=== PATIENT | male | born 1940 | race Caucasian/White ===

== ENCOUNTER 2017-11-21 15:03 | Observation (INO) ==
[2017-11-21 15:51] LABS: Bilirubin,Urine Negative (Negative); Blood,Urine Negative (Negative); Clarity,Urine Clear (Clear); Color,Urine Yellow (Yellow); Glucose,Urine (UA) Normal (Normal); Ketones,Urine Negative (Negative); Leukocyte Esterase,Urine Negative (Negative); Nitrite,Urine Negative (Negative); PH,Urine 5.5 pH Units (5.0-8.0); Protein,Urine Negative (Neg-Trace); Specific Gravity,Urine 1.017 (1.010-1.025); Urobilinogen,Urine Normal (Normal)
[2017-11-21 16:57] LABS: Basophils # 0.1 K/mcL (0.0-0.2); Basophils % 0.9 %; Eosinophils # 0.2 K/mcL (0.0-0.6); Eosinophils % 1.5 %; Hematocrit 37.3 % (37.5-50.1); Hemoglobin 12.7 g/dL (12.9-16.9); Immature Granulocytes % 0.9 % (0-4); Lymphocytes # 1.6 K/mcL (0.6-4.6); Lymphocytes % 15.6 %; Mean Corpuscular Hemoglobin 30.6 pg (28.0-33.3); Mean Corpuscular Volume 89.9 fL (83.0-100.0); Mean Platelet Volume 9.3 fL (9.4-12.4); Monocytes # 0.6 K/mcL (0.0-1.3); Monocytes % 6.3 %; Neutrophils # 7.5 K/mcL (1.6-8.9); Platelet Count 196 K/mcL (140-400); Red Blood Count 4.15 M/mcL (4.19-5.50); Red Cell Distribution Width 13.2 % (11.5-14.5); Segmented Neutrophils % 74.8 %
[2017-11-21 17:07] LABS: Calcium 9.4 mg/dL (8.6-10.3); Carbon Dioxide 23 mEq/L (23-29); Chloride 108 mEq/L (98-107); Sodium 138 mEq/L (136-145)
[2017-11-21 17:12] LABS: BUN/Creatinine Ratio 15 (6-26); Blood Urea Nitrogen 16 mg/dL (8-23); Glucose 81 mg/dL (70-105); Osmolality,Calculated 286 (280-300); eGFR For African Americans > 60 (> 60); eGFR For Non-African Americans > 60 (> 60)
--- NOTE | 2017-11-21 21:05 | Emergency Department Note ---
Disposition Clinical Impression: Neurological deficit present, Dizziness Disposition: Admitted As Inpatient Condition: Fair Referrals: Mj Hooks MD [Primary Care Provider] - General Adult HPI - General Chief complaint: ED Weakness Stated complaint: Weakness BLE Source: patient, family Limitations: no limitations Nursing Notes Reviewed: Yes Vital Signs Reviewed: Yes - History of Present Illness HPI Narrative: Patient presents to the emergency department for lower extremity weakness. Patient states symptoms have been going on for little over a week as he has had difficulty with getting around. 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 The patient states that with his weakness he has been having frequent falls. The patient states that he has a hard time getting up to get around as he requires significant balancing on the crain or furniture. Patient states over the last 3 days he has had dizziness. He is blind so he states that he is unable to further describe it but he describes it as feeling off balance. He does describe some near syncopal episodes with it as it is worse with him getting up to get around and when he gets up and his legs become significantly weak. The patient requires home oxygen secondary to previous episode of pneumonia that he states he never fully recovered from. He does use at home inhalers. Patient has not had chest pain or shortness of breath. Patient does not complain of any significant pain. The weakness has not been ascending or descending in nature. No recent respiratory illnesses or other. On exam the patient has a right-sided nystagmus and the right leg is weak as it falls back to the bed within about 5 seconds. The left leg he is able to keep elevated off the bed. At this time the patient had initial screening blood work performed in triage. Blood work is unremarkable. Due to the patient's neuro findings as well as significant falls at home we will perform head CT. The patient will likely need admission for further neurologic evaluation as well as physical therapy. Pain Scale: 0 - Related Data Home Medications Medication Instructions Recorded Confirmed Albuterol Sulfate [Albuterol 1 - 2 puff AER Q6HR 01/18/17 03/21/17 Inhaler] Aspirin [Lo-Dose Aspirin EC] 81 mg PO DAILY 01/18/17 03/21/17 Atorvastatin Calcium [Lipitor] 80 mg PO DAILY 01/18/17 03/21/17 Doxepin [Sinequan] 25 mg PO HS 01/18/17 03/21/17 Fenofibrate [Lofibra] 160 mg PO DAILY 01/18/17 03/21/17 Finasteride [Proscar] 5 mg PO DAILY 01/18/17 03/21/17 Furosemide [Lasix] 20 mg PO DAILY 01/18/17 03/21/17 Mirtazapine [Remeron] 60 mg PO HS 01/18/17 03/21/17 OXcarbazepine [Trileptal] 150 mg PO BID 01/18/17 03/21/17 Pantoprazole Sodium [Protonix] 40 mg PO DAILY 01/18/17 03/21/17 Potassium Chloride [K-Tab ER] 20 meq PO DAILY 01/18/17 03/21/17 Quetiapine Fumarate [Seroquel] 200 mg PO DAILY 01/18/17 03/21/17 Tamsulosin [Flomax] 0.4 mg PO DAILY 01/18/17 03/21/17 amLODIPine [Norvasc] 10 mg PO DAILY 01/18/17 03/21/17 Previous Rx's Medication Instructions Recorded Doxycycline 100 mg PO BID #20 capsule 09/06/17 Allergies Allergy/AdvReac Type Severity Reaction Status Date / Time Penicillins AdvReac Blister Verified 11/21/17 15:24 Review of Systems: CONSTITUTIONAL: No weight loss, fever, chills, weakness or fatigue. HEENT: Eyes: No visual changes. Ears, Nose, Throat: No hearing loss, difficulty talking or unable to swallow. SKIN: No rash or itching. CARDIOVASCULAR: No chest pain, chest pressure or chest discomfort. No palpitations or edema. RESPIRATORY: No shortness of breath, cough or sputum. GASTROINTESTINAL: No anorexia, nausea, vomiting or diarrhea. No abdominal pain or blood. GENITOURINARY: No burning on urination or hematuria. NEUROLOGICAL: Left leg weakness, dizziness, near syncope, frequent falls MUSCULOSKELETAL: No muscle pain, back pain, joint pain or stiffness. Past Medical History - Past Medical History Medical history: Reports: cancer, diabetes, hyperlipidemia, hypertension - Social History Smoking Status: Never smoker Smokeless Tobacco Status: No Alcohol use: Reports: none Drug use: Reports: none Physical Exam General: Well appearing, nontoxic, no acute distress Head: Normocephalic Atraumatic Eyes: PERRL, EOMI ENT: Airway patent, no stridor Neck: supple, no meningismus Chest: Lungs clear to auscultation bilateral Cardiac: Regular rate and rhythm, no murmurs, rubs or gallops Abdomen: soft, nontender, nondistended; no guarding, rebound, or tenderness to percussion Musculoskeletal: Calves symmetric, nontender, no palpable cord Skin: No rash, normal skin tone Neuro: Alert and Oriented to person, place, and time; right leg weakness compared to the left. Left-sided nystagmus. Patient blind in both eyes. Concern for right-sided facial droop. No other noted deficits. - General Limitations: no limitations General appearance: alert Course - Reevaluation(s) Reevaluation #1: CT negative. Patient will need further evaluation for stroke and dizziness. - Consultations Consultation #1: Discussed with hospitalist. Dr. Lane. Patient accepted for admission. Vital Signs Temperature 97.6 F 11/21/17 15:19 Pulse Rate 80 11/21/17 15:19 Respiratory Rate 18 11/21/17 15:19 Blood Pressure 138/70 11/21/17 15:19 O2 Sat by Pulse Oximetry 96 11/21/17 15:19 Temperature 97.6 F 11/21/17 15:19 Pulse Rate 71 11/21/17 19:21 Respiratory Rate 20 11/21/17 19:21 Blood Pressure 153/65 11/21/17 19:21 O2 Sat by Pulse Oximetry 98 11/21/17 19:21 Oxygen Delivery Oxygen Delivery Nasal Cannula Medical Decision Making - Lab Data Result diagrams: 11/21/17 16:28 11/21/17 16:28 Lab Results 11/21/17 11/21/17 11/21/17 Range/Units 15:40 16:28 16:28 WBC 10.0 (4.3-11.1) K/mcL RBC 4.15 L (4.19-5.50) M/mcL Hgb 12.7 L (12.9-16.9) g/dL Hct 37.3 L (37.5-50.1) % MCV 89.9 (83.0-100.0) fL MCH 30.6 (28.0-33.3) pg MCHC 34.0 (31.6-35.5) g/dL RDW 13.2 (11.5-14.5) % Plt Count 196 (140-400) K/mcL MPV 9.3 L (9.4-12.4) fL Immature Gran % 0.9 (0-4) % Seg Neutrophils % 74.8 % Lymphocytes % 15.6 % Monocytes % 6.3 % Eosinophils % 1.5 % Basophils % 0.9 % Neutrophils # 7.5 (1.6-8.9) K/mcL Lymphocytes # 1.6 (0.6-4.6) K/mcL Monocytes # 0.6 (0.0-1.3) K/mcL Eosinophils # 0.2 (0.0-0.6) K/mcL Basophils # 0.1 (0.0-0.2) K/mcL Sodium 138 (136-145) mEq/L Potassium 4.0 (3.5-5.1) mEq/L Chloride 108 H (98-107) mEq/L Carbon Dioxide 23 (23-29) mEq/L BUN 16 (8-23) mg/dL Creatinine 1.05 (0.70-1.30) mg/dL Est GFR ( Amer) > 60 (> 60) Est GFR (Non-Af Amer) > 60 (> 60) BUN/Creatinine Ratio 15 (6-26) Glucose 81 (70-105) mg/dL Calculated Osmolality 286 (280-300) Calcium 9.4 (8.6-10.3) mg/dL Troponin I (< 0.04) ng/mL Urine Color Yellow (Yellow) Urine Clarity Clear (Clear) Urine pH 5.5 (5.0-8.0) pH Units Ur Specific [place] 1.017 (1.010-1.025) Urine Protein Negative (Neg-Trace) mg/dL Urine Glucose (UA) Normal (Normal) mg/dL Urine Ketones Negative (Negative) mg/dL Urine Blood Negative (Negative) Urine Nitrite Negative (Negative) Urine Bilirubin Negative (Negative) Urine Urobilinogen Normal (Normal) mg/dL Ur Leukocyte Esterase Negative (Negative) Ur Culture Indicated? NO (NO) 11/21/17 Range/Units 16:28 WBC (4.3-11.1) K/mcL RBC (4.19-5.50) M/mcL Hgb (12.9-16.9) g/dL Hct (37.5-50.1) % MCV (83.0-100.0) fL MCH (28.0-33.3) pg MCHC (31.6-35.5) g/dL RDW (11.5-14.5) % Plt Count (140-400) K/mcL MPV (9.4-12.4) fL Immature Gran % (0-4) % Seg Neutrophils % % Lymphocytes % % Monocytes % % Eosinophils % % Basophils % % Neutrophils # (1.6-8.9) K/mcL Lymphocytes # (0.6-4.6) K/mcL Monocytes # (0.0-1.3) K/mcL Eosinophils # (0.0-0.6) K/mcL Basophils # (0.0-0.2) K/mcL Sodium (136-145) mEq/L Potassium (3.5-5.1) mEq/L Chloride (98-107) mEq/L Carbon Dioxide (23-29) mEq/L BUN (8-23) mg/dL Creatinine (0.70-1.30) mg/dL Est GFR ( Amer) (> 60) Est GFR (Non-Af Amer) (> 60) BUN/Creatinine Ratio (6-26) Glucose (70-105) mg/dL Calculated Osmolality (280-300) Calcium (8.6-10.3) mg/dL Troponin I < 0.03 (< 0.04) ng/mL Urine Color (Yellow) Urine Clarity (Clear) Urine pH (5.0-8.0) pH Units Ur Specific [place] (1.010-1.025) Urine Protein (Neg-Trace) mg/dL Urine Glucose (UA) (Normal) mg/dL Urine Ketones (Negative) mg/dL Urine Blood (Negative) Urine Nitrite (Negative) Urine Bilirubin (Negative) Urine Urobilinogen (Normal) mg/dL Ur Leukocyte Esterase (Negative) Ur Culture Indicated? (NO)
--- NOTE | 2017-11-21 21:20 | Emergency Department Note ---
START Narrative - START START: I examined this patient and my medical decision-making was reviewed with the Resident Physician. I agree with the documented findings, disposition and treatment plan as described except to the extent set forth below. 77-year-old male presented to the emergency room for lower extremity weakness. Onset over the past week or so. He is blind from previous strokes. States is been feeling off balance at times and somewhat dizzy. He has no focal motor or sensory deficits on exam. CT of the brain was nonacute. Patient will be admitted for weakness and workup of that. At this time he looks well. No significant lab abnormalities. We did speak with the hospitalist in regards to admission.
[2017-11-22] MEDS ORDERED: Naloxone 0.4 MG/ML INJ IVP PRN (00:45)
[2017-11-22] MEDS ORDERED: *HR* LORazepam 0.5 MG TABLET PO PRN (00:52)
[2017-11-22] MEDS: Mirtazapine 15 MG TABLET PO SCH ×2 (01:30→21:21)
[2017-11-22] MEDS ORDERED: D5% in Water 1,000 ML IVC PRN (01:52)
[2017-11-22] MEDS ORDERED: Dextrose Gel 15 GM/37.5 ML TUBE PO PRN ×2 (01:52)
[2017-11-22] MEDS ORDERED: *HR* Dextrose 50 % in Water (Syg) 50 ML SYRINGE IVP PRN (01:52)
--- NOTE | 2017-11-22 03:24 | Internal Med History&Physical ---
Date of Encounter: 11/22/17 Time of Encounter: 00:10 Assessment and Plan (1) Weakness Current visit: Yes Status: Acute Pt has weakness of b/l legs with difficult walking, gait change, need to r/o CVA. - Place pt on MRI head in AM - Cont cardiac monitoring - Echo and duplex carotid - Orthostatic vitals. - PT/OT evaluation. - Check TSH, Vit B12, and folate (2) CAD (coronary artery disease) Current visit: Yes Status: Acute No chest pain. Cont home meds. Qualifiers: Coronary Disease-Associated Artery/Lesion type: bypass graft [place] vs. transplanted heart: [place] heart Associated angina: without angina Qualified Code(s): I25.810 - Atherosclerosis of coronary artery bypass graft(s) without angina pectoris (3) Diabetes Current visit: Yes Status: Acute Will cover pt with SSI Qualifiers: Diabetes mellitus type: type 2 Diabetes mellitus complication status: without complication Diabetes mellitus care home insulin use: without intermediate card tender use Qualified Code(s): E11.9 - Type 2 diabetes mellitus without complications (4) DVT prophylaxis Current visit: Yes Status: Acute Heparin SC Internal Medicine - H&P: HPI Chief complaint: Weakness Admitted From: Home Plans for Post Hospital Care: Home History of present illness: Mr. Treadwell is a 77 year old male with PMH of DM, chronic lung disease on home oxygen, CAD s/p CABG, legally blind b/l, present to ER for leg weakness for two days. Pt said it is b/l weakness which causing he cannot stand up or walk. Pt easily loss balance and almost fall. Pt has mild lightheaded and dizziness. He also c/o mild nausea. Pt denies slurred speech. He denies fever, cough, chest pain, SOB, or runny nose. In ER, CT head done, result unremarkable. Pt was admitted to r/o CVA/TIA Past Med Surg Social Fam HX - Past Medical History Medical history: diabetes, hyperlipidemia, hypertension Psychiatric history: anxiety, depression - Past Surgical History Surgical History: cataract, colectomy - Social History Smoking Status: Never smoker Smokeless Tobacco Status: No Alcohol use: none Drug use: none - Family History Father Living Status: Cause of : Leukemia Hx Family Cancer: Yes (Leukemia) Sister Living Status: Hx Family Cancer: Yes (Skin Ca. with mets) Mother Living Status: Hx Family Cardiac Disorders: Yes (CAD) Internal Medicine - H&P: Meds Albuterol Sulfate [Albuterol Inhaler] 1 - 2 puff IH Q6HR PRN 01/18/17 [History] Aspirin [Lo-Dose Aspirin EC] 81 mg PO DAILY 01/18/17 [History] Atorvastatin Calcium [Lipitor] 80 mg PO HS 01/18/17 [History] Doxepin [Sinequan] 25 mg PO HS 01/18/17 [History] Fenofibrate [Lofibra] 160 mg PO DAILY 01/18/17 [History] Finasteride [Proscar] 5 mg PO DAILY 01/18/17 [History] Furosemide [Lasix] 20 mg PO DAILY 01/18/17 [History] OXcarbazepine [Trileptal] 150 mg PO BID 01/18/17 [History] Pantoprazole Sodium [Protonix] 40 mg PO DAILY 01/18/17 [History] Potassium Chloride [K-Tab ER] 20 meq PO BID 01/18/17 [History] Quetiapine Fumarate [Seroquel] 200 mg PO HS 01/18/17 [History] Tamsulosin [Flomax] 0.4 mg PO DAILY 01/18/17 [History] Amlodipine Besylate 10 mg PO DAILY 11/21/17 [History] Brimonidine Tartrate [Alphagan P] 1 drop OP BID 11/21/17 [History] Cholecalciferol (D-3) [Vitamin D] 1,000 unit PO DAILY 11/21/17 [History] Glimepiride [Amaryl] 1 mg PO QAM 11/21/17 [History] LORazepam [Ativan] 0.5 mg PO BID PRN 11/21/17 [History] Linagliptin [Tradjenta] 5 mg PO DAILY 11/21/17 [History] Melatonin 6 mg PO HS 11/21/17 [History] Mirtazapine [Remeron] 45 mg PO HS 11/21/17 [History] Multivitamin [One Daily Essential] 1 each PO DAILY 11/21/17 [History] Oxygen 3 l NS AD 11/21/17 [History] 3 Allergy/AdvReac Type Severity Reaction Status Date / Time oxybutynin [From Ditropan] AdvReac See Verified 11/21/17 22:23 Comments Penicillins AdvReac Blister Verified 11/21/17 15:24 All Systems PM: A 10-system review of systems was performed and is negative for pertinent findings except as documented above in the HPI. - Constitutional Vitals: Temp Pulse Resp BP Pulse Ox 98.1 F 74 16 165/72 96 11/21/17 22:44 11/21/17 22:44 11/21/17 22:44 11/21/17 22:44 11/22/17 00:15 General appearance: Present: A&O X 3, no acute distress, answers questions appropriately - Head Head exam: Present: atraumatic, normocephalic - Eye Eye exam: Present: conjuntiva pink, sclera anicteric Additional comments: Legally blind b/l - Neck Neck exam general surgery: Present: supple, trachea midline. Absent: lymphadenopathy - Respiratory Respiratory exam: Present: CTAB. Absent: accessory muscle use, rales, rhonchi, wheezes - Cardiovascular Cardiovascular exam: Present: RRR, +S1, +S2. Absent: diastolic murmur, gallop, rubs, systolic murmur - GI/Abdominal GI/Abdominal exam: Present: normal bowel sounds, soft, no peritoneal signs. Absent: distended, tenderness Additional comments: Colestomy bag in place - Extremities Exam Extremities exam: Present: warm, radial pulses palpable and symmetrical. Absent : calf tenderness, cyanotic, pedal edema - Neurological Exam Neurological exam: Present: CN II-XII intact, oriented X3, no focal deficits. Absent: pronater drift, facial droop, speech deficit Additional comments: Motor 5/5 B/L UE, 4/5 B/L LE - Skin Skin exam: Present: dry, intact Internal Med - H&P Results - Labs CBC & Chem 7: 11/21/17 16:28 11/21/17 16:28 - EKG Data -: EKG Interpreted by Myself (RENATO) EKG shows normal: sinus rhythm Rate: normal
[2017-11-22] MEDS: *HR* Heparin 5,000 UNIT/ML VIAL SQ SCH ×2 (05:23→17:32)
[2017-11-22 05:25] LABS: Basophils # 0.1 K/mcL (0.0-0.2); Basophils % 0.9 %; Eosinophils # 0.2 K/mcL (0.0-0.6); Eosinophils % 2.5 %; Hematocrit 35.6 % (37.5-50.1); Hemoglobin 12.1 g/dL (12.9-16.9); Immature Granulocytes % 0.9 % (0-4); Lymphocytes # 1.4 K/mcL (0.6-4.6); Lymphocytes % 17.3 %; Mean Corpuscular Hemoglobin 30.3 pg (28.0-33.3); Mean Corpuscular Volume 89.2 fL (83.0-100.0); Mean Platelet Volume 9.1 fL (9.4-12.4); Monocytes # 0.5 K/mcL (0.0-1.3); Monocytes % 6.1 %; Neutrophils # 5.8 K/mcL (1.6-8.9); Platelet Count 192 K/mcL (140-400); Red Blood Count 3.99 M/mcL (4.19-5.50); Red Cell Distribution Width 13.1 % (11.5-14.5); Segmented Neutrophils % 72.3 %
[2017-11-22 06:00] LABS: BUN/Creatinine Ratio 15 (6-26); Blood Urea Nitrogen 16 mg/dL (8-23); Calcium 9.2 mg/dL (8.6-10.3); Carbon Dioxide 24 mEq/L (23-29); Chloride 107 mEq/L (98-107); Glucose 93 mg/dL (70-105); Magnesium 1.6 mg/dL (1.6-2.6); Osmolality,Calculated 291 (280-300); Potassium 4.1 mEq/L (3.5-5.1); Sodium 140 mEq/L (136-145); eGFR For African Americans > 60 (> 60); eGFR For Non-African Americans > 60 (> 60)
[2017-11-22 06:12] LABS: Vitamin B12 441 pg/mL (250-1100)
[2017-11-22 06:35] LABS: Folate > 22.3 ng/mL (3.0-16.0)
[2017-11-22] MEDS: Insulin LISPRO 300 UNITS/3 ML VIAL SQ SCH ×4 (07:48→21:33)
[2017-11-22] MEDS: Finasteride 5 MG TABLET PO SCH (07:56)
[2017-11-22] MEDS: Multivit/Ca/Min/Fe/FA 1 TAB TABLET PO SCH (07:56)
[2017-11-22] MEDS: amLODIPine 5 MG TABLET PO SCH (07:56)
[2017-11-22] MEDS: Furosemide 20 MG TABLET PO SCH (07:57)
[2017-11-22] MEDS: OXcarbazepine 150 MG TABLET PO SCH ×2 (07:57→21:21)
[2017-11-22] MEDS: Cholecalciferol (D-3) 1,000 UNIT TABLET PO SCH (07:57)
[2017-11-22] MEDS: Aspirin Enteric Coated 81 MG Tablet PO SCH (07:57)
[2017-11-22] MEDS: Fenofibrate 54 MG TABLET PO SCH (07:58)
--- NOTE | 2017-11-22 17:43 | Internal Med Progress Note ---
Date of Encounter: 11/22/17 Time of Encounter: 09:35 - Assessment and plan (1) CAD (coronary artery disease) Current Visit: Yes Status: Chronic Assessment and plan: Patient denies chest pain. Continue telemetry. Continue aspirin, Lipitor, amlodipine. Qualifiers: Coronary Disease-Associated Artery/Lesion type: bypass graft [place] vs. transplanted heart: [place] heart Associated angina: without angina Qualified Code(s): I25.810 - Atherosclerosis of coronary artery bypass graft(s) without angina pectoris (2) DVT prophylaxis Current Visit: Yes Status: Acute Assessment and plan: Heparin subcutaneous twice a day. (3) Diabetes Current Visit: Yes Status: Acute Assessment and plan: Chronic. Continue sliding scale insulin, Accu-Cheks before meals at bedtime, diabetic diet. Qualifiers: Diabetes mellitus type: type 2 Diabetes mellitus complication status: without complication Diabetes mellitus exterminator helper insulin use: without exterminator helper use Qualified Code(s): E11.9 - Type 2 diabetes mellitus without complications (4) Weakness Current Visit: Yes Status: Acute Assessment and plan: Patient presented to the emergency department for sudden onset bilateral leg weakness, onset 11/20 upon awakening. Patient reports that he went to bed at 11 or 11:30 the night before and was fine you denies any other symptoms like this in the past. Patient reported at the time he was unable to stand up and walk, and was "wobbly". Patient initially reported to the admitting physician and he had lightheadedness and dizziness, he denied this to me today. He denies a change in his speech, fever, cough, chills, rigors. He denies any chest pain or shortness of breath. Denies any sick contacts recently. Patient was strong and equal grasps and strength to bilateral upper and lower extremities. Echocardiogram was grossly normal LV systolic function, mild LV DD, no significant valvular dysfunction. Patient was unable to remain still for carotid Doppler, but could not exclude occlusion of right ICA due to visualization. Left ICA appeared to be occluded but it was difficult to visualize due to patient's noncooperation. Still pending. We will order head and neck CTA. Head CT without any acute intracranial abnormality. Chest x-ray was negative for any acute findings. Brain MRI revealed mild chronic small vessel ischemic changes, remote right frontal infarct and no acute. PT and OT missed visits recorded today. PTOT consults still pending. Suspect patient has overall physical deconditioning. Labs are stable and within normal limits. Vital signs are stable. There does not appear to be any neurological reason for his sudden onset weakness. Head and neck CTA pending PT OT pending Follow-up precautions and monitor for safety Labs pending - Time Spent With Patient less than 15 minutes - Subjective Interval history: Patient was seen and assessed at bedside at 9:35 AM. Patient is blind, sinus at bedside. All questions were answered. Patient reports sudden onset weakness and inability to stand on Saturday morning, 2 days ago. He has never had anything like this in the past. He reports that he went to bed around 11 or 11:30 PM on Saturday night and was fine. Patient reports that he does have home health, as well as nursing assistants who comes to help. Patient's strength appears to be within normal limits in both bilateral upper and lower extremities. He denies any headache, blurred vision, dizziness, nausea or vomiting, abdominal pain. Both patient and son are aware that this testing will not be done today and he will need to stay overnight for continued evaluation. - Constitutional Vitals: Temp Pulse Resp BP Pulse Ox 98.2 F 65 16 133/66 98 11/22/17 15:16 11/22/17 15:16 11/22/17 15:16 11/22/17 15:16 11/22/17 15:16 General appearance: Present: cooperative, A&O X 3, no acute distress, answers questions appropriately - Head Head exam: Present: atraumatic, normal inspection, normocephalic - Eye Eye exam: Present: normal appearance, conjuntiva pink, sclera anicteric - Neck Neck exam general surgery: Present: supple, trachea midline. Absent: lymphadenopathy, tenderness - Respiratory Respiratory exam: Present: CTAB. Absent: accessory muscle use, chest wall tenderness, rales, respiratory distress, rhonchi, wheezes - Cardiovascular Cardiovascular exam: Present: RRR, +S1, +S2. Absent: diastolic murmur, gallop, rubs, systolic murmur - GI/Abdominal GI/Abdominal exam: Present: normal bowel sounds, soft, no peritoneal signs. Absent: distended, hepatomegaly, tenderness - Extremities Exam Extremities exam: Present: normal capillary refill, warm, radial pulses palpable and symmetrical. Absent: calf tenderness, cyanotic, pedal edema, tenderness - Neurological Exam Neurological exam: Present: alert, oriented X3, no focal deficits. Absent: facial droop, speech deficit - Skin Skin exam: Present: dry, intact, normal color, warm. Absent: rash Internal Medicine: Result - Labs CBC & Chem 7: 11/22/17 05:01 11/22/17 05:01 Labs: Short CBC 11/22/17 Range/Units 05:01 WBC 8.0 (4.3-11.1) K/mcL Hgb 12.1 L (12.9-16.9) g/dL Hct 35.6 L (37.5-50.1) % Plt Count 192 (140-400) K/mcL Neutrophils # 5.8 (1.6-8.9) K/mcL BMP 11/22/17 05:01 Sodium 140 Potassium 4.1 Chloride 107 Carbon Dioxide 24 BUN 16 Creatinine 1.05 Glucose 93 Calcium 9.2 - Impressions Impressions Brain MRI 11/22/17 00:55 IMPRESSION: 1. No acute intracranial process identified. 2. Mild chronic small vessel ischemic changes. 3. Remote right frontal infarct. D/ / 11/22/2017 11:21:37 Leonel Joseph MD / [facility] Interpreting Provider: Leonel Joseph MD Echocardiogram 11/22/17 00:55 Impressions: Technically challenging due to clinical status. Grossly normal LV systolic function. Mild left ventricular diastolic dysfunction. RV size is not optimally visualized. Function appears normal but is not visualized in all views provided. No significant valvular dysfunction. No pulmonary hypertension. Left Ventricular Wall Motion: Rest Echo Findings The apex, apical inferior, mid inferior, basal inferior, apical anterior, mid anterior, basal anterior, mid inferior lateral and basal anterior septal crain were not visualized. All other wall segments showed normal motion. Findings: Study Quality * Technically challenging due to clinical status. * Saline study not done - patient agitated during exam. ECG Findings * Normal sinus rhythm. Left Ventricle * Grossly normal LV systolic function. * Mild left ventricular diastolic dysfunction. * Normal LV size and wall thickness. Right Ventricle * RV size is not optimally visualized. Function appears normal but is not visualized in all views provided. Left Atrium * Mildly dilated left atrium. Right Atrium * Normal right atrial size. Aortic Valve * No aortic regurgitation. * No aortic stenosis. * Aortic valve not well visualized. Mitral Valve * No mitral regurgitation. * Normal mitral valve structure. * No mitral stenosis. Tricuspid Valve * Tricuspid valve not well visualized. * No tricuspid regurgitation. Pulmonic Valve * Pulmonic valve is not well visualized. * No pulmonic stenosis. * No pulmonic regurgitation. Pulmonary Artery * Pulmonary artery not well visualized. Aorta * Suboptimally visualized. Interatrial Septum * No evidence of PFO by color Doppler. Pericardium * There is no pericardial effusion present. IVC * The IVC is not well evaluated. Consult Discharge Plan - Plan Referrals: [facility] – [place],Mj Alas MD [Primary Care Provider] - 12/03/17 11:00 am
[2017-11-22] MEDS: Melatonin 3 MG TABLET PO SCH (21:21)
[2017-11-23] MEDS: *HR* Heparin 5,000 UNIT/ML VIAL SQ SCH ×2 (05:20→16:27)
[2017-11-23] MEDS: Insulin LISPRO 300 UNITS/3 ML VIAL SQ SCH ×4 (07:45→21:26)
[2017-11-23] MEDS: amLODIPine 5 MG TABLET PO SCH (08:13)
[2017-11-23] MEDS: Multivit/Ca/Min/Fe/FA 1 TAB TABLET PO SCH (08:13)
[2017-11-23] MEDS: Cholecalciferol (D-3) 1,000 UNIT TABLET PO SCH (08:13)
[2017-11-23] MEDS: Aspirin Enteric Coated 81 MG Tablet PO SCH (08:13)
[2017-11-23] MEDS: OXcarbazepine 150 MG TABLET PO SCH ×2 (08:13→21:20)
[2017-11-23] MEDS: Finasteride 5 MG TABLET PO SCH (08:13)
[2017-11-23] MEDS: Furosemide 20 MG TABLET PO SCH (08:14)
[2017-11-23] MEDS: Fenofibrate 54 MG TABLET PO SCH (08:18)
--- NOTE | 2017-11-23 14:47 | Internal Med Progress Note ---
Date of Encounter: 11/23/17 Time of Encounter: 09:05 - Assessment and plan (1) CAD (coronary artery disease) Current Visit: Yes Status: Chronic Assessment and plan: Patient denies chest pain. Continue telemetry. Continue aspirin, Lipitor, amlodipine. Started Plavix 75mg po daily today. Qualifiers: Coronary Disease-Associated Artery/Lesion type: bypass graft [place] vs. transplanted heart: [place] heart Associated angina: without angina Qualified Code(s): I25.810 - Atherosclerosis of coronary artery bypass graft(s) without angina pectoris (2) Diabetes Current Visit: Yes Status: Acute Assessment and plan: Chronic. Continue sliding scale insulin, Accu-Cheks before meals at bedtime, diabetic diet. 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 Patient reports that he went to bed at 11 or 11:30 the night before and was fine you denies any other symptoms like this in the past. Patient reported at the time he was unable to stand up and walk, and was "wobbly". Patient initially reported to the admitting physician and he had lightheadedness and dizziness, he denied this to me today. He denies a change in his speech, fever, cough, chills, rigors. He denies any chest pain or shortness of breath. Denies any sick contacts recently. Patient has strong and equal grasps and strength to bilateral upper and lower extremities. TTE: grossly normal LV systolic function, mild LV DD, no significant valvular dysfunction. Patient was unable to remain still for carotid Doppler, but could not exclude occlusion of right ICA due to visualization. Left ICA appeared to be occluded but it was difficult to visualize due to patient's noncooperation. Head CT without any acute intracranial abnormality. Chest x-ray was negative for any acute findings. Brain MRI revealed mild chronic small vessel ischemic changes, remote right frontal infarct and no acute. 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 There is 40% focal stenosis at the origin of the right common carotid artery. Suspect patient has overall physical deconditioning. Labs are stable and within normal limits. Vital signs are stable. There does not appear to be any neurological reason for his sudden onset weakness. No PT/OT needs Fall precautions and monitor for safety Start Plavix 75mg po daily D/w Vascular, no suggestions and pt is not candidate for intervention. (4) DVT prophylaxis Current Visit: Yes Status: Acute Assessment and plan: Heparin subcutaneous twice a day. Encourage ambulation - Time Spent With Patient less than 15 minutes - Subjective Interval history: Patient was seen and assessed at bedside at 9:05 AM. All questions were answered. He denies any headache, blurred vision, dizziness, nausea or vomiting, abdominal pain. He reports that he feels like he is back to his baseline and wants to get up to walk today. - Constitutional Vitals: Temp Pulse Resp BP Pulse Ox 97.7 F 64 16 127/65 99 11/23/17 11:38 11/23/17 11:38 11/23/17 11:38 11/23/17 11:38 11/23/17 11:38 General appearance: Present: cooperative, A&O X 3, no acute distress, answers questions appropriately - Head Head exam: Present: atraumatic, normal inspection, normocephalic - Eye Eye exam: Present: normal appearance, conjuntiva pink, sclera anicteric - Neck Neck exam general surgery: Present: normal inspection, supple, trachea midline. Absent: lymphadenopathy, tenderness - Respiratory Respiratory exam: Present: CTAB. Absent: accessory muscle use, chest wall tenderness, rales, rhonchi, wheezes - Cardiovascular Cardiovascular exam: Present: RRR, +S1, +S2. Absent: diastolic murmur, gallop, rubs, systolic murmur - GI/Abdominal GI/Abdominal exam: Present: normal bowel sounds, soft. Absent: distended, hepatomegaly, tenderness - Extremities Exam Extremities exam: Present: normal capillary refill, warm, radial pulses palpable and symmetrical. Absent: calf tenderness, cyanotic, pedal edema, tenderness - Neurological Exam Neurological exam: Present: alert, oriented X3, no focal deficits, strengths equal and symetr throughout. Absent: facial droop, speech deficit - Skin Skin exam: Present: dry, intact, normal color, warm. 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 The intracranial anterior circulation is likely supplied by the vertebrobasilar arteries. 40% focal stenosis at the origin of the right common carotid artery. The results were called by Dr. Kendall Chiu MD to [employer] . Zoie Dudley on 11/23/2017 at 13:25. D/ / Kendall Chiu MD / Kendall Chiu MD Interpreting Provider: Kendall Chiu MD Consult Discharge Plan - Plan Referrals: Mj Hooks MD [Primary Care Provider] - 12/03/17 11:00 am
[2017-11-23] MEDS: Acetaminophen 325 MG TABLET PO PRN (20:34)
[2017-11-23] MEDS: Mirtazapine 15 MG TABLET PO SCH (21:19)
[2017-11-23] MEDS: Melatonin 3 MG TABLET PO SCH (21:20)
[2017-11-24] MEDS: *HR* Heparin 5,000 UNIT/ML VIAL SQ SCH ×2 (05:01→17:15)
[2017-11-24] MEDS: Insulin LISPRO 300 UNITS/3 ML VIAL SQ SCH ×4 (07:23→21:06)
[2017-11-24] MEDS: OXcarbazepine 150 MG TABLET PO SCH ×2 (08:06→21:05)
[2017-11-24] MEDS: Cholecalciferol (D-3) 1,000 UNIT TABLET PO SCH (08:06)
[2017-11-24] MEDS: Fenofibrate 54 MG TABLET PO SCH (08:06)
[2017-11-24] MEDS: Multivit/Ca/Min/Fe/FA 1 TAB TABLET PO SCH (08:06)
[2017-11-24] MEDS: amLODIPine 5 MG TABLET PO SCH (08:07)
[2017-11-24] MEDS: Aspirin Enteric Coated 81 MG Tablet PO SCH (08:07)
[2017-11-24] MEDS: Furosemide 20 MG TABLET PO SCH (08:07)
[2017-11-24] MEDS: Finasteride 5 MG TABLET PO SCH (08:09)
--- NOTE | 2017-11-24 10:14 | Internal Med Progress Note ---
Date of Encounter: 11/24/17 Time of Encounter: 08:20 - Assessment and plan (1) Weakness Current Visit: Yes Status: Acute Assessment and plan: Pt reports that he is back to baseline and is feeling well. He reports that he has ambulated in the hallway with assistance and that he did well yesterday. Noted slight RLE weakness today. TTE: grossly normal LV systolic function, mild LV DD, no significant valvular dysfunction. Patient was unable to remain still for carotid Doppler, but could not exclude occlusion of right ICA due to visualization. Left ICA appeared to be occluded but it was difficult to visualize due to patient's noncooperation. Head CT without any acute intracranial abnormality. Chest x-ray was negative for any acute findings. Brain MRI revealed mild chronic small vessel ischemic changes, remote right frontal infarct and no acute. 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 There is 40% focal stenosis at the origin of the right common carotid artery. Suspect patient has overall physical deconditioning. Labs are stable and within normal limits. Vital signs are stable. There does not appear to be any neurological reason for his sudden onset weakness. No PT/OT needs Fall precautions and monitor for safety Start Plavix 75mg po daily D/w Vascular, no suggestions and pt is not candidate for intervention. Neurology consulted, pending. (2) CAD (coronary artery disease) Current Visit: Yes Status: Chronic Assessment and plan: Continue telemetry. Continue aspirin, Lipitor, amlodipine. Started Plavix 75mg po daily today. Qualifiers: Coronary Disease-Associated Artery/Lesion type: bypass graft [place] vs. transplanted heart: [place] heart Associated angina: without angina Qualified Code(s): I25.810 - Atherosclerosis of coronary artery bypass graft(s) without angina pectoris (3) Diabetes Current Visit: Yes Status: Acute Assessment and plan: Chronic. Continue SSI, Accu-Cheks achs, diabetic diet. Qualifiers: Diabetes mellitus type: type 2 Diabetes mellitus complication status: without complication Diabetes mellitus usp insulin use: without usp use Qualified Code(s): E11.9 - Type 2 diabetes mellitus without complications (4) DVT prophylaxis Current Visit: Yes Status: Acute Assessment and plan: Heparin subcutaneous twice a day. Encourage ambulation with assistance. - Time Spent With Patient less than 15 minutes - Subjective Interval history: Patient was seen and assessed at bedside at 0820 AM. He denies any headache, blurred vision, dizziness, nausea or vomiting, abdominal pain. He reports that he feels like he is back to his baseline and wants to go home today. Pt is aware of pending neurology consult and of PT/OT consults still pending. He is disappointed, but agreeable to staying another night for PT/OT to be here tomorrow. - Constitutional Vitals: Temp Pulse Resp BP Pulse Ox 97.5 F L 76 16 177/75 100 11/24/17 08:46 11/24/17 08:46 11/24/17 08:46 11/24/17 08:46 11/24/17 08:46 General appearance: Present: cooperative, A&O X 3, pleasant, no acute distress, answers questions appropriately - Head Head exam: Present: atraumatic, normal inspection, normocephalic - Eye Eye exam: Present: conjuntiva pink, sclera anicteric. Absent: normal appearance - Neck Neck exam general surgery: Present: normal inspection, supple, trachea midline. Absent: lymphadenopathy, tenderness - Respiratory Respiratory exam: Present: CTAB. Absent: accessory muscle use, chest wall tenderness, rales, respiratory distress, rhonchi, wheezes - Cardiovascular Cardiovascular exam: Present: RRR, +S1, +S2. Absent: diastolic murmur, gallop, rubs, systolic murmur - GI/Abdominal GI/Abdominal exam: Present: normal bowel sounds, soft. Absent: distended, hepatomegaly, tenderness - Extremities Exam Extremities exam: Present: normal inspection, warm, radial pulses palpable and symmetrical. Absent: calf tenderness, cyanotic, pedal edema, tenderness - Neurological Exam Neurological exam: Present: alert, oriented X3, no focal deficits. Absent: strengths equal and symetr throughout, facial droop, speech deficit - Skin Skin exam: Present: dry, intact, normal color, warm. 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 The intracranial anterior circulation is likely supplied by the vertebrobasilar arteries. 40% focal stenosis at the origin of the right common carotid artery. The results were called by Dr. Kendall Chiu MD to [employer] Ms. Zoie Dudley on 11/23/2017 at 13:25. D/ / Kendall Chiu MD / Kendall Chiu MD Interpreting Provider: Kendall Chiu MD Consult Discharge Plan - Plan Referrals: Mj Hooks MD [Primary Care Provider] - 12/03/17 11:00 am
--- NOTE | 2017-11-24 11:18 | Electrocardiograph Report ---
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
--- NOTE | 2017-11-24 13:40 | Neurology - Consult Note ---
Date of Encounter: 11/24/17 Time of Encounter: 13:36 Assessment and Plan (1) Dizziness Current Visit: Yes Status: Acute At this juncture, unable to identify any specific etiology which might explain this presentation. His deficits were temporary, however really did not have any localizing factors. Might wonder whether not this could have been a TIA involving the posterior circulation versus a presyncopal mechanism, versus a labyrinthine mechanism. In regard and final focal or lateralized deficits on his neurologic examination a final evidence of diffuse weakness, spine no evidence of an underlying neuropathic process. MRI scan of the brain does not reveal evidence of acute infarct. Unfortunately, the bilateral internal carotid artery stenosis is not going to be surgically amendable. I would simply recommend Plavix 75 mg daily along with aggressive management of atherosclerotic risk factors. No further testing is necessary. I will reevaluate him at your request. History of Present Illness HPI: Mr. Treadwell is a 77 year old male who is seen for neurologic consultation secondary to imbalance. He has a history of chronic lung disease is legally blind and states that on the day of admission when he awakened and got out of bed he felt somewhat wobbly. He denied any headache denied any numbness tingling weakness of the face arms or legs. Denied any speech difficulties. Denied back pain denied leg pain. Denied any associated confusion. Denied any chest pain or heart palpitations. He states that he simply felt wobbly and it lasted for about 5 minutes or so. He does not seem to have had any focal or lateralized findings that he describes. He has had MRI scan of the brain reveals a scattered deep white matter hyperintensities. CTA of the neck reveals occlusion of both internal carotid arteries at their origins at the bilateral carotid bulbs. There is no mention of compromise of the posterior circulation. He now feels back to his normal baseline. Past Med Surg Social Fam HX - Past Medical History Medical history: diabetes, hyperlipidemia, hypertension Psychiatric history: anxiety, depression - Past Surgical History Surgical History: cataract, colectomy - Social History Smoking Status: Never smoker Smokeless Tobacco Status: No Alcohol use: none Drug use: none - Family History Father Living Status: Cause of : Leukemia Hx Family Cancer: Yes (Leukemia) Sister Living Status: Hx Family Cancer: Yes (Skin Ca. with mets) Mother Living Status: Hx Family Cardiac Disorders: Yes (CAD) Medications and Allergies Albuterol Sulfate [Albuterol Inhaler] 1 - 2 puff IH Q6HR PRN 01/18/17 [History] Aspirin [Lo-Dose Aspirin EC] 81 mg PO DAILY 01/18/17 [History] Atorvastatin Calcium [Lipitor] 80 mg PO HS 01/18/17 [History] Doxepin [Sinequan] 25 mg PO HS 01/18/17 [History] Fenofibrate [Lofibra] 160 mg PO DAILY 01/18/17 [History] Finasteride [Proscar] 5 mg PO DAILY 01/18/17 [History] Furosemide [Lasix] 20 mg PO DAILY 01/18/17 [History] OXcarbazepine [Trileptal] 150 mg PO BID 01/18/17 [History] Pantoprazole Sodium [Protonix] 40 mg PO DAILY 01/18/17 [History] Potassium Chloride [K-Tab ER] 20 meq PO BID 01/18/17 [History] Quetiapine Fumarate [Seroquel] 200 mg PO HS 01/18/17 [History] Tamsulosin [Flomax] 0.4 mg PO DAILY 01/18/17 [History] Amlodipine Besylate 10 mg PO DAILY 11/21/17 [History] Brimonidine Tartrate [Alphagan P] 1 drop OP BID 11/21/17 [History] Cholecalciferol (D-3) [Vitamin D] 1,000 unit PO DAILY 11/21/17 [History] Glimepiride [Amaryl] 1 mg PO QAM 11/21/17 [History] LORazepam [Ativan] 0.5 mg PO BID PRN 11/21/17 [History] Linagliptin [Tradjenta] 5 mg PO DAILY 11/21/17 [History] Melatonin 6 mg PO HS 11/21/17 [History] Mirtazapine [Remeron] 45 mg PO HS 11/21/17 [History] Multivitamin [One Daily Essential] 1 each PO DAILY 11/21/17 [History] Oxygen 3 l NS AD 11/21/17 [History] 3 Allergy/AdvReac Type Severity Reaction Status Date / Time oxybutynin [From Ditropan] AdvReac See Verified 11/21/17 22:23 Comments Penicillins AdvReac Blister Verified 11/21/17 15:24 All Systems: A 10-system review of systems was performed and is negative for pertinent findings except as documented above in the HPI. Review of Systems: 10 point review of systems is consistent with a history of present illness and is otherwise negative. Physical Examination - Vital Signs Vital Signs: Initial Vital Signs Temp Pulse Resp BP Pulse Ox 97.6 F 80 18 138/70 96 11/21/17 15:19 11/21/17 15:19 11/21/17 15:19 11/21/17 15:19 11/21/17 15:19 Results - Laboratory Findings CBC and BMP: 11/22/17 05:01 11/22/17 05:01 Abnormal lab findings: Abnormal lab results RBC 3.99 M/mcL (4.19-5.50) L 11/22/17 05:01 Hgb 12.1 g/dL (12.9-16.9) L 11/22/17 05:01 Hct 35.6 % (37.5-50.1) L 11/22/17 05:01 MPV 9.1 fL (9.4-12.4) L 11/22/17 05:01 POC Glucose 131 (58-89) H 11/23/17 20:28 Folate > 22.3 ng/mL (3.0-16.0) H 11/22/17 05:01 Consult Discharge Plan - Plan Referrals: Mj Hooks MD [Primary Care Provider] - 12/03/17 11:00 am
[2017-11-24] MEDS: Mirtazapine 15 MG TABLET PO SCH (21:05)
[2017-11-24] MEDS: Melatonin 3 MG TABLET PO SCH (21:06)
[2017-11-25] MEDS: Acetaminophen 325 MG TABLET PO PRN (05:00)
[2017-11-25] MEDS: *HR* Heparin 5,000 UNIT/ML VIAL SQ SCH (05:01)
[2017-11-25] MEDS: Insulin LISPRO 300 UNITS/3 ML VIAL SQ SCH (07:15)
[2017-11-25] MEDS: Multivit/Ca/Min/Fe/FA 1 TAB TABLET PO SCH (08:03)
[2017-11-25] MEDS: Cholecalciferol (D-3) 1,000 UNIT TABLET PO SCH (08:03)
[2017-11-25] MEDS: Aspirin Enteric Coated 81 MG Tablet PO SCH (08:03)
[2017-11-25] MEDS: Finasteride 5 MG TABLET PO SCH (08:04)
[2017-11-25] MEDS: amLODIPine 5 MG TABLET PO SCH (08:04)
[2017-11-25] MEDS: Fenofibrate 54 MG TABLET PO SCH (08:04)
[2017-11-25] MEDS: OXcarbazepine 150 MG TABLET PO SCH (08:04)
[2017-11-25] MEDS: Furosemide 20 MG TABLET PO SCH (08:05)
--- NOTE | 2017-11-25 10:58 | Discharge Summary ---
Date of Encounter: 11/25/17 Time of Encounter: 08:10 - Discharge Diagnosis (1) Weakness Priority: Primary Status: Acute Comments: Pt has returned to baseline and per PT/OT, has no needs. Pt has been up in his room walking and denies difficulty. Neurology has evaluated and has signed off. No obvious cause for weakness has been found. Symptoms suggestive of TIA vs presyncope. TTE: grossly normal LV systolic function, mild LV DD, no significant valvular dysfunction. Patient was unable to remain still for carotid Doppler, but could not exclude occlusion of right ICA due to visualization. Left ICA appeared to be occluded but it was difficult to visualize due to patient's noncooperation. Head CT without any acute intracranial abnormality. Chest x-ray was negative for any acute findings. Brain MRI revealed mild chronic small vessel ischemic changes, remote right frontal infarct and no acute. 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 There is 40% focal stenosis at the origin of the right common carotid artery. Suspect patient has overall physical deconditioning, as well as above factors. Pt has been started on Plavix 75mg po daily and we discussed some lifestyle modifications, he voiced understanding and motivation. (2) CAD (coronary artery disease) Priority: Secondary Status: Chronic Comments: Patient denies chest pain. He will continue aspirin, Lipitor, amlodipine, and Plavix at home. He denies need for refills on any of his medications. Qualifiers: Coronary Disease-Associated Artery/Lesion type: bypass graft [place] vs. transplanted heart: [place] heart Associated angina: without angina Qualified Code(s): I25.810 - Atherosclerosis of coronary artery bypass graft(s) without angina pectoris (3) Diabetes Priority: Secondary Status: Acute Comments: Chronic. Continue normal home medications, Accu-Chek schedule, and diabetic diet at home. Qualifiers: Diabetes mellitus type: type 2 Diabetes mellitus complication status: without complication Diabetes mellitus fpc insulin use: without fpc use Qualified Code(s): E11.9 - Type 2 diabetes mellitus without complications (4) DVT prophylaxis Priority: Secondary Status: Acute Comments: The patient was receiving heparin subcutaneous twice daily, he was also ambulatory in his room. - Discharge Medications Prescriptions: Clopidogrel [Plavix] 75 mg PO DAILY #30 tablet Home Medications: Albuterol Sulfate [Albuterol Inhaler] 1 - 2 puff IH Q6HR PRN 01/18/17 [History] Aspirin [Lo-Dose Aspirin EC] 81 mg PO DAILY 01/18/17 [History] Atorvastatin Calcium [Lipitor] 80 mg PO HS 01/18/17 [History] Doxepin [Sinequan] 25 mg PO HS 01/18/17 [History] Fenofibrate [Lofibra] 160 mg PO DAILY 01/18/17 [History] Finasteride [Proscar] 5 mg PO DAILY 01/18/17 [History] Furosemide [Lasix] 20 mg PO DAILY 01/18/17 [History] OXcarbazepine [Trileptal] 150 mg PO BID 01/18/17 [History] Pantoprazole Sodium [Protonix] 40 mg PO DAILY 01/18/17 [History] Potassium Chloride [K-Tab ER] 20 meq PO BID 01/18/17 [History] Quetiapine Fumarate [Seroquel] 200 mg PO HS 01/18/17 [History] Tamsulosin [Flomax] 0.4 mg PO DAILY 01/18/17 [History] Amlodipine Besylate 10 mg PO DAILY 11/21/17 [History] Brimonidine Tartrate [Alphagan P] 1 drop OP BID 11/21/17 [History] Cholecalciferol (D-3) [Vitamin D] 1,000 unit PO DAILY 11/21/17 [History] Glimepiride [Amaryl] 1 mg PO QAM 11/21/17 [History] LORazepam [Ativan] 0.5 mg PO BID PRN 11/21/17 [History] Linagliptin [Tradjenta] 5 mg PO DAILY 11/21/17 [History] Melatonin 6 mg PO HS 11/21/17 [History] Mirtazapine [Remeron] 45 mg PO HS 11/21/17 [History] Multivitamin [One Daily Essential] 1 each PO DAILY 11/21/17 [History] Oxygen 3 l NS AD 11/21/17 [History] Clopidogrel [Plavix] 75 mg PO DAILY #30 tablet 11/25/17 [Rx] Allergies/Adverse Reactions: 3 Allergy/AdvReac Type Severity Reaction Status Date / Time oxybutynin [From Ditropan] AdvReac See Verified 11/21/17 22:23 Comments Penicillins AdvReac Blister Verified 11/21/17 15:24 Procedures/tests Complete & Pending: Procedures Performed prior 72 hours Category Date Time Status CTA Neck [CT angio neck] [CT] Routine Cat Scan 11/23/17 07:39 Completed Date of admission: 11/22/17 00:45 Primary care physician: Mj Hooks MD Consults: 11/24/17 09:09 Consult to Neurology [CONS] Routine Consulting Provider: Neurology [facility] Reason for Consult: BLE weakness x 2 days. MRI, CT head negative. CTA neck shows total occlusion to micheline ICA. STarted Plavix 75mg po daily. Minimal weakness to RLE, pt's gait has returned to baseline. Still waiting on PT/OT consultations. Time Notified: 09:10 Call Completed: Yes Discharging clinician: Zoie Dudley Anticipated date of discharge: 11/25/17 - Patient Status Disposition: Home, Self-Care Condition: Good Functional capacity at discharge: uses cane/walker Overall status at discharge: patient is back to baseline - Discharge Instructions Follow Up With: Mj Hooks MD [Primary Care Provider] - 12/03/17 11:00 am Additional Instructions: Please follow up with your PCP in the next 7-10 days for a recheck and for continued close monitoring. Please return to the ER as needed for any other problems or concerns, or if your symptoms return or worsen. Take your medications as directed and start your Plavix tomorrow. I have called it into [facility] and it should be ready today. We discussed some lifestyle modifications such as increasing exercise and monitoring your diet more closely, try to implement these into your routine. Watch your blood sugar closely and stick to a diabetic diet. Return to your normal activities as tolerated. - Diet and Activity Activity: increase activity as tolerated Diet: diabetic diet Hospital course: Mr. Treadwell is a 77 year old male who presented to the ED with sudden onset BLE weakness for a week and was having difficulty getting out of bed. Symptoms had resolved by the time he arrived. He had no PT/OT needs and has returned to baseline. 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 His intracranial anterior circulation is likely supplied by the vertebrobasilar arteries. Pt also has 40% focal stenosis at the origin of the R common carotid. I did a curbside consult with vascular who has no treatment to offer, pt was evaluated by neuro who relates that there is probably no neurological cause and recommend Plavix 75mg po daily, which has been started and prescription has been called to his pharmacy. Pt will need to follow up with PCP for close monitoring and follow up. Pt is stable and appropriate for discharge. - Time Spent with Patient Total time spent providing and/or coordinating discharge services: Less than 30 minutes - Constitutional Vitals: Temp Pulse Resp BP Pulse Ox 97.9 F 75 20 132/72 100 11/25/17 07:05 11/25/17 07:05 11/25/17 07:05 11/25/17 07:05 11/25/17 07:05 General appearance: Present: cooperative, A&O X 3, pleasant, no acute distress, answers questions appropriately - Head Head exam: Present: atraumatic, normal inspection, normocephalic - Eye Eye exam: Present: normal appearance, conjuntiva pink, sclera anicteric - Neck Neck exam general surgery: Present: supple, trachea midline. Absent: lymphadenopathy - Respiratory Respiratory exam: Present: CTAB. Absent: accessory muscle use, chest wall tenderness, rales, respiratory distress, rhonchi, wheezes - Cardiovascular Cardiovascular exam: Present: RRR, +S1, +S2. Absent: diastolic murmur, gallop, rubs, systolic murmur - GI/Abdominal GI/Abdominal exam: Present: normal bowel sounds, soft. Absent: distended, hepatomegaly, tenderness - Extremities Exam Extremities exam: Present: normal capillary refill, normal inspection, warm, radial pulses palpable and symmetrical. Absent: calf tenderness, cyanotic, pedal edema, tenderness - Neurological Exam Neurological exam: Present: alert, oriented X3, no focal deficits. Absent: facial droop, speech deficit - Skin Skin exam: Present: dry, intact, normal color, warm. Absent: rash
[2017-11-25 11:06] VITALS: BP 146/76
== END 2017-11-25 13:15 | disposition home or self-care (01) | DRG 948 ==
LOC: EMEROO 15:03 → 3BNU 15:03
PROVIDERS: ADMIT Internal Medicine; ATTEND Registered Nurse

== ENCOUNTER 2019-05-05 17:43 | Inpatient (IN) ==
[2019-05-05] MEDS ORDERED: Ipratropium/Albuterol Neb 3 ML IH ONE (18:01)
--- NOTE | 2019-05-05 18:01 | Emergency Department Note ---
Disposition Clinical Impression: Hypoxia, Elevated troponin Pneumonia Qualifiers: Pneumonia type: due to unspecified organism Laterality: bilateral Lung lo cation: unspecified part of lung Qualified Code(s): J18.9 - Pneumonia, unspecified organism Sepsis Qualifiers: Sepsis type: sepsis due to unspecified organism Qualified Code(s): A41.9 - Sepsis, unspecified organism Disposition: Admitted As Inpatient Condition: Undetermined Referrals: Neva,Mj Alas MD [Primary Care Provider] - Time of Disposition: 20:24 General Adult HPI - General Stated complaint: Low o2 Time Seen by Provider: 05/05/19 17:51 Source: patient, family Mode of arrival: private vehicle Limitations: no limitations Nursing Notes Reviewed: Yes Vital Signs Reviewed: Yes - History of Present Illness HPI Narrative: Patient is an 78 year old male with PMHx COPD on 3 L of home O2, CAD s/p CABG, colostomy, hypertension, DM2, presenting with CC of progressively worsening shortness of breath for 2 weeks. He states for the past week, he has needed to increase his oxygen to 3 1/2 liters of oxygen. Complains of worsening shortness of breath with exertion and improves with rest. Denies chest pain, lightheadedness, lower extremity swelling, abdominal pain, nausea, vomiting, fevers, chills, cough. States his albuterol inhaler has not been helping. The son noted the patient seemed very short of breath this evening and checked his oxygen saturation which was 67%. Pain Scale: 0 - Related Data Home Medications Medication Instructions Recorded Confirmed Albuterol Sulfate [Proventil 1 - 2 puff IH Q6HR PRN 01/18/17 05/05/19 Inhaler] Aspirin [Lo-Dose Aspirin EC] 81 mg PO DAILY 01/18/17 05/05/19 Atorvastatin Calcium [Lipitor] 80 mg PO HS 01/18/17 05/05/19 Doxepin [Sinequan] 25 mg PO HS 01/18/17 05/05/19 Fenofibrate [Lofibra] 160 mg PO DAILY 01/18/17 05/05/19 Finasteride [Proscar] 5 mg PO DAILY 01/18/17 05/05/19 Furosemide [Lasix] 20 mg PO DAILY 01/18/17 05/05/19 OXcarbazepine [Trileptal] 150 mg PO BID 01/18/17 05/05/19 Pantoprazole Sodium [Protonix] 40 mg PO DAILY 01/18/17 05/05/19 Potassium Chloride [K-Tab ER] 20 meq PO BID 01/18/17 05/05/19 Quetiapine Fumarate [Seroquel] 200 mg PO HS 01/18/17 05/05/19 Tamsulosin [Flomax] 0.4 mg PO DAILY 01/18/17 05/05/19 Amlodipine Besylate 10 mg PO DAILY 11/21/17 05/05/19 Brimonidine Tartrate [Alphagan P] 1 drop OP BID 11/21/17 05/05/19 Cholecalciferol (D-3) [Vitamin D] 1,000 unit PO DAILY 11/21/17 05/05/19 Glimepiride [Amaryl] 1 mg PO QAM 11/21/17 05/05/19 LORazepam [Ativan] 0.5 mg PO BID PRN 11/21/17 05/05/19 Linagliptin [Tradjenta] 5 mg PO DAILY 11/21/17 05/05/19 Melatonin 6 mg PO HS 11/21/17 05/05/19 Mirtazapine [Remeron] 45 mg PO HS 11/21/17 05/05/19 Multivitamin [One Daily Essential] 1 each PO DAILY 11/21/17 05/05/19 Oxygen 3 l NS AD 11/21/17 05/05/19 Previous Rx's Medication Instructions Recorded Clopidogrel [Plavix] 75 mg PO DAILY #30 tablet 11/25/17 PredniSONE [Deltasone] 20 mg PO BID 5 Days #10 tablet 04/15/19 Allergies Allergy/AdvReac Type Severity Reaction Status Date / Time oxybutynin [From Ditropan] AdvReac See Verified 11/21/17 22:23 Comments Penicillins AdvReac Blister Verified 11/21/17 15:24 All systems ED: reviewed and negative except as stated. Review of Systems: As Per HPI Constitutional: Denies: fever, chills Cardiovascular: Denies: chest pain, palpitations Respiratory: Reports: dyspnea. Denies: cough Gastrointestinal: Denies: abdominal pain, nausea, vomiting Musculoskeletal: Denies: back pain Past Medical History - Past Medical History Attestation: Yes The following information was validated with the patient. Source: patient, old records reviewed Medical history: Reports: diabetes, hyperlipidemia, hypertension Surgical history: Reports: cataract, colectomy Psychiatric history: Reports: anxiety, depression - Social History Smoking Status: Never smoker Smokeless Tobacco Status: No Alcohol use: Reports: none Drug use: Reports: none Physical Exam - General Limitations: no limitations General appearance: alert, in distress - Head Head exam: atraumatic, normocephalic - Eye Eye exam: Present: normal appearance, EOMI - ENT ENT exam: normal exam, normal oropharynx - Neck Neck exam: Present: normal inspection, trachea midline - Chest Chest inspection: Present: normal inspection, symmetric chest wall rise - Respiratory Respiratory exam: Present: other (tachypneic, some accessory muscle use. Diminished reath sounds bilaterally with scattered wheezing and no crackles or rhonchi) - Cardiovascular Cardiovascular exam: Present: regular rate, normal rhythm - Abdominal Exam Abdominal exam: Present: soft, Non-Tender. Absent: distention - Extremities Exam Extremities exam: Present: normal capillary refill, other (bilateral radial and dorsalis pedis pulses equal). Absent: pedal edema, calf tenderness - Neurological Exam Neurological exam: Present: alert, oriented X3 - Psychiatric Psychiatric exam: Present: normal affect, normal mood - Skin Skin exam: Present: warm, dry. Absent: diaphoresis Course Vital Signs Temperature 98.5 F 05/05/19 17:46 Pulse Rate 98 05/05/19 17:46 Respiratory Rate 24 05/05/19 17:46 Blood Pressure 165/66 05/05/19 17:46 O2 Sat by Pulse Oximetry 60 05/05/19 17:46 Temperature 98.5 F 05/05/19 17:46 Pulse Rate 85 05/05/19 20:13 Respiratory Rate 18 05/05/19 20:13 Blood Pressure 108/80 05/05/19 20:13 O2 Sat by Pulse Oximetry 95 05/05/19 20:13 Oxygen Delivery Oxygen Delivery Nasal Cannula Medical Decision Making - [facility] Narrative Medical decision making narrative: Patient is presenting with acute respiratory distress. When in the room on his home oxygen level, 3 L, patient was having oxygen saturation in the 60%. The patient was immediately placed on high flow oxygen with oxy mask and oxygen saturation percentage improved. Patient states he feels much better. He has diminished breath sounds bilaterally with scattered wheezing. We will obtain chest x-ray, EKG, CBC, BMP, troponin, BNP, lactate, blood cultures. We will give the patient DuoNeb treatment and Solu-Medrol and reassess. 19:45 Patient has community-acquired pneumonia. We will give azithromycin and Rocephin. Patient also has an elevated lactate level II.3. We will give him approximately 2750 ML's for 30 mi./kg. Patient states he is feeling much better. He remains on oxygen mask. Troponin is also elevated and he denies any chest pain. No ischemic changes on EKG. Aspirin will be given. Hospitalist paged for admission. Patient and son state he is DNR/DNI 20:00 Dr. Wise, hospitalist, accepts admission - Medical Records Medical records reviewed: Yes I reviewed the patient's medical records. - Lab Data Lab results reviewed: Yes I reviewed the patient's lab results. Result diagrams: 05/05/19 18:00 05/05/19 18:00 Lab Results 05/05/19 05/05/19 05/05/19 Range/Units 18:00 18:00 18:00 WBC 8.2 (4.3-11.1) K/mcL RBC 4.07 L (4.19-5.50) M/mcL Hgb 12.4 L (12.9-16.9) g/dL Hct 37.2 L (37.5-50.1) % MCV 91.4 (83.0-100.0) fL MCH 30.5 (28.0-33.3) pg MCHC 33.3 (31.6-35.5) g/dL RDW 14.3 (11.5-14.5) % Plt Count 197 (140-400) K/mcL MPV 9.1 L (9.4-12.4) fL Immature Gran % 0.6 (0-4) % Seg Neutrophils % 73.5 % Lymphocytes % 15.6 % Monocytes % 7.5 % Eosinophils % 2.3 % Basophils % 0.5 % Neutrophils # 6.0 (1.6-8.9) K/mcL Lymphocytes # 1.3 (0.6-4.6) K/mcL Monocytes # 0.6 (0.0-1.3) K/mcL Eosinophils # 0.2 (0.0-0.6) K/mcL Basophils # 0.0 (0.0-0.2) K/mcL VBG pH (7.32-7.42) pH Units VBG pCO2 (41-51) mmHg VBG pO2 (25-50) mmHg VBG HCO3 (21-27) mEq/L Sodium 140 (136-145) mEq/L Potassium 3.9 (3.5-5.1) mEq/L Chloride 104 (98-107) mEq/L Carbon Dioxide 21 L (23-29) mEq/L BUN 18 (8-23) mg/dL Creatinine 1.28 (0.70-1.30) mg/dL Est GFR ( Amer) > 60 (> 60) Est GFR (Non-Af Amer) 54 L (> 60) BUN/Creatinine Ratio 14 (6-26) Glucose 106 H (70-105) mg/dL Calculated Osmolality 292 (280-300) Lactic Acid (0.5-2.2) mmol/L Calcium 9.4 (8.6-10.3) mg/dL Troponin I 0.06 H* (< 0.04) ng/mL B-Natriuretic Peptide 193 H (Less than 100) pg/mL 05/05/19 05/05/19 Range/Units 18:00 18:40 WBC (4.3-11.1) K/mcL RBC (4.19-5.50) M/mcL Hgb (12.9-16.9) g/dL Hct (37.5-50.1) % MCV (83.0-100.0) fL MCH (28.0-33.3) pg MCHC (31.6-35.5) g/dL RDW (11.5-14.5) % Plt Count (140-400) K/mcL MPV (9.4-12.4) fL Immature Gran % (0-4) % Seg Neutrophils % % Lymphocytes % % Monocytes % % Eosinophils % % Basophils % % Neutrophils # (1.6-8.9) K/mcL Lymphocytes # (0.6-4.6) K/mcL Monocytes # (0.0-1.3) K/mcL Eosinophils # (0.0-0.6) K/mcL Basophils # (0.0-0.2) K/mcL VBG pH 7.32 (7.32-7.42) pH Units VBG pCO2 42 (41-51) mmHg VBG pO2 36 (25-50) mmHg VBG HCO3 22 (21-27) mEq/L Sodium (136-145) mEq/L Potassium (3.5-5.1) mEq/L Chloride (98-107) mEq/L Carbon Dioxide (23-29) mEq/L BUN (8-23) mg/dL Creatinine (0.70-1.30) mg/dL Est GFR ( Amer) (> 60) Est GFR (Non-Af Amer) (> 60) BUN/Creatinine Ratio (6-26) Glucose (70-105) mg/dL Calculated Osmolality (280-300) Lactic Acid 3.3 H (0.5-2.2) mmol/L Calcium (8.6-10.3) mg/dL Troponin I (< 0.04) ng/mL B-Natriuretic Peptide (Less than 100) pg/mL - Radiology Data Radiology results reviewed: Yes I reviewed the patient's radiology results. Chest X-Ray 05/05/19 17:59 IMPRESSION: Increased bibasilar infiltrates could represent an atypical pneumonia or possibly worsening interstitial lung disease D/ / Mike Kam MD / Mike Kam MD Interpreting Provider: Mike Kam MD - EKG Data EKG #1 EKG attestation: Yes I reviewed and interpreted this EKG. EKG results narrative: EKG obtained at 1758 shows sinus rhythm with heart rate 94, OR interval 171, QRS duration 134, QTc 471, multiform ventricular premature complexes, right bundle branch block, no ST elevation or depression, compared to old EKG from 11/21/2017 which shows no new changes.
[2019-05-05] MEDS ORDERED: methylPREDNISolone 125 MG/2 ML VIAL IVP ONE (18:19)
[2019-05-05 18:26] LABS: Basophils % 0.5 %; Eosinophils # 0.2 K/mcL (0.0-0.6); Eosinophils % 2.3 %; Hematocrit 37.2 % (37.5-50.1); Hemoglobin 12.4 g/dL (12.9-16.9); Immature Granulocytes % 0.6 % (0-4); Lymphocytes # 1.3 K/mcL (0.6-4.6); Lymphocytes % 15.6 %; Mean Corpuscular HGB Conc 33.3 g/dL (31.6-35.5); Mean Corpuscular Hemoglobin 30.5 pg (28.0-33.3); Mean Corpuscular Volume 91.4 fL (83.0-100.0); Mean Platelet Volume 9.1 fL (9.4-12.4); Monocytes # 0.6 K/mcL (0.0-1.3); Monocytes % 7.5 %; Platelet Count 197 K/mcL (140-400); Red Blood Count 4.07 M/mcL (4.19-5.50); Red Cell Distribution Width 14.3 % (11.5-14.5); Segmented Neutrophils % 73.5 %; White Blood Count 8.2 K/mcL (4.3-11.1)
[2019-05-05 18:42] LABS: Troponin I 0.06 ng/mL (< 0.04)
[2019-05-05 18:43] LABS: VBG HCO3 22 mEq/L (21-27); VBG PCO2 42 mmHg (41-51); VBG PH 7.32 pH Units (7.32-7.42); VBG PO2 36 mmHg (25-50)
[2019-05-05 18:45] LABS: BUN/Creatinine Ratio 14 (6-26); Blood Urea Nitrogen 18 mg/dL (8-23); Calcium 9.4 mg/dL (8.6-10.3); Carbon Dioxide 21 mEq/L (23-29); Chloride 104 mEq/L (98-107); Glucose 106 mg/dL (70-105); Osmolality,Calculated 292 (280-300); Potassium 3.9 mEq/L (3.5-5.1); Sodium 140 mEq/L (136-145); eGFR For African Americans > 60 (> 60); eGFR For Non-African Americans 54 (> 60)
[2019-05-05] MEDS ORDERED: Azithromycin 500 MG in D5% in Water 250 ML IVPB ONE (19:38)
[2019-05-05] MEDS ORDERED: cefTRIAXone 1,000 MG in Water for inj. (sterile) 10 ML IVP ONE (19:38)
[2019-05-05] MEDS ORDERED: 0.9 % Sodium Chloride 1,000 ML IVC ONE ×2 (19:51→19:52)
[2019-05-05] MEDS ORDERED: Aspirin 325 MG TABLET PO ONE (19:54)
--- NOTE | 2019-05-05 19:57 | Emergency Department Note ---
Disposition Clinical Impression: Hypoxia Pneumonia Qualifiers: Pneumonia type: due to unspecified organism Laterality: unspecified laterality Lung location: unspecified part of lung Qualified Code(s): J18.9 - Pneumonia, unspecified organism Disposition: Admitted As Inpatient Condition: Good Referrals: Mj Hooks MD [Primary Care Provider] - Time of Disposition: 19:57 General Adult HPI - General Chief complaint: ED Shortness of Breath/Dyspnea Stated complaint: Low o2 Time Seen by Provider: 05/05/19 17:51 Source: patient, family Mode of arrival: private vehicle Limitations: no limitations - History of Present Illness Pain Scale: 0 - Related Data Home Medications Medication Instructions Recorded Confirmed Albuterol Sulfate [Proventil 1 - 2 puff IH Q6HR PRN 01/18/17 05/05/19 Inhaler] Aspirin [Lo-Dose Aspirin EC] 81 mg PO DAILY 01/18/17 05/05/19 Atorvastatin Calcium [Lipitor] 80 mg PO HS 01/18/17 05/05/19 Doxepin [Sinequan] 25 mg PO HS 01/18/17 05/05/19 Fenofibrate [Lofibra] 160 mg PO DAILY 01/18/17 05/05/19 Finasteride [Proscar] 5 mg PO DAILY 01/18/17 05/05/19 Furosemide [Lasix] 20 mg PO DAILY 01/18/17 05/05/19 OXcarbazepine [Trileptal] 150 mg PO BID 01/18/17 05/05/19 Pantoprazole Sodium [Protonix] 40 mg PO DAILY 01/18/17 05/05/19 Potassium Chloride [K-Tab ER] 20 meq PO BID 01/18/17 05/05/19 Quetiapine Fumarate [Seroquel] 200 mg PO HS 01/18/17 05/05/19 Tamsulosin [Flomax] 0.4 mg PO DAILY 01/18/17 05/05/19 Amlodipine Besylate 10 mg PO DAILY 11/21/17 05/05/19 Brimonidine Tartrate [Alphagan P] 1 drop OP BID 11/21/17 05/05/19 Cholecalciferol (D-3) [Vitamin D] 1,000 unit PO DAILY 11/21/17 05/05/19 Glimepiride [Amaryl] 1 mg PO QAM 11/21/17 05/05/19 LORazepam [Ativan] 0.5 mg PO BID PRN 11/21/17 05/05/19 Linagliptin [Tradjenta] 5 mg PO DAILY 11/21/17 05/05/19 Melatonin 6 mg PO HS 11/21/17 05/05/19 Mirtazapine [Remeron] 45 mg PO HS 11/21/17 05/05/19 Multivitamin [One Daily Essential] 1 each PO DAILY 11/21/17 05/05/19 Oxygen 3 l NS AD 11/21/17 05/05/19 Previous Rx's Medication Instructions Recorded Clopidogrel [Plavix] 75 mg PO DAILY #30 tablet 11/25/17 PredniSONE [Deltasone] 20 mg PO BID 5 Days #10 tablet 04/15/19 Allergies Allergy/AdvReac Type Severity Reaction Status Date / Time oxybutynin [From Ditropan] AdvReac See Verified 11/21/17 22:23 Comments Penicillins AdvReac Blister Verified 11/21/17 15:24 Constitutional: Denies: fever, chills Cardiovascular: Denies: chest pain, palpitations Respiratory: Reports: dyspnea. Denies: cough Gastrointestinal: Denies: abdominal pain, nausea, vomiting Musculoskeletal: Denies: back pain Past Medical History - Past Medical History Medical history: Reports: diabetes, hyperlipidemia, hypertension Surgical history: Reports: cataract, colectomy Psychiatric history: Reports: anxiety, depression - Social History Smoking Status: Never smoker Smokeless Tobacco Status: No Alcohol use: Reports: none Drug use: Reports: none Physical Exam - General Limitations: no limitations General appearance: alert, in distress Course Vital Signs Temperature 98.5 F 05/05/19 17:46 Pulse Rate 98 05/05/19 17:46 Respiratory Rate 24 05/05/19 17:46 Blood Pressure 165/66 05/05/19 17:46 O2 Sat by Pulse Oximetry 60 05/05/19 17:46 Temperature 98.5 F 05/05/19 17:46 Pulse Rate 98 05/05/19 17:46 Respiratory Rate 24 05/05/19 17:46 Blood Pressure 165/66 05/05/19 17:46 O2 Sat by Pulse Oximetry 60 05/05/19 17:46 Oxygen Delivery Oxygen Delivery Nasal Cannula Medical Decision Making - Lab Data Result diagrams: 05/05/19 18:00 05/05/19 18:00 Lab Results 05/05/19 05/05/19 05/05/19 Range/Units 18:00 18:00 18:00 WBC 8.2 (4.3-11.1) K/mcL RBC 4.07 L (4.19-5.50) M/mcL Hgb 12.4 L (12.9-16.9) g/dL Hct 37.2 L (37.5-50.1) % MCV 91.4 (83.0-100.0) fL MCH 30.5 (28.0-33.3) pg MCHC 33.3 (31.6-35.5) g/dL RDW 14.3 (11.5-14.5) % Plt Count 197 (140-400) K/mcL MPV 9.1 L (9.4-12.4) fL Immature Gran % 0.6 (0-4) % Seg Neutrophils % 73.5 % Lymphocytes % 15.6 % Monocytes % 7.5 % Eosinophils % 2.3 % Basophils % 0.5 % Neutrophils # 6.0 (1.6-8.9) K/mcL Lymphocytes # 1.3 (0.6-4.6) K/mcL Monocytes # 0.6 (0.0-1.3) K/mcL Eosinophils # 0.2 (0.0-0.6) K/mcL Basophils # 0.0 (0.0-0.2) K/mcL VBG pH (7.32-7.42) pH Units VBG pCO2 (41-51) mmHg VBG pO2 (25-50) mmHg VBG HCO3 (21-27) mEq/L Sodium 140 (136-145) mEq/L Potassium 3.9 (3.5-5.1) mEq/L Chloride 104 (98-107) mEq/L Carbon Dioxide 21 L (23-29) mEq/L BUN 18 (8-23) mg/dL Creatinine 1.28 (0.70-1.30) mg/dL Est GFR ( Amer) > 60 (> 60) Est GFR (Non-Af Amer) 54 L (> 60) BUN/Creatinine Ratio 14 (6-26) Glucose 106 H (70-105) mg/dL Calculated Osmolality 292 (280-300) Lactic Acid (0.5-2.2) mmol/L Calcium 9.4 (8.6-10.3) mg/dL Troponin I 0.06 H* (< 0.04) ng/mL B-Natriuretic Peptide 193 H (Less than 100) pg/mL 05/05/19 05/05/19 Range/Units 18:00 18:40 WBC (4.3-11.1) K/mcL RBC (4.19-5.50) M/mcL Hgb (12.9-16.9) g/dL Hct (37.5-50.1) % MCV (83.0-100.0) fL MCH (28.0-33.3) pg MCHC (31.6-35.5) g/dL RDW (11.5-14.5) % Plt Count (140-400) K/mcL MPV (9.4-12.4) fL Immature Gran % (0-4) % Seg Neutrophils % % Lymphocytes % % Monocytes % % Eosinophils % % Basophils % % Neutrophils # (1.6-8.9) K/mcL Lymphocytes # (0.6-4.6) K/mcL Monocytes # (0.0-1.3) K/mcL Eosinophils # (0.0-0.6) K/mcL Basophils # (0.0-0.2) K/mcL VBG pH 7.32 (7.32-7.42) pH Units VBG pCO2 42 (41-51) mmHg VBG pO2 36 (25-50) mmHg VBG HCO3 22 (21-27) mEq/L Sodium (136-145) mEq/L Potassium (3.5-5.1) mEq/L Chloride (98-107) mEq/L Carbon Dioxide (23-29) mEq/L BUN (8-23) mg/dL Creatinine (0.70-1.30) mg/dL Est GFR ( Amer) (> 60) Est GFR (Non-Af Amer) (> 60) BUN/Creatinine Ratio (6-26) Glucose (70-105) mg/dL Calculated Osmolality (280-300) Lactic Acid 3.3 H (0.5-2.2) mmol/L Calcium (8.6-10.3) mg/dL Troponin I (< 0.04) ng/mL B-Natriuretic Peptide (Less than 100) pg/mL Attestation Statement - Attestation Attestation: I reviewed the residents documentation and agree with the residents assessment and plan of care. I have personally had face to face time with the patient. (Brief History, Brief Exam, and MDM) I personally supervised and was present for the henley/critical portions of the following procedures completed by the resident: EKG 78 year old male presents to the ED with complaints of shortness of breath and hypoxia and it appears thathe has CAP on CXR with an elevated lactic acid and an elevated troponin of 0.06 without ischemic change on EKG. Likely secondary to ischemic demand from pnuemonia. We joselyn start CAP IV ABX and then admit to medicine. breathing tretment and steroid delivered
[2019-05-05] MEDS ORDERED: Ipratropium/Albuterol Neb 3 ML IH PRN (20:42)
[2019-05-05] MEDS ORDERED: GuaiFENesin Liq 200 MG/10 ML UDC PO PRN (20:42)
[2019-05-05] MEDS ORDERED: Ondansetron 4 MG/2 ML VIAL IVP PRN (20:42)
[2019-05-05] MEDS ORDERED: Furosemide 40 MG/4 ML VIAL IVP ONE (20:43)
[2019-05-05] MEDS ORDERED: NON-FORMULARY MEDICATION 1 EACH EACH (Oxygen 3 L) NS SCH (20:45)
--- NOTE | 2019-05-05 21:34 | Internal Med History&Physical ---
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 He is usually on 3L of home oxygen but has been having increasing shortness of breath over the past 2 weeks with reduced exercise tolerance and an inability to lay supine. He denies fever, chills, productive cough and chest pain but noticed increased nasal discharge. Today his son with whom he lives says he noticed him to be very short of breath, noting his oxygen saturation to be 67% for which reason he was brought in. In the ER he was placed on high flow oxygen with oxy mask with immediate improvement noted and subjectively felt better. His lab work was gr ossly within normal limits except a lactate level of 3.3 and troponin 0.06. He was given aspirin 325mg and continuous nebulizer. On my assessment he reports feeling better and has no acute complaints. He lives alone with his son. Vitals: Reviewed General: Elderly man lying in bed in NAD Skin: Warm and supple. HEENT: Moist mucous membranes. No conjunctivae pallor. Neck: No lymphadenopathy. No JVD. No carotid bruits. No palpable thyroid. Chest: Diminished thoracic expansion. Scattered wheezes and coarse breath sounds in both lung bases. Normal breath sounds. Clear to auscultation. Heart: Normal S1 & S2; rhythmic. No rubs or murmurs. Abdomen: Non-distended, soft and non-tender to palpation. No peritoneal reaction. Extremities: No clubbing, cyanosis or edema. No calf tenderness. Normal distal pulses. Neurological: Awake, alert and oriented to person, place. Psych: Affect appropriate. Assessment/Plan 1. Acute on chronic respiratory failure: Based on my review of his x-ray, he has new bibasilar infiltrates which have an appearance of interstitial lung disease and/or new onset infection, possibly atypical. I suspect he has an underlying infection that his triggered an underlying COPD exacerbation. Will place him on empiric antibiotics for community acquired pneumonia in addition to nebulizer therapy, systemic steroids and supplemental oxygen. 2. COPD: Treatment as stated above. 3. Elevated troponin: Suspect secondary to the acute respiratory failure. He has no clinical or electrocardiographic signs of ACS. He has received loading dose of aspirin and will monitor its trend in the interim. 4. Elevated lactate: He was given a liter of fluids thus far in addition to antibiotics. Will repeat value. 5. Blindness: Ordered assistance with eating. Past Med Surg Social Fam HX - Past Medical History Medical history: diabetes, hyperlipidemia, hypertension Additional medical history: Home O2. 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 sinus sx - Social History Smoking Status: Never smoker Smokeless Tobacco Status: No Alcohol use: none Drug use: none - Family History Father Living Status: Hx Family Cancer: Yes (Leukemia) Sister Living Status: Hx Family Cancer: Yes (Skin Ca. with mets) Mother Living Status: Hx Family Cardiac Disorders: Yes (CAD) Internal Medicine - H&P: Meds Albuterol Sulfate [Proventil Inhaler] 1 - 2 puff IH Q6HR PRN 01/18/17 [History] Aspirin [Lo-Dose Aspirin EC] 81 mg PO DAILY 01/18/17 [History] Atorvastatin Calcium [Lipitor] 80 mg PO HS 01/18/17 [History] Doxepin [Sinequan] 25 mg PO HS 01/18/17 [History] Fenofibrate [Lofibra] 160 mg PO DAILY 01/18/17 [History] Finasteride [Proscar] 5 mg PO DAILY 01/18/17 [History] Furosemide [Lasix] 20 mg PO DAILY 01/18/17 [History] OXcarbazepine [Trileptal] 150 mg PO BID 01/18/17 [History] Pantoprazole Sodium [Protonix] 40 mg PO DAILY 01/18/17 [History] Potassium Chloride [K-Tab ER] 20 meq PO BID 01/18/17 [History] Quetiapine Fumarate [Seroquel] 200 mg PO HS 01/18/17 [History] Tamsulosin [Flomax] 0.4 mg PO DAILY 01/18/17 [History] Amlodipine Besylate 10 mg PO DAILY 11/21/17 [History] Brimonidine Tartrate [Alphagan P] 1 drop OP BID 11/21/17 [History] Cholecalciferol (D-3) [Vitamin D] 1,000 unit PO DAILY 11/21/17 [History] Glimepiride [Amaryl] 1 mg PO QAM 11/21/17 [History] LORazepam [Ativan] 0.5 mg PO BID PRN 11/21/17 [History] Linagliptin [Tradjenta] 5 mg PO DAILY 11/21/17 [History] Melatonin 6 mg PO HS 11/21/17 [History] Mirtazapine [Remeron] 45 mg PO HS 11/21/17 [History] Multivitamin [One Daily Essential] 1 each PO DAILY 11/21/17 [History] Oxygen 3 l NS AD 11/21/17 [History] Clopidogrel [Plavix] 75 mg PO DAILY #30 tablet 11/25/17 [Rx] PredniSONE [Deltasone] 20 mg PO BID 5 Days #10 tablet 04/15/19 [Rx] Allergy/AdvReac Type Severity Reaction Status Date / Time oxybutynin [From Ditropan] AdvReac See Verified 11/21/17 22:23 Comments Penicillins AdvReac Blister Verified 11/21/17 15:24 All Systems PM: A 10-system review of systems was performed and is negative for pertinent findings except as documented above in the HPI. - Constitutional Vitals: Temp Pulse Resp BP Pulse Ox 98.5 F 85 20 134/58 95 05/05/19 17:46 05/05/19 20:13 05/05/19 21:07 05/05/19 21:07 05/05/19 20:13 Exam: . Internal Med - H&P Results - Labs CBC & Chem 7: 05/05/19 18:00 05/05/19 18:00 Labs: Short CBC 05/05/19 Range/Units 18:00 WBC 8.2 (4.3-11.1) K/mcL Hgb 12.4 L (12.9-16.9) g/dL Hct 37.2 L (37.5-50.1) % Plt Count 197 (140-400) K/mcL Neutrophils # 6.0 (1.6-8.9) K/mcL BMP 05/05/19 18:00 Sodium 140 Potassium 3.9 Chloride 104 Carbon Dioxide 21 L BUN 18 Creatinine 1.28 Glucose 106 H Calcium 9.4 Cardiac Enzymes 05/05/19 Range/Units 18:00 Troponin I 0.06 H* (< 0.04) ng/mL - ABG Interpretation ABG results: 05/05/19 18:40 VBG pH 7.32 VBG pCO2 42 VBG pO2 36 VBG HCO3 22 - Impressions ITS Impressions Chest X-Ray 05/05/19 17:59 IMPRESSION: Increased bibasilar infiltrates could represent an atypical pneumonia or possibly worsening interstitial lung disease D/ / Mike Kam MD / Mike Kam MD Interpreting Provider: Mike Kam MD - Time Spent With Patient Total time spent is greater than 50% in coordination of care (as documented) at patient's floor/unit and/or counseling patient: Greater than 35 minutes
[2019-05-05] MEDS: Melatonin 3 MG TABLET PO SCH (21:56)
[2019-05-05] MEDS: *HR* LORazepam 0.5 MG TABLET PO PRN (21:56)
[2019-05-05] MEDS: *HR* Heparin 5,000 UNIT/ML VIAL SQ SCH (21:56)
[2019-05-05] MEDS: OXcarbazepine 150 MG TABLET PO SCH (23:01)
[2019-05-06] MEDS ORDERED: MethylPREDNISolone 40 MG/ML VIAL IVP SCH (06:00)
[2019-05-06] MEDS: *HR* Heparin 5,000 UNIT/ML VIAL SQ SCH ×3 (06:26→20:38)
[2019-05-06] MEDS: OXcarbazepine 150 MG TABLET PO SCH ×2 (08:50→20:37)
[2019-05-06] MEDS: cefTRIAXone 1,000 MG in Water for inj. (sterile) 10 ML IVPB SCH (08:50)
[2019-05-06] MEDS: amLODIPine 5 MG TABLET PO SCH (08:51)
[2019-05-06] MEDS: Cholecalciferol (D-3) 1,000 UNIT (25MCG) TABLET PO SCH (08:51)
[2019-05-06] MEDS: Multivit/Ca/Min/Fe/FA 1 TAB TABLET PO SCH (08:51)
[2019-05-06] MEDS: Finasteride 5 MG TABLET PO SCH (08:51)
[2019-05-06] MEDS: Fenofibrate 54 MG TABLET PO SCH (08:51)
[2019-05-06] MEDS: Azithromycin 250 MG TABLET PO SCH (08:51)
[2019-05-06] MEDS: Aspirin Enteric Coated 81 MG Tablet PO SCH (08:51)
[2019-05-06] MEDS: *HR* LORazepam 0.5 MG TABLET PO PRN ×2 (08:55→20:37)
[2019-05-06] MEDS ORDERED: Azithromycin 500 MG in D5% in Water 250 ML IVPB SCH (09:00)
[2019-05-06] MEDS ORDERED: Furosemide 20 MG TABLET PO SCH (09:00)
[2019-05-06] MEDS ORDERED: *HR* Dextrose 50 % in Water (Syg) 50 ML SYRINGE IVP PRN (10:27)
[2019-05-06] MEDS ORDERED: Dextrose Gel 15 GM/37.5 ML TUBE PO PRN ×2 (10:27)
[2019-05-06] MEDS ORDERED: D5% in Water 1,000 ML IVC PRN (10:27)
--- NOTE | 2019-05-06 11:31 | Internal Med Progress Note ---
Hospitalist Progress Note - Encounter Date of Encounter: 05/06/19 Time of Encounter: 11:27 - Subjective Interval History: Episode of desaturation this morning and oxygen increased. Feels short of breath currently. - Exam Vitals: Temp Pulse Resp BP Pulse Ox 97.7 F 76 21 144/73 90 05/06/19 11:20 05/06/19 11:20 05/06/19 11:20 05/06/19 11:20 05/06/19 11:20 Exam: General: Ill-appearing and in no acute distress HEENT: No erythema of posterior pharynx. No exudates. Lymphatics: No mandibular or cervical lymphadenopathy Cardiovascular: RRR. No murmurs. No chest wall tenderness. Lungs: Diffuse rhonchi. Regular chest rise. No accessory muscles of respiration used Abdomen: Non-tender. No rebound or gaurding. Nl bowel sounds. Extremities: Trace edema. 2+ pulses radial and pedal pulses Skin: No rahses, abrasions, or contusions. Nl cap refill. Psych: Nl attention. 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 5/5 strength. Sensation to light touch and pinprick intact. - Assessment and Plan (1) Acute and chronic respiratory failure with hypoxia Current Visit: Yes Status: Acute Assessment and Plan: Patient with history of chronic respiratory failure secondary to COPD on 3 L oxygen outpatient and probably some degree of heart failure on Lasix outpatient presents with shortness of breath in the setting of increased hypoxia but otherwise stable vitals, diffuse rhonchi on exam most prominent in right lower lobe, and chest x-ray concerning for atypical pneumonia. -Chest x-ray concerning for atypical pneumonia, however, patient denies cough a nd no leukocytosis or fevers Will get a chest CT to further evaluate Also being treated for decompensated COPD. No wheezing on exam. We will de- escalate IV steroids to by mouth -Appears to have some degree of hypervolemia. No recent echocardiogram but BNP mildly elevated. We will further evaluate with echocardiogram PLAN: - CT chest - Continue ceftriaxone and azithromycin - Scheduled nebs - Lasix 40 mg IV - Strict intake and output and daily weights - Echocardiogram (2) COPD (chronic obstructive pulmonary disease) Current Visit: Yes Status: Acute Assessment and Plan: See above (3) CAP (community acquired pneumonia) Current Visit: Yes Status: Acute Assessment and Plan: See above (4) History of colectomy Current Visit: Yes Status: Acute Assessment and Plan: Colectomy after fulminant C. difficile infection (5) CAD (coronary artery disease) Current Visit: No Status: Chronic Assessment and Plan: s/p CABG x 3. - Continue home ASA and statin DVT Prophylaxis: Heparin Internal Medicine: Result - Labs CBC & Chem 7: 05/05/19 18:00 05/05/19 18:00 Labs: Short CBC 05/05/19 Range/Units 18:00 WBC 8.2 (4.3-11.1) K/mcL Hgb 12.4 L (12.9-16.9) g/dL Hct 37.2 L (37.5-50.1) % Plt Count 197 (140-400) K/mcL Neutrophils # 6.0 (1.6-8.9) K/mcL BMP 05/05/19 18:00 Sodium 140 Potassium 3.9 Chloride 104 Carbon Dioxide 21 L BUN 18 Creatinine 1.28 Glucose 106 H Calcium 9.4 Cardiac Enzymes 05/05/19 05/06/19 05/06/19 Range/Units 18:00 00:16 06:06 Troponin I 0.06 H* 0.05 H* 0.04 H* (< 0.04) ng/mL - Impressions Impressions Chest X-Ray 05/05/19 17:59 IMPRESSION: Increased bibasilar infiltrates could represent an atypical pneumonia or possibly worsening interstitial lung disease D/ / Mike Kam MD / Mike Kam MD Interpreting Provider: Mike Kam MD Consult Discharge Plan - Plan (5) CAD (coronary artery disease) Qualifiers: Coronary Disease-Associated Artery/Lesion type: bypass graft [place] vs. transplanted heart: [place] heart Associated angina: without angina Qualified Code(s): I25.810 - Atherosclerosis of coronary artery bypass graft(s) without angina pectoris
[2019-05-06] MEDS ORDERED: Furosemide 40 MG/4 ML VIAL IVP ONE (11:44)
[2019-05-06] MEDS: Insulin LISPRO 300 UNITS/3 ML VIAL SQ SCH ×3 (12:37→20:38)
--- NOTE | 2019-05-06 14:06 | Pulmonology Consult Note ---
<Anderson Kim W - Last Filed: 05/06/19 15:07> Date of Encounter: 05/06/19 Medications and Allergies Albuterol Sulfate [Proventil Inhaler] 1 - 2 puff IH Q6HR PRN 01/18/17 [History] Aspirin [Lo-Dose Aspirin EC] 81 mg PO DAILY 01/18/17 [History] Atorvastatin Calcium [Lipitor] 80 mg PO HS 01/18/17 [History] Doxepin [Sinequan] 25 mg PO HS 01/18/17 [History] Fenofibrate [Lofibra] 160 mg PO DAILY 01/18/17 [History] Finasteride [Proscar] 5 mg PO DAILY 01/18/17 [History] Furosemide [Lasix] 20 mg PO DAILY 01/18/17 [History] OXcarbazepine [Trileptal] 150 mg PO BID 01/18/17 [History] Pantoprazole Sodium [Protonix] 40 mg PO DAILY 01/18/17 [History] Potassium Chloride [K-Tab ER] 20 meq PO BID 01/18/17 [History] Quetiapine Fumarate [Seroquel] 200 mg PO HS 01/18/17 [History] Tamsulosin [Flomax] 0.4 mg PO DAILY 01/18/17 [History] Amlodipine Besylate 10 mg PO DAILY 11/21/17 [History] Brimonidine Tartrate [Alphagan P] 1 drop OP BID 11/21/17 [History] Cholecalciferol (D-3) [Vitamin D] 1,000 unit PO DAILY 11/21/17 [History] Glimepiride [Amaryl] 1 mg PO QAM 11/21/17 [History] LORazepam [Ativan] 0.5 mg PO BID PRN 11/21/17 [History] Linagliptin [Tradjenta] 5 mg PO DAILY 11/21/17 [History] Melatonin 6 mg PO HS 11/21/17 [History] Mirtazapine [Remeron] 45 mg PO HS 11/21/17 [History] Multivitamin [One Daily Essential] 1 each PO DAILY 11/21/17 [History] Oxygen 3 l NS AD 11/21/17 [History] Clopidogrel [Plavix] 75 mg PO DAILY #30 tablet 11/25/17 [Rx] PredniSONE [Deltasone] 20 mg PO BID 5 Days #10 tablet 04/15/19 [Rx] Linagliptin [Tradjenta] 5 mg PO DAILY 05/06/19 [History] Allergy/AdvReac Type Severity Reaction Status Date / Time oxybutynin [From Ditropan] AdvReac See Verified 11/21/17 22:23 Comments Penicillins AdvReac Blister Verified 11/21/17 15:24 All Systems: The remainder of the systems were reviewed and are negative Physical Examination Vital Signs: Vital Signs, Last 4 Hours Temp Pulse Resp BP Pulse Ox 05/06/19 11:20 97.7 F 76 21 144/73 90 Results - Laboratory Findings CBC and BMP: 05/05/19 18:00 05/05/19 18:00 Abnormal lab findings: Abnormal lab results RBC 4.07 M/mcL (4.19-5.50) L 05/05/19 18:00 Hgb 12.4 g/dL (12.9-16.9) L 05/05/19 18:00 Hct 37.2 % (37.5-50.1) L 05/05/19 18:00 MPV 9.1 fL (9.4-12.4) L 05/05/19 18:00 Carbon Dioxide 21 mEq/L (23-29) L 05/05/19 18:00 Est GFR (Non-Af Amer) 54 (> 60) L 05/05/19 18:00 Glucose 106 mg/dL (70-105) H 05/05/19 18:00 POC Glucose 223 mg/dL (70-99) H 05/06/19 08:12 Lactic Acid 3.3 mmol/L (0.5-2.2) H 05/05/19 18:00 Troponin I 0.04 ng/mL (< 0.04) H* 05/06/19 06:06 B-Natriuretic Peptide 193 pg/mL (Less than 100) H 05/05/19 18:00 - Microbiology Findings Microbiology Findings: Microbiology, Last 48 Hours 05/05/19 23:20 Legionella Antigen - Final Urine,Clean Catch Streptococcus pneumoniae Antigen (M - Final 05/05/19 18:06 Blood Culture - Preliminary Peripheral Venipuncture Culture is incubating and being continuously monitored for growth. Final report to follow. 05/05/19 18:17 Blood Culture - Preliminary Peripheral Venipuncture Culture is incubating and being continuously monitored for growth. Final report to follow. - Clinical Findings Intake & Output: Intake & Output 05/05/19 05/06/19 05/06/19 23:59 07:59 15:59 Intake Total 2260 / 2260 750 / 880 130 / 880 Output Total 400 / 400 1250 / 2325 1075 / 2325 Balance 1860 / 1860 -500 / -1445 -945 / -1445 Weight 95.6 kg 96.2 kg 91.682 kg Consult Discharge Plan - Plan Referrals: [facility] – [place],Mj Alas MD [Primary Care Provider] - - Attending Attestation I examined this patient and my medical decision-making was reviewed with the Resident Physician. I agree with the documented findings, disposition and treatment plan as described except to the extent set forth below. We independently had [id number] contact with the patient Patient seen and examined at bedside Labs, radiology, chart personally reviewed. Impression: Acute on Chronic Hypoxic Respiratory Failure Community Acquired PNA ILD AECOPD I reviewed the patient's CT scan and personally interpreted it along with his PFTs dating back to 2013.This is a Complex case of a individual with severe underlying combination of lung diseases including severe upper lobe predominant emphysematous changes with lower lobe chronic fibrotic changes acutely there is a diffuse interstitial pattern and in this clinical context I suspect it is infectious pneumonia. It is possible that overall pattern could represent acute ILD flare most classically this has been diagnosed in the IPF community his pattern of fibrotic changes is not classic radiographically to make the diagnosis of UIP/IPF but from a standpoint of his smoking history and age this would be quite possible. Recs: -Higher dose of steroid regimen today such as Solu-Medrol 60 mg every 8 hours -Agree with treatment for community acquired pneumonia we will follow up sputum and blood cultures percent pro-calcitonin as well as MRSA nasal surveillance Legionella and strep pneumo antigens were both negative. Bronchoscopy has been considered but I feel that given his oxygen requirements it would likely precipitate the need for endotracheal intubation which would be inconsistent with given current goals of care and code status -Goal oxygen saturation should be greater than 88% he is currently on 13 L high flow nasal cannula from the wall high suspicion that this could worsen over the next 24-48 hours and so I have alerted the respiratory therapist to bring a and Kathi high flow system into his room to deliver 40 L as needed of oxygen of which both flow and FIO2 can be titrated -Recommend out of bed to chair as tolerated while on continuous pulse oximetry this is to help mitigate the effects of VQ mismatching from atelectasis -In general terms I agree with net negative volume status as tolerated by renal function I will defer this to the primary medicine service -We will schedule bronchodilators and had a combination ICS/LABA to his regimen -Prognosis at this point is guarded high risk of further worsening respiratory failure based upon clinical history and disease progression DNAR/DNI status is quite reasonable -Chemical DVT prophylaxis unless contraindication arises Thank you for the consultation pulmonary will continue to follow <Willy Ryder - Last Filed: 05/06/19 16:45> Date of Encounter: 05/06/19 Time of Encounter: 13:57 Assessment and Plan (1) Acute and chronic respiratory failure with hypoxia Current Visit: Yes Status: Acute Acute on Chronic Hypoxic Respiratory failure - Increased respiratory effort. - O2 saturation in Low 90's on Nasal Cannula Plan: - Currently on 13L o2 Via nasal cannula - Kathi in room as needed (2) CAP (community acquired pneumonia) Current Visit: Yes Status: Acute Community Acquired PNA - Legionella and Strep PNA antigen negative - Procalcitonin 0.08 Plan: - Continue antibiotics - Follow-up cultures Qualifiers: Laterality: unspecified laterality Qualified Code(s): J18.9 - Pneumonia, unspecified organism (3) COPD exacerbation Current Visit: Yes Status: Acute COPD exacerbation - Scheduled Duonebs - Will add symbicort - Recommend higher dose steroid regimen such as solu-medrol 60mg q8h (4) Interstitial lung disease Current Visit: Yes Status: Acute Interstitial lung disease - Like mixed restrictive/obstructive disease - Restrictive pattern on previous PFT Plan: - As above History of Present Illness Consult date: 05/06/19 Chief complaint: SOB History of present illness: Mr. Sunil Lin is an 78-year-old with past medical history of COPD, CAD, CABG, colostomy, hypertension, diabetes, and blindness. She is presenting with shortness of breath progressively worsening for the past 4-5 weeks. He is on 3 L of oxygen at baseline at home. Increasing his oxygen to 3 L a minute at home and using albuterol inhaler did not improve his symptoms. Shortness of breath is worsened by exertion and mostly relieved by rest. Denied chest pain, lightheadedness, palpitations, nausea, vomiting, fever, chills, and cough. His O2 saturation was noted to be 67%, home before coming to the hospital. In the ED patient was given high flow oxygen, DuoNeb treatment, and Solu-Medrol. His symptoms did improve some. Labs were mostly unremarkable, and elevated troponin at 0.06 which decreased to 0.04, EKG showed no acute ST changes and he denied chest pain. Urine legionella and strep pneumo antigens were negative, blood cultures are pending. Chest x-ray shows bibasilar infiltrates. CT of chest showed bibasilar subpleural and sangeeta-bronchovascular opacities. Suggestive of pneumonia or edema, and mild to moderate central lobar paraseptal emphysema. He is placed on empiric azithromycin and ceftriaxone for suspected pneumonia. He is on DuoNeb scheduled every 6 hours, and Solu-Medrol which will be changed to prednisone tomorrow. Patient reports smoking 2 packs a day for about 55 years, he quit 5 or 6 years ago. 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 Past Med Surg Social Fam HX - Past Medical History Medical history: diabetes, hyperlipidemia, hypertension Additional medical history: Home O2. 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 sinus sx - Social History Smoking Status: Never smoker Smokeless Tobacco Status: No Alcohol use: none Drug use: none - Family History Father Living Status: Hx Family Cancer: Yes (Leukemia) Sister Living Status: Hx Family Cancer: Yes (Skin Ca. with mets) Mother Living Status: Hx Family Cardiac Disorders: Yes (CAD) All Systems: The remainder of the systems were reviewed and are negative Review of Systems: Constitutional: Denies fevers, chills, weight loss, generalized fatigue Head/Neck: Denies IRENE, neck stiffness EENT: Reports Blindness. Denies rhinorrhea, congestion, sore throat CVS: Denies chest pain, palpitations, EVANS, orthopnea, edema, PND Pulm: Reports SOB. Denies hemoptysis, wheezing GI: Denies abdominal pain, nausea, vomiting, diarrhea, constipation, melena, hematemasis : Denies dysuria, increased frequency, urgency, hematuria Heme: Denies ease of bleeding or bruising MSK: Denies joint pain, limited ROM Skin: Denies rashes, ulcers, color changes Neuro: Denies IRENE, paresthesias, focal deficits, ataxia Physical Examination Vital Signs: Vital Signs, Last 4 Hours Temp Pulse Resp BP Pulse Ox 05/06/19 11:20 97.7 F 76 21 144/73 90 Gen: Vitals noted. Mild respiratory distress. On 10L via nasal cannula. Eyes: anicteric sclerae, moist conjunctivae; no lid-lag; Pupils equal and reactive to light HENT: Atraumatic, normocephalic; oropharynx clear with moist mucous membranes and no mucosal ulcerations Neck: Trachea midline; supple, no thyromegaly or lymphadenopathy Cardiac: RRR, no murmurs, rubs or gallops, S1/S2 Pulmonary: Accessory muscle use. BL coarse breath sounds with expiratory wheezing and bibasilar ronchi. Abdomen: soft, nontender, no rigidity or guarding. No masses or hepatosplenome so MSK: ROM intact, no joint swelling noted Extremities: no BLE edema, nontender calf, no cyanosis or clubbing Skin: Normal temperature, turgor and texture; no rash, ulcers or subcutaneous nodules Neuro: moves all extremities, no focal deficits. Psych: Appropriate mood and behavior. A&Ox3 Results - Laboratory Findings CBC and BMP: 05/05/19 18:00 05/05/19 18:00 Abnormal lab findings: Abnormal lab results RBC 4.07 M/mcL (4.19-5.50) L 05/05/19 18:00 Hgb 12.4 g/dL (12.9-16.9) L 05/05/19 18:00 Hct 37.2 % (37.5-50.1) L 05/05/19 18:00 MPV 9.1 fL (9.4-12.4) L 05/05/19 18:00 Carbon Dioxide 21 mEq/L (23-29) L 05/05/19 18:00 Est GFR (Non-Af Amer) 54 (> 60) L 05/05/19 18:00 Glucose 106 mg/dL (70-105) H 05/05/19 18:00 POC Glucose 223 mg/dL (70-99) H 05/06/19 08:12 Lactic Acid 3.3 mmol/L (0.5-2.2) H 05/05/19 18:00 Troponin I 0.04 ng/mL (< 0.04) H* 05/06/19 06:06 B-Natriuretic Peptide 193 pg/mL (Less than 100) H 05/05/19 18:00 - Microbiology Findings Microbiology Findings: Microbiology, Last 48 Hours 05/05/19 23:20 Legionella Antigen - Final Urine,Clean Catch Streptococcus pneumoniae Antigen (M - Final 05/05/19 18:06 Blood Culture - Preliminary Peripheral Venipuncture Culture is incubating and being continuously monitored for growth. Final report to follow. 05/05/19 18:17 Blood Culture - Preliminary Peripheral Venipuncture Culture is incubating and being continuously monitored for growth. Final report to follow. - Clinical Findings Intake & Output: Intake & Output 05/05/19 05/06/19 05/06/19 23:59 07:59 15:59 Intake Total 2260 / 2260 750 / 880 130 / 880 Output Total 400 / 400 1250 / 1900 650 / 1900 Balance 1860 / 1860 -500 / -1020 -520 / -1020 Weight 95.6 kg 96.2 kg 91.682 kg
[2019-05-06] MEDS: Ipratropium/Albuterol Neb 3 ML IH SCH ×2 (15:37→22:30)
[2019-05-06] MEDS ORDERED: Perflutren Lipid Microsphere 1.3 ML in 0.9 % Sodium Chloride 8.7 ML IVP ONE (15:51)
[2019-05-06 15:58] LABS: Adenovirus Not Detected (Not Detect); Bordetella Pertussis Not Detected (Not Detect); Chlamydophila pneumoniae Not Detected (Not Detect); Coronavirus 229E Not Detected (Not Detect); Coronavirus HKU1 Not Detected (Not Detect); Coronavirus NL63 Not Detected (Not Detect); Coronavirus OC43 Not Detected (Not Detect); Human Metapneumovirus Not Detected (Not Detect); Human Rhinovirus/Enterovirus Not Detected (Not Detect); Influenza A Subtype 2009 H1 Not Detected (Not Detect); Influenza A Untypeable Not Detected (Not Detect); Influenza B Not Detected (Not Detect); Mycoplasma pneumoniae Not Detected (Not Detect); Parainfluenza Virus 1 Not Detected (Not Detect); Parainfluenza Virus 2 Not Detected (Not Detect); Parainfluenza Virus 3 Not Detected (Not Detect); Parainfluenza Virus 4 Not Detected (Not Detect); Respiratory Syncytial Virus Not Detected (Not Detect)
[2019-05-06] MEDS: Acetaminophen 325 MG TABLET PO PRN (17:13)
[2019-05-06] MEDS: Melatonin 3 MG TABLET PO SCH (20:37)
[2019-05-06] MEDS: Budesonide/Formoterol 160/4.5 1 PUFF INH IH SCH (22:30)
[2019-05-07] MEDS: Ipratropium/Albuterol Neb 3 ML IH SCH ×4 (03:33→22:12)
[2019-05-07] MEDS: *HR* Heparin 5,000 UNIT/ML VIAL SQ SCH ×3 (05:52→21:23)
[2019-05-07 07:28] LABS: Hematocrit 31.9 % (37.5-50.1); Mean Corpuscular HGB Conc 33.2 g/dL (31.6-35.5); Mean Corpuscular Hemoglobin 30.1 pg (28.0-33.3); Mean Corpuscular Volume 90.6 fL (83.0-100.0); Mean Platelet Volume 9.4 fL (9.4-12.4); Platelet Count 207 K/mcL (140-400); Red Blood Count 3.52 M/mcL (4.19-5.50); Red Cell Distribution Width 14.2 % (11.5-14.5); White Blood Count 11.9 K/mcL (4.3-11.1)
[2019-05-07 07:30] LABS: Hemoglobin 10.6 g/dL (12.9-16.9)
[2019-05-07 07:46] LABS: BUN/Creatinine Ratio 19 (6-26); Blood Urea Nitrogen 22 mg/dL (8-23); Calcium 8.8 mg/dL (8.6-10.3); Carbon Dioxide 26 mEq/L (23-29); Chloride 104 mEq/L (98-107); Glucose 127 mg/dL (70-105); Osmolality,Calculated 305 (280-300); Potassium 3.6 mEq/L (3.5-5.1); Sodium 145 mEq/L (136-145); eGFR For African Americans > 60 (> 60); eGFR For Non-African Americans > 60 (> 60)
--- NOTE | 2019-05-07 07:58 | Pulmonology Progress Note ---
<Anderson Kim W - Last Filed: 05/07/19 12:52> Date of Encounter: 05/07/19 Objective PUL Vital signs: Last Vital Signs Temp 97.8 F 05/07/19 10:48 Pulse 71 05/07/19 10:48 Resp 18 05/07/19 10:48 BP 130/68 05/07/19 10:48 Pulse Ox 98 05/07/19 10:48 Results - Laboratory Findings CBC and BMP: 05/07/19 06:37 05/07/19 06:37 Abnormal lab findings: Abnormal lab results WBC 11.9 K/mcL (4.3-11.1) H 05/07/19 06:37 RBC 3.52 M/mcL (4.19-5.50) L 05/07/19 06:37 Hgb 10.6 g/dL (12.9-16.9) L D 05/07/19 06:37 Hct 31.9 % (37.5-50.1) L 05/07/19 06:37 MPV 9.1 fL (9.4-12.4) L 05/05/19 18:00 Carbon Dioxide 21 mEq/L (23-29) L 05/05/19 18:00 Est GFR (Non-Af Amer) 54 (> 60) L 05/05/19 18:00 Glucose 127 mg/dL (70-105) H 05/07/19 06:37 POC Glucose 125 mg/dL (70-99) H 05/07/19 07:49 Calculated Osmolality 305 (280-300) H 05/07/19 06:37 Lactic Acid 3.3 mmol/L (0.5-2.2) H 05/05/19 18:00 Troponin I 0.04 ng/mL (< 0.04) H* 05/06/19 06:06 B-Natriuretic Peptide 193 pg/mL (Less than 100) H 05/05/19 18:00 - Microbiology Findings Microbiology Findings: Microbiology, Last 48 Hours 05/05/19 23:20 Legionella Antigen - Final Urine,Clean Catch Streptococcus pneumoniae Antigen (M - Final 05/05/19 18:06 Blood Culture - Preliminary Peripheral Venipuncture Culture is incubating and being continuously monitored for growth. Final report to follow. 05/05/19 18:17 Blood Culture - Preliminary Peripheral Venipuncture Culture is incubating and being continuously monitored for growth. Final report to follow. - Clinical Findings Intake & Output: Intake & Output 05/06/19 05/07/19 05/07/19 23:59 07:59 15:59 Intake Total 220 / 220 Output Total 675 / 3300 150 / 450 300 / 450 Balance -675 / -2420 -150 / -230 -80 / -230 Weight 89.3 kg Consult Discharge Plan - Plan Referrals: [facility] – [place],Mj Alas MD [Primary Care Provider] - - Attending Attestation I examined this patient and my medical decision-making was reviewed with the Res franciscan healtht Physician. I agree with the documented findings, disposition and treatment plan as described except to the extent set forth below. We independently had [id number] contact with the patient Patient seen and examined at bedside Labs, radiology, chart personally reviewed. Impression/Recs: Remains on high flow nasal cannula O2. Clinically feeling low but better today. Concerningly Procalcitonin was normal which seemingly makes infection less likely and we may be dealing with ILD flare. If cultures negative 48 hours could consider de-escalating to macrolide antibiotic would continue steroids and bronchodilators otherwise for ILD/COPD exacerbation. Prognosis remains guarded <Willy Ryder L - Last Filed: 05/07/19 13:19> Date of Encounter: 05/07/19 Time of Encounter: 07:58 Assessment and Plan (1) Acute and chronic respiratory failure with hypoxia Current Visit: Yes Status: Acute Acute on Chronic Hypoxic Respiratory failure - O2 saturation in mid 90's on High-flow Nasal Cannula Plan: - High-Flow Nasal cannula as needed - Goal oxygen saturations over 88% - Recommend out of bed to chair as tolerated while on continuous pulse oximetry (2) CAP (community acquired pneumonia) Current Visit: Yes Status: Acute Community Acquired PNA - Legionella and Strep PNA antigen negative - Procalcitonin 0.08 - MRSA screen Negative - respiratory panel negative Plan: - Continue antibiotics - Follow-up cultures Qualifiers: Laterality: unspecified laterality Qualified Code(s): J18.9 - Pneumonia, unspecified organism (3) COPD exacerbation Current Visit: Yes Status: Acute COPD exacerbation - PFTs from 2014 reviewed. - CT chest: Emphysematic changes, with pneumonia or edema on increased interstitial fibrotic changes - Combination lung disease with emphysema and chronic fibrotic changes Plan: - Scheduled Duonebs - Symbicort 160/4.5 2 puffs BID - Solu-medrol 60mg q8h (4) Interstitial lung disease Current Visit: Yes Status: Acute Interstitial lung disease - Like mixed restrictive/obstructive disease - Restrictive pattern on previous PFT Plan: - As above Subjective Interval history: She seen and examined. Afebrile. No overnight events. Patient laying comfortably in bed. Currently saturating at 96% O2 on 45 L via high flow nasal cannula, FiO2 68%. Patient became short of breath or any was still up to obtain his weight's morning. Denies any shortness of breath while lying in bed. Objective PUL Vital signs: Last Vital Signs Temp 97.9 F 05/06/19 23:34 Pulse 70 05/06/19 23:34 Resp 18 05/07/19 03:33 BP 102/68 05/06/19 23:34 Pulse Ox 96 05/07/19 03:33 Gen: Vitals noted. No acute distress. No respiratory distress. No dispnea while speaking. On 45 L via high-flow Nasal cannula. Eyes: anicteric sclerae, moist conjunctivae. Blind HENT: Atraumatic, normocephalic. Oropharynx clear with moist mucous membranes an d no mucosal ulcerations Neck: Trachea midline. Supple, no thyromegaly or lymphadenopathy Cardiac: RRR, no murmurs, rubs or gallops, S1/S2 Pulmonary: No accessory muscle use. Coarse breath souds BL, with BL lower lobe wheezing Abdomen: soft, nontender, no rigidity or guarding. No masses or hepatospl enomegaly. [place] in RLQ MSK: ROM intact, no joint swelling noted Extremities: no BLE edema, nontender calf, no cyanosis or clubbing Skin: Normal temperature, turgor and texture; no rash, ulcers or subcutaneous nodules Neuro: moves all extremities, no focal deficits. Psych: Appropriate mood and behavior. A&Ox3 Results - Laboratory Findings CBC and BMP: 05/07/19 06:37 05/07/19 06:37 Abnormal lab findings: Abnormal lab results WBC 11.9 K/mcL (4.3-11.1) H 05/07/19 06:37 RBC 3.52 M/mcL (4.19-5.50) L 05/07/19 06:37 Hgb 10.6 g/dL (12.9-16.9) L D 05/07/19 06:37 Hct 31.9 % (37.5-50.1) L 05/07/19 06:37 MPV 9.1 fL (9.4-12.4) L 05/05/19 18:00 Carbon Dioxide 21 mEq/L (23-29) L 05/05/19 18:00 Est GFR (Non-Af Amer) 54 (> 60) L 05/05/19 18:00 Glucose 127 mg/dL (70-105) H 05/07/19 06:37 POC Glucose 171 mg/dL (70-99) H 05/06/19 20:03 Calculated Osmolality 305 (280-300) H 05/07/19 06:37 Lactic Acid 3.3 mmol/L (0.5-2.2) H 05/05/19 18:00 Troponin I 0.04 ng/mL (< 0.04) H* 05/06/19 06:06 B-Natriuretic Peptide 193 pg/mL (Less than 100) H 05/05/19 18:00 - Microbiology Findings Microbiology Findings: Microbiology, Last 48 Hours 05/05/19 23:20 Legionella Antigen - Final Urine,Clean Catch Streptococcus pneumoniae Antigen (M - Final 05/05/19 18:06 Blood Culture - Preliminary Peripheral Venipuncture Culture is incubating and being continuously monitored for growth. Final report to follow. 05/05/19 18:17 Blood Culture - Preliminary Peripheral Venipuncture Culture is incubating and being continuously mo nitored for growth. Final report to follow. - Clinical Findings Intake & Output: Intake & Output 05/06/19 05/06/19 05/07/19 15:59 23:59 07:59 Intake Total 130 / 880 Output Total 1375 / 3300 675 / 3300 150 / 150 Balance -1245 / -2420 -675 / -2420 -150 / -150 Weight 91.682 kg 89.3 kg
[2019-05-07] MEDS: Insulin LISPRO 300 UNITS/3 ML VIAL SQ SCH ×4 (08:01→22:17)
[2019-05-07] MEDS: Aspirin Enteric Coated 81 MG Tablet PO SCH (08:14)
[2019-05-07] MEDS: amLODIPine 5 MG TABLET PO SCH (08:15)
[2019-05-07] MEDS: Finasteride 5 MG TABLET PO SCH (08:15)
[2019-05-07] MEDS: Multivit/Ca/Min/Fe/FA 1 TAB TABLET PO SCH (08:15)
[2019-05-07] MEDS: Cholecalciferol (D-3) 1,000 UNIT (25MCG) TABLET PO SCH (08:15)
[2019-05-07] MEDS: Fenofibrate 54 MG TABLET PO SCH (08:15)
[2019-05-07] MEDS: MethylPREDNISolone 40 MG/ML VIAL IVP SCH ×3 (08:15→23:44)
[2019-05-07] MEDS: cefTRIAXone 1,000 MG in Water for inj. (sterile) 10 ML IVPB SCH (08:15)
[2019-05-07] MEDS: Azithromycin 250 MG TABLET PO SCH (08:15)
[2019-05-07] MEDS: OXcarbazepine 150 MG TABLET PO SCH ×2 (08:15→21:23)
[2019-05-07] MEDS ORDERED: predniSONE 20 MG TABLET PO SCH (09:00)
[2019-05-07] MEDS: Budesonide/Formoterol 160/4.5 1 PUFF INH IH SCH ×2 (10:55→19:54)
[2019-05-07] MEDS: Furosemide 40 MG/4 ML VIAL IVP SCH ×2 (11:08→16:39)
--- NOTE | 2019-05-07 11:31 | Internal Med Progress Note ---
Hospitalist Progress Note - Encounter Date of Encounter: 05/07/19 Time of Encounter: 11:27 - Subjective Interval History: Still on high flow oxygen, but says that he is feeling better. Breathing is less labored. - Exam Vitals: Temp Pulse Resp BP Pulse Ox 97.8 F 71 18 130/68 98 05/07/19 10:48 05/07/19 10:48 05/07/19 10:48 05/07/19 10:48 05/07/19 10:48 Exam: General: Ill-appearing and in no acute distress HEENT: No erythema of posterior pharynx. No exudates. Lymphatics: No mandibular or cervical lymphadenopathy Cardiovascular: RRR. No murmurs. No chest wall tenderness. Lungs: Diffuse rhonchi. Regular chest rise. No accessory muscles of respiration used Abdomen: Non-tender. No rebound or gaurding. Nl bowel sounds. Extremities: Trace edema. 2+ pulses radial and pedal pulses Skin: No rahses, abrasions, or contusions. Nl cap refill. Psych: Nl attention. 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 5/5 strength. Sensation to light touch and pinprick intact. - Assessment and Plan (1) Acute and chronic respiratory failure with hypoxia Current Visit: Yes Status: Acute Assessment and Plan: Patient with history of chronic respiratory failure secondary to COPD on 3 L oxygen outpatient and probably some degree of heart failure on Lasix outpatient presents with shortness of breath in the setting of increased hypoxia but otherwise stable vitals, diffuse rhonchi on exam most prominent in right lower lobe, and chest x-ray concerning for atypical pneumonia. -Chest x-ray concerning for atypical pneumonia, however, patient denies cough and no leukocytosis or fevers Chest CT yest with increased interstitial fibrotic changes: Pulmonology consulted regarding these findings and recommend continued pneumonia treatment Also being treated for decompensated COPD. Pulmonary recommending switching back to IV steroids -Appears to have some degree of hypervolemia. No recent echocardiogram but BNP mildly elevated. Echocardiogram pending PLAN: - Continue ceftriaxone and azithromycin - Scheduled nebs - Lasix 40 mg IV bid - Prednisone 40mg --> methylprednisolone 40mg q8 IV - Strict intake and output and daily weights - Echocardiogram pending (2) COPD (chronic obstructive pulmonary disease) Current Visit: Yes Status: Acute Assessment and Plan: See above (3) CAP (community acquired pneumonia) Current Visit: Yes Status: Acute Assessment and Plan: See above (4) History of colectomy Current Visit: Yes Status: Acute Assessment and Plan: Colectomy after fulminant C. difficile infection (5) CAD (coronary artery disease) Current Visit: No Status: Chronic Assessment and Plan: s/p CABG x 3. - Continue home ASA and statin DVT Prophylaxis: Heparin Internal Medicine: Result - Labs CBC & Chem 7: 05/07/19 06:37 05/07/19 06:37 Labs: Short CBC 05/07/19 Range/Units 06:37 WBC 11.9 H (4.3-11.1) K/mcL Hgb 10.6 L D (12.9-16.9) g/dL Hct 31.9 L (37.5-50.1) % Plt Count 207 (140-400) K/mcL BMP 05/07/19 06:37 Sodium 145 Potassium 3.6 Chloride 104 Carbon Dioxide 26 BUN 22 Creatinine 1.16 Glucose 127 H Calcium 8.8 - Impressions Impressions Echocardiogram 05/06/19 11:36 Impressions: LVEF 60%. Atypical septal motion consistent with post-operative status. Mild left ventricular diastolic dysfunction. RV structure and function not well visualized. Mild-moderate tricuspid regurgitation. Moderate pulmonary hypertension by TR gradient. Left Ventricular Wall Motion: Rest Echo Findings The apex, apical inferior, mid inferior, basal inferior, apical anterior, mid anterior and basal anterior crain were not visualized. All other wall segments showed normal motion. Findings: Study Quality * Technically adequate exam. ECG Findings * Normal sinus rhythm. Left Ventricle * LVEF 60%. * Normal LV chamber size, wall thickness and function. * Atypical septal motion consistent with post-operative status. * Mild left ventricular diastolic dysfunction. Right Ventricle * Right ventricular structure and function are not well visualized. Left Atrium * Mildly dilated left atrium. Right Atrium * Mildly dilated right atrium. Mitral Valve * Normal mitral valve structure. * No mitral stenosis. * No mitral regurgitation. Aortic Valve * No aortic regurgitation. * No aortic stenosis. * Aortic valve not well visualized. Tricuspid Valve * Tricuspid valve not well visualized. * Mild-moderate tricuspid regurgitation. Pulmonic Valve * Pulmonic valve is not well visualized. * No pulmonic stenosis. * Trace pulmonic regurgitation. Pulmonary Artery * Pulmonary artery not well visualized. Aorta * Normally sized aortic root. Pericardium * There is no pericardial effusion present. Interatrial Septum * Interatrial septum not well evaluated. IVC * The IVC is not well evaluated. Chest CT 05/06/19 11:37 IMPRESSION: 1. Increased basilar predominant subpleural and peribronchovascular consolidative, groundglass, and reticular opacities as well as interlobular and intralobular septal thickening. The appearance is suggestive of pneumonia or edema superimposed upon increased interstitial fibrotic changes with a pattern indeterminate for usual interstitial pneumonitis. However, this is incompletely evaluated given lack of high-resolution sequences. Consider follow-up with a high-resolution chest CT following treatment. 2. Mild to moderate centrilobular and paraseptal emphysema. 3. Minimal to mild bronchial wall thickening with patchy central airway secretions, potentially related to bronchitis, reactive airways disease, or pulmonary vascular congestion. 4. Trace bilateral pleural effusions. D/ / Mike Garcia MD / Mike Garcia MD Interpreting Provider: Mike Garcia MD Consult Discharge Plan - Plan [facility] [place] [facility] [Primary Care Provider[facility] - (3) CAP (community acquired pneumonia) Qualifiers: Laterality: unspecified laterality Qualified Code(s): J18.9 - Pneumonia, unspecified organism (5) CAD (coronary artery disease) Qualifiers: Coronary Disease-Associated Artery/Lesion type: bypass graft [place] vs. transplanted heart: [place] heart Associated angina: without angina Qualified Code(s): I25.810 - Atherosclerosis of coronary artery bypass graft(s) without angina pectoris
--- NOTE | 2019-05-07 14:53 | Electrocardiograph Report ---
[place] [id number] Test Date: 2019-05-05 Pat Name: Sunil Treadwell Department: [id number] Room: 2A Gender: M [employer]: : 1940 Requested By: Tejal Yusuf Order Number: [id number] Reading MD: Mj Link Measurements Intervals [place] Rate: 94 P: 33 ID: [id number] QRS: 2 QRSD: 134 T: 32 QT: 376 QTc: 471 Interpretive Statements Sinus rhythm Multiform ventricular premature complexes Right bundle branch block Electronically Signed On 05-07-2019 14:51:33 EDT by Mj Link
[2019-05-07] MEDS: *HR* LORazepam 0.5 MG TABLET PO PRN (21:22)
[2019-05-07] MEDS: Melatonin 3 MG TABLET PO SCH (21:22)
[2019-05-07] MEDS: Acetaminophen 325 MG TABLET PO PRN (22:14)
[2019-05-08 03:17] LABS: Potassium 4.3 mEq/L (3.5-5.1)
[2019-05-08] MEDS: Ipratropium/Albuterol Neb 3 ML IH SCH ×4 (04:27→22:36)
[2019-05-08] MEDS: *HR* Heparin 5,000 UNIT/ML VIAL SQ SCH ×3 (06:04→21:37)
[2019-05-08] MEDS: Azithromycin 250 MG TABLET PO SCH (07:56)
[2019-05-08] MEDS: Fenofibrate 54 MG TABLET PO SCH (07:56)
[2019-05-08] MEDS: OXcarbazepine 150 MG TABLET PO SCH ×2 (07:57→21:37)
[2019-05-08] MEDS: Cholecalciferol (D-3) 1,000 UNIT (25MCG) TABLET PO SCH (07:57)
[2019-05-08] MEDS: Multivit/Ca/Min/Fe/FA 1 TAB TABLET PO SCH (07:57)
[2019-05-08] MEDS: amLODIPine 5 MG TABLET PO SCH (07:57)
[2019-05-08] MEDS: Finasteride 5 MG TABLET PO SCH (07:57)
[2019-05-08] MEDS: Aspirin Enteric Coated 81 MG Tablet PO SCH (07:57)
[2019-05-08] MEDS: cefTRIAXone 1,000 MG in Water for inj. (sterile) 10 ML IVPB SCH (07:57)
[2019-05-08] MEDS: MethylPREDNISolone 40 MG/ML VIAL IVP SCH ×2 (07:58→14:51)
[2019-05-08] MEDS: Insulin LISPRO 300 UNITS/3 ML VIAL SQ SCH ×4 (07:59→21:39)
--- NOTE | 2019-05-08 09:05 | Pulmonology Progress Note ---
<BritniWilly Gela - Last Filed: 05/08/19 16:33> Date of Encounter: 05/08/19 Time of Encounter: 09:03 Assessment and Plan (1) Acute and chronic respiratory failure with hypoxia Current Visit: Yes Status: Acute Acute on Chronic Hypoxic Respiratory failure - O2 saturation in mid 90's on High-flow Nasal Cannula - Improving slowly Plan: - High-Flow Nasal cannula as needed - Goal oxygen saturations over 88% - Recommend out of bed to chair as tolerated while on continuous pulse oximetry (2) CAP (community acquired pneumonia) Current Visit: Yes Status: Acute Community Acquired PNA - Legionella and Strep PNA antigen negative - Procalcitonin 0.08 - MRSA screen Negative - respiratory panel negative - PNA less likely, could be ILD flair Plan: - Continue antibiotics - Blood cultures incubating Qualifiers: Laterality: unspecified laterality Qualified Code(s): J18.9 - Pneumonia, unspecified organism (3) COPD exacerbation Current Visit: Yes Status: Acute COPD exacerbation - PFTs from 2014 reviewed. 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 Afebrile. No overnight events. Patient denies any shortness of breath. Supplemental O2 requirement is improving. Patient denies cough, hemoptysis, or sputum production. Objective PUL Vital signs: Last Vital Signs Temp 98.7 F 05/08/19 06:43 Pulse 80 05/08/19 06:43 Resp 19 05/08/19 06:43 BP 120/61 05/08/19 06:43 Pulse Ox 93 05/08/19 06:43 Gen: Vitals noted. No acute distress. No respiratory distress. No dispnea while speaking. On 35 L, 50%FiO2 via high-flow Nasal cannula. Eyes: anicteric sclerae, moist conjunctivae. Blind HENT: Atraumatic, normocephalic. Oropharynx clear with moist mucous membranes and no mucosal ulcerations Neck: Trachea midline. Supple, no thyromegaly or lymphadenopathy Cardiac: RRR, no murmurs, rubs or gallops, S1/S2 Pulmonary: No accessory muscle use. Heavy breath sounds BL. No wheezing, crackles, or ronchi Abdomen: soft, nontender, no rigidity or guarding. No masses or hepatosplenomegaly. [place] in RLQ MSK: ROM intact, no joint swelling noted Extremities: no BLE edema, nontender calf, no cyanosis or clubbing Skin: Normal temperature, turgor and texture; no rash, ulcers or subcutaneous nodules Neuro: moves all extremities, no focal deficits. Psych: Appropriate mood and behavior. A&Ox3 Results - Laboratory Findings CBC and BMP: 05/07/19 06:37 05/08/19 02:37 Abnormal lab findings: Abnormal lab results WBC 11.9 K/mcL (4.3-11.1) H 05/07/19 06:37 RBC 3.52 M/mcL (4.19-5.50) L 05/07/19 06:37 Hgb 10.6 g/dL (12.9-16.9) L D 05/07/19 06:37 Hct 31.9 % (37.5-50.1) L 05/07/19 06:37 MPV 9.1 fL (9.4-12.4) L 05/05/19 18:00 Carbon Dioxide 21 mEq/L (23-29) L 05/05/19 18:00 BUN 34 mg/dL (8-23) H 05/08/19 02:37 Creatinine 1.41 mg/dL (0.70-1.30) H 05/08/19 02:37 Est GFR ( Amer) 59 (> 60) L 05/08/19 02:37 Est GFR (Non-Af Amer) 48 (> 60) L 05/08/19 02:37 Glucose 209 mg/dL (70-105) H 05/08/19 02:37 POC Glucose 192 mg/dL (70-99) H 05/07/19 19:33 Calculated Osmolality 308 (280-300) H 05/08/19 02:37 Lactic Acid 3.3 mmol/L (0.5-2.2) H 05/05/19 18:00 Troponin I 0.04 ng/mL (< 0.04) H* 05/06/19 06:06 B-Natriuretic Peptide 193 pg/mL (Less than 100) H 05/05/19 18:00 - Clinical Findings Intake & Output: Intake & Output 05/07/19 05/08/19 05/08/19 23:59 07:59 15:59 Intake Total 240 / 710 200 / 200 Output Total 875 / 1725 Balance -635 / -1015 200 / 200 Weight 89.8 kg Consult Discharge Plan - Plan Referrals: marlene,Mj Alas MD [Primary Care Provider] - <Anderson Kim - Last Filed: 05/08/19 17:10> Date of Encounter: 05/08/19 Objective PUL Vital signs: Last Vital Signs Temp 98.1 F 05/08/19 15:39 Pulse 83 05/08/19 15:39 Resp 20 05/08/19 15:39 BP 128/57 05/08/19 15:39 Pulse Ox 89 05/08/19 11:15 Results - Laboratory Findings CBC and BMP: 05/07/19 06:37 05/08/19 02:37 Abnormal lab findings: Abnormal lab results WBC 11.9 K/mcL (4.3-11.1) H 05/07/19 06:37 RBC 3.52 M/mcL (4.19-5.50) L 05/07/19 06:37 Hgb 10.6 g/dL (12.9-16.9) L D 05/07/19 06:37 Hct 31.9 % (37.5-50.1) L 05/07/19 06:37 MPV 9.1 fL (9.4-12.4) L 05/05/19 18:00 Carbon Dioxide 21 mEq/L (23-29) L 05/05/19 18:00 BUN 34 mg/dL (8-23) H 05/08/19 02:37 Creatinine 1.41 mg/dL (0.70-1.30) H 05/08/19 02:37 Est GFR ( Amer) 59 (> 60) L 05/08/19 02:37 Est GFR (Non-Af Amer) 48 (> 60) L 05/08/19 02:37 Glucose 209 mg/dL (70-105) H 05/08/19 02:37 POC Glucose 192 mg/dL (70-99) H 05/07/19 19:33 Calculated Osmolality 308 (280-300) H 05/08/19 02:37 Lactic Acid 3.3 mmol/L (0.5-2.2) H 05/05/19 18:00 Troponin I 0.04 ng/mL (< 0.04) H* 05/06/19 06:06 B-Natriuretic Peptide 193 pg/mL (Less than 100) H 05/05/19 18:00 - Clinical Findings Intake & Output: Intake & Output 05/08/19 05/08/19 05/08/19 07:59 15:59 23:59 Intake Total 720 / 720 Output Total 1175 / 1175 Balance -455 / -455 Weight 89.8 kg - Attending Attestation I examined this patient and my medical decision-making was reviewed with the Resident Physician. I agree with the documented findings, disposition and treatment plan as described except to the extent set forth below. We independently had [id number] contact with the patient Patient seen and examined at bedside Labs, radiology, chart personally reviewed. Impression/Recs: Some modest interval improvement in hypoxemia. Continue steroids. Okay to de- escalate antibiotics. Out of bed to chair to combat effects of atelectasis and VQ mismatch. Holding diuresis based upon creatinine.
[2019-05-08] MEDS: Budesonide/Formoterol 160/4.5 1 PUFF INH IH SCH ×2 (11:15→22:38)
--- NOTE | 2019-05-08 15:00 | Internal Med Progress Note ---
Hospitalist Progress Note - Encounter Date of Encounter: 05/08/19 Time of Encounter: 14:56 - Subjective Interval History: Patient weaning down on oxygen today. Given blood cultures negative pro- calcitonin, pulmonary concerned for ILD flare rather than infectious pneumonia. - Exam Vitals: Temp Pulse Resp BP Pulse Ox 98.0 F 72 16 116/59 89 05/08/19 11:00 05/08/19 11:00 05/08/19 11:15 05/08/19 11:00 05/08/19 11:15 Exam: General: Ill-appearing and in no acute distress HEENT: No erythema of posterior pharynx. No exudates. Lymphatics: No mandibular or cervical lymphadenopathy Cardiovascular: RRR. No murmurs. No chest wall tenderness. Lungs: Diffuse rhonchi. Regular chest rise. No accessory muscles of respiration used Abdomen: Non-tender. No rebound or gaurding. Nl bowel sounds. Extremities: Trace edema. 2+ pulses radial and pedal pulses Skin: No rahses, abrasions, or contusions. Nl cap refill. Psych: Nl attention. 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 5/5 strength. Sensation to light touch and pinprick intact. - Assessment and Plan (1) Acute and chronic respiratory failure with hypoxia Current Visit: Yes Status: Acute Assessment and Plan: Patient with history of chronic respiratory failure secondary to COPD on 3 L oxygen outpatient and probably some degree of heart failure on Lasix outpatient presents with shortness of breath in the setting of increased hypoxia but otherwise stable vitals, diffuse rhonchi on exam most prominent in right lower lobe, and chest x-ray concerning for atypical pneumonia. -Chest x-ray concerning for atypical pneumonia, however, patient denies cough and no leukocytosis or fevers Chest CT with increased interstitial fibrotic changes: Neg Blood cultures and pro-calcitonin Pulmonology consulted and concerned that this represents an ILD flare rather than PNA -Appears to have some degree of hypervolemia. No recent echocardiogram but BNP mildly elevated. Echocardiogram repeated and nl EF, diastolic dysfunction Cr bump today - patient likely at dry weight PLAN: - Continue ceftriaxone and azithromycin - will d/c tomorrow given this would be a 5 day course - Scheduled nebs - D/c lasix - Methylprednisolone 40mg q8 IV - Strict intake and output and daily weights (2) COPD (chronic obstructive pulmonary disease) Current Visit: Yes Status: Acute Assessment and Plan: See above (3) CAP (community acquired pneumonia) Current Visit: Yes Status: Acute Assessment and Plan: See above (4) History of colectomy Current Visit: Yes Status: Acute Assessment and Plan: Colectomy after fulminant C. difficile infection (5) CAD (coronary artery disease) Current Visit: No Status: Chronic Assessment and Plan: s/p CABG x 3. - Continue home ASA and statin DVT Prophylaxis: Heparin Internal Medicine: Result - Labs CBC & Chem 7: 05/07/19 06:37 05/08/19 02:37 Labs: BMP 05/08/19 02:37 Sodium 142 Potassium 4.3 Chloride 102 Carbon Dioxide 28 BUN 34 H Creatinine 1.41 H Glucose 209 H Calcium 9.0 Consult Discharge Plan - Plan Referrals: Mj Hooks MD [Primary Care Provider] - (3) CAP (community acquired pneumonia) Qualifiers: Laterality: unspecified laterality Qualified Code(s): J18.9 - Pneumonia, unspecified organism (5) CAD (coronary artery disease) Qualifiers: Coronary Disease-Associated Artery/Lesion type: bypass graft [place] vs. transplanted heart: [place] heart Associated angina: without angina Qualified Code(s): I25.810 - Atherosclerosis of coronary artery bypass graft(s) without angina pectoris
[2019-05-08] MEDS: Melatonin 3 MG TABLET PO SCH (21:38)
[2019-05-09] MEDS: MethylPREDNISolone 40 MG/ML VIAL IVP SCH ×3 (00:51→17:49)
[2019-05-09] MEDS: Ipratropium/Albuterol Neb 3 ML IH SCH ×4 (04:17→21:45)
[2019-05-09] MEDS: *HR* Heparin 5,000 UNIT/ML VIAL SQ SCH ×3 (06:10→21:30)
[2019-05-09] MEDS: Insulin LISPRO 300 UNITS/3 ML VIAL SQ SCH ×4 (08:31→21:29)
[2019-05-09] MEDS: Aspirin Enteric Coated 81 MG Tablet PO SCH (08:32)
[2019-05-09] MEDS: Azithromycin 250 MG TABLET PO SCH (08:32)
[2019-05-09] MEDS: Finasteride 5 MG TABLET PO SCH (08:32)
[2019-05-09] MEDS: Fenofibrate 54 MG TABLET PO SCH (08:32)
[2019-05-09] MEDS: OXcarbazepine 150 MG TABLET PO SCH ×2 (08:32→21:29)
[2019-05-09] MEDS: Multivit/Ca/Min/Fe/FA 1 TAB TABLET PO SCH (08:32)
[2019-05-09] MEDS: Cefdinir 300 MG CAPSULE PO SCH ×2 (08:32→21:28)
[2019-05-09] MEDS: amLODIPine 5 MG TABLET PO SCH (08:33)
[2019-05-09] MEDS: Cholecalciferol (D-3) 1,000 UNIT (25MCG) TABLET PO SCH (08:33)
[2019-05-09] MEDS: Acetaminophen 325 MG TABLET PO PRN (08:38)
[2019-05-09 09:16] LABS: BUN/Creatinine Ratio 35 (6-26); Blood Urea Nitrogen 46 mg/dL (8-23); Calcium 9.2 mg/dL (8.6-10.3); Carbon Dioxide 26 mEq/L (23-29); Chloride 105 mEq/L (98-107); Glucose 204 mg/dL (70-105); Magnesium 1.8 mg/dL (1.6-2.6); Osmolality,Calculated 312 (280-300); Potassium 4.6 mEq/L (3.5-5.1); Sodium 142 mEq/L (136-145); eGFR For African Americans > 60 (> 60); eGFR For Non-African Americans 53 (> 60)
[2019-05-09] MEDS: Budesonide/Formoterol 160/4.5 1 PUFF INH IH SCH ×2 (10:03→21:44)
--- NOTE | 2019-05-09 10:39 | Discharge Summary ---
Orders not resulted at time of discharge: Pending orders 05/05/19 18:06 Culture,Blood [BC] Stat Date of Encounter: 05/09/19 Time of Encounter: 10:37 - Discharge Diagnosis (1) Acute and chronic respiratory failure with hypoxia Priority: Primary Status: Acute (2) COPD (chronic obstructive pulmonary disease) Priority: Secondary Status: Acute (3) CAP (community acquired pneumonia) Priority: Secondary Status: Acute Qualifiers: Laterality: unspecified laterality Qualified Code(s): J18.9 - Pneumonia, unspecified organism (4) History of colectomy Priority: Secondary Status: Acute (5) CAD (coronary artery disease) Priority: Secondary Status: Chronic Qualifiers: Coronary Disease-Associated Artery/Lesion type: bypass graft [place] vs. transplanted heart: [place] heart Associated angina: without angina Qualified Code(s): I25.810 - Atherosclerosis of coronary artery bypass graft(s) without angina pectoris Hospital course: Mr. Treadwell is a 78 year old male - Time Spent with Patient Total time spent providing and/or coordinating discharge services: - Discharge Medications Prescriptions: New Cefdinir [Omnicef] 300 mg PO BID #4 capsule Aspirin Enteric Coated [Aspirin EC] 81 mg PO DAILY tablet. Continued Quetiapine Fumarate [Seroquel] 200 mg PO HS Pantoprazole Sodium [Protonix] 40 mg PO DAILY Finasteride [Proscar] 5 mg PO DAILY Tamsulosin [Flomax] 0.4 mg PO DAILY Fenofibrate [Lofibra] 160 mg PO DAILY Doxepin [Sinequan] 25 mg PO HS Furosemide [Lasix] 20 mg PO DAILY Atorvastatin Calcium [Lipitor] 80 mg PO DAILY Potassium Chloride [K-Tab ER] 20 meq PO BID OXcarbazepine [Trileptal] 150 mg PO BID Cholecalciferol (D-3) [Vitamin D] 1,000 unit PO DAILY Multivitamin [One Daily Essential] 1 tab PO DAILY Melatonin 6 mg PO HS LORazepam [Ativan] 0.5 mg PO BID Linagliptin [Tradjenta] 5 mg PO DAILY Glimepiride [Amaryl] 1 mg PO QAM Brimonidine Tartrate [Alphagan P] 1 drop BOTH EYES BID Clopidogrel [Plavix] 75 mg PO DAILY #30 tablet Albuterol Sulfate [Ventolin Hfa] 1 - 2 puff IH Q6H PRN PRN Reason: Shortness Of Breath Allopurinol [Zyloprim 100 MG] 100 mg PO DAILY Amlodipine Besylate 10 mg PO DAILY Aspirin [Adult Aspirin Regimen] 81 mg PO DAILY Mirtazapine 45 mg PO HS Nitroglycerin [Nitrostat] 0.4 mg SL AD PRN PRN Reason: Chest Pain Home Medications: Atorvastatin Calcium [Lipitor] 80 mg PO DAILY 01/18/17 [History] Doxepin [Sinequan] 25 mg PO HS 01/18/17 [History] Fenofibrate [Lofibra] 160 mg PO DAILY 01/18/17 [History] Finasteride [Proscar] 5 mg PO DAILY 01/18/17 [History] Furosemide [Lasix] 20 mg PO DAILY 01/18/17 [History] OXcarbazepine [Trileptal] 150 mg PO BID 01/18/17 [History] Pantoprazole Sodium [Protonix] 40 mg PO DAILY 01/18/17 [History] Potassium Chloride [K-Tab ER] 20 meq PO BID 01/18/17 [History] Quetiapine Fumarate [Seroquel] 200 mg PO HS 01/18/17 [History] Tamsulosin [Flomax] 0.4 mg PO DAILY 01/18/17 [History] Brimonidine Tartrate [Alphagan P] 1 drop BOTH EYES BID 11/21/17 [History] Cholecalciferol (D-3) [Vitamin D] 1,000 unit PO DAILY 11/21/17 [History] Glimepiride [Amaryl] 1 mg PO QAM 11/21/17 [History] LORazepam [Ativan] 0.5 mg PO BID 11/21/17 [History] Linagliptin [Tradjenta] 5 mg PO DAILY 11/21/17 [History] Melatonin 6 mg PO HS 11/21/17 [History] Multivitamin [One Daily Essential] 1 tab PO DAILY 11/21/17 [History] Clopidogrel [Plavix] 75 mg PO DAILY #30 tablet 11/25/17 [Rx] Albuterol Sulfate [Ventolin Hfa] 1 - 2 puff IH Q6H PRN 05/07/19 [History] Allopurinol [Zyloprim 100 MG] 100 mg PO DAILY 05/07/19 [History] Amlodipine Besylate 10 mg PO DAILY 05/07/19 [History] Aspirin [Adult Aspirin Regimen] 81 mg PO DAILY 05/07/19 [History] Mirtazapine 45 mg PO HS 05/07/19 [History] Nitroglycerin [Nitrostat] 0.4 mg SL AD PRN 05/07/19 [History] Aspirin Enteric Coated [Aspirin EC] 81 mg PO DAILY tablet. 05/09/19 [Rx] Cefdinir [Omnicef] 300 mg PO BID #4 capsule 05/09/19 [Rx] Allergies/Adverse Reactions: Allergy/AdvReac Type Severity Reaction Status Date / Time oxybutynin [From Ditropan] AdvReac See Verified 05/07/19 08:55 Comments Penicillins AdvReac Blister Verified 05/07/19 08:55 Date of admission: 05/05/19 20:24 Primary care physician: Mj Hooks MD Consults: 05/06/19 07:47 Consult to Food Service Driver [CONS] Routine Reason for SW Consult: eval 05/06/19 08:59 Consult to Nurse Navigator [CONS] Routine Comment: pn, copd 05/06/19 13:16 Consult to Pulmonology [CONS] Stat Consulting Provider: [facility] Reason for Consult: hypoxia and abnormal CT findings Call Completed: Yes - Constitutional Vitals: Temp Pulse Resp BP Pulse Ox 97.7 F 72 18 105/57 90 05/09/19 07:33 05/09/19 07:33 05/09/19 10:07 05/09/19 07:33 05/09/19 10:07 - Patient Status Condition: Fair - Discharge Instructions Follow Up With: Mj Hooks MD [Primary Care Provider] - Forms: ED Satisfaction Letter
--- NOTE | 2019-05-09 10:49 | Discharge Summary ---
Orders not resulted at time of discharge: Pending orders 05/05/19 18:06 Culture,Blood [BC] Stat Date of Encounter: 05/09/19 Time of Encounter: 10:46 - Discharge Diagnosis (1) Acute and chronic respiratory failure with hypoxia Status: Acute (2) COPD (chronic obstructive pulmonary disease) Priority: Secondary Status: Acute (3) CAP (community acquired pneumonia) Priority: Secondary Status: Acute Qualifiers: Laterality: unspecified laterality Qualified Code(s): J18.9 - Pneumonia, unspecified organism (4) History of colectomy Priority: Secondary Status: Acute (5) CAD (coronary artery disease) Priority: Secondary Status: Chronic Qualifiers: Coronary Disease-Associated Artery/Lesion type: bypass graft [place] vs. transplanted heart: [place] heart Associated angina: without angina Qualified Code(s): I25.810 - Atherosclerosis of coronary artery bypass graft(s) without angina pectoris Hospital course: Mr. Treadwell is a 78 year old male - Time Spent with Patient Total time spent providing and/or coordinating discharge services: - Discharge Medications Prescriptions: New Cefdinir [Omnicef] 300 mg PO BID #4 capsule Continued Quetiapine Fumarate [Seroquel] 200 mg PO HS Pantoprazole Sodium [Protonix] 40 mg PO DAILY Finasteride [Proscar] 5 mg PO DAILY Tamsulosin [Flomax] 0.4 mg PO DAILY Fenofibrate [Lofibra] 160 mg PO DAILY Doxepin [Sinequan] 25 mg PO HS Furosemide [Lasix] 20 mg PO DAILY Atorvastatin Calcium [Lipitor] 80 mg PO DAILY Potassium Chloride [K-Tab ER] 20 meq PO BID OXcarbazepine [Trileptal] 150 mg PO BID Cholecalciferol (D-3) [Vitamin D] 1,000 unit PO DAILY Multivitamin [One Daily Essential] 1 tab PO DAILY Melatonin 6 mg PO HS LORazepam [Ativan] 0.5 mg PO BID Linagliptin [Tradjenta] 5 mg PO DAILY Glimepiride [Amaryl] 1 mg PO QAM Brimonidine Tartrate [Alphagan P] 1 drop BOTH EYES BID Clopidogrel [Plavix] 75 mg PO DAILY #30 tablet Albuterol Sulfate [Ventolin Hfa] 1 - 2 puff IH Q6H PRN PRN Reason: Shortness Of Breath Allopurinol [Zyloprim 100 MG] 100 mg PO DAILY Amlodipine Besylate 10 mg PO DAILY Aspirin [Adult Aspirin Regimen] 81 mg PO DAILY Mirtazapine 45 mg PO HS Nitroglycerin [Nitrostat] 0.4 mg SL AD PRN PRN Reason: Chest Pain Home Medications: Atorvastatin Calcium [Lipitor] 80 mg PO DAILY 01/18/17 [History] Doxepin [Sinequan] 25 mg PO HS 01/18/17 [History] Fenofibrate [Lofibra] 160 mg PO DAILY 01/18/17 [History] Finasteride [Proscar] 5 mg PO DAILY 01/18/17 [History] Furosemide [Lasix] 20 mg PO DAILY 01/18/17 [History] OXcarbazepine [Trileptal] 150 mg PO BID 01/18/17 [History] Pantoprazole Sodium [Protonix] 40 mg PO DAILY 01/18/17 [History] Potassium Chloride [K-Tab ER] 20 meq PO BID 01/18/17 [History] Quetiapine Fumarate [Seroquel] 200 mg PO HS 01/18/17 [History] Tamsulosin [Flomax] 0.4 mg PO DAILY 01/18/17 [History] Brimonidine Tartrate [Alphagan P] 1 drop BOTH EYES BID 11/21/17 [History] Cholecalciferol (D-3) [Vitamin D] 1,000 unit PO DAILY 11/21/17 [History] Glimepiride [Amaryl] 1 mg PO QAM 11/21/17 [History] LORazepam [Ativan] 0.5 mg PO BID 11/21/17 [History] Linagliptin [Tradjenta] 5 mg PO DAILY 11/21/17 [History] Melatonin 6 mg PO HS 11/21/17 [History] Multivitamin [One Daily Essential] 1 tab PO DAILY 11/21/17 [History] Clopidogrel [Plavix] 75 mg PO DAILY #30 tablet 11/25/17 [Rx] Albuterol Sulfate [Ventolin Hfa] 1 - 2 puff IH Q6H PRN 05/07/19 [History] Allopurinol [Zyloprim 100 MG] 100 mg PO DAILY 05/07/19 [History] Amlodipine Besylate 10 mg PO DAILY 05/07/19 [History] Aspirin [Adult Aspirin Regimen] 81 mg PO DAILY 05/07/19 [History] Mirtazapine 45 mg PO HS 05/07/19 [History] Nitroglycerin [Nitrostat] 0.4 mg SL AD PRN 05/07/19 [History] Cefdinir [Omnicef] 300 mg PO BID #4 capsule 05/09/19 [Rx] Allergies/Adverse Reactions: Allergy/AdvReac Type Severity Reaction Status Date / Time oxybutynin [From Ditropan] AdvReac See Verified 05/07/19 08:55 Comments Penicillins AdvReac Blister Verified 05/07/19 08:55 Date of admission: 05/05/19 20:24 Primary care physician: Mj Hooks MD Consults: 05/06/19 07:47 Consult to Hris Developer [CONS] Routine Reason for SW Consult: eval 05/06/19 08:59 Consult to Nurse Navigator [CONS] Routine Comment: pn, copd 05/06/19 13:16 Consult to Pulmonology [CONS] Stat Consulting Provider: [facility]m [facility] Reason for Consult: hypoxia and abnormal CT findings Call Completed: Yes - Constitutional Vitals: Temp Pulse Resp BP Pulse Ox 97.7 F 72 18 105/57 90 05/09/19 07:33 05/09/19 07:33 05/09/19 10:07 05/09/19 07:33 05/09/19 10:07 - Patient Status Condition: Fair - Discharge Instructions Follow Up With: Mj Hooks MD [Primary Care Provider] - Forms: ED Satisfaction Letter
--- NOTE | 2019-05-09 11:53 | Internal Med Progress Note ---
Hospitalist Progress Note - Encounter Date of Encounter: 05/09/19 Time of Encounter: 11:50 - Subjective Interval History: He has no complaints regards to his breathing today but says that he does not like to be on a restricted diet. - Exam Vitals: Temp Pulse Resp BP Pulse Ox 98.0 F 69 18 115/63 92 05/09/19 11:35 05/09/19 11:35 05/09/19 11:35 05/09/19 11:35 05/09/19 11:35 Exam: General: Ill-appearing and in no acute distress HEENT: No erythema of posterior pharynx. No exudates. Lymphatics: No mandibular or cervical lymphadenopathy Cardiovascular: RRR. No murmurs. No chest wall tenderness. Lungs: Diffuse rhonchi. Regular chest rise. No accessory muscles of respiration used Abdomen: Non-tender. No rebound or gaurding. Nl bowel sounds. Extremities: Trace edema. 2+ pulses radial and pedal pulses Skin: No rahses, abrasions, or contusions. Nl cap refill. Psych: Nl attention. 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 5/5 strength. Sensation to light touch and pinprick intact. - Assessment and Plan (1) Acute and chronic respiratory failure with hypoxia Current Visit: Yes Status: Acute Assessment and Plan: Patient with history of chronic respiratory failure secondary to COPD on 3 L oxygen outpatient and probably some degree of heart failure on Lasix outpatient presents with shortness of breath in the setting of increased hypoxia but otherwise stable vitals, diffuse rhonchi on exam most prominent in right lower lobe, and chest x-ray concerning for atypical pneumonia. -Chest x-ray concerning for atypical pneumonia, however, patient denies cough and no leukocytosis or fevers Chest CT with increased interstitial fibrotic changes: Neg Blood cultures and pro-calcitonin - Pulmonology consulted and mar rned that this represents an ILD flare rather than PNA Cultures still no growth to date -Appears to have some degree of hypervolemia. No recent echocardiogram but BNP mildly elevated. Echocardiogram repeated and nl EF, diastolic dysfunction Cr bump - patient likely at dry weight PLAN: - Continue ceftriaxone and azithromycin - last day of antibiotics today - Scheduled nebs - Hold Lasix - Methylprednisolone 40mg q8 IV - Strict intake and output and daily weights (2) COPD (chronic obstructive pulmonary disease) Current Visit: Yes Status: Acute Assessment and Plan: See above (3) CAP (community acquired pneumonia) Current Visit: Yes Status: Acute Assessment and Plan: See above (4) History of colectomy Current Visit: Yes Status: Acute Assessment and Plan: Colectomy after fulminant C. difficile infection (5) CAD (coronary artery disease) Current Visit: No Status: Chronic Assessment and Plan: s/p CABG x 3. - Continue home ASA and statin DVT Prophylaxis: Heparin - Time Spent with Patient Total time spent is greater than 50% in coordination of care (as documented) at patient's floor/unit and/or counseling patient: Internal Medicine: Result - Labs CBC & Chem 7: 05/07/19 06:37 05/09/19 08:38 Labs: BMP 05/09/19 08:38 Sodium 142 Potassium 4.6 Chloride 105 Carbon Dioxide 26 BUN 46 H Creatinine 1.30 Glucose 204 H Calcium 9.2 - Impressions Impressions Chest X-Ray 05/08/19 15:35 IMPRESSION: Stable chest demonstrating basilar predominant interstitial opacities which may represent pulmonary edema, interstitial/atypical pneumonitis, or interstitial lung disease. No new airspace opacification. D/ / Allison Ayala MD / Allison Ayala MD Interpreting Provider: Allison Ayaal MD Consult Discharge Plan - Plan Referrals: Mj Hooks MD [Primary Care Provider] - Prescriptions: Cefdinir [Omnicef] 300 mg PO BID #4 capsule (3) CAP (community acquired pneumonia) Qualifiers: Laterality: unspecified laterality Qualified Code(s): J18.9 - Pneumonia, unspecified organism (5) CAD (coronary artery disease) Qualifiers: Coronary Disease-Associated Artery/Lesion type: bypass graft [place] vs. transplanted heart: [place] heart Associated angina: without angina Qualified Code(s): I25.810 - Atherosclerosis of coronary artery bypass graft(s) without angina pectoris
[2019-05-09] MEDS: Melatonin 3 MG TABLET PO SCH (21:29)
[2019-05-10] MEDS: MethylPREDNISolone 40 MG/ML VIAL IVP SCH ×4 (00:47→23:37)
[2019-05-10] MEDS: Ipratropium/Albuterol Neb 3 ML IH SCH ×4 (03:20→21:24)
[2019-05-10 05:02] LABS: BUN/Creatinine Ratio 37 (6-26); Blood Urea Nitrogen 47 mg/dL (8-23); Calcium 9.1 mg/dL (8.6-10.3); Carbon Dioxide 25 mEq/L (23-29); Chloride 106 mEq/L (98-107); Glucose 213 mg/dL (70-105); Osmolality,Calculated 313 (280-300); Potassium 4.6 mEq/L (3.5-5.1); Sodium 142 mEq/L (136-145); eGFR For African Americans > 60 (> 60); eGFR For Non-African Americans 55 (> 60)
[2019-05-10] MEDS: *HR* Heparin 5,000 UNIT/ML VIAL SQ SCH ×3 (05:35→21:57)
--- NOTE | 2019-05-10 06:43 | Pulmonology Progress Note ---
Date of Encounter: 05/10/19 Time of Encounter: 06:43 Assessment and Plan (1) Acute and chronic respiratory failure with hypoxia Current Visit: Yes Status: Acute We will wean FiO2 to keep saturation greater than 88% at all times. Expressive patient she that he will likely needle higher degree of supple no oxygen at home than when he came in with and they will he will need a concentrator that is able to accommodate this this will have to be addressed by his correctional counselor/case manager prior to discharge from the hospital (2) Interstitial lung disease Current Visit: Yes Status: Acute Suspected to ILD flare Plan transitioning to by mouth systemic glucocorticoids such as prednisone 60 mg and this can be tapered down by 10 mg weekly He will need to pulmonary clinic follow-up in 1-2 weeks at the time of discharge Do not hesitate to call me with any questions or concerns Avtar Kim [phone] Subjective Principal diagnosis: Respiratory Failure Interval history: Mr Treadwell is doing better. He has been weaned down to Nasal Cannula o2. He denies complaints today. Objective PUL Vital signs: Last Vital Signs Temp 97.9 F 05/10/19 03:43 Pulse 77 05/10/19 03:43 Resp 16 05/10/19 03:43 BP 104/58 05/10/19 03:43 Pulse Ox 95 05/10/19 03:47 General appearance: no acute distress ENT: oropharynx moist Auscultation: bilateral: rales Cardiovascular: regular rate and rhythm Gastrointestinal: normoactive bowel sounds, soft, non-tender Extremities: no cyanosis, no edema, no clubbing Musculoskeletal: no deformities normal mental status, non-focal exam mood appropriate Results - Laboratory Findings CBC and BMP: 05/07/19 06:37 05/10/19 03:15 Abnormal lab findings: Abnormal lab results WBC 11.9 K/mcL (4.3-11.1) H 05/07/19 06:37 RBC 3.52 M/mcL (4.19-5.50) L 05/07/19 06:37 Hgb 10.6 g/dL (12.9-16.9) L D 05/07/19 06:37 Hct 31.9 % (37.5-50.1) L 05/07/19 06:37 MPV 9.1 fL (9.4-12.4) L 05/05/19 18:00 Carbon Dioxide 21 mEq/L (23-29) L 05/05/19 18:00 BUN 47 mg/dL (8-23) H 05/10/19 03:15 Creatinine 1.41 mg/dL (0.70-1.30) H 05/08/19 02:37 Est GFR ( Amer) 59 (> 60) L 05/08/19 02:37 Est GFR (Non-Af Amer) 55 (> 60) L 05/10/19 03:15 BUN/Creatinine Ratio 37 (6-26) H 05/10/19 03:15 Glucose 213 mg/dL (70-105) H 05/10/19 03:15 POC Glucose 181 mg/dL (70-99) H 05/09/19 20:15 Calculated Osmolality 313 (280-300) H 05/10/19 03:15 Lactic Acid 3.3 mmol/L (0.5-2.2) H 05/05/19 18:00 Troponin I 0.04 ng/mL (< 0.04) H* 05/06/19 06:06 B-Natriuretic Peptide 193 pg/mL (Less than 100) H 05/05/19 18:00 - Clinical Findings Intake & Output: Intake & Output 05/09/19 05/09/19 05/10/19 15:59 23:59 07:59 Intake Total 480 / 490 Output Total 410 / 1250 350 / 1250 Balance 70 / -760 -350 / -760 Weight 91.2 kg Consult Discharge Plan - Plan Referrals: Neva,Mj Alas MD [Primary Care Provider] - Prescriptions: Cefdinir [Omnicef] 300 mg PO BID #4 capsule
[2019-05-10] MEDS: Budesonide/Formoterol 160/4.5 1 PUFF INH IH SCH ×2 (09:40→21:24)
[2019-05-10] MEDS: Cholecalciferol (D-3) 1,000 UNIT (25MCG) TABLET PO SCH (10:24)
[2019-05-10] MEDS: Fenofibrate 54 MG TABLET PO SCH (10:24)
[2019-05-10] MEDS: Aspirin Enteric Coated 81 MG Tablet PO SCH (10:24)
[2019-05-10] MEDS: Multivit/Ca/Min/Fe/FA 1 TAB TABLET PO SCH (10:24)
[2019-05-10] MEDS: OXcarbazepine 150 MG TABLET PO SCH ×2 (10:24→21:57)
[2019-05-10] MEDS: amLODIPine 5 MG TABLET PO SCH (10:24)
[2019-05-10] MEDS: Finasteride 5 MG TABLET PO SCH (10:24)
[2019-05-10] MEDS: Furosemide 20 MG TABLET PO SCH (10:24)
[2019-05-10] MEDS: Insulin LISPRO 300 UNITS/3 ML VIAL SQ SCH ×4 (10:25→22:50)
--- NOTE | 2019-05-10 11:47 | Internal Med Progress Note ---
Hospitalist Progress Note - Encounter Date of Encounter: 05/10/19 Time of Encounter: 11:43 - Subjective Interval History: Making interval improvements with regards to his breathing. Denies shortness of breath today. - Exam Vitals: Temp Pulse Resp BP Pulse Ox 98.3 F 98 16 126/68 7 05/10/19 07:35 05/10/19 07:35 05/10/19 09:35 05/10/19 09:35 05/10/19 10:35 Exam: General: Ill-appearing and in no acute distress HEENT: No erythema of posterior pharynx. No exudates. Lymphatics: No mandibular or cervical lymphadenopathy Cardiovascular: RRR. No murmurs. No chest wall tenderness. Lungs: Diffuse rhonchi. Regular chest rise. No accessory muscles of respiration used Abdomen: Non-tender. No rebound or gaurding. Nl bowel sounds. Extremities: Trace edema. 2+ pulses radial and pedal pulses Skin: No rahses, abrasions, or contusions. Nl cap refill. Psych: Nl attention. 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 5/5 strength. Sensation to light touch and pinprick intact. - Assessment and Plan (1) Acute and chronic respiratory failure with hypoxia Current Visit: Yes Status: Acute Assessment and Plan: Patient with history of chronic respiratory failure secondary to COPD on 3 L oxygen outpatient and probably some degree of heart failure on Lasix outpatient presents with shortness of breath in the setting of increased hypoxia but otherwise stable vitals, diffuse rhonchi on exam most prominent in right lower lobe, and chest x-ray concerning for atypical pneumonia. -Chest x-ray concerning for atypical pneumonia, however, patient denies cough a nd no leukocytosis or fevers Chest CT with increased interstitial fibrotic changes: Neg Blood cultures and pro-calcitonin - Pulmonology consulted and concerned that this represents an ILD flare rather than PNA Cultures still no growth to date -Appears to have some degree of hypervolemia. No recent echocardiogram but BNP mildly elevated. Echocardiogram repeated and nl EF, diastolic dysfunction Cr bump - patient likely at dry weight -Making interval improvements with regards to the oxygenation and breathing status PLAN: - Status post 5 days of ceftriaxone and azithromycin for community-acquired pneumonia - Scheduled nebs - Restart home Lasix - Methylprednisolone 40mg q8 IV - Strict intake and output and daily weights - Wean oxygen (2) COPD (chronic obstructive pulmonary disease) Current Visit: Yes Status: Acute Assessment and Plan: See above (3) CAP (community acquired pneumonia) Current Visit: Yes Status: Acute Assessment and Plan: See above (4) History of colectomy Current Visit: Yes Status: Acute Assessment and Plan: Colectomy after fulminant C. difficile infection (5) CAD (coronary artery disease) Current Visit: No Status: Chronic Assessment and Plan: s/p CABG x 3. - Continue home ASA and statin DVT Prophylaxis: Heparin Internal Medicine: Result - Labs CBC & Chem 7: 05/07/19 06:37 05/10/19 03:15 Labs: BMP 05/10/19 03:15 Sodium 142 Potassium 4.6 Chloride 106 Carbon Dioxide 25 BUN 47 H Creatinine 1.27 Glucose 213 H Calcium 9.1 Consult Discharge Plan - Plan Referrals: Mj Hooks MD [Primary Care Provider] - Prescriptions: Cefdinir [Omnicef] 300 mg PO BID #4 capsule (3) CAP (community acquired pneumonia) Qualifiers: Laterality: unspecified laterality Qualified Code(s): J18.9 - Pneumonia, unspecified organism (5) CAD (coronary artery disease) Qualifiers: Coronary Disease-Associated Artery/Lesion type: bypass graft [place] vs. transplanted heart: [place] heart Associated angina: without angina Qualified C ode(s): I25.810 - Atherosclerosis of coronary artery bypass graft(s) without angina pectoris
[2019-05-10] MEDS: Melatonin 3 MG TABLET PO SCH (21:56)
[2019-05-11] MEDS: Ipratropium/Albuterol Neb 3 ML IH SCH ×4 (04:17→22:20)
[2019-05-11] MEDS: *HR* Heparin 5,000 UNIT/ML VIAL SQ SCH ×3 (05:18→21:52)
[2019-05-11 05:29] LABS: Hematocrit 35.8 % (37.5-50.1); Hemoglobin 11.9 g/dL (12.9-16.9); Mean Corpuscular HGB Conc 33.2 g/dL (31.6-35.5); Mean Corpuscular Hemoglobin 30.6 pg (28.0-33.3); Mean Platelet Volume 9.6 fL (9.4-12.4); Platelet Count 306 K/mcL (140-400); Red Blood Count 3.89 M/mcL (4.19-5.50); Red Cell Distribution Width 13.9 % (11.5-14.5); White Blood Count 11.6 K/mcL (4.3-11.1)
[2019-05-11 05:51] LABS: BUN/Creatinine Ratio 38 (6-26); Blood Urea Nitrogen 49 mg/dL (8-23); Calcium 9.7 mg/dL (8.6-10.3); Carbon Dioxide 25 mEq/L (23-29); Chloride 102 mEq/L (98-107); Glucose 219 mg/dL (70-105); Osmolality,Calculated 314 (280-300); Potassium 4.8 mEq/L (3.5-5.1); Sodium 142 mEq/L (136-145); eGFR For African Americans > 60 (> 60); eGFR For Non-African Americans 54 (> 60)
[2019-05-11] MEDS: Insulin LISPRO 300 UNITS/3 ML VIAL SQ SCH ×4 (07:47→22:02)
[2019-05-11] MEDS: Multivit/Ca/Min/Fe/FA 1 TAB TABLET PO SCH (07:48)
[2019-05-11] MEDS: Furosemide 20 MG TABLET PO SCH (07:48)
[2019-05-11] MEDS: Aspirin Enteric Coated 81 MG Tablet PO SCH (07:48)
[2019-05-11] MEDS: OXcarbazepine 150 MG TABLET PO SCH ×2 (07:48→21:50)
[2019-05-11] MEDS: Cholecalciferol (D-3) 1,000 UNIT (25MCG) TABLET PO SCH (07:48)
[2019-05-11] MEDS: Finasteride 5 MG TABLET PO SCH (07:48)
[2019-05-11] MEDS: amLODIPine 5 MG TABLET PO SCH (07:48)
[2019-05-11] MEDS: Fenofibrate 54 MG TABLET PO SCH (07:48)
[2019-05-11] MEDS: MethylPREDNISolone 40 MG/ML VIAL IVP SCH (07:49)
--- NOTE | 2019-05-11 10:30 | Internal Med Progress Note ---
Hospitalist Progress Note - Encounter Date of Encounter: 05/11/19 Time of Encounter: 10:25 - Subjective Interval History: Doing well this morning. Pulm recommending switch to oral steroids with prolonged taper. Patient still on 8L of oxygen - on 3-4L at home. - Exam Vitals: Temp Pulse Resp BP Pulse Ox 97.8 F 70 18 128/62 92 05/11/19 06:54 05/11/19 06:54 05/11/19 06:54 05/11/19 06:54 05/11/19 06:54 Exam: General: Ill-appearing and in no acute distress HEENT: No erythema of posterior pharynx. No exudates. Lymphatics: No mandibular or cervical lymphadenopathy Cardiovascular: RRR. No murmurs. No chest wall tenderness. Lungs: Diffuse rhonchi. Regular chest rise. No accessory muscles of respiration used Abdomen: Non-tender. No rebound or gaurding. Nl bowel sounds. Extremities: Trace edema. 2+ pulses radial and pedal pulses Skin: No rahses, abrasions, or contusions. Nl cap refill. Psych: Nl attention. 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 5/5 strength. Sensation to light touch and pinprick intact. - Assessment and Plan (1) Acute and chronic respiratory failure with hypoxia Current Visit: Yes Status: Acute Assessment and Plan: Patient with history of chronic respiratory failure secondary to COPD on 3 L oxygen outpatient and probably some degree of heart failure on Lasix outpatient presents with shortness of breath in the setting of increased hypoxia but otherwise stable vitals, diffuse rhonchi on exam most prominent in right lower lobe, and chest x-ray concerning for atypical pneumonia. -Chest x-ray concerning for atypical pneumonia, however, patient denies cough and no leukocytosis or fevers Chest CT with increased interstitial fibrotic changes: Neg Blood cultures and pro-calcitonin - Pulmonology consulted and concerned that this represents an ILD flare rather than PNA Cultures still no growth to date -Appears to have some degree of hypervolemia. No recent echocardiogram but BNP mildly elevated. Echocardiogram repeated and nl EF, diastolic dysfunction Cr bump - patient likely at dry weight -Pulm recommending switch to oral steroids with prolonged taper. -Patient still on 8L of oxygen - on 3-4L at home. Will preferably need to wean down to at least 5L before he discharges PLAN: - Status post 5 days of ceftriaxone and azithromycin for community-acquired pneumonia - Scheduled nebs - Home Lasix - Methylprednisolone 40mg q8 IV --> Prednisone 60MG QD - Strict intake and output and daily weights - Wean oxygen - Need PT eval to determine home needs (2) COPD (chronic obstructive pulmonary disease) Current Visit: Yes Status: Acute Assessment and Plan: See above (3) CAP (community acquired pneumonia) Current Visit: Yes Status: Acute Assessment and Plan: See above (4) History of colectomy Current Visit: Yes Status: Acute Assessment and Plan: Colectomy after fulminant C. difficile infection (5) CAD (coronary artery disease) Current Visit: No Status: Chronic Assessment and Plan: s/p CABG x 3. - Continue home ASA and statin DVT Prophylaxis: Heparin Internal Medicine: Result - Labs CBC & Chem 7: 05/11/19 04:41 05/11/19 04:41 Labs: Short CBC 05/11/19 Range/Units 04:41 WBC 11.6 H (4.3-11.1) K/mcL Hgb 11.9 L (12.9-16.9) g/dL Hct 35.8 L (37.5-50.1) % Plt Count 306 (140-400) K/mcL BMP 05/11/19 04:41 Sodium 142 Potassium 4.8 Chloride 102 Carbon Dioxide 25 BUN 49 H Creatinine 1.29 Glucose 219 H Calcium 9.7 Consult Discharge Plan - Plan Referrals: UcMj rosario MD [Primary Care Provider] - Prescriptions: Cefdinir [Omnicef] 300 mg PO BID #4 capsule (3) CAP (community acquired pneumonia) Qualifiers: Laterality: unspecified laterality Qualified Code(s): J18.9 - Pneumonia, unspecified organism (5) CAD (coronary artery disease) Qualifiers: Coronary Disease-Associated Artery/Lesion type: bypass graft [place] vs. transplanted heart: [place] heart Associated angina: without angina Qualified Code(s): I25.810 - Atherosclerosis of coronary artery bypass graft(s) without angina pectoris
[2019-05-11] MEDS: Budesonide/Formoterol 160/4.5 1 PUFF INH IH SCH ×2 (10:35→22:24)
[2019-05-11] MEDS: predniSONE 20 MG TABLET PO SCH (16:08)
[2019-05-11] MEDS: Melatonin 3 MG TABLET PO SCH (21:49)
[2019-05-12] MEDS: Ipratropium/Albuterol Neb 3 ML IH SCH ×2 (03:54→10:46)
[2019-05-12 05:58] LABS: BUN/Creatinine Ratio 41 (6-26); Blood Urea Nitrogen 53 mg/dL (8-23); Calcium 9.4 mg/dL (8.6-10.3); Carbon Dioxide 27 mEq/L (23-29); Chloride 102 mEq/L (98-107); Glucose 222 mg/dL (70-105); Osmolality,Calculated 313 (280-300); Sodium 141 mEq/L (136-145); eGFR For African Americans > 60 (> 60); eGFR For Non-African Americans 54 (> 60)
[2019-05-12] MEDS: *HR* Heparin 5,000 UNIT/ML VIAL SQ SCH ×2 (05:58→14:19)
[2019-05-12] MEDS: predniSONE 20 MG TABLET PO SCH (07:44)
[2019-05-12] MEDS: Multivit/Ca/Min/Fe/FA 1 TAB TABLET PO SCH (07:45)
[2019-05-12] MEDS: Fenofibrate 54 MG TABLET PO SCH (07:45)
[2019-05-12] MEDS: OXcarbazepine 150 MG TABLET PO SCH (07:45)
[2019-05-12] MEDS: Cholecalciferol (D-3) 1,000 UNIT (25MCG) TABLET PO SCH (07:46)
[2019-05-12] MEDS: Finasteride 5 MG TABLET PO SCH (07:46)
[2019-05-12] MEDS: amLODIPine 5 MG TABLET PO SCH (07:46)
[2019-05-12] MEDS: Furosemide 20 MG TABLET PO SCH (07:46)
[2019-05-12] MEDS: Aspirin Enteric Coated 81 MG Tablet PO SCH (07:46)
[2019-05-12] MEDS: Insulin LISPRO 300 UNITS/3 ML VIAL SQ SCH ×2 (07:47→11:46)
[2019-05-12] MEDS: *HR* LORazepam 0.5 MG TABLET PO PRN (07:57)
[2019-05-12] MEDS: Budesonide/Formoterol 160/4.5 1 PUFF INH IH SCH (10:45)
[2019-05-12 11:21] VITALS: BP 145/64
--- NOTE | 2019-05-12 13:08 | Discharge Summary ---
Date of Encounter: 05/12/19 Time of Encounter: 12:58 - Discharge Diagnosis (1) Acute and chronic respiratory failure with hypoxia Priority: Primary Status: Acute (2) Interstitial lung disease Priority: Secondary Status: Acute (3) COPD (chronic obstructive pulmonary disease) Priority: Secondary Status: Acute Qualifiers: COPD type: emphysema Emphysema type: unspecified Qualified Code(s): J43.9 - Emphysema, unspecified (4) CAP (community acquired pneumonia) Priority: Secondary Status: Acute Qualifiers: Laterality: unspecified laterality Qualified Code(s): J18.9 - Pneumonia, unspecified organism (5) History of colectomy Priority: Secondary Status: Acute (6) CAD (coronary artery disease) Priority: Secondary Status: Chronic Qualifiers: Coronary Disease-Associated Artery/Lesion type: bypass graft [place] vs. transplanted heart: [place] heart Associated angina: without angina Qualified Code(s): I25.810 - Atherosclerosis of coronary artery bypass graft(s) without angina pectoris Hospital course: Mr. Treadwell is a 78 year old male with history of chronic respiratory failure secondary to COPD on 3 L oxygen outpatient HFpEF on Lasix outpatient presented with hypoxic respiratory failure with CT chest with fibrotic changes concerning for ILD. Pulmonology consulted and recommended treatment with prolonged steroid taper. Patient will follow-up with pulmonology for repeat high-resolution CT scan following treatment to better define his disease process. Recommended SNF placement but patient refused so patient was discharged with . Discharge discussed with: patient - Time Spent with Patient Total time spent providing and/or coordinating discharge services: 65 minutes - Discharge Medications Prescriptions: New predniSONE [PredniSONE] 10 mg PO DAILY 42 Days #147 tablet Continued Quetiapine Fumarate [Seroquel] 200 mg PO HS Pantoprazole Sodium [Protonix] 40 mg PO DAILY Finasteride [Proscar] 5 mg PO DAILY Tamsulosin [Flomax] 0.4 mg PO DAILY Fenofibrate [Lofibra] 160 mg PO DAILY Doxepin [Sinequan] 25 mg PO HS Furosemide [Lasix] 20 mg PO DAILY Atorvastatin Calcium [Lipitor] 80 mg PO DAILY Potassium Chloride [K-Tab ER] 20 meq PO BID OXcarbazepine [Trileptal] 150 mg PO BID Cholecalciferol (D-3) [Vitamin D] 1,000 unit PO DAILY Multivitamin [One Daily Essential] 1 tab PO DAILY Melatonin 6 mg PO HS LORazepam [Ativan] 0.5 mg PO BID Linagliptin [Tradjenta] 5 mg PO DAILY Glimepiride [Amaryl] 1 mg PO QAM Brimonidine Tartrate [Alphagan P] 1 drop BOTH EYES BID Clopidogrel [Plavix] 75 mg PO DAILY #30 tablet Albuterol Sulfate [Ventolin Hfa] 1 - 2 puff IH Q6H PRN PRN Reason: Shortness Of Breath Allopurinol [Zyloprim 100 MG] 100 mg PO DAILY Amlodipine Besylate 10 mg PO DAILY Aspirin [Adult Aspirin Regimen] 81 mg PO DAILY Mirtazapine 45 mg PO HS Nitroglycerin [Nitrostat] 0.4 mg SL AD PRN PRN Reason: Chest Pain Home Medications: Atorvastatin Calcium [Lipitor] 80 mg PO DAILY 01/18/17 [History] Doxepin [Sinequan] 25 mg PO HS 01/18/17 [History] Fenofibrate [Lofibra] 160 mg PO DAILY 01/18/17 [History] Finasteride [Proscar] 5 mg PO DAILY 01/18/17 [History] Furosemide [Lasix] 20 mg PO DAILY 01/18/17 [History] OXcarbazepine [Trileptal] 150 mg PO BID 01/18/17 [History] Pantoprazole Sodium [Protonix] 40 mg PO DAILY 01/18/17 [History] Potassium Chloride [K-Tab ER] 20 meq PO BID 01/18/17 [History] Quetiapine Fumarate [Seroquel] 200 mg PO HS 01/18/17 [History] Tamsulosin [Flomax] 0.4 mg PO DAILY 01/18/17 [History] Brimonidine Tartrate [Alphagan P] 1 drop BOTH EYES BID 11/21/17 [History] Cholecalciferol (D-3) [Vitamin D] 1,000 unit PO DAILY 11/21/17 [History] Glimepiride [Amaryl] 1 mg PO QAM 11/21/17 [History] LORazepam [Ativan] 0.5 mg PO BID 11/21/17 [History] Linagliptin [Tradjenta] 5 mg PO DAILY 11/21/17 [History] Melatonin 6 mg PO HS 11/21/17 [History] Multivitamin [One Daily Essential] 1 tab PO DAILY 11/21/17 [History] Clopidogrel [Plavix] 75 mg PO DAILY #30 tablet 11/25/17 [Rx] Albuterol Sulfate [Ventolin Hfa] 1 - 2 puff IH Q6H PRN 05/07/19 [History] Allopurinol [Zyloprim 100 MG] 100 mg PO DAILY 05/07/19 [History] Amlodipine Besylate 10 mg PO DAILY 05/07/19 [History] Aspirin [Adult Aspirin Regimen] 81 mg PO DAILY 05/07/19 [History] Mirtazapine 45 mg PO HS 05/07/19 [History] Nitroglycerin [Nitrostat] 0.4 mg SL AD PRN 05/07/19 [History] predniSONE [PredniSONE] 10 mg PO DAILY 42 Days #147 tablet 05/12/19 [Rx] Allergies/Adverse Reactions: Allergy/AdvReac Type Severity Reaction Status Date / Time oxybutynin [From Ditropan] AdvReac See Verified 05/07/19 08:55 Comments Penicillins AdvReac Blister Verified 05/07/19 08:55 Date of admission: 05/05/19 20:24 Primary care physician: Mj Hooks MD Consults: 05/06/19 07:47 Consult to Crime Analyst [CONS] Routine Reason for SW Consult: eval 05/06/19 08:59 Consult to Nurse Navigator [CONS] Routine Comment: pn, copd 05/06/19 13:16 Consult to Pulmonology [CONS] Stat Consulting Provider: [facility] [place] Reason for Consult: hypoxia and abnormal CT findings Call Completed: Yes 05/10/19 15:41 Consult to Occupational Therapy [CONS] Routine Comment: Evaluate, develop and implement POC Reason for Consult: eval and tx Does patient have active BEDREST order?: No Is patient medically & hemodynamically stable?: Yes Consult to Physical Therapy [CONS] Routine Comment: Evaluate, develop and implement POC Reason for Consult: eval and tx Does patient have active BEDREST order?: No Is patient medically & hemodynamically stable?: Yes - Constitutional Vitals: Temp Pulse Resp BP Pulse Ox 97.7 F 73 17 145/64 91 05/12/19 11:20 05/12/19 11:20 05/12/19 11:20 05/12/19 11:20 05/12/19 11:20 Exam: General: Ill-appearing and in no acute distress HEENT: No erythema of posterior pharynx. No exudates. Lymphatics: No mandibular or cervical lymphadenopathy Cardiovascular: RRR. No murmurs. No chest wall tenderness. Lungs: Diffuse rhonchi. Regular chest rise. No accessory muscles of respiration used Abdomen: Non-tender. No rebound or gaurding. Nl bowel sounds. Extremities: Trace edema. 2+ pulses radial and pedal pulses Skin: No rahses, abrasions, or contusions. Nl cap refill. Psych: Nl attention. A&Ox3 Neuro: bucket turner II-XII intact. 5/5 strength. Sensation to light touch and pinprick intact. - Patient Status Disposition: Home, Self-Care Functional capacity at discharge: uses cane/walker Overall status at discharge: patient is progressing back to baseline - Discharge Instructions Follow Up With: Mj Hooks MD [Primary Care Provider] - 05/13/19 1:30 pm (Please follow up as schedule) Forms: ED Satisfaction Letter - Diet and Activity Activity: as per physical therapy, increase activity as tolerated Diet: low fat, low cholesterol
== END 2019-05-12 16:34 | disposition home or self-care (01) | DRG 189 ==
LOC: EMEROOARM 17:43 → 2ANU 20:24 → SUATTDRO 20:24 → 2ANU 21:09
PROVIDERS: ADMIT Internal Medicine; ATTEND Internal Medicine

== ENCOUNTER 2019-05-31 16:06 | Inpatient (IN) ==
[~2019-05-31 16:06] MED LIST: *HR* Etomidate 20 MG/10 ML AMPUL IVP ONE; *HR* Midazolam HCl 5 MG/5 ML VIAL IVP ONE; *HR* Rocuronium Bromide 100 MG/10 ML VIAL IVC ONE; Aminoglycoside Consult 1 EACH MC ONE
[2019-05-31] MEDS ORDERED: Ipratropium/Albuterol Neb 3 ML ONE (16:22)
[2019-05-31] MEDS ORDERED: Ipratropium/Albuterol Neb 3 ML IH ONE (16:24)
[2019-05-31] MEDS ORDERED: 0.9 % Sodium Chloride 1,000 ML IVC ONE ×2 (16:26→18:44)
--- NOTE | 2019-05-31 16:35 | Emergency Department Note ---
Disposition Clinical Impression: Severe sepsis, Lactic acid acidosis, Elevated troponin Respiratory failure Qualifiers: Chronicity: acute on chronic Respiratory failure complication: unspecified whether with hypoxia or hypercapnia Qualified Code(s): J96.20 - Acute and chronic respiratory failure, unspecified whether with hypoxia or hypercapnia Disposition: Admitted As Inpatient Condition: Serious Time of Disposition: 20:07 General Adult HPI - General Chief complaint: ED Weakness Stated complaint: General weakness Time Seen by Provider: 05/31/19 16:25 Source: patient, EMS Mode of arrival: EMS Limitations: no limitations Nursing Notes Reviewed: Yes Vital Signs Reviewed: Yes - History of Present Illness HPI Narrative: Patient is an 78-year-old male that presents emergency department due to weakness. Patient states that bilateral lower extremities have not been working normal. Patient states that he has not been able to stand up on them. Patient states that he is normally able to walk at home but has not been able to ambulate due to weakness. Patient states that he does not think that his shortness of breath has gotten worse. Patient states that he is on home oxygen and wears 5 L of oxygen at home. Patient states that he has not else sick but has had a cough. Patient denies any fevers or chills. Patient denies any nausea vomiting or diarrhea. Patient denies any urinary symptoms. Patient states that his colostomy bag needs to be changed. Patient denied any falls or injuries. Pain Scale: 0 - Related Data Home Medications Medication Instructions Recorded Confirmed Atorvastatin Calcium [Lipitor] 80 mg PO DAILY 01/18/17 05/07/19 Doxepin [Sinequan] 25 mg PO HS 01/18/17 05/07/19 Fenofibrate [Lofibra] 160 mg PO DAILY 01/18/17 11/21/17 Finasteride [Proscar] 5 mg PO DAILY 01/18/17 05/07/19 Furosemide [Lasix] 20 mg PO DAILY 01/18/17 05/07/19 OXcarbazepine [Trileptal] 150 mg PO BID 01/18/17 05/07/19 Pantoprazole Sodium [Protonix] 40 mg PO DAILY 01/18/17 05/07/19 Potassium Chloride [K-Tab ER] 20 meq PO BID 01/18/17 05/07/19 Quetiapine Fumarate [Seroquel] 200 mg PO HS 01/18/17 05/07/19 Tamsulosin [Flomax] 0.4 mg PO DAILY 01/18/17 05/07/19 Brimonidine Tartrate [Alphagan P] 1 drop BOTH EYES BID 11/21/17 05/07/19 Cholecalciferol (D-3) [Vitamin D] 1,000 unit PO DAILY 11/21/17 05/07/19 Glimepiride [Amaryl] 1 mg PO QAM 11/21/17 05/07/19 LORazepam [Ativan] 0.5 mg PO BID 11/21/17 05/07/19 Linagliptin [Tradjenta] 5 mg PO DAILY 11/21/17 05/07/19 Melatonin 6 mg PO HS 11/21/17 05/07/19 Multivitamin [One Daily Essential] 1 tab PO DAILY 11/21/17 05/07/19 Albuterol Sulfate [Ventolin Hfa] 1 - 2 puff IH Q6H PRN 05/07/19 05/07/19 Allopurinol [Zyloprim 100 MG] 100 mg PO DAILY 05/07/19 05/07/19 Amlodipine Besylate 10 mg PO DAILY 05/07/19 05/07/19 Aspirin [Adult Aspirin Regimen] 81 mg PO DAILY 05/07/19 05/07/19 Mirtazapine 45 mg PO HS 05/07/19 05/07/19 Nitroglycerin [Nitrostat] 0.4 mg SL AD PRN 05/07/19 05/07/19 Previous Rx's Medication Instructions Recorded Clopidogrel [Plavix] 75 mg PO DAILY #30 tablet 11/25/17 predniSONE [PredniSONE] 10 mg PO DAILY 42 Days #147 tablet 05/12/19 Allergies Allergy/AdvReac Type Severity Reaction Status Date / Time Penicillins Allergy Hives Verified 05/31/19 16:26 oxybutynin [From Ditropan] AdvReac See Verified 05/07/19 08:55 Comments All systems ED: reviewed and negative except as stated. Constitutional: Denies: fever Cardiovascular: Denies: chest pain Respiratory: Reports: cough, dyspnea Gastrointestinal: Denies: abdominal pain, nausea, vomiting Musculoskeletal: Reports: other (States bilateral legs are not working). Denies: back pain, neck pain Neurological: Reports: weakness. Denies: numbness, paresthesias Past Medical History - Past Medical History Medical history: Reports: diabetes, hyperlipidemia, hypertension Surgical history: Reports: cataract, colectomy Psychiatric history: Reports: anxiety, depression - Social History Smoking Status: Never smoker Smokeless Tobacco Status: No Alcohol use: Reports: none Drug use: Reports: none Physical Exam - General Limitations: no limitations General appearance: alert, in no apparent distress - Head Head exam: atraumatic, normocephalic - Eye Eye exam: Present: normal appearance, EOMI - Neck Neck exam: Present: normal inspection, full ROM, trachea midline - Respiratory Respiratory exam: Present: normal lung sounds bilaterally. Absent: respiratory distress, wheezes - Cardiovascular Cardiovascular exam: Present: regular rate, normal rhythm, normal heart sounds, +S1, +S2 - Abdominal Exam Abdominal exam: Present: soft, Non-Tender, normal bowel sounds - Neurological Exam Neurological exam: Present: alert, oriented X3 - Expanded Neurological Exam Motor strength - LUE: 5/5 Motor strength - RUE: 5/5 Motor strength - LLE: 5/5 Motor strength - RLE: 5/5 Sensory exam upper extremity: light touch: Normal Sensory exam lower extremity: light touch: Normal Coma Scale Eye Opening: Spontaneous Coma Scale Motor Response: Obeys Commands Coma Scale Verbal Response: Oriented Coma Scale Total: 15 - Psychiatric Psychiatric exam: Present: normal affect, normal mood - Skin Skin exam: Present: warm, dry, intact Course Vital Signs Temperature 100.9 F H 05/31/19 16:10 Pulse Rate 128 05/31/19 16:10 Respiratory Rate 34 05/31/19 16:10 Blood Pressure 131/117 05/31/19 16:10 O2 Sat by Pulse Oximetry 86 05/31/19 16:10 Temperature 100.9 F H 05/31/19 16:10 Pulse Rate 96 05/31/19 18:44 Respiratory Rate 45 05/31/19 18:44 Blood Pressure 114/62 05/31/19 18:44 O2 Sat by Pulse Oximetry 96 05/31/19 18:44 Oxygen Delivery Oxygen Delivery Bipap Procedures - Intubation Time out performed: Yes sedative: Versed Mg Given: 4 paralytic: Rocuronium Mg Given: 100 Laryngoscope: Jaiden ET Tube Size: 7.5 ET Tube Uncuffed: No Tube Secured Depth (cm): 23 Tube Secured Location: lips Tube Placement Confirmation: visualized tube passing through cords, equal breath sounds bilaterally, no breath sounds over epigastrium Patient Tolerated Procedure: well Intubation Complications: none Medical Decision Making - MDM Narrative Medical decision making narrative: Due the patient's into the emergency department with tachycardia, being febrile and having respiratory symptoms there is a high concern that the patient is septic secondary to pneumonia. Subsequent was called. Patient received 2 L IV fluids. Patient had a pneumonia on chest x-ray. Patient started on broad- spectrum antibiotics of vague, cefepime and Levaquin. The patient was promptly placed on BiPAP due to having increased work of breathing and hypoxia on his initial arrival. The patient became to keep neck and continued to have increased work of breathing. The hospitalist came to bedside and evaluated the patient and discussion was had about potentially intubating the patient. Due to the patient having increased work of breathing it was decided that the patient needed to be intubated. The patient was intubated with a 4 Mac blade, 7.5 ET tube. Respiratory was at bedside. Patient was intubated on first pass attempt. The patient was initially given 20 of etomidate and 100 of him but the initial IV extravasated and the medicine was not delivered. The patient was not sedated or paralyzed. Another IV was available and 4 of Versed in 100 approximately running them were given. The patient was then sedated and paralyzed. The patient was subsequently intubated. The patient tolerated the procedure well. The patient had a significant lactic acidosis of 4.5. His troponin was 0.15. Feel that this is all likely secondary to the patient's sepsis which is secondary to pneumonia. Patient has a potassium of 5.4. Patient does have a leukocytosis. Spoke with the admitting hospitals Dr. Green and Dr Schumacher and they have accepted the patient to their service. Patient will be admitted to the ICU for a higher level of care due to being intubated. - Medical Records Medical records reviewed: Yes I reviewed the patient's medical records. - Lab Data Lab results reviewed: Yes I reviewed the patient's lab results. Result diagrams: 05/31/19 16:26 05/31/19 16:26 Lab Results 05/31/19 05/31/19 05/31/19 Range/Units 16:26 16:26 16:26 WBC 15.0 H (4.3-11.1) K/mcL RBC 3.84 L (4.19-5.50) M/mcL Hgb 11.9 L (12.9-16.9) g/dL Hct 36.9 L (37.5-50.1) % MCV 96.1 (83.0-100.0) fL MCH 31.0 (28.0-33.3) pg MCHC 32.2 (31.6-35.5) g/dL RDW 15.6 H (11.5-14.5) % Plt Count 114 L (140-400) K/mcL MPV 10.1 (9.4-12.4) fL Seg Neutrophils % 52.0 % Band Neutrophils % 32.0 H (0-4) % Lymphocytes % 14.0 % Monocytes % 2.0 % Neutrophils # 12.6 H (1.6-8.9) K/mcL Lymphocytes # 2.1 (0.6-4.6) K/mcL Monocytes # 0.3 (0.0-1.3) K/mcL Reactive Lymphocytes Present A (Not Present) PT 13.0 H (9.4-12.1) Seconds INR 1.1 APTT 23.9 L (26.0-36.0) Seconds VBG pH (7.32-7.42) pH Units VBG pCO2 (41-51) mmHg VBG pO2 (25-50) mmHg VBG HCO3 (21-27) mEq/L Sodium 143 (136-145) mEq/L Potassium 5.4 H (3.5-5.1) mEq/L Chloride 104 (98-107) mEq/L Carbon Dioxide 25 (23-29) mEq/L BUN 38 H (8-23) mg/dL Creatinine 1.54 H (0.70-1.30) mg/dL Est GFR ( Amer) 53 L (> 60) Est GFR (Non-Af Amer) 44 L (> 60) BUN/Creatinine Ratio 25 (6-26) Glucose 108 H (70-105) mg/dL Calculated Osmolality 306 H (280-300) Lactic Acid (0.5-2.2) mmol/L Calcium 8.7 (8.6-10.3) mg/dL Total Bilirubin 0.8 (0.3-1.0) mg/dL Direct Bilirubin 0.3 H (0.0-0.2) mg/dL Indirect Bilirubin 0.5 (0.0-1.2) mg/dL AST 13 (13-39) Units/L ALT 14 (7-52) Units/L Alkaline Phosphatase 84 (34-104) Units/L Troponin I 0.15 H* (< 0.04) ng/mL Serum Total Protein 6.1 L (6.4-8.9) g/dL Albumin 3.1 L (3.5-5.7) g/dL Globulin 3.0 (2.4-3.5) g/dL Albumin/Globulin Ratio 1.0 L (1.1-2.2) Ur Specimen Adequacy Urine Color (Yellow) Urine Clarity (Clear) Urine pH (5.0-8.0) pH Units Ur Specific [place] (1.010-1.025) Urine Protein (Neg-Trace) mg/dL Urine Glucose (UA) (Normal) mg/dL Urine Ketones (Negative) mg/dL Urine Blood (Negative) Urine Nitrite (Negative) Urine Bilirubin (Negative) Urine Urobilinogen (Normal) mg/dL Ur Leukocyte Esterase (Negative) Urine Microscopic RBC (0-3) per hpf Urine Microscopic WBC (0-3) per hpf Ur Squamous Epith Cells (None-Few) per lpf Urine Bacteria (None-Few) per hpf Hyaline Casts (None-Few) per lpf Ur Culture Indicated? (NO) 05/31/19 05/31/19 05/31/19 Range/Units 17:55 18:00 18:18 WBC (4.3-11.1) K/mcL RBC (4.19-5.50) M/mcL Hgb (12.9-16.9) g/dL Hct (37.5-50.1) % MCV (83.0-100.0) fL MCH (28.0-33.3) pg MCHC (31.6-35.5) g/dL RDW (11.5-14.5) % Plt Count (140-400) K/mcL MPV (9.4-12.4) fL Seg Neutrophils % % Band Neutrophils % (0-4) % Lymphocytes % % Monocytes % % Neutrophils # (1.6-8.9) K/mcL Lymphocytes # (0.6-4.6) K/mcL Monocytes # (0.0-1.3) K/mcL Reactive Lymphocytes (Not Present) PT (9.4-12.1) Seconds INR APTT (26.0-36.0) Seconds VBG pH 7.35 (7.32-7.42) pH Units VBG pCO2 48 (41-51) mmHg VBG pO2 24 L (25-50) mmHg VBG HCO3 27 (21-27) mEq/L Sodium (136-145) mEq/L Potassium (3.5-5.1) mEq/L Chloride (98-107) mEq/L Carbon Dioxide (23-29) mEq/L BUN (8-23) mg/dL Creatinine (0.70-1.30) mg/dL Est GFR ( Amer) (> 60) Est GFR (Non-Af Amer) (> 60) BUN/Creatinine Ratio (6-26) Glucose (70-105) mg/dL Calculated Osmolality (280-300) Lactic Acid 4.2 H* (0.5-2.2) mmol/L Calcium (8.6-10.3) mg/dL Total Bilirubin (0.3-1.0) mg/dL Direct Bilirubin (0.0-0.2) mg/dL Indirect Bilirubin (0.0-1.2) mg/dL AST (13-39) Units/L ALT (7-52) Units/L Alkaline Phosphatase (34-104) Units/L Troponin I (< 0.04) ng/mL Serum Total Protein (6.4-8.9) g/dL Albumin (3.5-5.7) g/dL Globulin (2.4-3.5) g/dL Albumin/Globulin Ratio (1.1-2.2) Ur Specimen Adequacy See below A Urine Color Yellow (Yellow) Urine Clarity Clear (Clear) Urine pH 6.0 (5.0-8.0) pH Units Ur Specific [place] 1.022 (1.010-1.025) Urine Protein 100 H (Neg-Trace) mg/dL Urine Glucose (UA) Normal (Normal) mg/dL Urine Ketones Negative (Negative) mg/dL Urine Blood Negative (Negative) Urine Nitrite Negative (Negative) Urine Bilirubin Negative (Negative) Urine Urobilinogen Normal (Normal) mg/dL Ur Leukocyte Esterase Negative (Negative) Urine Microscopic RBC 0-3 (0-3) per hpf Urine Microscopic WBC 0-3 (0-3) per hpf Ur Squamous Epith Cells Few (None-Few) per lpf Urine Bacteria Few (None-Few) per hpf Hyaline Casts None Seen (None-Few) per lpf Ur Culture Indicated? YES A (NO) - Radiology Data Radiology results reviewed: Yes I reviewed the patient's radiology results. Chest X-Ray 05/31/19 16:26 IMPRESSION: 1. Increased opacification right upper lobe could represent pneumonia 2. Reticular changes again seen in the lung bases suggesting chronic fibrosis D/ / Mike Kam MD / Mike Kam MD Interpreting Provider: Mike Kam MD - EKG Data EKG #1 EKG attestation: Yes I reviewed and interpreted this EKG. EKG results narrative: Patient's EKG shows a sinus tachycardia at a rate of 125 bpm, WA interval 166, QRS duration 127, QTc of 437. No evidence of STEMI on EKG. This is compared to previous EKG on 05/05/90. Attestation Statement - Attestation Attestation: I, Mj Beth, examined this patient and my medical decision-making was reviewed with the INDUSTRIAL THERAPIST/PA/Advanced Practice Nurse/Resident Physician. I agree with the documented findings, disposition and treatment plan as described except to the extent set forth below. 78-year-old male presents emergency Department with concerns of difficulty in breathing. Patient is to Neck and has an elevated. He meets SIRS criteria with likely source of pneumonia. Chest x-ray confirms pneumonia and he was started on antibiotics in the emergency department. His an elevated lactic acid level. Elevated troponin. Patient has VBG that does not show lactic acidosis. He should not was tachypnea despite use of BiPAP which was started after his initial evaluation. Private Duty Aide evaluated the patient who recommended intubation for the patient's respiratory distress. Patient was intubated using rapid sequence intubation medications. The initial dose of medications likely extravasated and at different IV site was used. Patient was then intubated without difficulty. I was present during the entire procedure. Patient be admitted to the hospitalist to the ICU for further care and evaluation. The high probability of a clinically significant, sudden or life threatening deterioration of the respiratory system(s) required my full and direct attention, intervention and personal management. The aggregate critical care time was 60 minutes. This time is in addition to time spent performing reported procedures but includes the following: x Data Review and interpretation x Patient assessment and monitoring of vital signs x Documentation x Medication orders and management
[2019-05-31] MEDS ORDERED: Cefepime HCl 2,000 MG in Water for inj. (sterile) 20 ML IVP STA (17:57)
[2019-05-31] MEDS ORDERED: levoFLOXacin 750 MG/150 ML 750 MG/150 ML BAG IVPB ONE (17:57)
[2019-05-31 18:15] LABS: Bilirubin,Urine Negative (Negative); Blood,Urine Negative (Negative); Clarity,Urine Clear (Clear); Color,Urine Yellow (Yellow); Glucose,Urine (UA) Normal (Normal); Ketones,Urine Negative (Negative); Leukocyte Esterase,Urine Negative (Negative); Nitrite,Urine Negative (Negative); Protein,Urine 100 mg/dL (Neg-Trace); Specific Gravity,Urine 1.022 (1.010-1.025); Urobilinogen,Urine Normal (Normal)
[2019-05-31 18:20] LABS: Hematocrit 36.9 % (37.5-50.1); Hemoglobin 11.9 g/dL (12.9-16.9); Mean Corpuscular HGB Conc 32.2 g/dL (31.6-35.5); Mean Corpuscular Volume 96.1 fL (83.0-100.0); Mean Platelet Volume 10.1 fL (9.4-12.4); Platelet Count 114 K/mcL (140-400); Red Blood Count 3.84 M/mcL (4.19-5.50); Red Cell Distribution Width 15.6 % (11.5-14.5)
[2019-05-31 18:20] LABS: VBG HCO3 27 mEq/L (21-27); VBG PCO2 48 mmHg (41-51); VBG PH 7.35 pH Units (7.32-7.42); VBG PO2 24 mmHg (25-50)
[2019-05-31 18:27] LABS: RBC,Urine 0-3 per hpf (0-3); Squamous Epithelial Cell,Urine Few per lpf (None-Few); WBC,Urine 0-3 per hpf (0-3)
[2019-05-31 18:28] LABS: Bacteria,Urine Few per hpf (None-Few); Hyaline Casts,Urine None Seen per lpf (None-Few)
[2019-05-31 18:33] LABS: Albumin 3.1 g/dL (3.5-5.7); Bilirubin,Direct 0.3 mg/dL (0.0-0.2); Bilirubin,Indirect 0.5 mg/dL (0.0-1.2); Bilirubin,Total 0.8 mg/dL (0.3-1.0); Calcium 8.7 mg/dL (8.6-10.3); Potassium 5.4 mEq/L (3.5-5.1); Total Protein 6.1 g/dL (6.4-8.9)
[2019-05-31 18:36] LABS: Troponin I 0.15 ng/mL (< 0.04)
[2019-05-31 18:46] LABS: INR 1.1
[2019-05-31 18:49] LABS: Activated Partial Thrombo Time 23.9 Seconds (26.0-36.0)
[2019-05-31 18:58] LABS: Lymphocytes # 2.1 K/mcL (0.6-4.6); Monocytes # 0.3 K/mcL (0.0-1.3); Neutrophils # 12.6 K/mcL (1.6-8.9); Reactive Lymphocytes Present (Not Present)
[2019-05-31] MEDS ORDERED: *HR* Etomidate 40 MG/20 ML VIAL IVP ONE (19:47)
[2019-05-31] MEDS ORDERED: *HR* Rocuronium Bromide 50 MG/5 ML VIAL IVP ONE ×2 (19:47→19:51)
[2019-05-31] MEDS ORDERED: *HR* Midazolam HCl 5 MG/5 ML VIAL IVP ONE (19:51)
[2019-05-31] MEDS: FentaNYL (PF) 1,000 MCG in 0.9 % Sodium Chloride 80 ML IVC SCH (20:03)
[2019-05-31] MEDS ORDERED: Naloxone 0.4 MG/ML INJ IVP PRN (20:08)
[2019-05-31] MEDS ORDERED: Acetaminophen 325 MG TABLET PO PRN (20:08)
[2019-05-31] MEDS ORDERED: Artificial Tears SOLN 15 ML BOTTLE BOTH EYES PRN (20:08)
[2019-05-31] MEDS ORDERED: Dextrose Gel 15 GM/37.5 ML TUBE PO PRN ×2 (20:17)
[2019-05-31] MEDS ORDERED: D5% in Water 1,000 ML IVC PRN (20:17)
[2019-05-31] MEDS ORDERED: *HR* Dextrose 50 % in Water (Syg) 50 ML SYRINGE IVP PRN (20:17)
[2019-05-31] MEDS ORDERED: Vancomycin (wt based) 1,000 MG VIAL IVPB SCH (21:00)
[2019-05-31 21:24] LABS: ABG Base Excess 2 mEq/L (-2 to 3); ABG HCO3 27 mEq/L (21-27); ABG Oxygen Saturation 98 % (95-98); ABG PCO2 44 mmHg (35-45); ABG PO2 98 mmHg (85-104); ABG TCO2 28 mEq/L (20-26); Blood Gas Modality ASSIST CONTROL; Blood Gas PEEP 5 cm H2O; Blood Gas VT 500 cc
[2019-05-31] MEDS: 0.9 % Sodium Chloride 1,000 ML IVC SCH (21:43)
[2019-05-31] MEDS: Chlorhexidine Rinse 15 ML MOUTHWASH MM SCH (21:43)
--- NOTE | 2019-05-31 21:43 | Internal Med History&Physical ---
Date of Encounter: 05/31/19 Time of Encounter: 19:05 Internal Medicine - H&P: HPI Chief complaint: difficulty breathing Admitted From: Emergency Dept Plans for Post Hospital Care: Transfer Long Term Facility History of present illness: Mr. Treadwell is a 78 year old male who presented to ER with complaints of feeling weak, febrile, and had increased work of breathing. Workup in ER revealed patient to be septic and he was fluid resuscitated in ER. He was febrile, tachypneic, tachycardic, and had respiratory distress. He was placed on BiPAP and then admitted to hospitalist service. I saw patient in the ER, and he had depressed level of consciousness, had difficulty protecting his airway on BiPAP, and was coughing vigorously and appeared to be clinically aspirating. He was arousable somewhat, and I disc ussed with him his CODE STATUS as best possible given his critical state. I recommended intubation for ongoing support. He was agreeable. He had evidence of poor perfusion, increased work of breathing, and worsening somnolence with depressed level of consciousness. As such, I summoned the ER staff and requested patient be intubated and an airway to be secured. Once patient was intubated in ER, patient was admitted to the ICU for ongoing supportive measures. During my prior discussions in the ER, patient denied any chest pain, but he did confirm that he had difficulty breathing, weakness, fevers, chills, and recent onset of productive cough. CODE STATUS was confirmed as FULL CODE per my discussions with patient. Past Med Surg Social Fam HX - Past Medical History Attestation: Yes The following information was validated with the patient. 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 sinus sx - Social History Smoking Status: Never smoker Smokeless Tobacco Status: No Alcohol use: none Drug use: none Activity Level: Independent ambulation Recent Out of Country Travel Within the Last 8 Weeks: No - Family History Father Living Status: Hx Family Cancer: Yes (Leukemia) Sister Living Status: Hx Family Cancer: Yes (Skin Ca. with mets) Mother Living Status: Hx Family Cardiac Disorders: Yes (CAD) Internal Medicine - H&P: Meds Atorvastatin Calcium [Lipitor] 80 mg PO DAILY 01/18/17 [History] Doxepin [Sinequan] 25 mg PO HS 01/18/17 [History] Finasteride [Proscar] 5 mg PO DAILY 01/18/17 [History] Furosemide [Lasix] 20 mg PO DAILY 01/18/17 [History] OXcarbazepine [Trileptal] 150 mg PO BID 01/18/17 [History] Pantoprazole Sodium [Protonix] 40 mg PO DAILY 01/18/17 [History] Potassium Chloride [K-Tab ER] 20 meq PO BID 01/18/17 [History] Quetiapine Fumarate [Seroquel] 200 mg PO HS 01/18/17 [History] Tamsulosin [Flomax] 0.4 mg PO DAILY 01/18/17 [History] Cholecalciferol (D-3) [Vitamin D] 1,000 unit PO DAILY 11/21/17 [History] Glimepiride [Amaryl] 1 mg PO QAM 11/21/17 [History] LORazepam [Ativan] 0.5 mg PO BID 11/21/17 [History] Linagliptin [Tradjenta] 5 mg PO DAILY 11/21/17 [History] Melatonin 6 mg PO HS PRN 11/21/17 [History] Multivitamin [One Daily Essential] 1 tab PO DAILY 11/21/17 [History] Clopidogrel [Plavix] 75 mg PO DAILY #30 tablet 11/25/17 [Rx] Albuterol Sulfate [Ventolin Hfa] 2 puff IH Q6H PRN 05/07/19 [History] Allopurinol [Zyloprim 100 MG] 100 mg PO DAILY 05/07/19 [History] Amlodipine Besylate 10 mg PO DAILY 05/07/19 [History] Aspirin [Adult Aspirin Regimen] 81 mg PO DAILY 05/07/19 [History] Mirtazapine 45 mg PO HS 05/07/19 [History] Nitroglycerin [Nitrostat] 0.4 mg SL AD PRN 05/07/19 [History] predniSONE [PredniSONE] 10 mg PO DAILY 42 Days #147 tablet 05/12/19 [Rx] Brimonidine Tartrate [Alphagan P] 1 drop BOTH EYES BID 05/31/19 [History] Ipratropium/Albuterol Sulfate [Iprat-Albut 0.5-3(2.5) mg/3 ml] 3 ml IH Q6H 05/31/19 [History] Allergy/AdvReac Type Severity Reaction Status Date / Time Penicillins Allergy Hives Verified 05/31/19 16:26 oxybutynin [From Ditropan] AdvReac See Verified 05/07/19 08:55 Comments - Constitutional Constitutional: chills, fever(s), lethargy, weakness - EENT Eyes: no change in vision (patient blind by history) Ears: no ear pain, no tinnitus Nose, mouth and throat: no nasal congestion, no sore throat - Cardiovascular Cardiovascular ROS IM: diaphoresis, dyspnea, no chest pain - Respiratory Respiratory: cough, dyspnea, chest congestion, no pain with cough - Gastrointestinal Gastrointestinal: nausea, no abdominal pain, no diarrhea, no vomiting - Genitourinary Genitourinary ROS male: no dysuria, no flank pain - Musculoskeletal Musculoskeletal ROS IM: no arthralgias, no back pain - Integumentary Integumentary IM: no rash, no jaundice - Neurological Neurological ROS: no dizziness, no focal weakness, no frequent falls, no headache(s) - Psychiatric Psychiatric: no anxiety, no depression - Endocrine Endocrine IM: no polydipsia, no polyphagia, no polyuria - Allergic/Immunologic Allergic/Immunologic: no GI upset with certain foods - Constitutional Vitals: Temp Pulse Resp BP Pulse Ox 102.9 F H 123 14 164/62 95 05/31/19 21:09 05/31/19 21:09 05/31/19 21:19 05/31/19 21:09 05/31/19 21:19 General appearance: Present: cooperative, A&O X 3, severe distress Exam: somnolent, arousable, severe respiratory distress - Head Head exam: Present: atraumatic, normal inspection - Eye Eye exam: Absent: scleral icterus - ENT ENT exam: Present: mucous membranes dry, normal exam, normal oropharynx - Neck Neck exam general surgery: Present: full ROM, supple, trachea midline. Absent: lymphadenopathy, tenderness, nuchal rigidity, thyromegaly - Respiratory Respiratory exam: Present: accessory muscle use, prolonged expiratory phase, rales, respiratory distress, rhonchi, tachypnea. Absent: chest wall tenderness, stridor, wheezes Additional comments: RR 40-50 in BiPap; coughing; gurgling upper airway sounds with clinical concern for aspiration - Cardiovascular Cardiovascular exam: Present: distant heart sounds, RRR, +S1, +S2, tachycardia. Absent: diastolic murmur, systolic murmur - GI/Abdominal GI/Abdominal exam: Present: hypoactive bowel sounds, soft, no peritoneal signs. Absent: guarding, hepatomegaly, mass, rebound, splenomegaly Additional comments: colostomy in place - Extremities Exam Extremities exam: Present: full ROM, warm, radial pulses palpable and symmetrical. Absent: calf tenderness, normal capillary refill (delayed at roughyl 5 -6 seconds), pedal edema, tenderness - Back Exam Back exam: Absent: CVA tenderness (L), CVA tenderness (R) - Neurological Exam Neurological exam: Present: CN II-XII intact, no focal deficits, strengths equal and symetr throughout. Absent: alert (somnolent but arousable) - Psychiatric Psychiatric exam: Present: anxious - Skin Skin exam: Present: dry, intact, pallor, warm (centrally, cool peripherally) Internal Med - H&P Results - Labs CBC & Chem 7: 05/31/19 16:26 05/31/19 16:26 Labs: Short CBC 05/31/19 Range/Units 16:26 WBC 15.0 H (4.3-11.1) K/mcL Hgb 11.9 L (12.9-16.9) g/dL Hct 36.9 L (37.5-50.1) % Plt Count 114 L (140-400) K/mcL Neutrophils # 12.6 H (1.6-8.9) K/mcL BMP 05/31/19 16:26 Sodium 143 Potassium 5.4 H Chloride 104 Carbon Dioxide 25 BUN 38 H Creatinine 1.54 H Glucose 108 H Calcium 8.7 Cardiac Enzymes 05/31/19 Range/Units 16:26 Troponin I 0.15 H* (< 0.04) ng/mL Liver Function 05/31/19 Range/Units 16:26 Total Bilirubin 0.8 (0.3-1.0) mg/dL Direct Bilirubin 0.3 H (0.0-0.2) mg/dL AST 13 (13-39) Units/L ALT 14 (7-52) Units/L Alkaline Phosphatase 84 (34-104) Units/L Albumin 3.1 L (3.5-5.7) g/dL Urine 05/31/19 Range/Units 18:00 Urine Color Yellow (Yellow) Urine Clarity Clear (Clear) Urine pH 6.0 (5.0-8.0) pH Units Ur Specific Ceres 1.022 (1.010-1.025) Urine Protein 100 H (Neg-Trace) mg/dL Urine Glucose (UA) Normal (Normal) mg/dL - ABG Interpretation Interpretation: ABG interpreted by me ABG results: 05/31/19 05/31/19 18:18 21:17 ABG pH 7.40 ABG pCO2 44 ABG pO2 98 ABG HCO3 27 ABG Total CO2 28 H ABG O2 Saturation 98 ABG Base Excess 2 VBG pH 7.35 VBG pCO2 48 VBG pO2 24 L VBG HCO3 27 Interpretation: normal Additional comments: ABG improved (normal) after intubation. - Impressions ITS Impressions Chest X-Ray 05/31/19 16:26 IMPRESSION: 1. Increased opacification right upper lobe could represent pneumonia 2. Reticular changes again seen in the lung bases suggesting chronic fibrosis D/ / Mike Kam MD / Mike Kam MD Interpreting Provider: Mike Kam MD Chest X-Ray 05/31/19 18:54 IMPRESSION: 1. Suboptimal RPO projection. 2. Similar-appearing patchy alveolar and interstitial densities scattered throughout the bilateral lungs with consolidative changes upper right lung and lateral upper left lung possibly reflecting pneumonia on background of interstitial lung disease. 3. Status post CABG. 4. Probable right pleural effusion. 5. Bilateral AC joint osteoarthritis. 6. No pneumothorax evident. D/ / Juan José Baptiste / Juan José Baptiste Interpreting Provider: Juan José Baptiste Chest X-Ray 05/31/19 19:55 IMPRESSION: 1. Interval placement endotracheal tube, tip between the levels of the clavicular heads and aortic knob, about 6 cm superior to the octaviano. 2. Unchanged interstitial and alveolar densities bilateral with consolidative changes predominating upper right lung and lateral upper outer left lung possibly related to pneumonia or pulmonary edema on a background chronic interstitial lung disease. 3. Cardiac silhouette and mediastinum appear unremarkable. 4. No pneumothorax. D/ / Juan José Baptiste / Juan José Baptiste Interpreting Provider: Juan José Baptiste - Diagnostic Studies Chest x-ray Status: image reviewed by me (worsening diffuse infiltrates) - Assessment and Plan (1) Acute and chronic respiratory failure with hypoxia Current Visit: Yes Status: Acute Assessment and plan: 1. Patient intubated in ER per my request. 2. Will continue ventilatory management, sedation, aerosols, antibiotics, and consult Pulmonary for ongoing vent/ICU management. 3. ABG improved/normalize dafter intubation. 4. Wean oxygen as able to keep SPO2 > 92%. 5. Sputum culture ordered per ETT. (2) Severe sepsis Current Visit: Yes Status: Acute Assessment and plan: 1. Patient fluid resuscitated in ER. 2. Trend lactate levels, continue MIV fluids, antibiotics, and add pressors if necessary for hemodyamic stabilization. 3. Blood, urine, and sputum cultures ordered. Likely source is pneumonia. 4. Add Solumedrol given chronic steroid use and risk of adrenal insufficiency in the setting of sepsis. 5. May need CVC placement and pressors for hemodynamic support. Monitor closely in ICU. (3) Type 2 diabetes mellitus Current Visit: Yes Status: Chronic Assessment and plan: 1. Hold oral home meds. 2. Monitor glucose levels and order SSI. 3. Adjust insulin dosing as necessary. Qualifiers: Diabetes mellitus fci insulin use: without fci use Diabetes mellitus complication detail: with cataract Qualified Code(s): E11.36 - Type 2 diabetes mellitus with diabetic cataract (4) Elevated troponin Current Visit: Yes Status: Acute Assessment and plan: 1. Likley due to respiratory failure and sepsis. 2. Patient denied any chest pain. 3. Trend troponin levels and EKG's. 4. Supportive measures as above for sepsis and respiratory failure. 5. Order ECHO and consult cardiology. 6. Will give aspirin now as this was not done in ER. (5) Acute kidney failure Current Visit: Yes Status: Acute Assessment and plan: 1. Likely due to sepsis and dehydration. 2. Supportive measures and fluid resuscitation as above. 3. Monitor renal function and I/O. 4. Consult nephrology if renal function does not improve. Qualifiers: Qualified Code(s): N17.9 - Acute kidney failure, unspecified (6) DVT prophylaxis Current Visit: Yes Status: Acute Assessment and plan: 1. Heparin SQ. - Time Spent With Patient Total 45 minutes critical care time spent assessing patient, coordinating care, and medical decision making process.
[2019-05-31] MEDS ORDERED: Aspirin 81 MG TAB.CHEW PO SCH (22:04)
[2019-05-31] MEDS: Budesonide/Formoterol 160/4.5 1 PUFF INH IH SCH (22:16)
[2019-05-31] MEDS: Aspirin 81 MG TAB.CHEW PO SCH (23:09)
[2019-05-31] MEDS: *HR* Heparin 5,000 UNIT/ML VIAL SQ SCH (23:12)
[2019-05-31] MEDS: Artificial Tears SOLN 15 ML BOTTLE BOTH EYES SCH (23:12)
[2019-05-31] MEDS: Cefepime HCl 2,000 MG in Water for inj. (sterile) 20 ML IVP SCH (23:12)
[2019-05-31] MEDS: Insulin LISPRO 300 UNITS/3 ML VIAL SQ SCH (23:15)
--- NOTE | 2019-06-01 01:05 | Procedure Note ---
Date of procedure: 05/31/19 Pre-op diagnosis: sepsis with shock; respiratory failure Post-op diagnosis: same Procedure: I was called by RN for concerns f worsening hemodynamic instability, requesting CVC placement and pressor support. I ordered NS bolus as I prepared to place CVC. Procedure: Right Femoral CVC Consent: Implied as this was emergent Procedure details: After implied consent was determined and time out procedure, I prepped and draped patient's right groin in sterile fashion. Using Seldinger technique, I successfully aspirated and cannulated patient's right femoral vein. However, I was unable to thread the guidewire. I then attempted the ultrasound probe, but I was unable to successfully find the femoral vein. I then attempted Seldinger technique again and was able to aspirate, cannulate, and thread the guidewire easily. I then made a small skin incision and threaded the dilator over the guidewire and removed the dilator. I then threaded the CVC over the guidewire and removed the guidewire intact. All three ports were aspirated of venous blood and flushed with NS. I then sutured the CVC in place. Patient tolerated procedure well with about 10 ml blood loss. Anesthesia: local Surgeon: Vignesh Schumacher Was there an medical office assistant instructor present: No Estimated blood loss (cc): 10 Specimen: none Pathology: none sent Condition: critical Disposition: ICU
[2019-06-01] MEDS: Norepinephrine 4 MG in 0.9 % Sodium Chloride 250 ML IVC SCH ×3 (01:25→18:34)
[2019-06-01] MEDS: 0.9 % Sodium Chloride 1,000 ML IVC SCH (01:35)
[2019-06-01 03:24] LABS: Basophils % 0.2 %; Eosinophils % 0.3 %; Red Cell Distribution Width 15.9 % (11.5-14.5)
[2019-06-01 03:26] LABS: Eosinophils # 0.1 K/mcL (0.0-0.6); Hematocrit 32.1 % (37.5-50.1); Hemoglobin 9.9 g/dL (12.9-16.9); Immature Granulocytes % 0.6 % (0-4); Immature Platelets 3.9 % (1.1-6.1); Lymphocytes % 13.2 %; Mean Corpuscular HGB Conc 30.8 g/dL (31.6-35.5); Mean Corpuscular Hemoglobin 30.4 pg (28.0-33.3); Mean Corpuscular Volume 98.5 fL (83.0-100.0); Mean Platelet Volume 10.6 fL (9.4-12.4); Monocytes # 0.5 K/mcL (0.0-1.3); Monocytes % 3.3 %; Platelet Count 100 K/mcL (140-400); Red Blood Count 3.26 M/mcL (4.19-5.50); Segmented Neutrophils % 82.4 %; White Blood Count 15.1 K/mcL (4.3-11.1)
[2019-06-01 03:35] LABS: INR 1.3; Prothrombin Time 14.3 Seconds (9.4-12.1)
[2019-06-01 03:45] LABS: Albumin 2.5 g/dL (3.5-5.7); Bilirubin,Direct 0.8 mg/dL (0.0-0.2); Bilirubin,Indirect 0.5 mg/dL (0.0-1.2); Bilirubin,Total 1.3 mg/dL (0.3-1.0); Calcium 7.8 mg/dL (8.6-10.3); Globulin 2.6 g/dL (2.4-3.5); Magnesium 1.8 mg/dL (1.6-2.6); Neutrophils # 12.4 K/mcL (1.6-8.9); Total Protein 5.1 g/dL (6.4-8.9)
[2019-06-01] MEDS: Artificial Tears SOLN 15 ML BOTTLE BOTH EYES SCH ×6 (04:42→23:00)
[2019-06-01] MEDS: Insulin LISPRO 300 UNITS/3 ML VIAL SQ SCH ×4 (04:42→23:01)
[2019-06-01] MEDS: Pantoprazole 40 MG VIAL IVP SCH (05:02)
[2019-06-01] MEDS ORDERED: methylPREDNISolone 125 MG/2 ML VIAL IVP SCH (06:00)
[2019-06-01 06:19] LABS: ABG Base Excess -5 mEq/L (-2 to 3); ABG HCO3 21 mEq/L (21-27); ABG Oxygen Saturation 93 % (95-98); ABG PCO2 39 mmHg (35-45); ABG PH 7.34 pH Units (7.32-7.45); ABG PO2 72 mmHg (85-104); ABG TCO2 22 mEq/L (20-26); Blood Gas Modality ASSIST CONTROL; Blood Gas PEEP 5 cm H2O; Blood Gas VT 500 cc
[2019-06-01] MEDS: FentaNYL (PF) 1,000 MCG in 0.9 % Sodium Chloride 80 ML IVC SCH ×2 (07:35→17:38)
[2019-06-01] MEDS: Budesonide/Formoterol 160/4.5 1 PUFF INH IH SCH ×2 (08:13→21:33)
--- NOTE | 2019-06-01 08:19 | Pulmonology Progress Note ---
Date of Encounter: 06/01/19 Time of Encounter: 08:18 Assessment and Plan (1) Acute and chronic respiratory failure with hypoxia Current Visit: Yes Status: Acute Patient was intubated in the ER d/t progressive respiratory distress. Plan: - Cont vent management, sedation, aerosols, antibiotics - On fentanyl gtt, albuterol, symbicort, solumedrol - Cont to monitor ABGs - Wean O2 as able with SpO2 >92% - Pending sputum culture (2) Severe sepsis Current Visit: Yes Status: Acute Sepsis likely 2/2 to PNA, with CXR shoing opacification of R upper lobe. Fluid resuscitation in the ED. Plan: - Abx on vancomycin, levaquin, cefepime - On levophed gtt 5mcg/min for hypotension - Trend lactate levels, continue maintenance IVFs NS 125 ml/hr - Blood, urine, and sputum cultures pending - Cont Solumedrol given chronic steroid use and risk of adrenal insufficiency in the setting of sepsis (3) Pneumonia Current Visit: Yes Status: Acute Plan: - On vanc, levaquin, cefepime day 2 - Blood, urine, sputum cx pending Qualifiers: Pneumonia type: due to unspecified organism Laterality: unspecified laterality Lung location: unspecified part of lung Qualified Code(s): J18.9 - Pneumonia, unspecified organism (4) Acute kidney failure Current Visit: Yes Status: Acute Likely due to sepsis and dehydration. Plan: - Supportive measures and fluid resuscitation as above - Monitor renal function and I/O - Consult nephrology if renal function does not improve Qualifiers: Qualified Code(s): N17.9 - Acute kidney failure, unspecified (5) Elevated troponin Current Visit: Yes Status: Acute Likely due to respiratory failure and sepsis. No chest pain at presentation. Plan: - Trend troponin levels and EKG's - Supportive measures as above for sepsis and respiratory failure - F/u limited echo and consult cardiology - Start ASA 81mg (6) Type 2 diabetes mellitus Current Visit: Yes Status: Chronic Plan: - Hold oral home meds - Monitor glucose levels and order SSI - Adjust insulin dosing as necessary Qualifiers: Diabetes mellitus assistant terminal manager insulin use: without assistant terminal manager use Diabetes mellitus complication detail: with cataract Qualified Code(s): E11.36 - Type 2 diabetes mellitus with diabetic cataract (7) DVT prophylaxis Current Visit: Yes Status: Acute DVT ppx: hep SQ Activity: soft restraints Fluids: MIVFs Electrolytes: replete as necessary Nutrition: n/a GI ppx: pantoprazole Lines: 2x PIVs, central line, ET, OG, santos Consults: cards, pulm, nutrition Code: FULL CODE Dispo: pending further stabilization Subjective Principal diagnosis: Sepsis 2/2 PNA, resp failure with hypoxia Interval history: Patient was seen and examined at bedside. No acute events overnight. Patient is intubated and sedated at bedside. No apparent discomfort or pain. Nurse was emptying colostomy bag at time of examination. Objective PUL Vital signs: Last Vital Signs Temp 100.2 F H 06/01/19 07:45 Pulse 93 06/01/19 08:16 Resp 14 06/01/19 08:16 BP 99/60 06/01/19 08:16 Pulse Ox 90 06/01/19 08:16 General appearance: no acute distress Eyes: nonicteric ENT: oropharynx moist Neck: supple Effort: normal Auscultation: bilateral: clear Cardiovascular: regular rate and rhythm Gastrointestinal: normoactive bowel sounds, non-distended Integumentary: normal Extremities: no cyanosis, no edema, no clubbing Musculoskeletal: no deformities, ROM normal unable to assess due to mental status Ventilator Settings Ventilator Settings: Ventilator Settings, Last 8 Hours Ventilator Tidal Volume 500 Setting Ventilator Tidal Volume 500 Setting Ventilator Tidal Volume 500 Setting Ventilator Tidal Volume 500 Setting Ventilator Tidal Volume 500 Setting Ventilator Tidal Volume 500 Setting Ventilator Tidal Volume 500 Setting Ventilator Tidal Volume 500 Setting Ventilator Tidal Volume 500 Setting Ventilator Tidal Volume 500 Setting Ventilator Tidal Volume 500 Setting Ventilator Tidal Volume 500 Setting Ventilator Tidal Volume 500 Setting Ventilator Respiratory Rate 14 Setting Ventilator Respiratory Rate 14 Setting Ventilator Respiratory Rate 14 Setting Ventilator Respiratory Rate 14 Setting Ventilator Respiratory Rate 14 Setting Ventilator Respiratory Rate 14 Setting Ventilator Respiratory Rate 14 Setting Ventilator Respiratory Rate 14 Setting Ventilator Respiratory Rate 14 Setting Ventilator Respiratory Rate 14 Setting Ventilator Respiratory Rate 14 Setting Ventilator Respiratory Rate 14 Setting Ventilator Respiratory Rate 14 Setting Actual Respiratory Rate 14 Actual Respiratory Rate 20 Actual Respiratory Rate 20 Actual Respiratory Rate 22 Actual Respiratory Rate 22 Actual Respiratory Rate 24 Actual Respiratory Rate 22 Actual Respiratory Rate 20 Actual Respiratory Rate 20 Actual Respiratory Rate 17 Actual Respiratory Rate 17 Actual Respiratory Rate 17 Positive End Expiratory 5 Pressure Positive End Expiratory 5 Pressure Positive End Expiratory 5 Pressure Positive End Expiratory 5 Pressure Positive End Expiratory 5 Pressure Positive End Expiratory 5 Pressure Positive End Expiratory 5 Pressure Positive End Expiratory 5 Pressure Positive End Expiratory 5 Pressure Positive End Expiratory 5 Pressure Positive End Expiratory 5 Pressure Positive End Expiratory 5 Pressure Positive End Expiratory 5 Pressure Peak Inspiratory Airway 20 Pressure Peak Inspiratory Airway 19 Pressure Peak Inspiratory Airway 20 Pressure Peak Inspiratory Airway 22 Pressure Peak Inspiratory Airway 19 Pressure Peak Inspiratory Airway 24 Pressure Peak Inspiratory Airway 20 Pressure Peak Inspiratory Airway 21 Pressure Peak Inspiratory Airway 21 Pressure Peak Inspiratory Airway 21 Pressure Peak Inspiratory Airway 21 Pressure Peak Inspiratory Airway 18 Pressure Results - Laboratory Findings CBC and BMP: 06/01/19 03:00 06/01/19 03:00 ABG ABG pH 7.34 pH Units (7.32-7.45) 06/01/19 06:16 ABG pCO2 39 mmHg (35-45) 06/01/19 06:16 ABG pO2 72 mmHg (85-104) L 06/01/19 06:16 ABG O2 Saturation 93 % (95-98) L 06/01/19 06:16 PT/INR, D-dimer PT 14.3 Seconds (9.4-12.1) H 06/01/19 03:00 Abnormal lab findings: Abnormal lab results WBC 15.1 K/mcL (4.3-11.1) H 06/01/19 03:00 RBC 3.26 M/mcL (4.19-5.50) L 06/01/19 03:00 Hgb 9.9 g/dL (12.9-16.9) L D 06/01/19 03:00 Hct 32.1 % (37.5-50.1) L 06/01/19 03:00 MCHC 30.8 g/dL (31.6-35.5) L 06/01/19 03:00 RDW 15.9 % (11.5-14.5) H 06/01/19 03:00 Plt Count 100 K/mcL (140-400) L 06/01/19 03:00 Band Neutrophils % 32.0 % (0-4) H 05/31/19 16:26 Neutrophils # 12.4 K/mcL (1.6-8.9) H 06/01/19 03:00 Reactive Lymphocytes Present (Not Present) A 05/31/19 16:26 PT 14.3 Seconds (9.4-12.1) H 06/01/19 03:00 APTT 23.9 Seconds (26.0-36.0) L 05/31/19 16:26 ABG pO2 72 mmHg (85-104) L 06/01/19 06:16 ABG Total CO2 28 mEq/L (20-26) H 05/31/19 21:17 ABG O2 Saturation 93 % (95-98) L 06/01/19 06:16 ABG Base Excess -5 mEq/L (-2 to 3) L 06/01/19 06:16 VBG pO2 24 mmHg (25-50) L 05/31/19 18:18 Potassium 5.4 mEq/L (3.5-5.1) H 05/31/19 16:26 Chloride 111 mEq/L (98-107) H 06/01/19 03:00 Carbon Dioxide 21 mEq/L (23-29) L 06/01/19 03:00 BUN 38 mg/dL (8-23) H 06/01/19 03:00 Creatinine 1.71 mg/dL (0.70-1.30) H 06/01/19 03:00 Est GFR ( Amer) 47 (> 60) L 06/01/19 03:00 Est GFR (Non-Af Amer) 39 (> 60) L 06/01/19 03:00 Glucose 68 mg/dL (70-105) L 06/01/19 03:00 POC Glucose 110 mg/dL (70-99) H 05/31/19 23:14 Calculated Osmolality 306 (280-300) H 05/31/19 16:26 Lactic Acid 4.2 mmol/L (0.5-2.2) H* 05/31/19 17:55 Calcium 7.8 mg/dL (8.6-10.3) L 06/01/19 03:00 Total Bilirubin 1.3 mg/dL (0.3-1.0) H 06/01/19 03:00 Direct Bilirubin 0.8 mg/dL (0.0-0.2) H 06/01/19 03:00 Troponin I 0.29 ng/mL (< 0.04) H* 06/01/19 03:00 Serum Total Protein 5.1 g/dL (6.4-8.9) L 06/01/19 03:00 Albumin 2.5 g/dL (3.5-5.7) L 06/01/19 03:00 Albumin/Globulin Ratio 1.0 (1.1-2.2) L 06/01/19 03:00 Procalcitonin 12.80 ng/mL (0.00-0.15) H 05/31/19 21:42 Ur Specimen Adequacy See below A 05/31/19 18:00 Urine Protein 100 mg/dL (Neg-Trace) H 05/31/19 18:00 Ur Culture Indicated? YES (NO) A 05/31/19 18:00 - Microbiology Findings Microbiology Findings: Microbiology, Last 48 Hours 06/01/19 04:00 Sputum Culture - Preliminary Aspirate 05/31/19 18:00 Urine Culture - Preliminary Urine,Clean Catch Culture is incubating. 05/31/19 16:46 Blood Culture - Preliminary Peripheral Venipuncture Culture is incubating and being continuously monitored for growth. Final report to follow. 05/31/19 16:46 Blood Culture - Preliminary Peripheral Venipuncture Culture is incubating and being continuously monitored for growth. Final report to follow. - Clinical Findings Intake & Output: Intake & Output 05/31/19 06/01/19 06/01/19 23:59 07:59 15:59 Intake Total 1070 / 1070 1247 / 1247 Output Total 900 / 900 850 / 850 Balance 170 / 170 397 / 397 Weight 85.729 kg 85.3 kg Consult Discharge Plan - Plan Referrals: Neva,Mj Alas MD [Primary Care Provider] -
--- NOTE | 2019-06-01 08:57 | Electrocardiograph Report ---
[place] [id number] Test Date: 2019-06-01 Pat Name: Sunil Treadwell Department: 109 Room: 11 Gender: M Loom Overhauler: : 1940 Requested By: Vignesh Schumacher Order Number: [id number] Reading MD: Lillian Joaquin Measurements Intervals [place] Rate: 110 P: 54 [place]: 156 QRS: 44 QRSD: 117 T: 24 QT: 312 QTc: 377 Interpretive Statements SINUS TACHYCARDIA RIGHT BUNDLE BRANCH BLOCK Electronically Signed On 06-01-2019 8:56:14 EDT by Lillian Joaquin
[2019-06-01 09:20] LABS: Estimated Average Glucose 151 mg/dl
[2019-06-01] MEDS: Cefepime HCl 2,000 MG in Water for inj. (sterile) 20 ML IVP SCH ×3 (09:42→21:03)
[2019-06-01] MEDS: *HR* Heparin 5,000 UNIT/ML VIAL SQ SCH ×3 (09:43→23:00)
[2019-06-01] MEDS ORDERED: Perflutren Lipid Microsphere 1.3 ML in 0.9 % Sodium Chloride 8.7 ML IVP ONE (09:44)
[2019-06-01] MEDS: Aspirin 81 MG TAB.CHEW PO SCH (09:45)
[2019-06-01] MEDS: Chlorhexidine Rinse 15 ML MOUTHWASH MM SCH ×2 (09:45→20:05)
--- NOTE | 2019-06-01 11:17 | Cardiology Consult Note ---
<Rivas Ayoub - Last Filed: 06/01/19 11:13> Date of Encounter: 06/01/19 Time of Encounter: 11:13 Assessment and Plan (1) Elevated troponin Current Visit: Yes Status: Acute Patient found to have elevated troponin in the setting of severe sepsis, respiratory failure, PNA, ELIEL. Troponin up to 0.29 and now trending down to 0.19. Suspect demand ischemia. EKG with RBBB. Unchanged from prior EKG. Patient has h/o CABG 3V in 1991 at [facility]. Last stress test 2012 was negative. No recent testing here. Check TTE. Continue asa and statin No bb as patient requires pressor support. Further recommendation to follow. (2) Severe sepsis Current Visit: Yes Status: Acute Management per primary team (3) CAD (coronary artery disease) Current Visit: No Status: Chronic H/o CBAG 3 V 1991. Asa, statin. No bb due to hypotension. Qualifiers: Coronary Disease-Associated Artery/Lesion type: bypass graft [place] vs. transplanted heart: [place] Associated angina: without angina Qualified Code(s): I25.810 - Atherosclerosis of coronary artery bypass graft(s) without angina pectoris Discussion w patient/family: The assessment and plan as outlined above was discussed with the patient and/or family members who expressed understanding and agreement. All questions were answered. Thank you for involving us in the care of your patient. Please call with any questions. History of Present Illness Consult date: 06/01/19 Requesting physician: Vignesh Schumacher Consult reason: elevated troponin Chief complaint: fever, weakness, and SOB History of present illness: Mr. Treadwell is a 78 year old male with past medical history of CAD s/p CABG x3 vessel 1991, COPD, DM, HTN and he is legally blind who presented to the ED with fever and weakness. He was given fluid resucitation in the ED for concern for sepsis. He then became lethargic and more SOB. Per record patient agreed to intubation for airway protection. He denies chest pain in the ED. On my exam he is intubated and sedated. Information obtained from staff and records. Cardiology consulted for elevated troponin. Past Med Surg Social Fam HX - Past Medical History Medical history: COPD, diabetes, hyperlipidemia, hypertension Additional medical history: Home O2. 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 sinus sx - Social History Smoking Status: Never smoker Smokeless Tobacco Status: No Alcohol use: none Drug use: none - Family History Father Living Status: Hx Family Cancer: Yes (Leukemia) Sister Living Status: Hx Family Cancer: Yes (Skin Ca. with mets) Mother Living Status: Hx Family Cardiac Disorders: Yes (CAD) Medications and Allergies Atorvastatin Calcium [Lipitor] 80 mg PO DAILY 01/18/17 [History] Doxepin [Sinequan] 25 mg PO HS 01/18/17 [History] Finasteride [Proscar] 5 mg PO DAILY 01/18/17 [History] Furosemide [Lasix] 20 mg PO DAILY 01/18/17 [History] OXcarbazepine [Trileptal] 150 mg PO BID 01/18/17 [History] Pantoprazole Sodium [Protonix] 40 mg PO DAILY 01/18/17 [History] Potassium Chloride [K-Tab ER] 20 meq PO BID 01/18/17 [History] Quetiapine Fumarate [Seroquel] 200 mg PO HS 01/18/17 [History] Tamsulosin [Flomax] 0.4 mg PO DAILY 01/18/17 [History] Cholecalciferol (D-3) [Vitamin D] 1,000 unit PO DAILY 11/21/17 [History] Glimepiride [Amaryl] 1 mg PO QAM 11/21/17 [History] LORazepam [Ativan] 0.5 mg PO BID 11/21/17 [History] Linagliptin [Tradjenta] 5 mg PO DAILY 11/21/17 [History] Melatonin 6 mg PO HS PRN 11/21/17 [History] Multivitamin [One Daily Essential] 1 tab PO DAILY 11/21/17 [History] Clopidogrel [Plavix] 75 mg PO DAILY #30 tablet 11/25/17 [Rx] Albuterol Sulfate [Ventolin Hfa] 2 puff IH Q6H PRN 05/07/19 [History] Allopurinol [Zyloprim 100 MG] 100 mg PO DAILY 05/07/19 [History] Amlodipine Besylate 10 mg PO DAILY 05/07/19 [History] Aspirin [Adult Aspirin Regimen] 81 mg PO DAILY 05/07/19 [History] Mirtazapine 45 mg PO HS 05/07/19 [History] Nitroglycerin [Nitrostat] 0.4 mg SL AD PRN 05/07/19 [History] predniSONE [PredniSONE] 10 mg PO DAILY 42 Days #147 tablet 05/12/19 [Rx] Brimonidine Tartrate [Alphagan P] 1 drop BOTH EYES BID 05/31/19 [History] Ipratropium/Albuterol Sulfate [Iprat-Albut 0.5-3(2.5) mg/3 ml] 3 ml IH Q6H 05/31/19 [History] Allergy/AdvReac Type Severity Reaction Status Date / Time Penicillins Allergy Hives Verified 05/31/19 16:26 oxybutynin [From Ditropan] AdvReac See Verified 05/07/19 08:55 Comments All Systems Review: The remainder of the systems were reviewed and are negative Physical Examination Vital Signs, Last 4 Hours Temp Pulse Resp BP Pulse Ox 06/01/19 11:07 20 87/51 95 06/01/19 10:04 91 15 95/57 94 06/01/19 09:50 20 90/62 95 06/01/19 09:30 93 19 90/55 94 06/01/19 08:21 96 06/01/19 08:16 93 14 99/60 90 06/01/19 08:15 14 99/60 89 06/01/19 07:45 100.2 F H 06/01/19 07:30 96 18 103/58 96 General: Other (sedated and on ventilator support, pale, ill apearing) HEENT: Normocephaly, Mucus Membranes Moist, Other (ET intact) Cardiac: Reg Rate and Rhythm, Normal S1 and S2, No Murmur Lungs: Other (Respirations easy on ventilator support) Neuro: Other (Sedated) Abdomen: Soft Skin: No rashes noted on visualized skin Extremities: No Edema, Normal Pulses Results 06/01/19 03:00 06/01/19 03:00 Lab Results 05/31/19 05/31/19 05/31/19 16:26 16:26 16:26 WBC 15.0 H Hgb 11.9 L Hct 36.9 L Plt Count 114 L INR 1.1 APTT 23.9 L Sodium 143 Potassium 5.4 H Chloride 104 Carbon Dioxide 25 BUN 38 H Creatinine 1.54 H Glucose 108 H Calcium 8.7 Magnesium Total Bilirubin 0.8 AST 13 ALT 14 Alkaline Phosphatase 84 Troponin I 0.15 H* 05/31/19 06/01/19 06/01/19 21:42 03:00 03:00 WBC 15.1 H Hgb 9.9 L D Hct 32.1 L Plt Count 100 L INR APTT Sodium Potassium Chloride Carbon Dioxide BUN Creatinine Glucose Calcium Magnesium Total Bilirubin AST ALT Alkaline Phosphatase Troponin I 0.26 H* 0.29 H* 06/01/19 06/01/19 06/01/19 03:00 03:00 09:50 WBC Hgb Hct Plt Count INR 1.3 APTT Sodium 141 Potassium 5.0 Chloride 111 H Carbon Dioxide 21 L BUN 38 H Creatinine 1.71 H Glucose 68 L Calcium 7.8 L Magnesium 1.8 Total Bilirubin 1.3 H AST 20 ALT 13 Alkaline Phosphatase 69 Troponin I 0.19 H* - Imaging and Cardiology Echo: pending - EKG Interpretation EKG results cardiology: personally reviewed Consult Discharge Plan - Plan [facility] - <EmaniLillian - Last Filed: 06/01/19 12:17> Date of Encounter: 06/01/19 - Attending Attestation I examined this patient and my medical decision-making was reviewed with the Resident Physician. I agree with the documented findings, disposition and treatment plan as described. Mr. Treadwell presents with sepsis and incidentally elevated troponin in setting of respiratory failure, PNA, ELIEL. Troponin peak at 0.29. Suspect demand ischemia. ECG unchanged from prior. Recommend TTE to help guide management. Currently not on therapeutic heparin due to a drop in blood count. Assessment and Plan Discussion w patient/family: The assessment and plan as outlined above was discussed with the patient and/or family members who expressed understanding and agreement. All questions were answered. Thank you for involving us in the care of your patient. Please call with any questions. History of Present Illness History of present illness: Mr. Treadwell is a 78 year old male All Systems Review: The remainder of the systems were reviewed and are negative Physical Examination Vital Signs, Last 4 Hours Temp Pulse Resp BP Pulse Ox 06/01/19 12:07 98.7 F 06/01/19 11:45 96 18 102/58 95 06/01/19 11:07 20 87/51 95 06/01/19 10:04 91 15 95/57 94 06/01/19 09:50 20 90/62 95 06/01/19 09:30 93 19 90/55 94 06/01/19 08:21 96 06/01/19 08:16 93 14 99/60 90 Results 06/01/19 03:00 06/01/19 03:00 Lab Results 05/31/19 05/31/19 05/31/19 16:26 16:26 16:26 WBC 15.0 H Hgb 11.9 L Hct 36.9 L Plt Count 114 L INR 1.1 APTT 23.9 L Sodium 143 Potassium 5.4 H Chloride 104 Carbon Dioxide 25 BUN 38 H Creatinine 1.54 H Glucose 108 H Calcium 8.7 Magnesium Total Bilirubin 0.8 AST 13 ALT 14 Alkaline Phosphatase 84 Troponin I 0.15 H* 05/31/19 06/01/19 06/01/19 21:42 03:00 03:00 WBC 15.1 H Hgb 9.9 L D Hct 32.1 L Plt Count 100 L INR APTT Sodium Potassium Chloride Carbon Dioxide BUN Creatinine Glucose Calcium Magnesium Total Bilirubin AST ALT Alkaline Phosphatase Troponin I 0.26 H* 0.29 H* 06/01/19 06/01/19 06/01/19 03:00 03:00 09:50 WBC Hgb Hct Plt Count INR 1.3 APTT Sodium 141 Potassium 5.0 Chloride 111 H Carbon Dioxide 21 L BUN 38 H Creatinine 1.71 H Glucose 68 L Calcium 7.8 L Magnesium 1.8 Total Bilirubin 1.3 H AST 20 ALT 13 Alkaline Phosphatase 69 Troponin I 0.19 H*
--- NOTE | 2019-06-01 11:56 | Pulmonology Consult Note ---
<Aurelio Guerra - Last Filed: 06/01/19 11:53> Date of Encounter: 06/01/19 Time of Encounter: 11:53 Assessment and Plan (1) Acute and chronic respiratory failure with hypoxia Current Visit: Yes Status: Acute Patient was intubated in the ER d/t progressive respiratory distress. In the context of sepsis 2/2 PNA. Plan: - Cont vent management, sedation, aerosols, antibiotics - On fentanyl and verset gtt, albuterol, symbicort, solumedrol for sedation/breathing - Cont to monitor ABGs - Wean O2 as able with SpO2 >92% - Pending blood/urine/sputum culture - Palliative consult for discussion of code status (2) Septic shock Current Visit: Yes Status: Acute Sepsis likely 2/2 to PNA, with CXR shoing opacification of R upper lobe. Fluid resuscitation in the ED. Plan: - Stopped vancomycin since MRSA neg; abx on levaquin, cefepime - On levophed gtt 5mcg/min for hypotension - Trend lactate levels, stopped maintenance IVFs - Blood, urine, and sputum cultures pending - Cont Solumedrol given chronic steroid use and risk of adrenal insufficiency in the setting of sepsis (3) Pneumonia Current Visit: Yes Status: Acute Plan: - Stopped vanc; on levaquin, cefepime day 2 - Blood, urine, sputum cx pending Qualifiers: Pneumonia type: due to unspecified organism Laterality: unspecified laterality Lung location: unspecified part of lung Qualified Code(s): J18.9 - Pneumonia, unspecified organism (4) Acute kidney failure Current Visit: Yes Status: Acute Likely due to sepsis and dehydration. Plan: - Supportive measures and fluid resuscitation as above - Monitor renal function and I/O - Consult nephrology if renal function does not improve Qualifiers: Qualified Code(s): N17.9 - Acute kidney failure, unspecified (5) NSTEMI (non-ST elevated myocardial infarction) Current Visit: Yes Status: Acute Likely due to respiratory failure and sepsis. No chest pain at presentation. Trops downtrending; EKG with RBBB. Plan: - Trend troponin levels and EKGs - Supportive measures as above for sepsis and respiratory failure - F/u limited echo and consult cardiology - Start ASA 81mg (6) Type 2 diabetes mellitus Current Visit: Yes Status: Chronic Plan: - Hold oral home meds - Monitor glucose levels and order SSI - Adjust insulin dosing as necessary Qualifiers: Diabetes mellitus cosmetology professor insulin use: without cosmetology professor use Diabetes mellitus complication detail: with cataract Qualified Code(s): E11.36 - Type 2 diabetes mellitus with diabetic cataract (7) DVT prophylaxis Current Visit: Yes Status: Acute DVT ppx: hep SQ Activity: soft restraints Fluids: MIVFs Electrolytes: replete as necessary Nutrition: NPO, TFs pending palliative assessment GI ppx: pantoprazole Lines: 2x PIVs, central line, ET, OG, colostomy, santos Consults: cards, pulm, nutrition, palliative Code: FULL CODE Dispo: pending further stabilization History of Present Illness Consult date: 06/01/19 Requesting physician: Vignesh Schumacher Reason for consult: COPD, pneumonia Chief complaint: dyspnea History of present illness: Patient is a 78 year old male who presented to ER with complaints of feeling weak, febrile, and had increased dyspnea. He was also septic and was fluid resuscitated. He was febrile, tachypneic, tachycardic, and had respiratory distress. He was placed on BiPAP. Patient initially had a depressed level of consciousness, had difficulty protecting his airway on BiPAP, and was coughing vigorously and appeared to be clinically aspirating. He was intubated. He had evidence of poor perfusion, increased work of breathing, and worsening somnolence. Once patient was intubated in ER, patient was admitted to the ICU for ongoing supportive measures. Patient denied any chest pain, but he did confirm that he had difficulty br eathing, weakness, fevers, chills, and recent onset of productive cough. Past Med Surg Social Fam HX - Past Medical History Attestation: Yes The following information was validated with the patient. Source: unable to obtain Medical history: COPD, diabetes, hyperlipidemia, hypertension Additional medical history: Home O2. 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 sinus sx - Social History Smoking Status: Never smoker Smokeless Tobacco Status: No Alcohol use: none Drug use: none - Family History Father Living Status: Hx Family Cancer: Yes (Leukemia) Sister Living Status: Hx Family Cancer: Yes (Skin Ca. with mets) Mother Living Status: Hx Family Cardiac Disorders: Yes (CAD) Medications and Allergies Atorvastatin Calcium [Lipitor] 80 mg PO DAILY 01/18/17 [History] Doxepin [Sinequan] 25 mg PO HS 01/18/17 [History] Finasteride [Proscar] 5 mg PO DAILY 01/18/17 [History] Furosemide [Lasix] 20 mg PO DAILY 01/18/17 [History] OXcarbazepine [Trileptal] 150 mg PO BID 01/18/17 [History] Pantoprazole Sodium [Protonix] 40 mg PO DAILY 01/18/17 [History] Potassium Chloride [K-Tab ER] 20 meq PO BID 01/18/17 [History] Quetiapine Fumarate [Seroquel] 200 mg PO HS 01/18/17 [History] Tamsulosin [Flomax] 0.4 mg PO DAILY 01/18/17 [History] Cholecalciferol (D-3) [Vitamin D] 1,000 unit PO DAILY 11/21/17 [History] Glimepiride [Amaryl] 1 mg PO QAM 11/21/17 [History] LORazepam [Ativan] 0.5 mg PO BID 11/21/17 [History] Linagliptin [Tradjenta] 5 mg PO DAILY 11/21/17 [History] Melatonin 6 mg PO HS PRN 11/21/17 [History] Multivitamin [One Daily Essential] 1 tab PO DAILY 11/21/17 [History] Clopidogrel [Plavix] 75 mg PO DAILY #30 tablet 11/25/17 [Rx] Albuterol Sulfate [Ventolin Hfa] 2 puff IH Q6H PRN 05/07/19 [History] Allopurinol [Zyloprim 100 MG] 100 mg PO DAILY 05/07/19 [History] Amlodipine Besylate 10 mg PO DAILY 05/07/19 [History] Aspirin [Adult Aspirin Regimen] 81 mg PO DAILY 05/07/19 [History] Mirtazapine 45 mg PO HS 05/07/19 [History] Nitroglycerin [Nitrostat] 0.4 mg SL AD PRN 05/07/19 [History] predniSONE [PredniSONE] 10 mg PO DAILY 42 Days #147 tablet 05/12/19 [Rx] Brimonidine Tartrate [Alphagan P] 1 drop BOTH EYES BID 05/31/19 [History] Ipratropium/Albuterol Sulfate [Iprat-Albut 0.5-3(2.5) mg/3 ml] 3 ml IH Q6H 05/31/19 [History] Allergy/AdvReac Type Severity Reaction Status Date / Time Penicillins Allergy Hives Verified 05/31/19 16:26 oxybutynin [From Ditropan] AdvReac See Verified 05/07/19 08:55 Comments ROS unobtainable: due to endotracheal tube All Systems: The remainder of the systems were reviewed and are negative Physical Examination Vital Signs: Vital Signs, Last 4 Hours Pulse Resp BP Pulse Ox 06/01/19 11:45 96 18 102/58 95 06/01/19 11:07 20 87/51 95 06/01/19 10:04 91 15 95/57 94 06/01/19 09:50 20 90/62 95 06/01/19 09:30 93 19 90/55 94 06/01/19 08:21 96 06/01/19 08:16 93 14 99/60 90 06/01/19 08:15 14 99/60 89 General appearance: no acute distress Eyes: nonicteric ENT: oropharynx moist Neck: supple Effort: normal Inspection: normal Auscultation: bilateral: diminished breath sounds Cardiovascular: regular rate and rhythm Gastrointestinal: normoactive bowel sounds, non-distended Integumentary: normal Extremities: no cyanosis, no edema, no clubbing Musculoskeletal: no deformities, ROM normal unable to assess due to mental status Ventilator Settings Ventilator Settings: Ventilator Settings, Last 8 Hours Ventilator Tidal Volume 500 Setting Ventilator Tidal Volume 500 Setting Ventilator Tidal Volume 500 Setting Ventilator Tidal Volume 500 Setting Ventilator Tidal Volume 500 Setting Ventilator Tidal Volume 500 Setting Ventilator Tidal Volume 500 Setting Ventilator Tidal Volume 500 Setting Ventilator Tidal Volume 500 Setting Ventilator Tidal Volume 500 Setting Ventilator Tidal Volume 500 Setting Ventilator Tidal Volume 500 Setting Ventilator Tidal Volume 500 Setting Ventilator Tidal Volume 500 Setting Ventilator Tidal Volume 500 Setting Ventilator Respiratory Rate 14 Setting Ventilator Respiratory Rate 14 Setting Ventilator Respiratory Rate 14 Setting Ventilator Respiratory Rate 14 Setting Ventilator Respiratory Rate 14 Setting Ventilator Respiratory Rate 14 Setting Ventilator Respiratory Rate 14 Setting Ventilator Respiratory Rate 14 Setting Ventilator Respiratory Rate 14 Setting Ventilator Respiratory Rate 14 Setting Ventilator Respiratory Rate 14 Setting Ventilator Respiratory Rate 14 Setting Ventilator Respiratory Rate 14 Setting Ventilator Respiratory Rate 14 Setting Ventilator Respiratory Rate 14 Setting Actual Respiratory Rate 18 Actual Respiratory Rate 18 Actual Respiratory Rate 15 Actual Respiratory Rate 15 Actual Respiratory Rate 20 Actual Respiratory Rate 19 Actual Respiratory Rate 14 Actual Respiratory Rate 20 Actual Respiratory Rate 20 Actual Respiratory Rate 20 Actual Respiratory Rate 22 Actual Respiratory Rate 22 Actual Respiratory Rate 24 Actual Respiratory Rate 22 Positive End Expiratory 5 Pressure Positive End Expiratory 5 Pressure Positive End Expiratory 5 Pressure Positive End Expiratory 5 Pressure Positive End Expiratory 5 Pressure Positive End Expiratory 5 Pressure Positive End Expiratory 5 Pressure Positive End Expiratory 5 Pressure Positive End Expiratory 5 Pressure Positive End Expiratory 5 Pressure Positive End Expiratory 5 Pressure Positive End Expiratory 5 Pressure Positive End Expiratory 5 Pressure Positive End Expiratory 5 Pressure Positive End Expiratory 5 Pressure Peak Inspiratory Airway 12 Pressure Peak Inspiratory Airway 16 Pressure Peak Inspiratory Airway 21 Pressure Peak Inspiratory Airway 21 Pressure Peak Inspiratory Airway 19 Pressure Peak Inspiratory Airway 18 Pressure Peak Inspiratory Airway 20 Pressure Peak Inspiratory Airway 20 Pressure Peak Inspiratory Airway 19 Pressure Peak Inspiratory Airway 20 Pressure Peak Inspiratory Airway 22 Pressure Peak Inspiratory Airway 19 Pressure Peak Inspiratory Airway 24 Pressure Peak Inspiratory Airway 20 Pressure Results - Laboratory Findings CBC and BMP: 06/01/19 03:00 06/01/19 03:00 ABG ABG pH 7.34 pH Units (7.32-7.45) 06/01/19 06:16 ABG pCO2 39 mmHg (35-45) 06/01/19 06:16 ABG pO2 72 mmHg (85-104) L 06/01/19 06:16 ABG O2 Saturation 93 % (95-98) L 06/01/19 06:16 PT/INR, D-dimer PT 14.3 Seconds (9.4-12.1) H 06/01/19 03:00 Abnormal lab findings: Abnormal lab results WBC 15.1 K/mcL (4.3-11.1) H 06/01/19 03:00 RBC 3.26 M/mcL (4.19-5.50) L 06/01/19 03:00 Hgb 9.9 g/dL (12.9-16.9) L D 06/01/19 03:00 Hct 32.1 % (37.5-50.1) L 06/01/19 03:00 MCHC 30.8 g/dL (31.6-35.5) L 06/01/19 03:00 RDW 15.9 % (11.5-14.5) H 06/01/19 03:00 Plt Count 100 K/mcL (140-400) L 06/01/19 03:00 Band Neutrophils % 32.0 % (0-4) H 05/31/19 16:26 Neutrophils # 12.4 K/mcL (1.6-8.9) H 06/01/19 03:00 Reactive Lymphocytes Present (Not Present) A 05/31/19 16:26 PT 14.3 Seconds (9.4-12.1) H 06/01/19 03:00 APTT 23.9 Seconds (26.0-36.0) L 05/31/19 16:26 ABG pO2 72 mmHg (85-104) L 06/01/19 06:16 ABG Total CO2 28 mEq/L (20-26) H 05/31/19 21:17 ABG O2 Saturation 93 % (95-98) L 06/01/19 06:16 ABG Base Excess -5 mEq/L (-2 to 3) L 06/01/19 06:16 VBG pO2 24 mmHg (25-50) L 05/31/19 18:18 Potassium 5.4 mEq/L (3.5-5.1) H 05/31/19 16:26 Chloride 111 mEq/L (98-107) H 06/01/19 03:00 Carbon Dioxide 21 mEq/L (23-29) L 06/01/19 03:00 BUN 38 mg/dL (8-23) H 06/01/19 03:00 Creatinine 1.71 mg/dL (0.70-1.30) H 06/01/19 03:00 Est GFR ( Amer) 47 (> 60) L 06/01/19 03:00 Est GFR (Non-Af Amer) 39 (> 60) L 06/01/19 03:00 Glucose 68 mg/dL (70-105) L 06/01/19 03:00 POC Glucose 110 mg/dL (70-99) H 05/31/19 23:14 Hemoglobin A1c 6.9 % (-5.6) H 05/31/19 17:55 Calculated Osmolality 306 (280-300) H 05/31/19 16:26 Lactic Acid 4.2 mmol/L (0.5-2.2) H* 05/31/19 17:55 Calcium 7.8 mg/dL (8.6-10.3) L 06/01/19 03:00 Total Bilirubin 1.3 mg/dL (0.3-1.0) H 06/01/19 03:00 Direct Bilirubin 0.8 mg/dL (0.0-0.2) H 06/01/19 03:00 Troponin I 0.19 ng/mL (< 0.04) H* 06/01/19 09:50 Serum Total Protein 5.1 g/dL (6.4-8.9) L 06/01/19 03:00 Albumin 2.5 g/dL (3.5-5.7) L 06/01/19 03:00 Albumin/Globulin Ratio 1.0 (1.1-2.2) L 06/01/19 03:00 Procalcitonin 12.80 ng/mL (0.00-0.15) H 05/31/19 21:42 Ur Specimen Adequacy See below A 05/31/19 18:00 Urine Protein 100 mg/dL (Neg-Trace) H 05/31/19 18:00 Ur Culture Indicated? YES (NO) A 05/31/19 18:00 - Microbiology Findings Microbiology Findings: Microbiology, Last 48 Hours 06/01/19 04:00 Sputum Culture - Preliminary Aspirate 05/31/19 18:00 Urine Culture - Preliminary Urine,Clean Catch Culture is incubating. 05/31/19 16:46 Blood Culture - Preliminary Peripheral Venipuncture Culture is incubating and being continuously monitored for growth. Final report to follow. 05/31/19 16:46 Blood Culture - Preliminary Peripheral Venipuncture Culture is incubating and being continuously monitored for growth. Final report to follow. - Clinical Findings Intake & Output: Intake & Output 05/31/19 06/01/19 06/01/19 23:59 07:59 15:59 Intake Total 1070 / 1070 1247 / 2359 1112 / 2359 Output Total 900 / 900 850 / 1050 200 / 1050 Balance 170 / 170 397 / 1309 912 / 1309 Weight 85.729 kg 85.3 kg Consult Discharge Plan - Plan Referrals: [facility] – [place], [place] Alas MD [Primary Care Provider] - <Anderson Kim W - Last Filed: 06/01/19 15:50> Date of Encounter: 06/01/19 All Systems: The remainder of the systems were reviewed and are negative Physical Examination Vital Signs: Vital Signs, Last 4 Hours Temp Pulse Resp BP Pulse Ox 06/01/19 15:30 93 19 109/52 98 06/01/19 14:00 92 20 96/51 97 06/01/19 13:33 96 20 105/49 96 06/01/19 13:24 20 88/47 95 06/01/19 12:16 94 06/01/19 12:15 95 21 88/47 96 06/01/19 12:07 98.7 F 06/01/19 11:45 96 18 102/58 95 Ventilator Settings Ventilator Settings: Ventilator Settings, Last 8 Hours Ventilator Tidal Volume 500 Setting Ventilator Tidal Volume 500 Setting Ventilator Tidal Volume 500 Setting Ventilator Tidal Volume 500 Setting Ventilator Tidal Volume 500 Setting Ventilator Tidal Volume 500 Setting Ventilator Tidal Volume 500 Setting Ventilator Tidal Volume 500 Setting Ventilator Tidal Volume 500 Setting Ventilator Tidal Volume 500 Setting Ventilator Tidal Volume 500 Setting Ventilator Tidal Volume 500 Setting Ventilator Tidal Volume 500 Setting Ventilator Respiratory Rate 14 Setting Ventilator Respiratory Rate 14 Setting Ventilator Respiratory Rate 14 Setting Ventilator Respiratory Rate 14 Setting Ventilator Respiratory Rate 14 Setting Ventilator Respiratory Rate 14 Setting Ventilator Respiratory Rate 14 Setting Ventilator Respiratory Rate 14 Setting Ventilator Respiratory Rate 14 Setting Ventilator Respiratory Rate 14 Setting Ventilator Respiratory Rate 14 Setting Ventilator Respiratory Rate 14 Setting Ventilator Respiratory Rate 14 Setting Actual Respiratory Rate 19 Actual Respiratory Rate 18 Actual Respiratory Rate 18 Actual Respiratory Rate 20 Actual Respiratory Rate 20 Actual Respiratory Rate 18 Actual Respiratory Rate 18 Actual Respiratory Rate 15 Actual Respiratory Rate 15 Actual Respiratory Rate 20 Actual Respiratory Rate 19 Actual Respiratory Rate 14 Actual Respiratory Rate 20 Positive End Expiratory 5 Pressure Positive End Expiratory 5 Pressure Positive End Expiratory 5 Pressure Positive End Expiratory 5 Pressure Positive End Expiratory 5 Pressure Positive End Expiratory 5 Pressure Positive End Expiratory 5 Pressure Positive End Expiratory 5 Pressure Positive End Expiratory 5 Pressure Positive End Expiratory 5 Pressure Positive End Expiratory 5 Pressure Positive End Expiratory 5 Pressure Positive End Expiratory 5 Pressure Peak Inspiratory Airway 22 Pressure Peak Inspiratory Airway 13 Pressure Peak Inspiratory Airway 13 Pressure Peak Inspiratory Airway 14 Pressure Peak Inspiratory Airway 19 Pressure Peak Inspiratory Airway 12 Pressure Peak Inspiratory Airway 16 Pressure Peak Inspiratory Airway 21 Pressure Peak Inspiratory Airway 21 Pressure Peak Inspiratory Airway 19 Pressure Peak Inspiratory Airway 18 Pressure Peak Inspiratory Airway 20 Pressure Peak Inspiratory Airway 20 Pressure Results - Laboratory Findings CBC and BMP: 06/01/19 03:00 06/01/19 03:00 ABG ABG pH 7.34 pH Units (7.32-7.45) 06/01/19 06:16 ABG pCO2 39 mmHg (35-45) 06/01/19 06:16 ABG pO2 72 mmHg (85-104) L 06/01/19 06:16 ABG O2 Saturation 93 % (95-98) L 06/01/19 06:16 PT/INR, D-dimer PT 14.3 Seconds (9.4-12.1) H 06/01/19 03:00 Abnormal lab findings: Abnormal lab results WBC 15.1 K/mcL (4.3-11.1) H 06/01/19 03:00 RBC 3.26 M/mcL (4.19-5.50) L 06/01/19 03:00 Hgb 9.9 g/dL (12.9-16.9) L D 06/01/19 03:00 Hct 32.1 % (37.5-50.1) L 06/01/19 03:00 MCHC 30.8 g/dL (31.6-35.5) L 06/01/19 03:00 RDW 15.9 % (11.5-14.5) H 06/01/19 03:00 Plt Count 100 K/mcL (140-400) L 06/01/19 03:00 Band Neutrophils % 32.0 % (0-4) H 05/31/19 16:26 Neutrophils # 12.4 K/mcL (1.6-8.9) H 06/01/19 03:00 Reactive Lymphocytes Present (Not Present) A 05/31/19 16:26 PT 14.3 Seconds (9.4-12.1) H 06/01/19 03:00 APTT 23.9 Seconds (26.0-36.0) L 05/31/19 16:26 ABG pO2 72 mmHg (85-104) L 06/01/19 06:16 ABG Total CO2 28 mEq/L (20-26) H 05/31/19 21:17 ABG O2 Saturation 93 % (95-98) L 06/01/19 06:16 ABG Base Excess -5 mEq/L (-2 to 3) L 06/01/19 06:16 VBG pO2 24 mmHg (25-50) L 05/31/19 18:18 Potassium 5.4 mEq/L (3.5-5.1) H 05/31/19 16:26 Chloride 111 mEq/L (98-107) H 06/01/19 03:00 Carbon Dioxide 21 mEq/L (23-29) L 06/01/19 03:00 BUN 38 mg/dL (8-23) H 06/01/19 03:00 Creatinine 1.71 mg/dL (0.70-1.30) H 06/01/19 03:00 Est GFR ( Amer) 47 (> 60) L 06/01/19 03:00 Est GFR (Non-Af Amer) 39 (> 60) L 06/01/19 03:00 Glucose 68 mg/dL (70-105) L 06/01/19 03:00 POC Glucose 110 mg/dL (70-99) H 05/31/19 23:14 Hemoglobin A1c 6.9 % (-5.6) H 05/31/19 17:55 Calculated Osmolality 306 (280-300) H 05/31/19 16:26 Lactic Acid 4.2 mmol/L (0.5-2.2) H* 05/31/19 17:55 Calcium 7.8 mg/dL (8.6-10.3) L 06/01/19 03:00 Total Bilirubin 1.3 mg/dL (0.3-1.0) H 06/01/19 03:00 Direct Bilirubin 0.8 mg/dL (0.0-0.2) H 06/01/19 03:00 Troponin I 0.19 ng/mL (< 0.04) H* 06/01/19 09:50 Serum Total Protein 5.1 g/dL (6.4-8.9) L 06/01/19 03:00 Albumin 2.5 g/dL (3.5-5.7) L 06/01/19 03:00 Albumin/Globulin Ratio 1.0 (1.1-2.2) L 06/01/19 03:00 Procalcitonin 12.80 ng/mL (0.00-0.15) H 05/31/19 21:42 Ur Specimen Adequacy See below A 05/31/19 18:00 Urine Protein 100 mg/dL (Neg-Trace) H 05/31/19 18:00 Ur Culture Indicated? YES (NO) A 05/31/19 18:00 - Microbiology Findings Microbiology Findings: Microbiology, Last 48 Hours 06/01/19 04:00 Sputum Culture - Preliminary Aspirate 05/31/19 18:00 Urine Culture - Preliminary Urine,Clean Catch Culture is incubating. 05/31/19 16:46 Blood Culture - Preliminary Peripheral Venipuncture Culture is incubating and being continuously monitored for growth. Final report to follow. 05/31/19 16:46 Blood Culture - Preliminary Peripheral Venipuncture Culture is incubating and being continuously monitored for growth. Final report to follow. - Clinical Findings Intake & Output: Intake & Output 05/31/19 06/01/19 06/01/19 23:59 07:59 15:59 Intake Total 1070 / 1070 1247 / 2458 1211 / 2458 Output Total 900 / 900 850 / 1050 200 / 1050 Balance 170 / 170 397 / 1408 1011 / 1408 Weight 85.729 kg 85.3 kg - Attending Attestation I examined this patient and my medical decision-making was reviewed with the Resident Physician. I agree with the documented findings, disposition and treatment plan as described except to the extent set forth below. We ind ependently had [id number] contact with the patient I spent 36min of Critical Care time with this patient. It involved decision making of high complexity to assess, manipulate, and support vital organ system failure and/or to prevent further life threatening deterioration of the patient's condition. The time involved in the performance of separately reportable procedures was not counted toward critical care time. Patient seen and examined at bedside Labs, radiology, chart personally reviewed. Management was reviewed during multidisciplinary critical care rounds. SPEEDER OPERATOR: Patient presented with toxic metabolic encephalopathy secondary to respiratory failure and sepsis he is now sedated on the vent we will decrease sedation for goal [place] 2-3 Pulm: Patient presenting with acute on chronic hypoxic hypercapnic respiratory failure which is likely secondary to pneumonia with COPD exacerbation unfor tunately patient has severe underlying ILD and overall pulmonary reserve is very limited. No ecchymosis from respiratory standpoint is actually poor in the near short-term even without acute presentation. At this point he has acceptable gas exchange and we will continue antibiotic steroids and bronchodilators Cards: Patient remains hypotensive likely secondary to sepsis with shock but he is also at risk for adrenal insufficiency given long-term use of systemic glucocorticoids we will add stress dose hydrocortisone; NSTEMI likely demand ischemia secondary to hypoxia limited echocardiogram pending consider cardiology consultation based upon results GI: Stress ulcer prophylaxis given Nutrition: Nothing by mouth for now Renal: UOP Monitored, Cont to Trend sCr and monitor Electrolytes. ID: Patient is being treated broadly for pneumonia with planned to de-escalate Heme/Onc: DVT prophylaxis given Endo: Glucose Monitored - continue stress dose hydrocortisone Integ/MSK: Skin Care per routine ICU Nursing Protocol to prevent ulcers. Lines: All lines examined without evidence of infection : Dispo: Monitor in ICU for critical illness CODE: Prognosis guarded to poor. I did discuss with the family the last admission patient had declared that he was DNAR/DNI - this with his listed CODE STATUS at last admission. Patient's family members are all at bedside including his 2 adult sons and they said that there is a living will at home which we had asked the patient to bring as patient has been intubated at this point and we need to clarify his wishes regarding short-term intubation his family is adamant that he would not want long-term but they are less clear about short-term we will also consult palliative care team to assist us with these ongoing discussions.. I suspect given the ambiguity of his CODE STATUS at this time patient would need to be treated with plan to get liberated from the vent and facilitate his own discussions. If Clinical Course worsens and he is able to do that we will need to continue to consult with the family about his overall poor prognosis from a respiratory standpoint.
[2019-06-01] MEDS: Hydrocortisone Sodium Succ 100 MG/2 ML VIAL IVP SCH ×2 (16:38→23:00)
--- NOTE | 2019-06-01 16:47 | Palliative - Consult Note ---
Date of Encounter: 06/01/19 Time of Encounter: 13:00 - Assessment and Plan (1) Advance care planning Current Visit: Yes Status: Acute Assessment and plan: 25 minutes advanced care planning discussion with pt's 2 sons and 2 grand- daughters. Reviewed current medical codnition, pt is being treated for sepsis and sedated, so no attempt have been made yet to assess possibility of extubation. Discussed that there was a record of conversations were pt asked to be DNI, but no documentation was found in the EMR. Pt has expressed the wish per family to not be on machines. However, pt's was kept on ventilator for about 1 week before he decided on extubation, and for those reasons, family believes that pt will be ok with intubation as long as there is hope for recovery. They declare to have pt's wishes at home, but are reluctant at this point to bring it in for they do not want pt to be compassionately extubated. It appeared per ED not that pt agreed to intubation, and at this point it is too early for a ful prognosis. Palliative care will continue to follow , and will re-address the conversation depending on clinical course. Discussed with ICU team. (2) Palliative care encounter Current Visit: Yes Status: Acute (3) Acute and chronic respiratory failure with hypoxia Current Visit: Yes Status: Acute Assessment and plan: management per primary team (4) CAP (community acquired pneumonia) Current Visit: No Status: Acute Qualifiers: Laterality: unspecified laterality Qualified Code(s): J18.9 - Pneumonia, unspecified organism (5) Septic shock Current Visit: Yes Status: Acute Palliative-CN HPI - Data of Consult Patient: new to practice Consult date: 06/01/19 Requesting Physician: Lexie Green Primary Care Provider: Mj Hooks MD - Consult Narrative Palliative Care/Comfort Measures: Palliative care Reason for consult: clarify code status. History of present illness: Mr. Treadwell is a 78 year old male with PMH of advanced IPF, HTN, DM, prior prostate cancer, subtotal colectomy due to C.diff infection who presented to ER with complaints of feeling weak, febrile, and had increased work of breathing. On evaluation, he appeared septic, an in acute respiratory distress. Per the ED note, pt agreed to be intubated for airways protection, and was admitted to MICU. After accurate chart review, primary pumonologist recalls that pt was DNI. Palliative care consult to clarify goals of care. At the time of exam, pt was intubated and sedated, minimally responsive to painful stimuli. Family at the bedside, including the 2 sons. CC: Lexie Green - Time Spent with Patient Time: Total time spent is greater than 50% in coordination of care (as documented) at patient's floor/unit and/or counseling patient: Time with patient: 75 minutes Past Med Surg Social Fam HX - Past Medical History Medical history: COPD, diabetes, hyperlipidemia, hypertension Additional medical history: Home O2. 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 sinus sx - Social History Smoking Status: Never smoker Smokeless Tobacco Status: No Alcohol use: none Drug use: none - Family History Father Living Status: Hx Family Cancer: Yes (Leukemia) Sister Living Status: Hx Family Cancer: Yes (Skin Ca. with mets) Mother Living Status: Hx Family Cardiac Disorders: Yes (CAD) Medications and Allergies Atorvastatin Calcium [Lipitor] 80 mg PO DAILY 01/18/17 [History] Doxepin [Sinequan] 25 mg PO HS 01/18/17 [History] Finasteride [Proscar] 5 mg PO DAILY 01/18/17 [History] Furosemide [Lasix] 20 mg PO DAILY 01/18/17 [History] OXcarbazepine [Trileptal] 150 mg PO BID 01/18/17 [History] Pantoprazole Sodium [Protonix] 40 mg PO DAILY 01/18/17 [History] Potassium Chloride [K-Tab ER] 20 meq PO BID 01/18/17 [History] Quetiapine Fumarate [Seroquel] 200 mg PO HS 01/18/17 [History] Tamsulosin [Flomax] 0.4 mg PO DAILY 01/18/17 [History] Cholecalciferol (D-3) [Vitamin D] 1,000 unit PO DAILY 11/21/17 [History] Glimepiride [Amaryl] 1 mg PO QAM 11/21/17 [History] LORazepam [Ativan] 0.5 mg PO BID 11/21/17 [History] Linagliptin [Tradjenta] 5 mg PO DAILY 11/21/17 [History] Melatonin 6 mg PO HS PRN 11/21/17 [History] Multivitamin [One Daily Essential] 1 tab PO DAILY 11/21/17 [History] Clopidogrel [Plavix] 75 mg PO DAILY #30 tablet 11/25/17 [Rx] Albuterol Sulfate [Ventolin Hfa] 2 puff IH Q6H PRN 05/07/19 [History] Allopurinol [Zyloprim 100 MG] 100 mg PO DAILY 05/07/19 [History] Amlodipine Besylate 10 mg PO DAILY 05/07/19 [History] Aspirin [Adult Aspirin Regimen] 81 mg PO DAILY 05/07/19 [History] Mirtazapine 45 mg PO HS 05/07/19 [History] Nitroglycerin [Nitrostat] 0.4 mg SL AD PRN 05/07/19 [History] predniSONE [PredniSONE] 10 mg PO DAILY 42 Days #147 tablet 05/12/19 [Rx] Brimonidine Tartrate [Alphagan P] 1 drop BOTH EYES BID 05/31/19 [History] Ipratropium/Albuterol Sulfate [Iprat-Albut 0.5-3(2.5) mg/3 ml] 3 ml IH Q6H 05/31/19 [History] Allergy/AdvReac Type Severity Reaction Status Date / Time Penicillins Allergy Hives Verified 05/31/19 16:26 oxybutynin [From Ditropan] AdvReac See Verified 05/07/19 08:55 Comments ROS unobtainable: due to endotracheal tube Palliative Care-Exam - Constitutional Vitals: Temp Pulse Resp BP Pulse Ox 98.7 F 91 19 116/63 98 06/01/19 12:07 06/01/19 16:00 06/01/19 16:00 06/01/19 16:00 06/01/19 16:00 Exam: intubated and sedated - Head Head Exam: Present: atraumatic - Eye Eye exam: Present: EOMI - ENT ENT exam: Present: mucous membranes moist - Respiratory Respiratory exam: Present: decreased breath sounds Additional comments: mechanical breath sound, scattered crepitations. - Cardiovascular Cardiovascular exam: Present: RRR, +S1, +S2 - GI/Abdominal Exam GI/Abdominal exam: Present: normal bowel sounds, soft - Extremities Exam Extremities exam: Present: normal capillary refill, normal inspection. Absent: pedal edema - Neurological Exam Additional comments: sedated, not responsive to stimuli. - Skin Additional comments: ecchymoses on RUE Internal Medicine - CN: Reslt - Labs CBC & Chem 7: 06/01/19 03:00 06/01/19 03:00 Labs: Short CBC 05/31/19 06/01/19 Range/Units 16:26 03:00 WBC 15.0 H 15.1 H (4.3-11.1) K/mcL Hgb 11.9 L 9.9 L D (12.9-16.9) g/dL Hct 36.9 L 32.1 L (37.5-50.1) % Plt Count 114 L 100 L (140-400) K/mcL Neutrophils # 12.6 H 12.4 H (1.6-8.9) K/mcL BMP 05/31/19 06/01/19 16:26 03:00 Sodium 143 141 Potassium 5.4 H 5.0 Chloride 104 111 H Carbon Dioxide 25 21 L BUN 38 H 38 H Creatinine 1.54 H 1.71 H Glucose 108 H 68 L Calcium 8.7 7.8 L Cardiac Enzymes 05/31/19 05/31/19 06/01/19 Range/Units 16:26 21:42 03:00 Troponin I 0.15 H* 0.26 H* 0.29 H* (< 0.04) ng/mL 06/01/19 Range/Units 09:50 Troponin I 0.19 H* (< 0.04) ng/mL Liver Function 05/31/19 06/01/19 Range/Units 16:26 03:00 Total Bilirubin 0.8 1.3 H (0.3-1.0) mg/dL Direct Bilirubin 0.3 H 0.8 H (0.0-0.2) mg/dL AST 13 20 (13-39) Units/L ALT 14 13 (7-52) Units/L Alkaline Phosphatase 84 69 (34-104) Units/L Albumin 3.1 L 2.5 L (3.5-5.7) g/dL Urine 05/31/19 Range/Units 18:00 Urine Color Yellow (Yellow) Urine Clarity Clear (Clear) Urine pH 6.0 (5.0-8.0) pH Units Ur Specific [place] 1.022 (1.010-1.025) Urine Protein 100 H (Neg-Trace) mg/dL Urine Glucose (UA) Normal (Normal) mg/dL - ABG Interpretation ABG results: ABG ABG pH 7.34 pH Units (7.32-7.45) 06/01/19 06:16 ABG pCO2 39 mmHg (35-45) 06/01/19 06:16 ABG pO2 72 mmHg (85-104) L 06/01/19 06:16 ABG O2 Saturation 93 % (95-98) L 06/01/19 06:16 PT/INR, D-dimer PT 14.3 Seconds (9.4-12.1) H 06/01/19 03:00 - Impressions Impressions Chest X-Ray 05/31/19 16:26 IMPRESSION: 1. Increased opacification right upper lobe could represent pneumonia 2. Reticular changes again seen in the lung bases suggesting chronic fibrosis D/ / Mike Kam MD / Mike Kam MD Interpreting Provider: Mike Kam MD Chest X-Ray 05/31/19 18:54 IMPRESSION: 1. Suboptimal RPO projection. 2. Similar-appearing patchy alveolar and interstitial densities scattered throughout the bilateral lungs with consolidative changes upper right lung and lateral upper left lung possibly reflecting pneumonia on background of interstitial lung disease. 3. Status post CABG. 4. Probable right pleural effusion. 5. Bilateral AC joint osteoarthritis. 6. No pneumothorax evident. D/ / Juan José Baptiste / Juan José Baptiste Interpreting Provider: Juan José Baptiste Chest X-Ray 05/31/19 19:55 IMPRESSION: 1. Interval placement endotracheal tube, tip between the levels of the clavicular heads and aortic knob, about 6 cm superior to the octaviano. 2. Unchanged interstitial and alveolar densities bilateral with consolidative changes predominating upper right lung and lateral upper outer left lung possibly related to pneumonia or pulmonary edema on a background chronic interstitial lung disease. 3. Cardiac silhouette and mediastinum appear unremarkable. 4. No pneumothorax. D/ / Juan José Baptiste / Juan José Baptiste Interpreting Provider: Juan José Baptiste X-Ray 05/31/19 20:08 IMPRESSION: OG tip and side-port in the gastric fundus Lucency surrounding the acetabular cup the right hip arthroplasty could represent loosening or infection D/ / Mike Kam MD / Mike Kam MD Interpreting Provider: Mike Kam MD Consult Discharge Plan - Plan Referrals: Mj Hooks MD [Primary Care Provider] - Palliative Quality Palliative Quality: Screen for Code Status: Yes, Screen for Goals of Care: Yes, Screen for Pain: NA, If Pain Regimen Started, Initiate Bowel Regimen: NA, Screen for Nausea/Vomitting: NA Code Status: 05/31/19 20:08 Resuscitation Status: Active [RES] Routine Comment: Resuscitation Status: Full Code
--- NOTE | 2019-06-02 00:20 | Electrocardiograph Report ---
[facility] Test Date: 2019-05-31 Pat Name: Sunil Treadwell Department: [id number] Room: 11 Gender: M [employer]: : 1940 Requested By: Shon Harris Order Number: [id number] Reading MD: Trino Bernal Measurements Intervals [place] Rate: 125 P: 38 [place]: 166 QRS: 26 QRSD: 127 T: -22 QT: 303 QTc: 437 Interpretive Statements Sinus tachycardia Right bundle branch block Electronically Signed On 06-02-2019 0:18:50 EDT by Trino Bernal
[2019-06-02] MEDS: Artificial Tears SOLN 15 ML BOTTLE BOTH EYES SCH ×6 (03:01→23:03)
[2019-06-02 03:33] LABS: Basophils % 0.3 %; Hematocrit 28.2 % (37.5-50.1); Hemoglobin 8.8 g/dL (12.9-16.9); Immature Granulocytes % 3.9 % (0-4); Immature Platelets 4.4 % (1.1-6.1); Lymphocytes # 0.6 K/mcL (0.6-4.6); Lymphocytes % 4.9 %; Mean Corpuscular HGB Conc 31.2 g/dL (31.6-35.5); Mean Corpuscular Volume 99.3 fL (83.0-100.0); Monocytes # 0.4 K/mcL (0.0-1.3); Monocytes % 3.5 %; Neutrophils # 10.4 K/mcL (1.6-8.9); Red Blood Count 2.84 M/mcL (4.19-5.50); Red Cell Distribution Width 16.5 % (11.5-14.5); Segmented Neutrophils % 87.4 %; White Blood Count 11.9 K/mcL (4.3-11.1)
[2019-06-02 03:37] LABS: INR 1.3; Prothrombin Time 15.3 Seconds (9.4-12.1)
[2019-06-02 03:39] LABS: Platelet Count 86 K/mcL (140-400)
[2019-06-02 03:59] LABS: Platelet Estimate Decreased (Normal)
[2019-06-02 04:00] LABS: Albumin 2.6 g/dL (3.5-5.7); Albumin/Globulin Ratio 0.9 (1.1-2.2); Bilirubin,Total 2.4 mg/dL (0.3-1.0); Calcium 7.6 mg/dL (8.6-10.3); Globulin 2.9 g/dL (2.4-3.5); Potassium 6.2 mEq/L (3.5-5.1); Total Protein 5.5 g/dL (6.4-8.9)
[2019-06-02 05:01] LABS: ABG Base Excess -7 mEq/L (-2 to 3); ABG HCO3 20 mEq/L (21-27); ABG Oxygen Saturation 95 % (95-98); ABG PCO2 42 mmHg (35-45); ABG PH 7.28 pH Units (7.32-7.45); ABG PO2 88 mmHg (85-104); ABG TCO2 21 mEq/L (20-26); Blood Gas Modality ASSIST CONTROL; Blood Gas PEEP 5 cm H2O; Blood Gas VT 500 cc
[2019-06-02] MEDS: Pantoprazole 40 MG VIAL IVP SCH (05:13)
[2019-06-02] MEDS: Insulin LISPRO 300 UNITS/3 ML VIAL SQ SCH ×4 (05:13→23:04)
[2019-06-02] MEDS: FentaNYL (PF) 1,000 MCG in 0.9 % Sodium Chloride 80 ML IVC SCH ×2 (06:13→18:56)
[2019-06-02] MEDS ORDERED: Calcium Gluconate 2,000 MG in 0.9 % Sodium Chloride 100 ML IVPB ONE (06:56)
[2019-06-02] MEDS ORDERED: Insulin Human Regular 10 UNIT in 0.9 % Sodium Chloride 10 ML IV ONE ×2 (06:57→16:25)
[2019-06-02] MEDS ORDERED: *HR* Dextrose 50 % in Water (Syg) 50 ML SYRINGE IVP ONE (06:58)
[2019-06-02] MEDS: Budesonide/Formoterol 160/4.5 1 PUFF INH IH SCH ×2 (07:39→21:24)
--- NOTE | 2019-06-02 07:52 | Pulmonology Progress Note ---
<Aurelio Guerra - Last Filed: 06/02/19 10:46> Date of Encounter: 06/02/19 Time of Encounter: 07:38 Assessment and Plan (1) Acute and chronic respiratory failure with hypoxia Current Visit: Yes Status: Acute Patient was intubated in the ER d/t progressive respiratory distress. In the context of sepsis 2/2 PNA. Plan: - Cont vent management, sedation, aerosols, antibiotics - Wean O2 as able with SpO2 >92% - Cont to monitor ABGs - On fentanyl and versed gtt, albuterol, symbicort, solumedrol for sedation/breathing - Started precedex on 06/02 - Will attempt extubation today to discuss goals of care - Palliative consulted for discussion of code status (2) Septic shock Current Visit: Yes Status: Acute Sepsis likely 2/2 to PNA, with CXR showing opacification of R upper lobe. Fluid resuscitation in the ED. Plan: - Stopped vancomycin since MRSA neg on 06/01; stopped levaquin on 06/02 - Started azithromycin 500mg IV daily day 1, also on cefepime day 3 - On levophed gtt 5mcg/min for hypotension - Trend lactate levels, stopped maintenance IVFs - Blood and sputum cultures pending - Urine cx final negative - Started hydrocortisone 100mg IVP q8 day 2 for possible adrenal insuff (3) Pneumonia Current Visit: Yes Status: Acute Plan: - Stopped vanc; stopped levaquin - Started azithromycin, on cefepime - Blood/sputum cx pending Qualifiers: Pneumonia type: due to unspecified organism Laterality: unspecified laterality Lung location: unspecified part of lung Qualified Code(s): J18.9 - Pneumonia, unspecified organism (4) Acute kidney failure Current Visit: Yes Status: Acute Likely due to sepsis and dehydration. Plan: - Worsening BUN/Cr of 63/2.53 - Supportive measures and fluid resuscitation as above - Monitor renal function and I/O - Hyperkalemia of 6.2 today - Consult nephrology for worsening renal function, hyperK, consideration for dialysis Qualifiers: Qualified Code(s): N17.9 - Acute kidney failure, unspecified (5) Hyperkalemia Current Visit: Yes Status: Acute K of 6.2 today. Asymptomatic. EKG is consistent with previous showing RBBB, no peaked Twaves or further widened QRS. Plan: - Continue to monitor with EKGs, BMP - 2 g Ca gluconate - 10 units insulin IV with D50 - C/s nephrology for consideration of dialysis (6) NSTEMI (non-ST elevated myocardial infarction) Current Visit: Yes Status: Acute Likely due to respiratory failure and sepsis d/t demand ischemia. No chest pain at presentation. Trops downtrending, last trop 0.19; EKG with RBBB. Plan: - Trend troponin levels and EKGs - Supportive measures as above for sepsis and respiratory failure - Cardiology consulted, recommend TTE - Start ASA 81mg (7) Type 2 diabetes mellitus Current Visit: Yes Status: Chronic Plan: - Hold oral home meds - Monitor glucose levels and order SSI - Adjust insulin dosing as necessary Qualifiers: Diabetes mellitus buttermaker continuous churn insulin use: without buttermaker continuous churn use Diabetes mellitus complication status: with ophthalmic complications Diabetes mellitus complication detail: with cataract Qualified Code(s): E11.36 - Type 2 diabetes mellitus with diabetic cataract (8) DVT prophylaxis Current Visit: Yes Status: Acute DVT PPX: hep SQ Analgesia: fentanyl Sedation: versed, precedex SBT: daily Glycemic control: SSI Bowl regimen: none Activity: soft restraints Fluids: none Electrolytes: replete as necessary Nutrition: none GI ppx: PPI Lines: 2x PIVs, central line, ET, OG, colostomy, santos Consults: cards, pulm, nutrition, palliative Code: FULL CODE Dispo: pending further stabilization Subjective Principal diagnosis: hypoxia Interval history: Patient was seen and examined at bedside. No acute events overnight. Patient is intubated and sedated at bedside. Does not appear to be in any discomfort or pain. Objective PUL Vital signs: Last Vital Signs Temp 97.5 F L 06/02/19 03:00 Pulse 78 06/02/19 07:00 Resp 17 06/02/19 07:00 BP 103/59 06/02/19 07:00 Pulse Ox 96 06/02/19 07:00 General appearance: no acute distress Eyes: nonicteric ENT: oropharynx moist Neck: supple Effort: normal Auscultation: bilateral: clear Cardiovascular: regular rate and rhythm Gastrointestinal: normoactive bowel sounds, non-distended Integumentary: normal, erythema (Erythema noted on the medial aspect of R forearm, likely due to IV infiltration) Extremities: no cyanosis, no edema, no clubbing Musculoskeletal: no deformities, ROM normal unable to assess due to mental status Ventilator Settings Ventilator Settings: Ventilator Settings, Last 8 Hours Ventilator Tidal Volume 500 Setting Ventilator Tidal Volume 500 Setting Ventilator Tidal Volume 500 Setting Ventilator Tidal Volume 500 Setting Ventilator Tidal Volume 500 Setting Ventilator Tidal Volume 500 Setting Ventilator Tidal Volume 500 Setting Ventilator Tidal Volume 500 Setting Ventilator Tidal Volume 500 Setting Ventilator Tidal Volume 500 Setting Ventilator Tidal Volume 500 Setting Ventilator Tidal Volume 500 Setting Ventilator Tidal Volume 500 Setting Ventilator Respiratory Rate 14 Setting Ventilator Respiratory Rate 14 Setting Ventilator Respiratory Rate 14 Setting Ventilator Respiratory Rate 14 Setting Ventilator Respiratory Rate 14 Setting Ventilator Respiratory Rate 14 Setting Ventilator Respiratory Rate 14 Setting Ventilator Respiratory Rate 14 Setting Ventilator Respiratory Rate 14 Setting Ventilator Respiratory Rate 14 Setting Ventilator Respiratory Rate 14 Setting Ventilator Respiratory Rate 14 Setting Ventilator Respiratory Rate 14 Setting Actual Respiratory Rate 20 Actual Respiratory Rate 17 Actual Respiratory Rate 17 Actual Respiratory Rate 19 Actual Respiratory Rate 19 Actual Respiratory Rate 19 Actual Respiratory Rate 19 Actual Respiratory Rate 17 Actual Respiratory Rate 17 Actual Respiratory Rate 17 Actual Respiratory Rate 18 Actual Respiratory Rate 18 Positive End Expiratory 5 Pressure Positive End Expiratory 5 Pressure Positive End Expiratory 5 Pressure Positive End Expiratory 5 Pressure Positive End Expiratory 5 Pressure Positive End Expiratory 5 Pressure Positive End Expiratory 5 Pressure Positive End Expiratory 5 Pressure Positive End Expiratory 5 Pressure Positive End Expiratory 5 Pressure Positive End Expiratory 5 Pressure Positive End Expiratory 5 Pressure Positive End Expiratory 5 Pressure Peak Inspiratory Airway 18 Pressure Peak Inspiratory Airway 7.6 Pressure Peak Inspiratory Airway 7.6 Pressure Peak Inspiratory Airway 14 Pressure Peak Inspiratory Airway 8.2 Pressure Peak Inspiratory Airway 7.9 Pressure Peak Inspiratory Airway 8.4 Pressure Peak Inspiratory Airway 7.6 Pressure Peak Inspiratory Airway 7.6 Pressure Peak Inspiratory Airway 7.6 Pressure Peak Inspiratory Airway 8 Pressure Peak Inspiratory Airway 8 Pressure Results - Laboratory Findings CBC and BMP: 06/02/19 02:42 06/02/19 02:42 ABG ABG pH 7.28 pH Units (7.32-7.45) L 06/02/19 04:58 ABG pCO2 42 mmHg (35-45) 06/02/19 04:58 ABG pO2 88 mmHg (85-104) 06/02/19 04:58 ABG O2 Saturation 95 % (95-98) 06/02/19 04:58 PT/INR, D-dimer PT 15.3 Seconds (9.4-12.1) H 06/02/19 02:42 Abnormal lab findings: Abnormal lab results WBC 11.9 K/mcL (4.3-11.1) H 06/02/19 02:42 RBC 2.84 M/mcL (4.19-5.50) L 06/02/19 02:42 Hgb 8.8 g/dL (12.9-16.9) L 06/02/19 02:42 Hct 28.2 % (37.5-50.1) L 06/02/19 02:42 MCHC 31.2 g/dL (31.6-35.5) L 06/02/19 02:42 RDW 16.5 % (11.5-14.5) H 06/02/19 02:42 Plt Count 86 K/mcL (140-400) L 06/02/19 02:42 Band Neutrophils % 32.0 % (0-4) H 05/31/19 16:26 Neutrophils # 10.4 K/mcL (1.6-8.9) H 06/02/19 02:42 Reactive Lymphocytes Present (Not Present) A 05/31/19 16:26 Platelet Estimate Decreased (Normal) L 06/02/19 02:42 PT 15.3 Seconds (9.4-12.1) H 06/02/19 02:42 APTT 23.9 Seconds (26.0-36.0) L 05/31/19 16:26 ABG pH 7.28 pH Units (7.32-7.45) L 06/02/19 04:58 ABG pO2 72 mmHg (85-104) L 06/01/19 06:16 ABG HCO3 20 mEq/L (21-27) L 06/02/19 04:58 ABG Total CO2 28 mEq/L (20-26) H 05/31/19 21:17 ABG O2 Saturation 93 % (95-98) L 06/01/19 06:16 ABG Base Excess -7 mEq/L (-2 to 3) L 06/02/19 04:58 VBG pO2 24 mmHg (25-50) L 05/31/19 18:18 Potassium 6.2 mEq/L (3.5-5.1) H 06/02/19 02:42 Chloride 111 mEq/L (98-107) H 06/02/19 02:42 Carbon Dioxide 19 mEq/L (23-29) L 06/02/19 02:42 BUN 63 mg/dL (8-23) H 06/02/19 02:42 Creatinine 2.53 mg/dL (0.70-1.30) H 06/02/19 02:42 Est GFR ( Amer) 30 (> 60) L 06/02/19 02:42 Est GFR (Non-Af Amer) 25 (> 60) L 06/02/19 02:42 Glucose 174 mg/dL (70-105) H 06/02/19 02:42 POC Glucose 167 mg/dL (70-99) H 06/01/19 22:49 Hemoglobin A1c 6.9 % (-5.6) H 05/31/19 17:55 Calculated Osmolality 316 (280-300) H 06/02/19 02:42 Lactic Acid 4.2 mmol/L (0.5-2.2) H* 05/31/19 17:55 Calcium 7.6 mg/dL (8.6-10.3) L 06/02/19 02:42 Total Bilirubin 2.4 mg/dL (0.3-1.0) H 06/02/19 02:42 Direct Bilirubin 0.8 mg/dL (0.0-0.2) H 06/01/19 03:00 Troponin I 0.19 ng/mL (< 0.04) H* 06/01/19 09:50 Serum Total Protein 5.5 g/dL (6.4-8.9) L 06/02/19 02:42 Albumin 2.6 g/dL (3.5-5.7) L 06/02/19 02:42 Albumin/Globulin Ratio 0.9 (1.1-2.2) L 06/02/19 02:42 Procalcitonin 12.80 ng/mL (0.00-0.15) H 05/31/19 21:42 Ur Specimen Adequacy See below A 05/31/19 18:00 Urine Protein 100 mg/dL (Neg-Trace) H 05/31/19 18:00 Ur Culture Indicated? YES (NO) A 05/31/19 18:00 - Microbiology Findings Microbiology Findings: Microbiology, Last 48 Hours 05/31/19 18:00 Urine Culture - Final Urine,Clean Catch No significant growth. 06/01/19 04:00 Sputum Culture - Preliminary Aspirate 05/31/19 16:46 Blood Culture - Preliminary Peripheral Venipuncture Culture is incubating and being continuously monitored for growth. Final report to follow. 05/31/19 16:46 Blood Culture - Preliminary Peripheral Venipuncture Culture is incubating and being continuously monitored for growth. Final report to follow. - Clinical Findings Intake & Output: Intake & Output 06/01/19 06/01/19 06/02/19 15:59 23:59 07:59 Intake Total 1211 / 2866 408 / 2866 242 / 242 Output Total 200 / 1370 320 / 1370 100 / 100 Balance 1011 / 1496 88 / 1496 142 / 142 Weight 86.3 kg Consult Discharge Plan - Plan Referrals: Mj rosario MD [Primary Care Provider] - <Anderson Kim W - Last Filed: 06/02/19 11:18> Date of Encounter: 06/02/19 Objective PUL Vital signs: Last Vital Signs Temp 98.8 F 06/02/19 07:56 Pulse 84 06/02/19 11:00 Resp 26 06/02/19 11:00 BP 102/62 06/02/19 11:00 Pulse Ox 97 06/02/19 11:00 Ventilator Settings Ventilator Settings: Ventilator Settings, Last 8 Hours Ventilator Tidal Volume 500 Setting Ventilator Tidal Volume 500 Setting Ventilator Tidal Volume 500 Setting Ventilator Tidal Volume 500 Setting Ventilator Tidal Volume 500 Setting Ventilator Tidal Volume 500 Setting Ventilator Tidal Volume 500 Setting Ventilator Tidal Volume 500 Setting Ventilator Tidal Volume 500 Setting Ventilator Tidal Volume 500 Setting Ventilator Tidal Volume 500 Setting Ventilator Tidal Volume 500 Setting Ventilator Tidal Volume 500 Setting Ventilator Tidal Volume 500 Setting Ventilator Respiratory Rate 14 Setting Ventilator Respiratory Rate 14 Setting Ventilator Respiratory Rate 14 Setting Ventilator Respiratory Rate 18 Setting Ventilator Respiratory Rate 14 Setting Ventilator Respiratory Rate 14 Setting Ventilator Respiratory Rate 14 Setting Ventilator Respiratory Rate 14 Setting Ventilator Respiratory Rate 14 Setting Ventilator Respiratory Rate 14 Setting Ventilator Respiratory Rate 14 Setting Ventilator Respiratory Rate 14 Setting Ventilator Respiratory Rate 14 Setting Ventilator Respiratory Rate 14 Setting Actual Respiratory Rate 22 Actual Respiratory Rate 19 Actual Respiratory Rate 18 Actual Respiratory Rate 19 Actual Respiratory Rate 20 Actual Respiratory Rate 18 Actual Respiratory Rate 20 Actual Respiratory Rate 20 Actual Respiratory Rate 17 Actual Respiratory Rate 17 Actual Respiratory Rate 19 Actual Respiratory Rate 19 Actual Respiratory Rate 19 Positive End Expiratory 5 Pressure Positive End Expiratory 5 Pressure Positive End Expiratory 5 Pressure Positive End Expiratory 5 Pressure Positive End Expiratory 5 Pressure Positive End Expiratory 5 Pressure Positive End Expiratory 5 Pressure Positive End Expiratory 5 Pressure Positive End Expiratory 5 Pressure Positive End Expiratory 5 Pressure Positive End Expiratory 5 Pressure Positive End Expiratory 5 Pressure Positive End Expiratory 5 Pressure Positive End Expiratory 5 Pressure Peak Inspiratory Airway 11 Pressure Peak Inspiratory Airway 11 Pressure Peak Inspiratory Airway 14 Pressure Peak Inspiratory Airway 17 Pressure Peak Inspiratory Airway 18 Pressure Peak Inspiratory Airway 17 Pressure Peak Inspiratory Airway 22 Pressure Peak Inspiratory Airway 18 Pressure Peak Inspiratory Airway 7.6 Pressure Peak Inspiratory Airway 7.6 Pressure Peak Inspiratory Airway 14 Pressure Peak Inspiratory Airway 8.2 Pressure Peak Inspiratory Airway 7.9 Pressure Results - Laboratory Findings CBC and BMP: 06/02/19 02:42 06/02/19 02:42 ABG ABG pH 7.28 pH Units (7.32-7.45) L 06/02/19 04:58 ABG pCO2 42 mmHg (35-45) 06/02/19 04:58 ABG pO2 88 mmHg (85-104) 06/02/19 04:58 ABG O2 Saturation 95 % (95-98) 06/02/19 04:58 PT/INR, D-dimer PT 15.3 Seconds (9.4-12.1) H 06/02/19 02:42 Abnormal lab findings: Abnormal lab results WBC 11.9 K/mcL (4.3-11.1) H 06/02/19 02:42 RBC 2.84 M/mcL (4.19-5.50) L 06/02/19 02:42 Hgb 8.8 g/dL (12.9-16.9) L 06/02/19 02:42 Hct 28.2 % (37.5-50.1) L 06/02/19 02:42 MCHC 31.2 g/dL (31.6-35.5) L 06/02/19 02:42 RDW 16.5 % (11.5-14.5) H 06/02/19 02:42 Plt Count 86 K/mcL (140-400) L 06/02/19 02:42 Band Neutrophils % 32.0 % (0-4) H 05/31/19 16:26 Neutrophils # 10.4 K/mcL (1.6-8.9) H 06/02/19 02:42 Reactive Lymphocytes Present (Not Present) A 05/31/19 16:26 Platelet Estimate Decreased (Normal) L 06/02/19 02:42 PT 15.3 Seconds (9.4-12.1) H 06/02/19 02:42 APTT 23.9 Seconds (26.0-36.0) L 05/31/19 16:26 ABG pH 7.28 pH Units (7.32-7.45) L 06/02/19 04:58 ABG pO2 72 mmHg (85-104) L 06/01/19 06:16 ABG HCO3 20 mEq/L (21-27) L 06/02/19 04:58 ABG Total CO2 28 mEq/L (20-26) H 05/31/19 21:17 ABG O2 Saturation 93 % (95-98) L 06/01/19 06:16 ABG Base Excess -7 mEq/L (-2 to 3) L 06/02/19 04:58 VBG pO2 24 mmHg (25-50) L 05/31/19 18:18 Potassium 6.2 mEq/L (3.5-5.1) H 06/02/19 02:42 Chloride 111 mEq/L (98-107) H 06/02/19 02:42 Carbon Dioxide 19 mEq/L (23-29) L 06/02/19 02:42 BUN 63 mg/dL (8-23) H 06/02/19 02:42 Creatinine 2.53 mg/dL (0.70-1.30) H 06/02/19 02:42 Est GFR ( Amer) 30 (> 60) L 06/02/19 02:42 Est GFR (Non-Af Amer) 25 (> 60) L 06/02/19 02:42 Glucose 174 mg/dL (70-105) H 06/02/19 02:42 POC Glucose 167 mg/dL (70-99) H 06/01/19 22:49 Hemoglobin A1c 6.9 % (-5.6) H 05/31/19 17:55 Calculated Osmolality 316 (280-300) H 06/02/19 02:42 Lactic Acid 4.2 mmol/L (0.5-2.2) H* 05/31/19 17:55 Calcium 7.6 mg/dL (8.6-10.3) L 06/02/19 02:42 Total Bilirubin 2.4 mg/dL (0.3-1.0) H 06/02/19 02:42 Direct Bilirubin 0.8 mg/dL (0.0-0.2) H 06/01/19 03:00 Troponin I 0.19 ng/mL (< 0.04) H* 06/01/19 09:50 Serum Total Protein 5.5 g/dL (6.4-8.9) L 06/02/19 02:42 Albumin 2.6 g/dL (3.5-5.7) L 06/02/19 02:42 Albumin/Globulin Ratio 0.9 (1.1-2.2) L 06/02/19 02:42 Procalcitonin 12.80 ng/mL (0.00-0.15) H 05/31/19 21:42 Ur Specimen Adequacy See below A 05/31/19 18:00 Urine Protein 100 mg/dL (Neg-Trace) H 05/31/19 18:00 Ur Culture Indicated? YES (NO) A 05/31/19 18:00 - Microbiology Findings Microbiology Findings: Microbiology, Last 48 Hours 06/01/19 04:00 Sputum Culture - Preliminary Aspirate Gram Negative Stan 05/31/19 18:00 Urine Culture - Final Urine,Clean Catch No significant growth. 05/31/19 16:46 Blood Culture - Preliminary Peripheral Venipuncture Culture is incubating and being continuously monitored for growth. Final report to follow. 05/31/19 16:46 Blood Culture - Preliminary Peripheral Venipuncture Culture is incubating and being continuously monitored for growth. Final report to follow. - Clinical Findings Intake & Output: Intake & Output 06/01/19 06/02/19 06/02/19 23:59 07:59 15:59 Intake Total 408 / 2866 242 / 434.3 192.3 / 434.3 Output Total 320 / 1370 150 / 150 Balance 88 / 1496 92 / 284.3 192.3 / 284.3 Weight 86.3 kg - Attending Attestation I examined this patient and my medical decision-making was reviewed with the Resident Physician. I agree with the documented findings, disposition and treatment plan as described except to the extent set forth below. We independently had [id number] contact with the patient I spent 34min of Critical Care time with this patient. It involved decision making of high complexity to assess, manipulate, and support vital organ system failure and/or to prevent further life threatening deterioration of the patient's condition. The time involved in the performance of separately reportable procedures was not counted toward critical care time. Patient seen and examined at bedside Labs, radiology, chart personally reviewed. Management was reviewed during multidisciplinary critical care rounds. LICENSED NURSING ASSISTANT: Patient has metabolic and toxic encephalopathy combination of renal derangements sepsis and sedation will continue to decrease sedation for daily sedation holiday and then that goal Story should be 2-3 Pulm: Acute on chronic hypoxic hypercapnic respiratory failure remains on the vent worsening gas exchange today with mixed acidosis we will increase his minute ventilation to accommodate for this and we will need to treat metabolic acidosis Cards: Remains on vasopressor for septic shock but this is being able to be weaned to some degree. Goal map will be 65 GI: Stress ulcer prophylaxis given Nutrition: Start enteral nutrition per dietary recommendations Renal: U Don chronic kidney injury remains oliguric but now with hyperkalemia which will be treated medically plan for nephrology consultation as patient may need dialysis. UOP Monitored, Cont to Trend sCr and monitor Electrolytes. ID: Patient is on broad-spectrum antibiotics for pneumonia we will de-escalate based upon cultures Heme/Onc: DVT prophylaxis given Endo: Glucose Monitored; patient risk first adrenal insufficiency and he is on stress dose hydrocortisone Integ/MSK: Skin Care per routine ICU Nursing Protocol to prevent ulcers. Lines: All lines examined without evidence of infection : Dispo: MOnitor in ICU for critical Illness CODE: Patient is currently full code although he has expressed DNA R/DNI wishes at last hospitalization which was not fully documented family is confused about current CODE STATUS but her bringing in the living well that he outlined. Also consulted palliative care as overall prognosis is very poor giving his current critical status as well as severe underlying respiratory disease he is a combination of advanced pulmonary fibrosis and COPD and has chronic respiratory failure from this and in fact his prognosis from that standpoint is quite poor even leading up to this.
[2019-06-02] MEDS: Dexmedetomidine HCl 400 MCG/100 ML MLS IVC SCH ×2 (08:03→23:31)
[2019-06-02] MEDS: *HR* Heparin 5,000 UNIT/ML VIAL SQ SCH ×3 (08:04→23:03)
[2019-06-02] MEDS: Cefepime HCl 2,000 MG in Water for inj. (sterile) 20 ML IVP SCH ×2 (08:04→21:01)
[2019-06-02] MEDS: Aspirin 81 MG TAB.CHEW PO SCH (08:04)
[2019-06-02] MEDS: Chlorhexidine Rinse 15 ML MOUTHWASH MM SCH ×2 (08:04→20:06)
[2019-06-02] MEDS: Hydrocortisone Sodium Succ 100 MG/2 ML VIAL IVP SCH ×3 (08:05→23:03)
[2019-06-02] MEDS ORDERED: levoFLOXacin 750 MG/150 ML 750 MG/150 ML BAG IVPB SCH (09:00)
[2019-06-02] MEDS: Azithromycin 500 MG in 0.9 % Sodium Chloride 250 ML IVPB SCH (09:49)
[2019-06-02 11:35] LABS: Calcium 7.9 mg/dL (8.6-10.3); Potassium 6.1 mEq/L (3.5-5.1)
[2019-06-02 12:00] LABS: Magnesium 2.2 mg/dL (1.6-2.6)
--- NOTE | 2019-06-02 15:45 | Cardiology Progress Note ---
Date of Encounter: 06/02/19 Time of Encounter: 15:45 Assessment and Plan (1) Elevated troponin Current Visit: Yes Status: Acute Patient found to have elevated troponin in the setting of severe sepsis, respiratory failure, PNA, ELIEL. Troponin up to 0.29 and now trending down to 0.19. Suspect demand ischemia. EKG with RBBB. Unchanged from prior EKG. Patient has h/o CABG 3V in 1991 at [facility]. Last stress test 2012 was negative. No recent testing here. TTE shows LVE mildly decreased at 40-45%. Discussed finding with son. SOn states patient would not want a LHC and may have declined previously. Continue asa and statin No bb as patient requires pressor support. Start BB once b/p improves. Heparin differed due to anemia. Re-consult if patient willing to do LHC prior to d/c once stable. Would need anemia evaluation prior if willing. I will make out-pt f/u with cardiology. Call with questions. (2) Severe sepsis Current Visit: Yes Status: Acute Management per primary team (3) CAD (coronary artery disease) Current Visit: No Status: Chronic H/o CBAG 3 V 1991. Asa, statin. No bb due to hypotension. Qualifiers: Coronary Disease-Associated Artery/Lesion type: bypass graft [place] vs. transplanted heart: [place] heart Associated angina: without angina Qualified Code(s): I25.810 - Atherosclerosis of coronary artery bypass graft(s) without angina pectoris (4) Acute systolic CHF (congestive heart failure) Current Visit: Yes Status: Acute EF mildly reduced. Acute systolic CHF. Monitor fluid status. Does not appear to be in overt CHF. No bb or aceI due to hypotension. Strict I&O and daily weights. Discussion w patient/family: The assessment and plan as outlined above was discussed with the patient and/or family members who expressed understanding and agreement. All questions were answered. Thank you for involving us in the care of your patient. Please call with any questions. Subjective Principal diagnosis: elevated troponin Interval history: Pt currently on c-pap trial. Spoke with son on phone. Objective Vital Signs, Last 4 Hours Temp Pulse Resp BP Pulse Ox 06/02/19 15:00 77 13 85/58 97 06/02/19 14:00 77 22 89/65 97 06/02/19 13:46 23 96 06/02/19 13:00 81 26 95/64 97 06/02/19 12:00 97.7 F 81 21 107/69 97 General: No Apparent Distress, Other (sedated, non-responsive) HEENT: Atraumatic, Normocephaly, Mucus Membranes Moist Neck: No JVD, Normal carotid pulses Cardiac: Reg Rate and Rhythm, Normal S1 and S2, No Murmur Lungs: Normal Breath Sounds, No Wheeze, Rales, Rhonchi Neuro: Alert and responsive, No focal deficits noted Abdomen: Soft, Non-Tender Skin: No rashes noted on visualized skin Musculoskeletal: No Chest Wall Tenderness, Other (midsternal scar noted) Extremities: No Clubbing, No Cyanosis, No Edema, Normal Pulses Results 06/02/19 02:42 06/02/19 10:40 Lab Results 06/02/19 06/02/19 06/02/19 02:42 02:42 02:42 WBC 11.9 H Hgb 8.8 L Hct 28.2 L Plt Count 86 L INR 1.3 Sodium 142 Potassium 6.2 H Chloride 111 H Carbon Dioxide 19 L BUN 63 H Creatinine 2.53 H Glucose 174 H Calcium 7.6 L Magnesium 2.2 Total Bilirubin 2.4 H AST 36 ALT 28 Alkaline Phosphatase 71 06/02/19 10:40 WBC Hgb Hct Plt Count INR Sodium 143 Potassium 6.1 H Chloride 109 H Carbon Dioxide 20 L BUN 76 H Creatinine 2.69 H Glucose 186 H Calcium 7.9 L Magnesium Total Bilirubin AST ALT Alkaline Phosphatase - Imaging and Cardiology Echo: report reviewed - EKG Interpretation EKG results cardiology: personally reviewed Consult Discharge Plan - Plan Referrals: marlene,Mj Alas MD [Primary Care Provider] -
--- NOTE | 2019-06-02 16:20 | Electrocardiograph Report ---
[address] [place], [place] [address] Test Date: 2019-06-02 Pat Name: Sunil Treadwell Department: 109 Room: 11 Gender: M Welt Wheeler: : 1940 Requested By: [id number] Order Number: [id number] Reading MD: Mj Link Measurements Intervals [place] Rate: 77 P: 45 [place]: 174 QRS: 14 QRSD: 137 T: -2 QT: 359 QTc: 391 Interpretive Statements SINUS RHYTHM RIGHT BUNDLE BRANCH BLOCK Electronically Signed On 06-02-2019 16:18:41 EDT by Mj Link
[2019-06-02] MEDS ORDERED: Sodium Bicarbonate 50 MEQ/50 ML VIAL IVP ONE (16:25)
[2019-06-02] MEDS ORDERED: Calcium Gluconate 1gm/50mL 1 GM/50 ML BAG IVPB ONE (16:25)
[2019-06-02] MEDS ORDERED: *HR* Dextrose 50 % in Water (Vial) 50 ML VIAL IVP ONE (16:26)
[2019-06-02] MEDS ORDERED: Calcium Gluconate 1,000 MG/10 ML VIAL ONE (16:26)
[2019-06-02] MEDS ORDERED: Sodium Bicarbonate 50 MEQ/50 ML VIAL ONE (16:26)
[2019-06-02 17:17] LABS: Calcium 7.7 mg/dL (8.6-10.3); Potassium 6.9 mEq/L (3.5-5.1)
[2019-06-02] MEDS ORDERED: *HR* Midazolam HCl 2 MG/2 ML VIAL IVP PRN (18:01)
--- NOTE | 2019-06-02 18:15 | Event Note ---
Date of Encounter: 06/02/19 Time of Encounter: 18:11 At approximately 5 PM, patient was noted to have abnormal rhythms on the monitor. Patient was bradycardic. There was a concern for continued hyperkalemia. A repeat K was 6.9. Patient was given calcium, insulin, glucose, bicarbonate, and Kayexalate. Patient was started on dopamine to improve bradycardia. An extensive discussion was had with the family along with the Dr. Nova and Dr. Chavarria, the consulting neurologist. Through shared decision-making, that further aggressive measures such as dialysis would not be desired by the patient. Patient'S family also agreed that the patient would not want resuscitative measures such as CPR if the patient were to arrest overnight due to hyperkalemia. The patient's CODE STATUS was changed to DNR CCA.
--- NOTE | 2019-06-03 | Nephrology Consult Note ---
Date of Encounter: 06/02/19 Time of Encounter: 17:00 Assessment and Plan (1) ELIEL (acute kidney injury) Status: Acute Elevated SCr in the setting of PNA with septic chock Discussed at length goals of care with family and offered [employer] but family was undecided on whether to proceed electing to discuss amongst them first Avoid nephrotoxins if possible Will initiate ELIEL workup in the meantime Continue volume repletion (2) Hyperkalemia Status: Acute Would benefit from bicarb gtt for now to move potassium intracellular Agree with kayexalate already given (3) Acute and chronic respiratory failure with hypoxia Status: Acute Per primary team (4) Elevated troponin Status: Acute Per primary team (5) Septic shock Status: Acute Per primary team History of Present Illness - Reason for Consult Consult date: 06/02/19 Acute Kidney Injury Requesting physician: Aurelio Guerra - History of Present Illness 78 y o male with PMH of CAD s/p CABG, pulm fibrosis, COPD, DM, HTN and stage 3 CKD admitted with generalized weakness and SOB and was found in respiratory distress from PNA requiring intubated. Pt s also now on pressor supports. Renal consulted today fro worsening SCr and hyperkalemia. Pt seen and examined with several family members present at beside still intubated and sedated. Past Med Surg Social Fam HX - Past Medical History Medical history: COPD, diabetes, hyperlipidemia, hypertension Additional medical history: Home O2. 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 sinus sx - Social History Smoking Status: Never smoker Smokeless Tobacco Status: No Alcohol use: none Drug use: none - Family History Father Living Status: Hx Family Cancer: Yes (Leukemia) Sister Living Status: Hx Family Cancer: Yes (Skin Ca. with mets) Mother Living Status: Hx Family Cardiac Disorders: Yes (CAD) Medications and Allergies Atorvastatin Calcium [Lipitor] 80 mg PO DAILY 01/18/17 [History] Doxepin [Sinequan] 25 mg PO HS 01/18/17 [History] Finasteride [Proscar] 5 mg PO DAILY 01/18/17 [History] Furosemide [Lasix] 20 mg PO DAILY 01/18/17 [History] OXcarbazepine [Trileptal] 150 mg PO BID 01/18/17 [History] Pantoprazole Sodium [Protonix] 40 mg PO DAILY 01/18/17 [History] Potassium Chloride [K-Tab ER] 20 meq PO BID 01/18/17 [History] Quetiapine Fumarate [Seroquel] 200 mg PO HS 01/18/17 [History] Tamsulosin [Flomax] 0.4 mg PO DAILY 01/18/17 [History] Cholecalciferol (D-3) [Vitamin D] 1,000 unit PO DAILY 11/21/17 [History] Glimepiride [Amaryl] 1 mg PO QAM 11/21/17 [History] LORazepam [Ativan] 0.5 mg PO BID 11/21/17 [History] Linagliptin [Tradjenta] 5 mg PO DAILY 11/21/17 [History] Melatonin 6 mg PO HS PRN 11/21/17 [History] Multivitamin [One Daily Essential] 1 tab PO DAILY 11/21/17 [History] Clopidogrel [Plavix] 75 mg PO DAILY #30 tablet 11/25/17 [Rx] Albuterol Sulfate [Ventolin Hfa] 2 puff IH Q6H PRN 05/07/19 [History] Allopurinol [Zyloprim 100 MG] 100 mg PO DAILY 05/07/19 [History] Amlodipine Besylate 10 mg PO DAILY 05/07/19 [History] Aspirin [Adult Aspirin Regimen] 81 mg PO DAILY 05/07/19 [History] Mirtazapine 45 mg PO HS 05/07/19 [History] Nitroglycerin [Nitrostat] 0.4 mg SL AD PRN 05/07/19 [History] predniSONE [PredniSONE] 10 mg PO DAILY 42 Days #147 tablet 05/12/19 [Rx] Brimonidine Tartrate [Alphagan P] 1 drop BOTH EYES BID 05/31/19 [History] Ipratropium/Albuterol Sulfate [Iprat-Albut 0.5-3(2.5) mg/3 ml] 3 ml IH Q6H 05/31/19 [History] Allergy/AdvReac Type Severity Reaction Status Date / Time Penicillins Allergy Hives Verified 05/31/19 16:26 oxybutynin [From Ditropan] AdvReac See Verified 05/07/19 08:55 Comments Review of Systems ROS unobtainable: due to endotracheal tube Exam - Vital Signs Vital signs: Initial Vital Signs Temp Pulse Resp BP Pulse Ox 100.9 F H 128 34 131/117 86 05/31/19 16:10 05/31/19 16:10 05/31/19 16:10 05/31/19 16:10 05/31/19 16:10 Vital Signs - Last 8 Hours Temp Pulse Resp BP Pulse Ox 06/02/19 23:39 19 106/67 95 06/02/19 23:01 80 06/02/19 23:00 97.5 F L 791 17 101/63 95 06/02/19 22:00 80 19 113/69 95 06/02/19 21:24 20 113/69 95 06/02/19 21:00 79 19 108/70 95 06/02/19 20:41 98.1 F 06/02/19 20:00 78 17 119/66 95 06/02/19 19:48 20 121/67 95 06/02/19 19:02 79 06/02/19 18:58 81 20 118/67 93 06/02/19 18:03 24 85/59 97 06/02/19 18:00 74 23 85/59 98 06/02/19 16:00 98 F 81 24 75/52 96 Intake and Output 06/02/19 06/02/19 06/02/19 07:59 15:59 23:59 Intake Total 242 / 906.0 492.3 / 906.0 171.7 / 906.0 Output Total 150 / 440 165 / 440 125 / 440 Balance 92 / 466.0 327.3 / 466.0 46.7 / 466.0 Intake: IV Fluids 242 / 906.0 492.3 / 906.0 171.7 / 906.0 HumuLIN R 10 UNIT In 0.9 % 10 / 10 Sodium Chloride 10 ML @ 1212 mls/hr IV ONCE ONE Rx#: [id number] Precedex Premix 400 mcg In 100 6.3 / 100.0 93.7 / 100.0 ml @ 0.2 MCG/KG/HR 4.315 mls/hr IVC .[id number] [facility] Rx#: [id number] FentaNYL (PF) 1,000 MCG In 0.9 100 / 200 42 / 200 58 / 200 % Sodium Chloride 80 ML @ 50 MCG/HR 5 mls/hr IVC CONT NATALI Rx #:[id number] Versed 50 MG In 0.9 % Sodium 72 / 86 14 / 86 Chloride 90 ML @ 2 MG/HR 4 mls/ hr IVC CONT NATALI Rx#:[id number] Levophed 4 MG In 0.9 % Sodium 70 / 120 50 / 120 0 / 120 Chloride 250 ML @ 5 MCG/MIN 19. 05 mls/hr IVC CONT [facility]ALI Rx#: [id number] Maxipime 2,000 MG In Water for 20 / 40 inj. (sterile) 20 ML @ 300 mls/ hr IVP Q12H [facility] Rx#:[id number] Zithromax 500 MG In 0.9 % 250 / 250 Sodium Chloride 250 ML @ 252 mls/hr IVPB Q24H [facility] Rx#: [id number] Calcium Gluconate 2,000 MG In 0 100 / 100 .9 % Sodium Chloride 100 ML @ 220 mls/hr IVPB ONCE ONE Rx#: [id number] Oral 0 / 0 Output: Stool 50 / 175 100 / 175 25 / 175 Catheter 100 / 265 65 / 265 100 / 265 Gastric Drainage 0 / 0 Other: Weight 86.3 kg 85.4 kg Blood Glucose* 194 Patient Weight 06/02/19 23:59 Weight 85.4 kg - General Appearance General appearance: sedated on ventilator, intubated EENT: ATNC, mucous membranes moist Neck: no JVD, supple Respiratory: course breath sounds Cardiology: no edema, normal S1, normal S2 Gastrointestinal: no tenderness, no guarding Integumentary: warm and dry Additional Comments: sedated, unable to assess Musculoskeletal: no deformities Additional Comments: sedated, unable to assess Results - Lab Results 06/04/19 03:50 06/04/19 03:50 Most recent lab results 06/02/19 06/02/19 02:42 16:33 Calcium 7.7 L Magnesium 2.2 Consult Discharge Plan - Plan Referrals: Neva,Mj Alas MD [Primary Care Provider] -
[2019-06-03] MEDS: FentaNYL (PF) 1,000 MCG in 0.9 % Sodium Chloride 80 ML IVC SCH ×3 (02:18→17:02)
[2019-06-03] MEDS: Norepinephrine 4 MG in 0.9 % Sodium Chloride 250 ML IVC SCH ×2 (03:03→11:14)
[2019-06-03] MEDS: Artificial Tears SOLN 15 ML BOTTLE BOTH EYES SCH ×6 (03:04→23:26)
[2019-06-03 03:19] LABS: Basophils % 0.1 %; Hemoglobin 8.3 g/dL (12.9-16.9); Mean Platelet Volume 11.2 fL (9.4-12.4)
[2019-06-03 03:21] LABS: Hematocrit 25.8 % (37.5-50.1); Immature Granulocytes % 1.1 % (0-4); Immature Platelets 4.8 % (1.1-6.1); Lymphocytes # 0.6 K/mcL (0.6-4.6); Lymphocytes % 4.3 %; Mean Corpuscular HGB Conc 32.2 g/dL (31.6-35.5); Mean Corpuscular Hemoglobin 30.7 pg (28.0-33.3); Mean Corpuscular Volume 95.6 fL (83.0-100.0); Monocytes # 0.3 K/mcL (0.0-1.3); Neutrophils # 12.7 K/mcL (1.6-8.9); Nucleated Red Blood Cells 0.4 /100 WBC (0); Red Cell Distribution Width 16.8 % (11.5-14.5); Segmented Neutrophils % 92.5 %; White Blood Count 13.7 K/mcL (4.3-11.1)
[2019-06-03 03:27] LABS: INR 1.3; Prothrombin Time 14.3 Seconds (9.4-12.1)
[2019-06-03 03:32] LABS: Platelet Count 89 K/mcL (140-400)
[2019-06-03 03:48] LABS: Platelet Estimate Decreased (Normal)
[2019-06-03 03:49] LABS: Polychromasia 1+ (Not Present)
[2019-06-03 04:11] LABS: Albumin 2.5 g/dL (3.5-5.7); Albumin/Globulin Ratio 0.8 (1.1-2.2); Bilirubin,Direct 1.8 mg/dL (0.0-0.2); Bilirubin,Indirect 0.5 mg/dL (0.0-1.2); Bilirubin,Total 2.3 mg/dL (0.3-1.0); Calcium 7.8 mg/dL (8.6-10.3); Globulin 3.2 g/dL (2.4-3.5); Potassium 5.5 mEq/L (3.5-5.1); Total Protein 5.7 g/dL (6.4-8.9)
[2019-06-03 04:40] LABS: ABG Base Excess -6 mEq/L (-2 to 3); ABG HCO3 18 mEq/L (21-27); ABG Oxygen Saturation 97 % (95-98); ABG PCO2 33 mmHg (35-45); ABG PH 7.36 pH Units (7.32-7.45); ABG PO2 89 mmHg (85-104); ABG TCO2 19 mEq/L (20-26); Blood Gas Modality ASSIST CONTROL; Blood Gas PEEP 5 cm H2O; Blood Gas VT 500 cc
[2019-06-03] MEDS: Insulin LISPRO 300 UNITS/3 ML VIAL SQ SCH ×5 (05:01→23:27)
[2019-06-03] MEDS: Pantoprazole 40 MG VIAL IVP SCH (05:02)
[2019-06-03] MEDS: Budesonide/Formoterol 160/4.5 1 PUFF INH IH SCH ×2 (07:14→19:33)
--- NOTE | 2019-06-03 07:58 | Electrocardiograph Report ---
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
[2019-06-03] MEDS: Hydrocortisone Sodium Succ 100 MG/2 ML VIAL IVP SCH ×3 (08:01→23:28)
[2019-06-03] MEDS: *HR* Heparin 5,000 UNIT/ML VIAL SQ SCH ×3 (08:01→23:26)
[2019-06-03] MEDS: Chlorhexidine Rinse 15 ML MOUTHWASH MM SCH ×2 (08:01→20:21)
[2019-06-03] MEDS: Azithromycin 500 MG in 0.9 % Sodium Chloride 250 ML IVPB SCH (08:02)
[2019-06-03] MEDS: Aspirin 81 MG TAB.CHEW PO SCH (08:03)
[2019-06-03] MEDS: Cefepime HCl 2,000 MG in Water for inj. (sterile) 20 ML IVP SCH (08:03)
--- NOTE | 2019-06-03 08:31 | Pulmonology Progress Note ---
<Aurelio Guerra - Last Filed: 06/03/19 11:04> Date of Encounter: 06/03/19 Time of Encounter: 08:30 Assessment and Plan (1) Acute and chronic respiratory failure with hypoxia Current Visit: Yes Status: Acute Patient was intubated in the ER d/t progressive respiratory distress. In the context of sepsis 2/2 PNA. Plan: - Cont vent management, sedation, aerosols, antibiotics - Wean O2 as able with SpO2 >92%; attempt to reduce sedation, SBTs - On fentanyl and versed gtt since 05/31, albuterol, symbicort, solumedrol for sedation/breathing - Started precedex on 06/02 - Given dopamine once on 06/02 for bradycardia, hyperK - Palliative consulted for goals of care; code status changed to DNR-CCA on 06/02 - Cont to monitor ABGs (2) Septic shock Current Visit: Yes Status: Acute Sepsis likely 2/2 to PNA, with CXR showing opacification of R upper lobe. Fluid resuscitation in the ED. Plan: - Stopped vancomycin since MRSA neg on 06/01; stopped levaquin on 06/02 - Started azithromycin 500mg IV daily on 06/02, also cefepime on 05/31 - On levophed gtt 5mcg/min for hypotension since 05/31 - Blood and sputum cultures pending; sputum prelim gram neg rods - Urine cx final negative - Started hydrocortisone 100mg IVP q8 on 06/01 for possible adrenal insuff (3) Pneumonia Current Visit: Yes Status: Acute Plan: - Stopped vanc; stopped levaquin - Started azithromycin, on cefepime - Blood/sputum cx pending Qualifiers: Pneumonia type: due to unspecified organism Laterality: unspecified laterality Lung location: unspecified part of lung Qualified Code(s): J18.9 - Pneumonia, unspecified organism (4) Acute kidney failure Current Visit: Yes Status: Acute Likely due to septic shock and dehydration. Plan: - Worsening BUN/Cr of 63/2.53, now 84/3.04 - Supportive measures and fluid resuscitation as above - Monitor renal function and I/O - Hyperkalemia of 6.2 on 06/02; today K of 5.5 - Nephrology consult recs: dialysis if patient/family is amenable, bicarb gtt Qualifiers: Qualified Code(s): N17.9 - Acute kidney failure, unspecified (5) Hyperkalemia Current Visit: Yes Status: Acute K of 6.2 on 06/02, peak K 6.9. Asymptomatic. EKG is consistent with previous showing RBBB, no peaked Twaves or further widened QRS. Plan: - Continue to monitor with EKGs, BMP - K of 5.5 today - Kayexalate PRN q6hrs for K >6 - Will check BMP BID On 06/02: - Gave 3 g Ca gluconate - 10 units insulin IV with amp of D50 - Gave 1 amp bicarb - Gave dopamine for bradycardia - Gave 15g + 30g of kayexalate - Nephrology consulted, consider dialysis and bicarb gtt (6) NSTEMI (non-ST elevated myocardial infarction) Current Visit: Yes Status: Acute Likely due to respiratory failure and sepsis d/t demand ischemia. No chest pain at presentation. Trops downtrending, last trop 0.19; EKG with RBBB. Plan: - Trend troponin levels and EKGs - Supportive measures as above for sepsis and respiratory failure - Cardiology consulted, recs TTE which showed LVEF 40-45%, LV sys dysfcn, no LV thrombus - Start ASA 81mg (7) Type 2 diabetes mellitus Current Visit: Yes Status: Chronic Plan: - Hold oral home meds - Monitor glucose levels - On moderate SSI q4hrs Qualifiers: Diabetes mellitus mcfp insulin use: without mcfp use Diabetes mellitus complication status: with ophthalmic complications Diabetes mellitus complication detail: with cataract Qualified Code(s): E11.36 - Type 2 diabetes mellitus with diabetic cataract (8) DVT prophylaxis Current Visit: Yes Status: Acute DVT PPX: hep SQ Analgesia: fentanyl Sedation: versed, precedex SBT: daily Glycemic control: SSI mod q4hrs Bowl regimen: none Activity: soft restraints Fluids: none Electrolytes: replete as necessary Nutrition: started TFs per nutrition recs GI ppx: PPI Lines: 2x PIVs, central line, ET, OG, colostomy, santos Consults: cards, pulm, nutrition, palliative Code: DNR-CCA Dispo: pending further stabilization Subjective Principal diagnosis: hypoxia Interval history: Patient was seen and examined at bedside. No acute events overnight. Patient's sedation was decreased, however he started fighting the vent. Restarted on sedation with fentanyl/precedex. Does not appear to be in any discomfort or pain. Good breath sounds bilaterally. Objective PUL Vital signs: Last Vital Signs Temp 97.9 F 06/03/19 07:04 Pulse 72 06/03/19 07:00 Resp 21 06/03/19 07:15 BP 101/71 06/03/19 07:15 Pulse Ox 96 06/03/19 07:15 General appearance: no acute distress Eyes: nonicteric ENT: oropharynx moist Neck: supple Effort: normal Auscultation: bilateral: clear Cardiovascular: regular rate and rhythm Gastrointestinal: normoactive bowel sounds, non-distended Integumentary: erythema (Erythema on medial aspect of R forearm due to IV infiltration, improvement compared to yesterday) Extremities: no cyanosis, no edema, no clubbing Musculoskeletal: no deformities, ROM normal unable to assess due to mental status Ventilator Settings Ventilator Settings: Ventilator Settings, Last 8 Hours Ventilator Tidal Volume 500 Setting Ventilator Tidal Volume 500 Setting Ventilator Tidal Volume 500 Setting Ventilator Tidal Volume 500 Setting Ventilator Tidal Volume 500 Setting Ventilator Tidal Volume 500 Setting Ventilator Tidal Volume 500 Setting Ventilator Tidal Volume 500 Setting Ventilator Tidal Volume 500 Setting Ventilator Tidal Volume 500 Setting Ventilator Tidal Volume 500 Setting Ventilator Tidal Volume 500 Setting Ventilator Tidal Volume 500 Setting Ventilator Respiratory Rate 18 Setting Ventilator Respiratory Rate 18 Setting Ventilator Respiratory Rate 18 Setting Ventilator Respiratory Rate 18 Setting Ventilator Respiratory Rate 18 Setting Ventilator Respiratory Rate 18 Setting Ventilator Respiratory Rate 18 Setting Ventilator Respiratory Rate 18 Setting Ventilator Respiratory Rate 18 Setting Ventilator Respiratory Rate 18 Setting Ventilator Respiratory Rate 18 Setting Ventilator Respiratory Rate 18 Setting Ventilator Respiratory Rate 18 Setting Actual Respiratory Rate 20 Actual Respiratory Rate 17 Actual Respiratory Rate 19 Actual Respiratory Rate 19 Actual Respiratory Rate 21 Actual Respiratory Rate 19 Actual Respiratory Rate 18 Actual Respiratory Rate 18 Actual Respiratory Rate 18 Actual Respiratory Rate 19 Positive End Expiratory 5 Pressure Positive End Expiratory 5 Pressure Positive End Expiratory 5 Pressure Positive End Expiratory 5 Pressure Positive End Expiratory 5 Pressure Positive End Expiratory 5 Pressure Positive End Expiratory 5 Pressure Positive End Expiratory 5 Pressure Positive End Expiratory 5 Pressure Positive End Expiratory 5 Pressure Positive End Expiratory 5 Pressure Peak Inspiratory Airway 19 Pressure Peak Inspiratory Airway 18 Pressure Peak Inspiratory Airway 18 Pressure Peak Inspiratory Airway 18 Pressure Peak Inspiratory Airway 17 Pressure Peak Inspiratory Airway 17 Pressure Peak Inspiratory Airway 16 Pressure Results - Laboratory Findings CBC and BMP: 06/03/19 03:00 06/03/19 03:00 ABG ABG pH 7.36 pH Units (7.32-7.45) 06/03/19 04:37 ABG pCO2 33 mmHg (35-45) L 06/03/19 04:37 ABG pO2 89 mmHg (85-104) 06/03/19 04:37 ABG O2 Saturation 97 % (95-98) 06/03/19 04:37 PT/INR, D-dimer PT 14.3 Seconds (9.4-12.1) H 06/03/19 03:00 Abnormal lab findings: Abnormal lab results WBC 13.7 K/mcL (4.3-11.1) H 06/03/19 03:00 RBC 2.70 M/mcL (4.19-5.50) L 06/03/19 03:00 Hgb 8.3 g/dL (12.9-16.9) L 06/03/19 03:00 Hct 25.8 % (37.5-50.1) L 06/03/19 03:00 MCHC 31.2 g/dL (31.6-35.5) L 06/02/19 02:42 RDW 16.8 % (11.5-14.5) H 06/03/19 03:00 Plt Count 89 K/mcL (140-400) L 06/03/19 03:00 Band Neutrophils % 32.0 % (0-4) H 05/31/19 16:26 Neutrophils # 12.7 K/mcL (1.6-8.9) H 06/03/19 03:00 Nucleated RBCs/100 WBC 0.4 /100 WBC (0) H 06/03/19 03:00 Reactive Lymphocytes Present (Not Present) A 05/31/19 16:26 Platelet Estimate Decreased (Normal) L 06/03/19 03:00 Polychromasia 1+ (Not Present) A 06/03/19 03:00 PT 14.3 Seconds (9.4-12.1) H 06/03/19 03:00 APTT 23.9 Seconds (26.0-36.0) L 05/31/19 16:26 ABG pH 7.28 pH Units (7.32-7.45) L 06/02/19 04:58 ABG pCO2 33 mmHg (35-45) L 06/03/19 04:37 ABG pO2 72 mmHg (85-104) L 06/01/19 06:16 ABG HCO3 18 mEq/L (21-27) L 06/03/19 04:37 ABG Total CO2 19 mEq/L (20-26) L 06/03/19 04:37 ABG O2 Saturation 93 % (95-98) L 06/01/19 06:16 ABG Base Excess -6 mEq/L (-2 to 3) L 06/03/19 04:37 VBG pO2 24 mmHg (25-50) L 05/31/19 18:18 Potassium 5.5 mEq/L (3.5-5.1) H 06/03/19 03:00 Chloride 110 mEq/L (98-107) H 06/03/19 03:00 Carbon Dioxide 20 mEq/L (23-29) L 06/03/19 03:00 BUN 84 mg/dL (8-23) H 06/03/19 03:00 Creatinine 3.04 mg/dL (0.70-1.30) H 06/03/19 03:00 Est GFR ( Amer) 24 (> 60) L 06/03/19 03:00 Est GFR (Non-Af Amer) 20 (> 60) L 06/03/19 03:00 BUN/Creatinine Ratio 28 (6-26) H 06/03/19 03:00 Glucose 215 mg/dL (70-105) H 06/03/19 03:00 POC Glucose 218 mg/dL (70-99) H 06/02/19 22:42 Hemoglobin A1c 6.9 % (-5.6) H 05/31/19 17:55 Calculated Osmolality 326 (280-300) H 06/03/19 03:00 Lactic Acid 4.2 mmol/L (0.5-2.2) H* 05/31/19 17:55 Calcium 7.8 mg/dL (8.6-10.3) L 06/03/19 03:00 Total Bilirubin 2.3 mg/dL (0.3-1.0) H 06/03/19 03:00 Direct Bilirubin 1.8 mg/dL (0.0-0.2) H 06/03/19 03:00 AST 538 Units/L (13-39) H 06/03/19 03:00 ALT 358 Units/L (7-52) H 06/03/19 03:00 Troponin I 0.19 ng/mL (< 0.04) H* 06/01/19 09:50 Serum Total Protein 5.7 g/dL (6.4-8.9) L 06/03/19 03:00 Albumin 2.5 g/dL (3.5-5.7) L 06/03/19 03:00 Albumin/Globulin Ratio 0.8 (1.1-2.2) L 06/03/19 03:00 Procalcitonin 12.80 ng/mL (0.00-0.15) H 05/31/19 21:42 Ur Specimen Adequacy See below A 05/31/19 18:00 Urine Protein 100 mg/dL (Neg-Trace) H 05/31/19 18:00 Ur Culture Indicated? YES (NO) A 05/31/19 18:00 - Microbiology Findings Microbiology Findings: Microbiology, Last 48 Hours 06/01/19 04:00 Sputum Culture - Preliminary Aspirate Gram Negative Stan 05/31/19 18:00 Urine Culture - Final Urine,Clean Catch No significant growth. - Clinical Findings Intake & Output: Intake & Output 06/02/19 06/03/19 06/03/19 23:59 07:59 15:59 Intake Total 201.7 / 936.0 179 / 179 Output Total 125 / 440 280 / 280 Balance 76.7 / 496.0 -101 / -101 Weight 85.4 kg 85.4 kg Consult Discharge Plan - Plan Referrals: [facility] [place] – [place] MD [Primary Care Provider] - <Anderson Kim W - Last Filed: 06/03/19 12:25> Date of Encounter: 06/03/19 Objective PUL Vital signs: Last Vital Signs Temp 98.1 F 06/03/19 11:00 Pulse 82 06/03/19 11:00 Resp 22 06/03/19 11:06 BP 107/66 06/03/19 11:00 Pulse Ox 96 06/03/19 11:06 Ventilator Settings Ventilator Settings: Ventilator Settings, Last 8 Hours Ventilator Tidal Volume 500 Setting Ventilator Tidal Volume 500 Setting Ventilator Tidal Volume 500 Setting Ventilator Tidal Volume 500 Setting Ventilator Tidal Volume 500 Setting Ventilator Tidal Volume 500 Setting Ventilator Tidal Volume 500 Setting Ventilator Tidal Volume 500 Setting Ventilator Tidal Volume 500 Setting Ventilator Tidal Volume 500 Setting Ventilator Tidal Volume 500 Setting Ventilator Tidal Volume 500 Setting Ventilator Tidal Volume 500 Setting Ventilator Respiratory Rate 18 Setting Ventilator Respiratory Rate 18 Setting Ventilator Respiratory Rate 18 Setting Ventilator Respiratory Rate 18 Setting Ventilator Respiratory Rate 18 Setting Ventilator Respiratory Rate 18 Setting Ventilator Respiratory Rate 18 Setting Ventilator Respiratory Rate 18 Setting Ventilator Respiratory Rate 18 Setting Ventilator Respiratory Rate 18 Setting Ventilator Respiratory Rate 18 Setting Ventilator Respiratory Rate 18 Setting Ventilator Respiratory Rate 18 Setting Actual Respiratory Rate 22 Actual Respiratory Rate 14 Actual Respiratory Rate 19 Actual Respiratory Rate 20 Actual Respiratory Rate 21 Actual Respiratory Rate 13 Actual Respiratory Rate 18 Actual Respiratory Rate 20 Actual Respiratory Rate 17 Actual Respiratory Rate 19 Actual Respiratory Rate 19 Positive End Expiratory 5 Pressure Positive End Expiratory 5 Pressure Positive End Expiratory 5 Pressure Positive End Expiratory 5 Pressure Positive End Expiratory 5 Pressure Positive End Expiratory 5 Pressure Positive End Expiratory 5 Pressure Positive End Expiratory 5 Pressure Positive End Expiratory 5 Pressure Positive End Expiratory 5 Pressure Positive End Expiratory 5 Pressure Positive End Expiratory 5 Pressure Positive End Expiratory 5 Pressure Peak Inspiratory Airway 9.7 Pressure Peak Inspiratory Airway 10 Pressure Peak Inspiratory Airway 9.1 Pressure Peak Inspiratory Airway 15 Pressure Peak Inspiratory Airway 10 Pressure Peak Inspiratory Airway 22 Pressure Peak Inspiratory Airway 19 Pressure Peak Inspiratory Airway 18 Pressure Results - Laboratory Findings CBC and BMP: 06/03/19 03:00 06/03/19 11:30 ABG ABG pH 7.36 pH Units (7.32-7.45) 06/03/19 04:37 ABG pCO2 33 mmHg (35-45) L 06/03/19 04:37 ABG pO2 89 mmHg (85-104) 06/03/19 04:37 ABG O2 Saturation 97 % (95-98) 06/03/19 04:37 PT/INR, D-dimer PT 14.3 Seconds (9.4-12.1) H 06/03/19 03:00 Abnormal lab findings: Abnormal lab results WBC 13.7 K/mcL (4.3-11.1) H 06/03/19 03:00 RBC 2.70 M/mcL (4.19-5.50) L 06/03/19 03:00 Hgb 8.3 g/dL (12.9-16.9) L 06/03/19 03:00 Hct 25.8 % (37.5-50.1) L 06/03/19 03:00 MCHC 31.2 g/dL (31.6-35.5) L 06/02/19 02:42 RDW 16.8 % (11.5-14.5) H 06/03/19 03:00 Plt Count 89 K/mcL (140-400) L 06/03/19 03:00 Band Neutrophils % 32.0 % (0-4) H 05/31/19 16:26 Neutrophils # 12.7 K/mcL (1.6-8.9) H 06/03/19 03:00 Nucleated RBCs/100 WBC 0.4 /100 WBC (0) H 06/03/19 03:00 Reactive Lymphocytes Present (Not Present) A 05/31/19 16:26 Platelet Estimate Decreased (Normal) L 06/03/19 03:00 Polychromasia 1+ (Not Present) A 06/03/19 03:00 PT 14.3 Seconds (9.4-12.1) H 06/03/19 03:00 APTT 23.9 Seconds (26.0-36.0) L 05/31/19 16:26 ABG pH 7.28 pH Units (7.32-7.45) L 06/02/19 04:58 ABG pCO2 33 mmHg (35-45) L 06/03/19 04:37 ABG pO2 72 mmHg (85-104) L 06/01/19 06:16 ABG HCO3 18 mEq/L (21-27) L 06/03/19 04:37 ABG Total CO2 19 mEq/L (20-26) L 06/03/19 04:37 ABG O2 Saturation 93 % (95-98) L 06/01/19 06:16 ABG Base Excess -6 mEq/L (-2 to 3) L 06/03/19 04:37 VBG pO2 24 mmHg (25-50) L 05/31/19 18:18 Potassium 6.0 mEq/L (3.5-5.1) H 06/03/19 11:30 Chloride 111 mEq/L (98-107) H 06/03/19 11:30 Carbon Dioxide 19 mEq/L (23-29) L 06/03/19 11:30 BUN 94 mg/dL (8-23) H 06/03/19 11:30 Creatinine 3.43 mg/dL (0.70-1.30) H 06/03/19 11:30 Est GFR ( Amer) 21 (> 60) L 06/03/19 11:30 Est GFR (Non-Af Amer) 17 (> 60) L 06/03/19 11:30 BUN/Creatinine Ratio 27 (6-26) H 06/03/19 11:30 Glucose 193 mg/dL (70-105) H 06/03/19 11:30 POC Glucose 218 mg/dL (70-99) H 06/02/19 22:42 Hemoglobin A1c 6.9 % (-5.6) H 05/31/19 17:55 Calculated Osmolality 332 (280-300) H 06/03/19 11:30 Lactic Acid 4.2 mmol/L (0.5-2.2) H* 05/31/19 17:55 Calcium 7.7 mg/dL (8.6-10.3) L 06/03/19 11:30 Total Bilirubin 2.3 mg/dL (0.3-1.0) H 06/03/19 03:00 Direct Bilirubin 1.8 mg/dL (0.0-0.2) H 06/03/19 03:00 AST 538 Units/L (13-39) H 06/03/19 03:00 ALT 358 Units/L (7-52) H 06/03/19 03:00 Troponin I 0.19 ng/mL (< 0.04) H* 06/01/19 09:50 Serum Total Protein 5.7 g/dL (6.4-8.9) L 06/03/19 03:00 Albumin 2.5 g/dL (3.5-5.7) L 06/03/19 03:00 Albumin/Globulin Ratio 0.8 (1.1-2.2) L 06/03/19 03:00 Procalcitonin 12.80 ng/mL (0.00-0.15) H 05/31/19 21:42 Ur Specimen Adequacy See below A 05/31/19 18:00 Urine Protein 100 mg/dL (Neg-Trace) H 05/31/19 18:00 Ur Culture Indicated? YES (NO) A 05/31/19 18:00 - Microbiology Findings Microbiology Findings: Microbiology, Last 48 Hours 06/01/19 04:00 Sputum Culture - Final Aspirate Pseudomonas aeruginosa 05/31/19 18:00 Urine Culture - Final Urine,Clean Catch No significant growth. - Clinical Findings Intake & Output: Intake & Output 06/02/19 06/03/19 06/03/19 23:59 07:59 15:59 Intake Total 251.7 / 986.0 179 / 794 615 / 794 Output Total 125 / 440 280 / 400 120 / 400 Balance 126.7 / 546.0 -101 / 394 495 / 394 Weight 85.4 kg 85.4 kg - Attending Attestation I examined this patient and my medical decision-making was reviewed with the Resident Physician. I agree with the documented findings, disposition and treatment plan as described except to the extent set forth below. We independently had [id number] contact with the patient I spent 36 min of Critical Care time with this patient. It involved decision making of high complexity to assess, manipulate, and support vital organ system failure and/or to prevent further life threatening deterioration of the patient' s condition. The time involved in the performance of separately reportable procedures was not counted toward critical care time. Patient seen and examined at bedside Labs, radiology, chart personally reviewed. Management was reviewed during multidisciplinary critical care rounds. [id number] CONSULTANT: Patient remains encephalopathic likely secondary to toxins from sepsis as well as metabolic derangements he is agitated off sedation will try to minimize sedation as much as possible while on vent Pulm: On chronic hypoxic respiratory failure secondary to pneumonia complicated by underlying COPD and pulmonary fibrosis stable gas exchange on vent he is not a candidate for spontaneous breathing trial today because of neurological status and metabolic derangements Cards: Remains hypotensive a combination of factors including acidosis septic shock remains on vasopressor but improving over the last 24 hours GI: Stress ulcer prophylaxis given Nutrition: Renal: . Severe acute on chronic kidney injury likely secondary to ATN from hypoperfusion. Remains oligarchic. Patient's family has declined dialysis with the patient per his wishes. He life threatening hyperkalemia which has improved to some degree overnight with medical management but will need to trend his c losely. Nephrology following. UOP Monitored, Cont to Trend sCr and monitor Electrolytes. ID: Pseudomonas pneumonia on appropriate antibiotics will need to continue current regimen for at least 7 days and possibly as long as 14 based upon clinical course Heme/Onc: DVT prophylaxis given Endo: Glucose Monitored and use stress dose hydrocortisone Integ/MSK: Skin Care per routine ICU Nursing Protocol to prevent ulcers. Lines: All lines examined without evidence of infection : Dispo: Monitor in ICU Critical illness CODE: DNAR Family meeting held plan to continue aggressive care for now if clinical deterioration over the next 24-48 hours likely will transition to comfort measures per patient wishes. The patient is unable or incompetent to participate in giving a history and/or making treatment decisions. The dis cussion was necessary for determining treatment decision. This discussion took place in the [ICU]. The total meeting time was [20 minutes]
[2019-06-03 12:19] LABS: Calcium 7.7 mg/dL (8.6-10.3)
--- NOTE | 2019-06-03 13:47 | Palliative Progress Note ---
Date of Encounter: 06/03/19 Time of Encounter: 13:00 - Assessment and plan (1) Advance care planning Current Visit: Yes Status: Acute Assessment and plan: [id number]: Met with pt's 2 sons, 2 grand-daughters and a family friend, along with PC resident Dr. Richardson, ICU resident Dr. Guerra and pt's nurse Darby. Discussed current medical codnition. Family was updated on pt's status of MOF. They all agreed that pt did not want to be in life support in a first place and their goal was to keep him on for as long as there was some hope of recovery, but not a minute later. Explained that Sunil's labs have been steadily worseni ng despite optimal treatment. Family is adamantly against HD and any further invasive procedure. Family to discuss among themselves and decide the next course of action. 1520: notified by nurse that family have decided to proceed with palliative extubation today, but are waiting on additional family members. Plan: pt is on Fentanyl drip for pain and sedation. When family ready: reduce Fetanyl drip to a low dose and allow pt to wake up, then proceed with extubation. Ativan prn for anxiety and agitation. Atropine for secretions. Code status was changed to DNRCCA, to be changed to DNR/DNI after extubation. Further GOC discussion tomorrow if pt survives. (2) Palliative care encounter Current Visit: Yes Status: Acute (3) Acute and chronic respiratory failure with hypoxia Current Visit: Yes Status: Acute Assessment and plan: Family decided for compassionate extubation this evening. (4) CAP (community acquired pneumonia) Current Visit: No Status: Acute Assessment and plan: Patient is in MOF due to severe sepsis. ABX in place, but worsening leukocytosis. Qualifiers: Laterality: unspecified laterality Qualified Code(s): J18.9 - Pneumonia, unspecified organism (5) Septic shock Current Visit: Yes Status: Acute - Time Spent With Patient Total time spent is greater than 50% in coordination of care (as documented) at patient's floor/unit and/or counseling patient: Greater than 35 minutes - Subjective Interval history: Patient remains intubated and sedated. Labs showing acute kidney injury and shock liver. on Levophed for pressure support. - Constitutional Vitals: Abnormal lab results WBC 13.7 K/mcL (4.3-11.1) H 06/03/19 03:00 RBC 2.70 M/mcL (4.19-5.50) L 06/03/19 03:00 Hgb 8.3 g/dL (12.9-16.9) L 06/03/19 03:00 Hct 25.8 % (37.5-50.1) L 06/03/19 03:00 MCHC 31.2 g/dL (31.6-35.5) L 06/02/19 02:42 RDW 16.8 % (11.5-14.5) H 06/03/19 03:00 Plt Count 89 K/mcL (140-400) L 06/03/19 03:00 Band Neutrophils % 32.0 % (0-4) H 05/31/19 16:26 Neutrophils # 12.7 K/mcL (1.6-8.9) H 06/03/19 03:00 Nucleated RBCs/100 WBC 0.4 /100 WBC (0) H 06/03/19 03:00 Reactive Lymphocytes Present (Not Present) A 05/31/19 16:26 Platelet Estimate Decreased (Normal) L 06/03/19 03:00 Polychromasia 1+ (Not Present) A 06/03/19 03:00 PT 14.3 Seconds (9.4-12.1) H 06/03/19 03:00 APTT 23.9 Seconds (26.0-36.0) L 05/31/19 16:26 ABG pH 7.28 pH Units (7.32-7.45) L 06/02/19 04:58 ABG pCO2 33 mmHg (35-45) L 06/03/19 04:37 ABG pO2 72 mmHg (85-104) L 06/01/19 06:16 ABG HCO3 18 mEq/L (21-27) L 06/03/19 04:37 ABG Total CO2 19 mEq/L (20-26) L 06/03/19 04:37 ABG O2 Saturation 93 % (95-98) L 06/01/19 06:16 ABG Base Excess -6 mEq/L (-2 to 3) L 06/03/19 04:37 VBG pO2 24 mmHg (25-50) L 05/31/19 18:18 Potassium 6.0 mEq/L (3.5-5.1) H 06/03/19 11:30 Chloride 111 mEq/L (98-107) H 06/03/19 11:30 Carbon Dioxide 19 mEq/L (23-29) L 06/03/19 11:30 BUN 94 mg/dL (8-23) H 06/03/19 11:30 Creatinine 3.43 mg/dL (0.70-1.30) H 06/03/19 11:30 Est GFR ( Amer) 21 (> 60) L 06/03/19 11:30 Est GFR (Non-Af Amer) 17 (> 60) L 06/03/19 11:30 BUN/Creatinine Ratio 27 (6-26) H 06/03/19 11:30 Glucose 193 mg/dL (70-105) H 06/03/19 11:30 POC Glucose 218 mg/dL (70-99) H 06/02/19 22:42 Hemoglobin A1c 6.9 % (-5.6) H 05/31/19 17:55 Calculated Osmolality 332 (280-300) H 06/03/19 11:30 Lactic Acid 4.2 mmol/L (0.5-2.2) H* 05/31/19 17:55 Calcium 7.7 mg/dL (8.6-10.3) L 06/03/19 11:30 Total Bilirubin 2.3 mg/dL (0.3-1.0) H 06/03/19 03:00 Direct Bilirubin 1.8 mg/dL (0.0-0.2) H 06/03/19 03:00 AST 538 Units/L (13-39) H 06/03/19 03:00 ALT 358 Units/L (7-52) H 06/03/19 03:00 Troponin I 0.19 ng/mL (< 0.04) H* 06/01/19 09:50 Serum Total Protein 5.7 g/dL (6.4-8.9) L 06/03/19 03:00 Albumin 2.5 g/dL (3.5-5.7) L 06/03/19 03:00 Albumin/Globulin Ratio 0.8 (1.1-2.2) L 06/03/19 03:00 Procalcitonin 12.80 ng/mL (0.00-0.15) H 05/31/19 21:42 Ur Specimen Adequacy See below A 05/31/19 18:00 Urine Protein 100 mg/dL (Neg-Trace) H 05/31/19 18:00 Ur Culture Indicated? YES (NO) A 05/31/19 18:00 Exam: Exam: intubated and sedated - Head Head Exam: Present: atraumatic - Eye Eye exam: Present: EOMI - ENT ENT exam: Present: mucous membranes moist - Respiratory Respiratory exam: Present: decreased breath sounds Additional comments: mechanical breath sound, scattered crepitations. - Cardiovascular Cardiovascular exam: Present: RRR, +S1, +S2 - GI/Abdominal Exam GI/Abdominal exam: Present: normal bowel sounds, soft - Extremities Exam Extremities exam: Present: normal capillary refill, normal inspection. Absent: pedal edema - Neurological Exam Additional comments: sedated, not responsive to stimuli. - Skin Additional comments: ecchymoses on RUE improved Palliative Quality Palliative Quality: Screen for Code Status: Yes, Screen for Goals of Care: Yes, Screen for Pain: NA, If Pain Regimen Started, Initiate Bowel Regimen: NA, Screen for Nausea/Vomitting: NA Code Status: 05/31/19 20:08 Resuscitation Status: Active [RES] Routine Comment: Resuscitation Status: Full Code 06/02/19 18:05 CODE [Resuscitation Status: Active] [RES] Routine Comment: Resuscitation Status: DNR-Comfort Care-Arrest - Labs CBC & Chem 7: 06/03/19 03:00 06/03/19 11:30 Labs: Laboratory Results - last 24 hr 06/02/19 06/02/19 06/02/19 05:11 11:40 16:33 WBC RBC Hgb Hct MCV MCH MCHC RDW Plt Count MPV Immature Gran % Seg Neutrophils % Lymphocytes % Monocytes % Eosinophils % Basophils % Neutrophils # Lymphocytes # Monocytes # Eosinophils # Basophils # Nucleated RBCs/100 WBC Platelet Estimate Immature Plt Fraction Polychromasia PT INR Sample Site ABG pH ABG pCO2 ABG pO2 ABG HCO3 ABG Total CO2 ABG O2 Saturation ABG Base Excess Respiration Rate O2 Delivery Device Blood Gas Modality Inspired O2 Tidal Volume PEEP Sodium 141 Potassium 6.9 H* Chloride 110 H Carbon Dioxide 19 L BUN 74 H Creatinine 2.86 H Est GFR ( Amer) 26 L Est GFR (Non-Af Amer) 21 L BUN/Creatinine Ratio 26 Glucose 188 H POC Glucose 189 H 194 H Calculated Osmolality 319 H Calcium 7.7 L Total Bilirubin Direct Bilirubin Indirect Bilirubin AST ALT Alkaline Phosphatase Serum Total Protein Albumin Globulin Albumin/Globulin Ratio 06/02/19 06/03/19 06/03/19 22:42 03:00 03:00 WBC RBC Hgb Hct MCV MCH MCHC RDW Plt Count MPV Immature Gran % Seg Neutrophils % Lymphocytes % Monocytes % Eosinophils % Basophils % Neutrophils # Lymphocytes # Monocytes # Eosinophils # Basophils # Nucleated RBCs/100 WBC Platelet Estimate Immature Plt Fraction Polychromasia PT 14.3 H INR 1.3 Sample Site ABG pH ABG pCO2 ABG pO2 ABG HCO3 ABG Total CO2 ABG O2 Saturation ABG Base Excess Respiration Rate O2 Delivery Device Blood Gas Modality Inspired O2 Tidal Volume PEEP Sodium 142 Potassium 5.5 H Chloride 110 H Carbon Dioxide 20 L BUN 84 H Creatinine 3.04 H Est GFR ( Amer) 24 L Est GFR (Non-Af Amer) 20 L BUN/Creatinine Ratio 28 H Glucose 215 H POC Glucose 218 H Calculated Osmolality 326 H Calcium 7.8 L Total Bilirubin 2.3 H Direct Bilirubin 1.8 H Indirect Bilirubin 0.5 AST 538 H ALT 358 H Alkaline Phosphatase 98 Serum Total Protein 5.7 L Albumin 2.5 L Globulin 3.2 Albumin/Globulin Ratio 0.8 L 06/03/19 06/03/19 06/03/19 03:00 04:37 11:30 WBC 13.7 H RBC 2.70 L Hgb 8.3 L Hct 25.8 L MCV 95.6 MCH 30.7 MCHC 32.2 RDW 16.8 H Plt Count 89 L MPV 11.2 Immature Gran % 1.1 Seg Neutrophils % 92.5 Lymphocytes % 4.3 Monocytes % 2.0 Eosinophils % 0.0 Basophils % 0.1 Neutrophils # 12.7 H Lymphocytes # 0.6 Monocytes # 0.3 Eosinophils # 0.0 Basophils # 0.0 Nucleated RBCs/100 WBC 0.4 H Platelet Estimate Decreased L Immature Plt Fraction 4.8 Polychromasia 1+ A PT INR Sample Site R Radial ABG pH 7.36 ABG pCO2 33 L ABG pO2 89 ABG HCO3 18 L ABG Total CO2 19 L ABG O2 Saturation 97 ABG Base Excess -6 L Respiration Rate 18 O2 Delivery Device Adult Vent Blood Gas Modality ASSIST CONTROL Inspired O2 40.0 Tidal Volume 500 PEEP 5 Sodium 144 Potassium 6.0 H Chloride 111 H Carbon Dioxide 19 L BUN 94 H Creatinine 3.43 H Est GFR ( Amer) 21 L Est GFR (Non-Af Amer) 17 L BUN/Creatinine Ratio 27 H Glucose 193 H POC Glucose Calculated Osmolality 332 H Calcium 7.7 L Total Bilirubin Direct Bilirubin Indirect Bilirubin AST ALT Alkaline Phosphatase Serum Total Protein Albumin Globulin Albumin/Globulin Ratio - ABG Interpretation ABG results: ABG ABG pH 7.36 pH Units (7.32-7.45) 06/03/19 04:37 ABG pCO2 33 mmHg (35-45) L 06/03/19 04:37 ABG pO2 89 mmHg (85-104) 06/03/19 04:37 ABG O2 Saturation 97 % (95-98) 06/03/19 04:37 PT/INR, D-dimer PT 14.3 Seconds (9.4-12.1) H 06/03/19 03:00 Consult Discharge Plan - Plan Referrals: Mj Hooks MD [Primary Care Provider] -
[2019-06-03] MEDS ORDERED: Atropine Sulfate 1% 40 DROP/2 ML BOTTLE SL PRN (15:16)
--- NOTE | 2019-06-03 16:30 | Nephrology Progress Note ---
Date of Encounter: 06/03/19 Time of Encounter: 12:00 - Assessment and Plan (1) ELIEL (acute kidney injury) Current Visit: Yes Status: Acute SCr worse at 3.04, GFR 20 UOP remains poor at 265cc in the past 24hrs Continue to avoid nephrotoxins if possible Given family's decision against [employer], will sign off. Please reconsult prn (2) Hyperkalemia Current Visit: Yes Status: Acute Potaasium improved at 5.5 after kayexalate Continue bicarb gtt for now to move potassium intracellular (3) Acute and chronic respiratory failure with hypoxia Current Visit: Yes Status: Acute (4) Elevated troponin Current Visit: Yes Status: Acute (5) Septic shock Current Visit: Yes Status: Acute Subjective Principal diagnosis: hypoxia Interval history: Interim noted, family has decided against [employer] if needed. Pt seen and examined still intubated and sedated on pressor support. Granddaughter at bedside Objective - Vital Signs Vital signs: Vital Signs Temp Pulse Resp BP Pulse Ox 06/03/19 16:00 69 17 111/60 97 06/03/19 15:54 17 97 06/03/19 15:26 98.1 F 06/03/19 15:06 71 17 108/59 97 06/03/19 13:41 18 94 06/03/19 13:00 72 14 103/62 97 06/03/19 12:00 98.1 F 74 14 68/53 97 06/03/19 11:06 22 96 06/03/19 11:00 98.1 F 82 15 107/66 96 06/03/19 10:00 72 16 98/66 97 06/03/19 09:12 21 97 06/03/19 09:00 74 16 89/63 94 06/03/19 08:00 74 19 116/71 94 06/03/19 07:15 21 101/71 96 06/03/19 07:04 97.9 F 06/03/19 07:00 72 19 100/68 96 06/03/19 06:00 71 19 99/69 96 06/03/19 05:01 19 93/69 96 06/03/19 05:00 70 19 107/77 96 06/03/19 04:00 69 18 107/71 96 06/03/19 03:43 21 84/63 96 06/03/19 03:07 74 06/03/19 03:00 98.1 F 77 19 104/71 96 06/03/19 02:00 79 18 102/73 96 06/03/19 01:03 18 108/71 96 06/03/19 00:47 78 19 107/71 96 06/03/19 00:00 92 17 130/75 96 06/02/19 23:39 19 106/67 95 06/02/19 23:01 80 06/02/19 23:00 97.5 F L 791 17 101/63 95 06/02/19 22:00 80 19 113/69 95 06/02/19 21:24 20 113/69 95 06/02/19 21:00 79 19 108/70 95 06/02/19 20:41 98.1 F 06/02/19 20:00 78 17 119/66 95 06/02/19 19:48 20 121/67 95 06/02/19 19:02 79 06/02/19 18:58 81 20 118/67 93 06/02/19 18:03 24 85/59 97 06/02/19 18:00 74 23 85/59 98 Intake and Output 06/03/19 06/03/19 06/03/19 07:59 15:59 23:59 Intake Total 179 / 794 615 / 794 Output Total 280 / 618 338 / 618 Balance -101 / 176 277 / 176 Intake: IV Fluids 179 / 794 615 / 794 Precedex Premix 400 mcg In 100 20 / 20 ml @ 0.2 MCG/KG/HR 4.315 mls/hr IVC .[id number] [facility] Rx#: [id number] FentaNYL (PF) 1,000 MCG In 0.9 70 / 150 80 / 150 % Sodium Chloride 80 ML @ 50 MCG/HR 5 mls/hr IVC CONT [facility] Rx #:[id number] Levophed 4 MG In 0.9 % Sodium 109 / 354 245 / 354 Chloride 250 ML @ 5 MCG/MIN 19. 05 mls/hr IVC CONT [facility] Rx#: [id number] Maxipime 2,000 MG In Water for 20 / 20 inj. (sterile) 20 ML @ 300 mls/ hr IVP Q12H [facility] Rx#:[id number] Zithromax 500 MG In 0.9 % 250 / 250 Sodium Chloride 250 ML @ 252 mls/hr IVPB Q24H [facility] Rx#: [id number] Output: Stool 150 / 450 300 / 450 Catheter 130 / 168 38 / 168 Gastric Drainage 0 / 0 Other: Stool Color Yellow Weight 85.4 kg Blood Glucose* 178 Patient Weight 06/03/19 23:59 Weight 85.4 kg - General Appearance General appearance: Present: sedated on ventilator, intubated EENT: Present: ATNC, mucous membranes moist Neck: Present: no JVD, supple Respiratory: Present: course breath sounds Cardiology: Present: edema (LE bilat), normal S1, normal S2 Gastrointestinal: Present: no tenderness, no guarding Integumentary: Present: warm and dry Additional Comments: sedated Musculoskeletal: Present: no deformities Additional Comments: sedated - Lab 06/03/19 03:00 06/03/19 11:30 Most recent lab results 06/03/19 06/03/19 04:37 11:30 ABG pH 7.36 ABG pCO2 33 L ABG pO2 89 ABG HCO3 18 L ABG O2 Saturation 97 Calcium 7.7 L Consult Discharge Plan - Plan Referrals: Mj Hooks MD [Primary Care Provider] -
[2019-06-03] MEDS: *HR* LORazepam 2 MG/ML VIAL IVP PRN (20:08)
[2019-06-04] MEDS: Dexmedetomidine HCl 400 MCG/100 ML MLS IVC SCH (03:18)
[2019-06-04] MEDS: Artificial Tears SOLN 15 ML BOTTLE BOTH EYES SCH ×2 (03:19→09:07)
[2019-06-04 04:19] LABS: Basophils % 0.1 %; Lymphocytes # 0.7 K/mcL (0.6-4.6); Lymphocytes % 5.9 %; Mean Corpuscular Volume 95.4 fL (83.0-100.0); Nucleated Red Blood Cells 0.4 /100 WBC (0)
[2019-06-04 04:21] LABS: Hematocrit 25.1 % (37.5-50.1); Immature Granulocytes % 1.9 % (0-4); Mean Corpuscular HGB Conc 31.9 g/dL (31.6-35.5); Mean Corpuscular Hemoglobin 30.4 pg (28.0-33.3); Mean Platelet Volume 11.6 fL (9.4-12.4); Monocytes # 0.2 K/mcL (0.0-1.3); Monocytes % 1.3 %; Neutrophils # 10.9 K/mcL (1.6-8.9); Red Blood Count 2.63 M/mcL (4.19-5.50); Red Cell Distribution Width 17.2 % (11.5-14.5); Segmented Neutrophils % 90.8 %
[2019-06-04 04:22] LABS: INR 1.3; Prothrombin Time 14.8 Seconds (9.4-12.1)
[2019-06-04 04:25] LABS: Platelet Count 77 K/mcL (140-400)
[2019-06-04 04:34] LABS: Calcium 7.5 mg/dL (8.6-10.3); Potassium 5.7 mEq/L (3.5-5.1)
[2019-06-04 04:45] LABS: Platelet Estimate Slight Decrease (Normal)
[2019-06-04 04:50] LABS: Albumin 2.5 g/dL (3.5-5.7); Albumin/Globulin Ratio 0.9 (1.1-2.2); Bilirubin,Direct 1.9 mg/dL (0.0-0.2); Bilirubin,Indirect 0.6 mg/dL (0.0-1.2); Bilirubin,Total 2.5 mg/dL (0.3-1.0); Globulin 2.8 g/dL (2.4-3.5); Magnesium 2.4 mg/dL (1.6-2.6); Total Protein 5.3 g/dL (6.4-8.9)
[2019-06-04] MEDS: Pantoprazole 40 MG VIAL IVP SCH (05:15)
[2019-06-04] MEDS: Insulin LISPRO 300 UNITS/3 ML VIAL SQ SCH ×2 (05:16→09:05)
--- NOTE | 2019-06-04 06:54 | Pulmonology Progress Note ---
<JudyAnderson W - Last Filed: 06/04/19 08:59> Date of Encounter: 06/04/19 Objective PUL Vital signs: Last Vital Signs Temp 97.5 F L 06/04/19 07:37 Pulse 60 06/04/19 08:00 Resp 27 06/04/19 06:00 BP 83/49 06/04/19 06:00 Pulse Ox 95 06/04/19 06:00 Results - Laboratory Findings CBC and BMP: 06/04/19 03:50 06/04/19 03:50 ABG ABG pH 7.36 pH Units (7.32-7.45) 06/03/19 04:37 ABG pCO2 33 mmHg (35-45) L 06/03/19 04:37 ABG pO2 89 mmHg (85-104) 06/03/19 04:37 ABG O2 Saturation 97 % (95-98) 06/03/19 04:37 PT/INR, D-dimer PT 14.8 Seconds (9.4-12.1) H 06/04/19 03:50 Abnormal lab findings: Abnormal lab results WBC 12.0 K/mcL (4.3-11.1) H 06/04/19 03:50 RBC 2.63 M/mcL (4.19-5.50) L 06/04/19 03:50 Hgb 8.0 g/dL (12.9-16.9) L 06/04/19 03:50 Hct 25.1 % (37.5-50.1) L 06/04/19 03:50 MCHC 31.2 g/dL (31.6-35.5) L 06/02/19 02:42 RDW 17.2 % (11.5-14.5) H 06/04/19 03:50 Plt Count 77 K/mcL (140-400) L 06/04/19 03:50 Band Neutrophils % 32.0 % (0-4) H 05/31/19 16:26 Neutrophils # 10.9 K/mcL (1.6-8.9) H 06/04/19 03:50 Nucleated RBCs/100 WBC 0.4 /100 WBC (0) H 06/04/19 03:50 Reactive Lymphocytes Present (Not Present) A 05/31/19 16:26 Platelet Estimate Slight Decrease (Normal) L 06/04/19 03:50 Polychromasia 1+ (Not Present) A 06/03/19 03:00 PT 14.8 Seconds (9.4-12.1) H 06/04/19 03:50 APTT 23.9 Seconds (26.0-36.0) L 05/31/19 16:26 ABG pH 7.28 pH Units (7.32-7.45) L 06/02/19 04:58 ABG pCO2 33 mmHg (35-45) L 06/03/19 04:37 ABG pO2 72 mmHg (85-104) L 06/01/19 06:16 ABG HCO3 18 mEq/L (21-27) L 06/03/19 04:37 ABG Total CO2 19 mEq/L (20-26) L 06/03/19 04:37 ABG O2 Saturation 93 % (95-98) L 06/01/19 06:16 ABG Base Excess -6 mEq/L (-2 to 3) L 06/03/19 04:37 VBG pO2 24 mmHg (25-50) L 05/31/19 18:18 Sodium 146 mEq/L (136-145) H 06/04/19 03:50 Potassium 5.7 mEq/L (3.5-5.1) H 06/04/19 03:50 Chloride 112 mEq/L (98-107) H 06/04/19 03:50 Carbon Dioxide 18 mEq/L (23-29) L 06/04/19 03:50 BUN 111 mg/dL (8-23) H 06/04/19 03:50 Creatinine 3.50 mg/dL (0.70-1.30) H 06/04/19 03:50 Est GFR ( Amer) 21 (> 60) L 06/04/19 03:50 Est GFR (Non-Af Amer) 17 (> 60) L 06/04/19 03:50 BUN/Creatinine Ratio 32 (6-26) H 06/04/19 03:50 Glucose 240 mg/dL (70-105) H 06/04/19 03:50 POC Glucose 178 mg/dL (70-99) H 06/03/19 15:29 Hemoglobin A1c 6.9 % (-5.6) H 05/31/19 17:55 Calculated Osmolality 345 (280-300) H 06/04/19 03:50 Lactic Acid 4.2 mmol/L (0.5-2.2) H* 05/31/19 17:55 Calcium 7.5 mg/dL (8.6-10.3) L 06/04/19 03:50 Total Bilirubin 2.5 mg/dL (0.3-1.0) H 06/04/19 03:50 Direct Bilirubin 1.9 mg/dL (0.0-0.2) H 06/04/19 03:50 AST 417 Units/L (13-39) H 06/04/19 03:50 ALT 569 Units/L (7-52) H 06/04/19 03:50 Alkaline Phosphatase 119 Units/L (34-104) H 06/04/19 03:50 Troponin I 0.19 ng/mL (< 0.04) H* 06/01/19 09:50 Serum Total Protein 5.3 g/dL (6.4-8.9) L 06/04/19 03:50 Albumin 2.5 g/dL (3.5-5.7) L 06/04/19 03:50 Albumin/Globulin Ratio 0.9 (1.1-2.2) L 06/04/19 03:50 Procalcitonin 12.80 ng/mL (0.00-0.15) H 05/31/19 21:42 Ur Specimen Adequacy See below A 05/31/19 18:00 Urine Protein 100 mg/dL (Neg-Trace) H 05/31/19 18:00 Ur Culture Indicated? YES (NO) A 05/31/19 18:00 - Microbiology Findings Microbiology Findings: Microbiology, Last 48 Hours 06/01/19 04:00 Sputum Culture - Final Aspirate Pseudomonas aeruginosa - Clinical Findings Intake & Output: Intake & Output 06/03/19 06/04/19 06/04/19 23:59 07:59 15:59 Intake Total 363 / 1157 Output Total 100 / 718 125 / 125 Balance 263 / 439 -105 / -105 Weight 85.6 kg Consult Discharge Plan - Plan Referrals: Mj rosario MD [Primary Care Provider] - - Attending Attestation I examined this patient and my medical decision-making was reviewed with the Resident Physician. I agree with the documented findings, disposition and treatment plan as described except to the extent set forth below. We indep endently had [id number] contact with the patient Patient seen and examined at bedside Labs, radiology, chart personally reviewed. Management was reviewed during multidisciplinary critical care rounds. Unfortunate 78-year-old gentleman with advanced lung disease secondary to pulmonary fibrosis and COPD. He presented with pneumonia which led to respiratory failure and acute on chronic kidney failure. Overall clinical deterioration and family had made decision to transition to comfort measures Patient is status post compassionate extubation. Clinically appears to have adequate analgesia and does not appear to be in distress. He will be transitioned to a palliative care bed later in the day. Family at bedside and I provided emotional support. I did my best to answer any other questions and they think to our team for the care provided. I appreciate the collaboration with the palliative care team. Pulmonary will sign off please call with any questions <Aurelio Guerra - Last Filed: 06/04/19 10:35> Date of Encounter: 06/04/19 Time of Encounter: 06:54 Assessment and Plan (1) Acute and chronic respiratory failure with hypoxia Current Visit: Yes Status: Acute Patient was intubated in the ER d/t progressive respiratory distress. In the context of sepsis 2/2 PNA. Plan: - Cont sedation, aerosols, antibiotics; albuterol, symbicort, solumedrol for sedation/breathing - Palliative extubation on evening of 06/01 - On fentanyl gtt and ativan PRN - Stopped precedex on 06/02, stopped versed gtt - Given dopamine once on 06/02 for bradycardia, hyperK - Palliative consulted for goals of care; code status changed to DNR-CCA-DNI on 06/03 - Today will be transferred to palliative bed. (2) Septic shock Current Visit: Yes Status: Acute Sepsis likely 2/2 to PNA, with CXR showing opacification of R upper lobe. Fluid resuscitation in the ED. Plan: - Stopped vancomycin since MRSA neg on 06/01; stopped levaquin on 06/02 - Started azithromycin 500mg IV daily on 06/02, also cefepime on 05/31 - Stopped levophed gtt - Blood cultures pending - Sputum cx final grew pseudomonas - Urine cx final negative - Started hydrocortisone 100mg IVP q8 on 06/01 for possible adrenal insuff (3) Pneumonia Current Visit: Yes Status: Acute Plan: - Stopped vanc; stopped levaquin - Started azithromycin, on cefepime - Blood/sputum cx pending Qualifiers: Pneumonia type: due to unspecified organism Laterality: unspecified laterality Lung location: unspecified part of lung Qualified Code(s): J18.9 - Pneumonia, unspecified organism (4) Acute kidney failure Current Visit: Yes Status: Acute Likely due to septic shock and dehydration. Plan: - Worsening BUN/Cr of 63/2.53, now 84/3.04 - Supportive measures and fluid resuscitation as above - Monitor renal function and I/O - Hyperkalemia of 6.2 on 06/02; today K of 5.5 - Nephrology consult recs: dialysis if patient/family is amenable, bicarb gtt Qualifiers: Qualified Code(s): N17.9 - Acute kidney failure, unspecified (5) Hyperkalemia Current Visit: Yes Status: Acute K of 6.2 on 06/02, peak K 6.9. Asymptomatic. EKG is consistent with previous showing RBBB, no peaked Twaves or further widened QRS. Plan: - Continue to monitor with EKGs, BMP - K of 5.5 today - Kayexalate PRN q6hrs for K >6 - Will check BMP BID On 06/02: - Gave 3 g Ca gluconate - 10 units insulin IV with amp of D50 - Gave 1 amp bicarb - Gave dopamine for bradycardia - Gave 15g + 30g of kayexalate - Nephrology consulted, consider dialysis and bicarb gtt (6) NSTEMI (non-ST elevated myocardial infarction) Current Visit: Yes Status: Acute Likely due to respiratory failure and sepsis d/t demand ischemia. No chest pain at presentation. Trops downtrending, last trop 0.19; EKG with RBBB. Plan: - Trend troponin levels and EKGs - Supportive measures as above for sepsis and respiratory failure - Cardiology consulted, recs TTE which showed LVEF 40-45%, LV sys dysfcn, no LV thrombus - Start ASA 81mg (7) Type 2 diabetes mellitus Current Visit: Yes Status: Chronic Plan: - Hold oral home meds - Monitor glucose levels - On moderate SSI q4hrs Qualifiers: Diabetes mellitus fci insulin use: without fci use Diabetes mellitus complication status: with ophthalmic complications Diabetes mellitus complication detail: with cataract Qualified Code(s): E11.36 - Type 2 diabetes mellitus with diabetic cataract (8) DVT prophylaxis Current Visit: Yes Status: Acute DVT PPX: hep SQ Analgesia: fentanyl Sedation: versed SBT: daily Glycemic control: SSI mod q4hrs Bowl regimen: none Activity: soft restraints Fluids: none Electrolytes: replete as necessary Nutrition: started TFs per nutrition recs GI ppx: PPI Lines: 2x PIVs, central line, ET, OG, colostomy, santos Consults: cards, pulm, nutrition, palliative Code: DNR-CCA-DNI Dispo: pending further stabilization Subjective Principal diagnosis: hypoxia Interval history: Patient was seen and examined at bedside. No acute events overnight. Was extubated. Resting comfortably and occasionally move his arms. Sedated on fentanyl drip and ativan PRN. Does not appear to be in any discomfort or pain. Good breath sounds bilaterally. Objective PUL Vital signs: Last Vital Signs Temp 97.2 F L 06/04/19 00:48 Pulse 67 06/04/19 06:00 Resp 27 06/04/19 06:00 BP 83/49 06/04/19 06:00 Pulse Ox 95 06/04/19 06:00 General appearance: no acute distress Eyes: nonicteric ENT: oropharynx moist Effort: normal Auscultation: bilateral: clear Cardiovascular: regular rate and rhythm Gastrointestinal: normoactive bowel sounds, non-distended Integumentary: normal Extremities: no cyanosis, no edema, no clubbing Musculoskeletal: no deformities, ROM normal unable to assess due to mental status Results - Laboratory Findings CBC and BMP: 06/04/19 03:50 06/04/19 03:50 ABG ABG pH 7.36 pH Units (7.32-7.45) 06/03/19 04:37 ABG pCO2 33 mmHg (35-45) L 06/03/19 04:37 ABG pO2 89 mmHg (85-104) 06/03/19 04:37 ABG O2 Saturation 97 % (95-98) 06/03/19 04:37 PT/INR, D-dimer PT 14.8 Seconds (9.4-12.1) H 06/04/19 03:50 Abnormal lab findings: Abnormal lab results WBC 12.0 K/mcL (4.3-11.1) H 06/04/19 03:50 RBC 2.63 M/mcL (4.19-5.50) L 06/04/19 03:50 Hgb 8.0 g/dL (12.9-16.9) L 06/04/19 03:50 Hct 25.1 % (37.5-50.1) L 06/04/19 03:50 MCHC 31.2 g/dL (31.6-35.5) L 06/02/19 02:42 RDW 17.2 % (11.5-14.5) H 06/04/19 03:50 Plt Count 77 K/mcL (140-400) L 06/04/19 03:50 Band Neutrophils % 32.0 % (0-4) H 05/31/19 16:26 Neutrophils # 10.9 K/mcL (1.6-8.9) H 06/04/19 03:50 Nucleated RBCs/100 WBC 0.4 /100 WBC (0) H 06/04/19 03:50 Reactive Lymphocytes Present (Not Present) A 05/31/19 16:26 Platelet Estimate Slight Decrease (Normal) L 06/04/19 03:50 Polychromasia 1+ (Not Present) A 06/03/19 03:00 PT 14.8 Seconds (9.4-12.1) H 06/04/19 03:50 APTT 23.9 Seconds (26.0-36.0) L 05/31/19 16:26 ABG pH 7.28 pH Units (7.32-7.45) L 06/02/19 04:58 ABG pCO2 33 mmHg (35-45) L 06/03/19 04:37 ABG pO2 72 mmHg (85-104) L 06/01/19 06:16 ABG HCO3 18 mEq/L (21-27) L 06/03/19 04:37 ABG Total CO2 19 mEq/L (20-26) L 06/03/19 04:37 ABG O2 Saturation 93 % (95-98) L 06/01/19 06:16 ABG Base Excess -6 mEq/L (-2 to 3) L 06/03/19 04:37 VBG pO2 24 mmHg (25-50) L 05/31/19 18:18 Sodium 146 mEq/L (136-145) H 06/04/19 03:50 Potassium 5.7 mEq/L (3.5-5.1) H 06/04/19 03:50 Chloride 112 mEq/L (98-107) H 06/04/19 03:50 Carbon Dioxide 18 mEq/L (23-29) L 06/04/19 03:50 BUN 111 mg/dL (8-23) H 06/04/19 03:50 Creatinine 3.50 mg/dL (0.70-1.30) H 06/04/19 03:50 Est GFR ( Amer) 21 (> 60) L 06/04/19 03:50 Est GFR (Non-Af Amer) 17 (> 60) L 06/04/19 03:50 BUN/Creatinine Ratio 32 (6-26) H 06/04/19 03:50 Glucose 240 mg/dL (70-105) H 06/04/19 03:50 POC Glucose 178 mg/dL (70-99) H 06/03/19 15:29 Hemoglobin A1c 6.9 % (-5.6) H 05/31/19 17:55 Calculated Osmolality 345 (280-300) H 06/04/19 03:50 Lactic Acid 4.2 mmol/L (0.5-2.2) H* 05/31/19 17:55 Calcium 7.5 mg/dL (8.6-10.3) L 06/04/19 03:50 Total Bilirubin 2.5 mg/dL (0.3-1.0) H 06/04/19 03:50 Direct Bilirubin 1.9 mg/dL (0.0-0.2) H 06/04/19 03:50 AST 417 Units/L (13-39) H 06/04/19 03:50 ALT 569 Units/L (7-52) H 06/04/19 03:50 Alkaline Phosphatase 119 Units/L (34-104) H 06/04/19 03:50 Troponin I 0.19 ng/mL (< 0.04) H* 06/01/19 09:50 Serum Total Protein 5.3 g/dL (6.4-8.9) L 06/04/19 03:50 Albumin 2.5 g/dL (3.5-5.7) L 06/04/19 03:50 Albumin/Globulin Ratio 0.9 (1.1-2.2) L 06/04/19 03:50 Procalcitonin 12.80 ng/mL (0.00-0.15) H 05/31/19 21:42 Ur Specimen Adequacy See below A 05/31/19 18:00 Urine Protein 100 mg/dL (Neg-Trace) H 05/31/19 18:00 Ur Culture Indicated? YES (NO) A 05/31/19 18:00 - Microbiology Findings Microbiology Findings: Microbiology, Last 48 Hours 06/01/19 04:00 Sputum Culture - Final Aspirate Pseudomonas aeruginosa - Clinical Findings Intake & Output: Intake & Output 06/03/19 06/03/19 06/04/19 15:59 23:59 07:59 Intake Total 615 / 1157 363 / 1157 Output Total 338 / 718 100 / 718 50 / 50 Balance 277 / 439 263 / 439 -30 / -30 Weight 85.6 kg
[2019-06-04] MEDS ORDERED: Scopolamine Patch 1.5 MG PATCH.TD72 TD SCH (09:00)
[2019-06-04] MEDS: Aspirin 81 MG TAB.CHEW PO SCH (09:05)
[2019-06-04] MEDS: Azithromycin 500 MG in 0.9 % Sodium Chloride 250 ML IVPB SCH (09:05)
[2019-06-04] MEDS: Hydrocortisone Sodium Succ 100 MG/2 ML VIAL IVP SCH (09:05)
[2019-06-04] MEDS: Chlorhexidine Rinse 15 ML MOUTHWASH MM SCH (09:05)
[2019-06-04] MEDS: *HR* Heparin 5,000 UNIT/ML VIAL SQ SCH (09:06)
[2019-06-04] MEDS: FentaNYL (PF) 1,000 MCG in 0.9 % Sodium Chloride 80 ML IVC SCH ×3 (09:13→18:03)
[2019-06-04] MEDS: *HR* LORazepam 2 MG/ML VIAL IVP PRN ×3 (09:56→18:02)
[2019-06-04] MEDS ORDERED: Cefepime HCl 2,000 MG in Water for inj. (sterile) 20 ML IVP SCH (10:00)
[2019-06-04] MEDS: Budesonide/Formoterol 160/4.5 1 PUFF INH IH SCH ×2 (10:21→20:18)
[2019-06-04] MEDS ORDERED: Acetaminophen 325 MG TABLET PO PRN (10:24)
[2019-06-04] MEDS: Atropine Sulfate 1% 40 DROP/2 ML BOTTLE SL PRN ×2 (11:29→18:03)
--- NOTE | 2019-06-04 12:52 | Palliative Progress Note ---
Date of Encounter: 06/04/19 Time of Encounter: 10:30 - Assessment and plan (1) Advance care planning Current Visit: Yes Status: Acute Assessment and plan: Family surrounding patient. They unanimously want comfort care only at this point. Patient to be transferred to palliative care bed once available under hospitalist team. Palliative care will continue to follow and assist in management. (2) Palliative care encounter Current Visit: Yes Status: Acute (3) Acute and chronic respiratory failure with hypoxia Current Visit: Yes Status: Acute Assessment and plan: s/p compassionate extubation, increased secretions on scopolamine patch and atropine prn in place On fentanyl drip 100mcg/hr, will add prn doses Ativan 2 mg q2hrs IV in place. (4) CAP (community acquired pneumonia) Current Visit: No Status: Acute Assessment and plan: Patient is in MOF due to severe sepsis. ABX in place, but worsening leukocytosis. Arturo d/c ABX Qualifiers: Laterality: unspecified laterality Qualified Code(s): J18.9 - Pneumonia, unspecified organism (5) Septic shock Current Visit: Yes Status: Acute - Time Spent With Patient Total time spent is greater than 50% in coordination of care (as documented) at patient's floor/unit and/or counseling patient: 25 - 35 minutes - Subjective Interval history: Patient remains unresponsive, s/p palliative extubation, per nurse and family report he was very combative and agitated off sedation. He remains on precedex and fentanyl drip. - Constitutional Vitals: Abnormal lab results WBC 12.0 K/mcL (4.3-11.1) H 06/04/19 03:50 RBC 2.63 M/mcL (4.19-5.50) L 06/04/19 03:50 Hgb 8.0 g/dL (12.9-16.9) L 06/04/19 03:50 Hct 25.1 % (37.5-50.1) L 06/04/19 03:50 MCHC 31.2 g/dL (31.6-35.5) L 06/02/19 02:42 RDW 17.2 % (11.5-14.5) H 06/04/19 03:50 Plt Count 77 K/mcL (140-400) L 06/04/19 03:50 Band Neutrophils % 32.0 % (0-4) H 05/31/19 16:26 Neutrophils # 10.9 K/mcL (1.6-8.9) H 06/04/19 03:50 Nucleated RBCs/100 WBC 0.4 /100 WBC (0) H 06/04/19 03:50 Reactive Lymphocytes Present (Not Present) A 05/31/19 16:26 Platelet Estimate Slight Decrease (Normal) L 06/04/19 03:50 Polychromasia 1+ (Not Present) A 06/03/19 03:00 PT 14.8 Seconds (9.4-12.1) H 06/04/19 03:50 APTT 23.9 Seconds (26.0-36.0) L 05/31/19 16:26 ABG pH 7.28 pH Units (7.32-7.45) L 06/02/19 04:58 ABG pCO2 33 mmHg (35-45) L 06/03/19 04:37 ABG pO2 72 mmHg (85-104) L 06/01/19 06:16 ABG HCO3 18 mEq/L (21-27) L 06/03/19 04:37 ABG Total CO2 19 mEq/L (20-26) L 06/03/19 04:37 ABG O2 Saturation 93 % (95-98) L 06/01/19 06:16 ABG Base Excess -6 mEq/L (-2 to 3) L 06/03/19 04:37 VBG pO2 24 mmHg (25-50) L 05/31/19 18:18 Sodium 146 mEq/L (136-145) H 06/04/19 03:50 Potassium 5.7 mEq/L (3.5-5.1) H 06/04/19 03:50 Chloride 112 mEq/L (98-107) H 06/04/19 03:50 Carbon Dioxide 18 mEq/L (23-29) L 06/04/19 03:50 BUN 111 mg/dL (8-23) H 06/04/19 03:50 Creatinine 3.50 mg/dL (0.70-1.30) H 06/04/19 03:50 Est GFR ( Amer) 21 (> 60) L 06/04/19 03:50 Est GFR (Non-Af Amer) 17 (> 60) L 06/04/19 03:50 BUN/Creatinine Ratio 32 (6-26) H 06/04/19 03:50 Glucose 240 mg/dL (70-105) H 06/04/19 03:50 POC Glucose 178 mg/dL (70-99) H 06/03/19 15:29 Hemoglobin A1c 6.9 % (-5.6) H 05/31/19 17:55 Calculated Osmolality 345 (280-300) H 06/04/19 03:50 Lactic Acid 4.2 mmol/L (0.5-2.2) H* 05/31/19 17:55 Calcium 7.5 mg/dL (8.6-10.3) L 06/04/19 03:50 Total Bilirubin 2.5 mg/dL (0.3-1.0) H 06/04/19 03:50 Direct Bilirubin 1.9 mg/dL (0.0-0.2) H 06/04/19 03:50 AST 417 Units/L (13-39) H 06/04/19 03:50 ALT 569 Units/L (7-52) H 06/04/19 03:50 Alkaline Phosphatase 119 Units/L (34-104) H 06/04/19 03:50 Troponin I 0.19 ng/mL (< 0.04) H* 06/01/19 09:50 Serum Total Protein 5.3 g/dL (6.4-8.9) L 06/04/19 03:50 Albumin 2.5 g/dL (3.5-5.7) L 06/04/19 03:50 Albumin/Globulin Ratio 0.9 (1.1-2.2) L 06/04/19 03:50 Procalcitonin 12.80 ng/mL (0.00-0.15) H 05/31/19 21:42 Ur Specimen Adequacy See below A 05/31/19 18:00 Urine Protein 100 mg/dL (Neg-Trace) H 05/31/19 18:00 Ur Culture Indicated? YES (NO) A 05/31/19 18:00 Exam: sedated, appears in no acute distress. - Head Head Exam: Present: atraumatic - ENT ENT exam: Present: mucous membranes dry - Respiratory Respiratory exam: Present: decreased breath sounds Additional comments: Heavy mouth breathing, audible secretions in upper airways. - Cardiovascular Cardiovascular exam: Present: RRR, +S1, +S2 - GI/Abdominal Exam GI/Abdominal exam: Present: normal bowel sounds, soft - Extremities Exam Extremities exam: Present: normal capillary refill, normal inspection. Absent: pedal edema - Neurological Exam Additional comments: sedated, grimacing to pain. - Skin Additional comments: ecchymoses on RUE improving Palliative Quality Palliative Quality: Screen for Code Status: Yes, Screen for Goals of Care: Yes, Screen for Pain: Yes, If Pain Regimen Started, Initiate Bowel Regimen: NA, Screen for Nausea/Vomitting: NA Code Status: 05/31/19 20:08 Resuscitation Status: Active [RES] Routine Comment: Resuscitation Status: Full Code 06/02/19 18:05 CODE [Resuscitation Status: Active] [RES] Routine Comment: Resuscitation Status: DNR-Comfort Care-Arrest 06/03/19 18:43 Resuscitation Status: Active [RES] Routine Comment: Resuscitation Status: [id number] - Labs CBC & Chem 7: 06/04/19 03:50 06/04/19 03:50 Labs: Laboratory Results - last 24 hr 06/03/19 06/03/19 06/03/19 04:58 11:18 15:29 WBC RBC Hgb Hct MCV MCH MCHC RDW Plt Count MPV Immature Gran % Seg Neutrophils % Lymphocytes % Monocytes % Eosinophils % Basophils % Neutrophils # Lymphocytes # Monocytes # Eosinophils # Basophils # Nucleated RBCs/100 WBC Platelet Estimate Immature Plt Fraction PT INR Sodium Potassium Chloride Carbon Dioxide BUN Creatinine Est GFR ( Amer) Est GFR (Non-Af Amer) BUN/Creatinine Ratio Glucose POC Glucose 185 H 178 H 178 H Calculated Osmolality Calcium Magnesium Total Bilirubin Direct Bilirubin Indirect Bilirubin AST ALT Alkaline Phosphatase Serum Total Protein Albumin Globulin Albumin/Globulin Ratio 06/04/19 06/04/19 06/04/19 03:50 03:50 03:50 WBC 12.0 H RBC 2.63 L Hgb 8.0 L Hct 25.1 L MCV 95.4 MCH 30.4 MCHC 31.9 RDW 17.2 H Plt Count 77 L MPV 11.6 Immature Gran % 1.9 Seg Neutrophils % 90.8 Lymphocytes % 5.9 Monocytes % 1.3 Eosinophils % 0.0 Basophils % 0.1 Neutrophils # 10.9 H Lymphocytes # 0.7 Monocytes # 0.2 Eosinophils # 0.0 Basophils # 0.0 Nucleated RBCs/100 WBC 0.4 H Platelet Estimate Slight Decrease L Immature Plt Fraction 5.0 PT 14.8 H INR 1.3 Sodium Potassium Chloride Carbon Dioxide BUN Creatinine Est GFR ( Amer) Est GFR (Non-Af Amer) BUN/Creatinine Ratio Glucose POC Glucose Calculated Osmolality Calcium Magnesium 2.4 Total Bilirubin 2.5 H Direct Bilirubin 1.9 H Indirect Bilirubin 0.6 AST 417 H ALT 569 H Alkaline Phosphatase 119 H Serum Total Protein 5.3 L Albumin 2.5 L Globulin 2.8 Albumin/Globulin Ratio 0.9 L 06/04/19 03:50 WBC RBC Hgb Hct MCV MCH MCHC RDW Plt Count MPV Immature Gran % Seg Neutrophils % Lymphocytes % Monocytes % Eosinophils % Basophils % Neutrophils # Lymphocytes # Monocytes # Eosinophils # Basophils # Nucleated RBCs/100 WBC Platelet Estimate Immature Plt Fraction PT INR Sodium 146 H Potassium 5.7 H Chloride 112 H Carbon Dioxide 18 L BUN 111 H Creatinine 3.50 H Est GFR ( Amer) 21 L Est GFR (Non-Af Amer) 17 L BUN/Creatinine Ratio 32 H Glucose 240 H POC Glucose Calculated Osmolality 345 H Calcium 7.5 L Magnesium Total Bilirubin Direct Bilirubin Indirect Bilirubin AST ALT Alkaline Phosphatase Serum Total Protein Albumin Globulin Albumin/Globulin Ratio - ABG Interpretation ABG results: ABG ABG pH 7.36 pH Units (7.32-7.45) 06/03/19 04:37 ABG pCO2 33 mmHg (35-45) L 06/03/19 04:37 ABG pO2 89 mmHg (85-104) 06/03/19 04:37 ABG O2 Saturation 97 % (95-98) 06/03/19 04:37 PT/INR, D-dimer PT 14.8 Seconds (9.4-12.1) H 06/04/19 03:50 Consult Discharge Plan - Plan Referrals: Neva,Mj Alas MD [Primary Care Provider] -
[2019-06-04] MEDS ORDERED: Ondansetron 4 MG/2 ML VIAL IVP PRN (14:03)
[2019-06-04] MEDS ORDERED: *HR* Heparin 5,000 UNIT/ML VIAL SQ SCH (16:00)
[2019-06-04] MEDS ORDERED: Hydrocortisone Sodium Succ 100 MG/2 ML VIAL IVP SCH (16:00)
[2019-06-05] MEDS: FentaNYL (PF) 1,000 MCG in 0.9 % Sodium Chloride 80 ML IVC SCH ×3 (02:44→16:42)
[2019-06-05] MEDS: Atropine Sulfate 1% 40 DROP/2 ML BOTTLE SL PRN ×6 (02:47→23:10)
[2019-06-05] MEDS ORDERED: Pantoprazole 40 MG VIAL IVP SCH (06:30)
[2019-06-05] MEDS: Budesonide/Formoterol 160/4.5 1 PUFF INH IH SCH ×2 (07:45→20:12)
[2019-06-05] MEDS: *HR* LORazepam 2 MG/ML VIAL IVP PRN ×3 (08:24→18:43)
[2019-06-05] MEDS ORDERED: Aspirin 81 MG TAB.CHEW PO SCH (09:00)
--- NOTE | 2019-06-05 09:10 | Internal Med Progress Note ---
Hospitalist Progress Note - Encounter Date of Encounter: 06/05/19 Time of Encounter: 09:00 - Subjective Interval History: Transferred from the ICU to the floor overnight. Terminally extubated - Exam Vitals: Temp Pulse Resp BP Pulse Ox 97.9 F 99 20 97/66 90 06/05/19 08:01 06/05/19 08:01 06/05/19 08:01 06/05/19 08:01 06/05/19 08:01 Exam: General appearance: no acute distress Eyes: nonicteric ENT: oropharynx moist Effort: normal Auscultation: bilateral: clear Cardiovascular: regular rate and rhythm Gastrointestinal: normoactive bowel sounds, non-distended Integumentary: normal Extremities: no cyanosis, no edema, no clubbing Musculoskeletal: no deformities, ROM normal unable to assess due to mental status - Assessment and Plan (1) Acute and chronic respiratory failure with hypoxia Current Visit: Yes Status: Acute Assessment and Plan: came in for acute on chronic hypoxic resp failure 2/2 to COPD exacerbation and pneumonia Intubated for respiratory failure s/p compassionate extubation. Palliative care on board and patient is comfort care (2) Severe sepsis Current Visit: Yes Status: Acute Assessment and Plan: HAd septic shock 2/2 to pneumonia. Antibiotics have been discontinued (3) Elevated troponin Current Visit: Yes Status: Acute Assessment and Plan: Likely 2/2 to NSTEMI. Comfort care (4) Type 2 diabetes mellitus Current Visit: Yes Status: Chronic Assessment and Plan: 1. Hold oral home meds. 2. Monitor glucose levels and order SSI. 3. Adjust insulin dosing as necessary. (5) Acute kidney failure Current Visit: Yes Status: Acute Assessment and Plan: 1. Likely due to sepsis and dehydration. 2. Supportive measures and fluid resuscitation as above. Comfort care now (6) DVT prophylaxis Current Visit: Yes Status: Acute Assessment and Plan: 1. Heparin SQ. - Time Spent with Patient Total time spent is greater than 50% in coordination of care (as documented) at patient's floor/unit and/or counseling patient: Internal Medicine: Result - Labs CBC & Chem 7: 06/04/19 03:50 06/04/19 03:50 - ABG Interpretation ABG results: ABG ABG pH 7.36 pH Units (7.32-7.45) 06/03/19 04:37 ABG pCO2 33 mmHg (35-45) L 06/03/19 04:37 ABG pO2 89 mmHg (85-104) 06/03/19 04:37 ABG O2 Saturation 97 % (95-98) 06/03/19 04:37 PT/INR, D-dimer PT 14.8 Seconds (9.4-12.1) H 06/04/19 03:50 Consult Discharge Plan - Plan Referrals: Neva,Mj Alas MD [Primary Care Provider] - (4) Type 2 diabetes mellitus Qualifiers: Diabetes mellitus residential insulin use: without intermediate accountant use Diabetes mellitus complication status: with ophthalmic complications Diabetes mellitus complication detail: with cataract Qualified Code(s): E11.36 - Type 2 diabetes mellitus with diabetic cataract (5) Acute kidney failure Qualifiers: Qualified Code(s): N17.9 - Acute kidney failure, unspecified
[2019-06-05] MEDS ORDERED: Haloperidol Lactate 5 MG/ML VIAL IVP PRN (10:07)
--- NOTE | 2019-06-05 10:41 | Palliative Progress Note ---
Date of Encounter: 06/05/19 Time of Encounter: 10:00 - Assessment and plan (1) Advance care planning Current Visit: Yes Status: Acute Assessment and plan: Family surrounding patient. They unanimously want comfort care only at this point. Discussed that anxiety medication will need to be increased for pt's comfort. Patient appears to be actively dying, will keep on hospitalist team, PC will continue to assist in management. (2) Palliative care encounter Current Visit: Yes Status: Acute (3) Acute and chronic respiratory failure with hypoxia Current Visit: Yes Status: Acute Assessment and plan: s/p compassionate extubation, increased secretions on scopolamine patch and atropine prn in place On fentanyl drip 100mcg/hr, will add prn doses Ativan 2 mg q2hrs IV in place. (4) CAP (community acquired pneumonia) Current Visit: No Status: Acute Assessment and plan: Patient is in MOF due to severe sepsis. ABX in place, but worsening leukocytosis. Arturo d/c ABX Qualifiers: Laterality: unspecified laterality Qualified Code(s): J18.9 - Pneumonia, unspecified organism (5) Septic shock Current Visit: Yes Status: Acute - Time Spent With Patient Total time spent is greater than 50% in coordination of care (as documented) at patient's floor/unit and/or counseling patient: 25 - 35 minutes - Subjective Interval history: Patient was agitated, not opening eyes, but moaning and groaning. Family appeared very distressed and asking for pt's comfort. - Constitutional Vitals: Abnormal lab results WBC 12.0 K/mcL (4.3-11.1) H 06/04/19 03:50 RBC 2.63 M/mcL (4.19-5.50) L 06/04/19 03:50 Hgb 8.0 g/dL (12.9-16.9) L 06/04/19 03:50 Hct 25.1 % (37.5-50.1) L 06/04/19 03:50 MCHC 31.2 g/dL (31.6-35.5) L 06/02/19 02:42 RDW 17.2 % (11.5-14.5) H 06/04/19 03:50 Plt Count 77 K/mcL (140-400) L 06/04/19 03:50 Band Neutrophils % 32.0 % (0-4) H 05/31/19 16:26 Neutrophils # 10.9 K/mcL (1.6-8.9) H 06/04/19 03:50 Nucleated RBCs/100 WBC 0.4 /100 WBC (0) H 06/04/19 03:50 Reactive Lymphocytes Present (Not Present) A 05/31/19 16:26 Platelet Estimate Slight Decrease (Normal) L 06/04/19 03:50 Polychromasia 1+ (Not Present) A 06/03/19 03:00 PT 14.8 Seconds (9.4-12.1) H 06/04/19 03:50 APTT 23.9 Seconds (26.0-36.0) L 05/31/19 16:26 ABG pH 7.28 pH Units (7.32-7.45) L 06/02/19 04:58 ABG pCO2 33 mmHg (35-45) L 06/03/19 04:37 ABG pO2 72 mmHg (85-104) L 06/01/19 06:16 ABG HCO3 18 mEq/L (21-27) L 06/03/19 04:37 ABG Total CO2 19 mEq/L (20-26) L 06/03/19 04:37 ABG O2 Saturation 93 % (95-98) L 06/01/19 06:16 ABG Base Excess -6 mEq/L (-2 to 3) L 06/03/19 04:37 VBG pO2 24 mmHg (25-50) L 05/31/19 18:18 Sodium 146 mEq/L (136-145) H 06/04/19 03:50 Potassium 5.7 mEq/L (3.5-5.1) H 06/04/19 03:50 Chloride 112 mEq/L (98-107) H 06/04/19 03:50 Carbon Dioxide 18 mEq/L (23-29) L 06/04/19 03:50 BUN 111 mg/dL (8-23) H 06/04/19 03:50 Creatinine 3.50 mg/dL (0.70-1.30) H 06/04/19 03:50 Est GFR ( Amer) 21 (> 60) L 06/04/19 03:50 Est GFR (Non-Af Amer) 17 (> 60) L 06/04/19 03:50 BUN/Creatinine Ratio 32 (6-26) H 06/04/19 03:50 Glucose 240 mg/dL (70-105) H 06/04/19 03:50 POC Glucose 178 mg/dL (70-99) H 06/03/19 15:29 Hemoglobin A1c 6.9 % (-5.6) H 05/31/19 17:55 Calculated Osmolality 345 (280-300) H 06/04/19 03:50 Lactic Acid 4.2 mmol/L (0.5-2.2) H* 05/31/19 17:55 Calcium 7.5 mg/dL (8.6-10.3) L 06/04/19 03:50 Total Bilirubin 2.5 mg/dL (0.3-1.0) H 06/04/19 03:50 Direct Bilirubin 1.9 mg/dL (0.0-0.2) H 06/04/19 03:50 AST 417 Units/L (13-39) H 06/04/19 03:50 ALT 569 Units/L (7-52) H 06/04/19 03:50 Alkaline Phosphatase 119 Units/L (34-104) H 06/04/19 03:50 Troponin I 0.19 ng/mL (< 0.04) H* 06/01/19 09:50 Serum Total Protein 5.3 g/dL (6.4-8.9) L 06/04/19 03:50 Albumin 2.5 g/dL (3.5-5.7) L 06/04/19 03:50 Albumin/Globulin Ratio 0.9 (1.1-2.2) L 06/04/19 03:50 Procalcitonin 12.80 ng/mL (0.00-0.15) H 05/31/19 21:42 Ur Specimen Adequacy See below A 05/31/19 18:00 Urine Protein 100 mg/dL (Neg-Trace) H 05/31/19 18:00 Ur Culture Indicated? YES (NO) A 05/31/19 18:00 Exam: agitated, moaning and groaning. - Head Head Exam: Present: atraumatic - ENT ENT exam: Present: mucous membranes dry - Respiratory Respiratory exam: Present: decreased breath sounds Additional comments: Heavy mouth breathing, audible secretions in upper airways. - Cardiovascular Cardiovascular exam: Present: RRR, +S1, +S2 - GI/Abdominal Exam GI/Abdominal exam: Present: normal bowel sounds, soft - Extremities Exam Extremities exam: Present: normal capillary refill, normal inspection. Absent: pedal edema - Neurological Exam Additional comments: sedated, grimacing to pain. - Skin Additional comments: ecchymoses on RUE improving Palliative Quality Palliative Quality: Screen for Code Status: Yes, Screen for Goals of Care: Yes, Screen for Pain: Yes, If Pain Regimen Started, Initiate Bowel Regimen: NA, Screen for Nausea/Vomitting: NA Code Status: 05/31/19 20:08 Resuscitation Status: Active [RES] Routine Comment: Resuscitation Status: Full Code 06/02/19 18:05 CODE [Resuscitation Status: Active] [RES] Routine Comment: Resuscitation Status: DNR-Comfort Care-Arrest 06/03/19 18:43 Resuscitation Status: Active [RES] Routine Comment: Resuscitation Status: [id number] 06/04/19 17:58 CODE [Resuscitation Status: Active] [RES] Routine Comment: Resuscitation Status: DNR-Comfort Care - Labs CBC & Chem 7: 06/04/19 03:50 06/04/19 03:50 - ABG Interpretation ABG results: ABG ABG pH 7.36 pH Units (7.32-7.45) 06/03/19 04:37 ABG pCO2 33 mmHg (35-45) L 06/03/19 04:37 ABG pO2 89 mmHg (85-104) 06/03/19 04:37 ABG O2 Saturation 97 % (95-98) 06/03/19 04:37 PT/INR, D-dimer PT 14.8 Seconds (9.4-12.1) H 06/04/19 03:50 Palliative Scale - Palliative Performance Scale How ambulatory is this patient?: Totally bed bound What is patient's level of activity and evidence of disease?: Unable to do most activity, Extensive disease How much self-care assistance does patient require?: Total care How much oral intake does the patient have?: Mouth care only What is this patient's level of consciousness?: Drowsy or coma with or without confusion Palliative Performance Score: 20 % Consult Discharge Plan - Plan Referrals: Mj Hooks MD [Primary Care Provider] -
[2019-06-06] MEDS: FentaNYL (PF) 1,000 MCG in 0.9 % Sodium Chloride 80 ML IVC SCH ×4 (00:45→20:50)
[2019-06-06] MEDS: Atropine Sulfate 1% 40 DROP/2 ML BOTTLE SL PRN ×5 (03:30→20:50)
[2019-06-06] MEDS: Budesonide/Formoterol 160/4.5 1 PUFF INH IH SCH ×2 (07:43→19:51)
--- NOTE | 2019-06-06 08:00 | Internal Med Progress Note ---
Hospitalist Progress Note - Encounter Date of Encounter: 06/06/19 Time of Encounter: 09:00 - Subjective Interval History: No acute events overnight - Exam Vitals: Temp Pulse Resp BP Pulse Ox 98.5 F 85 14 121/67 87 06/06/19 07:20 06/06/19 07:20 06/06/19 07:20 06/06/19 07:20 06/05/19 19:46 Exam: General appearance: no acute distress Eyes: nonicteric ENT: oropharynx moist Effort: normal Auscultation: bilateral: clear Cardiovascular: regular rate and rhythm Gastrointestinal: normoactive bowel sounds, non-distended Integumentary: normal Extremities: no cyanosis, no edema, no clubbing Musculoskeletal: no deformities, ROM normal unable to assess due to mental status - Assessment and Plan (1) Acute and chronic respiratory failure with hypoxia Current Visit: Yes Status: Acute Assessment and Plan: came in for acute on chronic hypoxic resp failure 2/2 to COPD exacerbation and pneumonia Intubated for respiratory failure s/p compassionate extubation. Palliative care on board and patient is comfort care Continue supportive measures and pain control (2) Severe sepsis Current Visit: Yes Status: Acute Assessment and Plan: HAd septic shock 2/2 to pneumonia. Antibiotics have been discontinued (3) Elevated troponin Current Visit: Yes Status: Acute Assessment and Plan: Likely 2/2 to NSTEMI. Comfort care (4) Type 2 diabetes mellitus Current Visit: Yes Status: Chronic Assessment and Plan: 1. Hold oral home meds. 2. Monitor glucose levels and order SSI. 3. Adjust insulin dosing as necessary. (5) Acute kidney failure Current Visit: Yes Status: Acute Assessment and Plan: 1. Likely due to sepsis and dehydration. 2. Supportive measures and fluid resuscitation as above. Comfort care now (6) DVT prophylaxis Current Visit: Yes Status: Acute Assessment and Plan: 1. Heparin SQ. - Time Spent with Patient Total time spent is greater than 50% in coordination of care (as documented) at patient's floor/unit and/or counseling patient: Internal Medicine: Result - Labs CBC & Chem 7: 06/04/19 03:50 06/04/19 03:50 - ABG Interpretation ABG results: ABG ABG pH 7.36 pH Units (7.32-7.45) 06/03/19 04:37 ABG pCO2 33 mmHg (35-45) L 06/03/19 04:37 ABG pO2 89 mmHg (85-104) 06/03/19 04:37 ABG O2 Saturation 97 % (95-98) 06/03/19 04:37 PT/INR, D-dimer PT 14.8 Seconds (9.4-12.1) H 06/04/19 03:50 Consult Discharge Plan - Plan Referrals: Neva,Mj Alas MD [Primary Care Provider] - (4) Type 2 diabetes mellitus Qualifiers: Diabetes mellitus long wall shear operator insulin use: without long wall shear operator use Diabetes mellitus complication status: with ophthalmic complications Diabetes mellitus complication detail: with cataract Qualified Code(s): E11.36 - Type 2 diabetes mellitus with diabetic cataract (5) Acute kidney failure Qualifiers: Qualified Code(s): N17.9 - Acute kidney failure, unspecified
--- NOTE | 2019-06-06 10:21 | Palliative Progress Note ---
Date of Encounter: 06/06/19 Time of Encounter: 08:40 - Assessment and plan (1) Advance care planning Current Visit: Yes Status: Acute Assessment and plan: Family surrounding patient. continuing comfort care. Patient appears to be actively dying, will keep on hospitalist team, PC will continue to assist in management. (2) Palliative care encounter Current Visit: Yes Status: Acute (3) Acute and chronic respiratory failure with hypoxia Current Visit: Yes Status: Acute Assessment and plan: s/p compassionate extubation, increased secretions on scopolamine patch and atropine prn in place, give one dose of glycopyrrolate On fentanyl drip 100mcg/hr, will add prn doses Ativan 2 mg q2hrs and Haldol IV in place. (4) CAP (community acquired pneumonia) Current Visit: No Status: Acute Qualifiers: Laterality: unspecified laterality Qualified Code(s): J18.9 - Pneumonia, unspecified organism (5) Septic shock Current Visit: Yes Status: Acute - Time Spent With Patient Total time spent is greater than 50% in coordination of care (as documented) at patient's floor/unit and/or counseling patient: - Subjective Interval history: Patient today is lethargic, family present at the bedside, states he no longer wakes up, but the gurgling noises are difficult to control. Expalined the concept of " rattle" and the fact that even though it is unpleasant for the family, it does not appear to bother the patient. Will give 1 dose of glycopyrrolate today. increased frequency of atropine to q1hr and add prn doses of phentanyl IV. - Constitutional Vitals: Abnormal lab results WBC 12.0 K/mcL (4.3-11.1) H 06/04/19 03:50 RBC 2.63 M/mcL (4.19-5.50) L 06/04/19 03:50 Hgb 8.0 g/dL (12.9-16.9) L 06/04/19 03:50 Hct 25.1 % (37.5-50.1) L 06/04/19 03:50 MCHC 31.2 g/dL (31.6-35.5) L 06/02/19 02:42 RDW 17.2 % (11.5-14.5) H 06/04/19 03:50 Plt Count 77 K/mcL (140-400) L 06/04/19 03:50 Band Neutrophils % 32.0 % (0-4) H 05/31/19 16:26 Neutrophils # 10.9 K/mcL (1.6-8.9) H 06/04/19 03:50 Nucleated RBCs/100 WBC 0.4 /100 WBC (0) H 06/04/19 03:50 Reactive Lymphocytes Present (Not Present) A 05/31/19 16:26 Platelet Estimate Slight Decrease (Normal) L 06/04/19 03:50 Polychromasia 1+ (Not Present) A 06/03/19 03:00 PT 14.8 Seconds (9.4-12.1) H 06/04/19 03:50 APTT 23.9 Seconds (26.0-36.0) L 05/31/19 16:26 ABG pH 7.28 pH Units (7.32-7.45) L 06/02/19 04:58 ABG pCO2 33 mmHg (35-45) L 06/03/19 04:37 ABG pO2 72 mmHg (85-104) L 06/01/19 06:16 ABG HCO3 18 mEq/L (21-27) L 06/03/19 04:37 ABG Total CO2 19 mEq/L (20-26) L 06/03/19 04:37 ABG O2 Saturation 93 % (95-98) L 06/01/19 06:16 ABG Base Excess -6 mEq/L (-2 to 3) L 06/03/19 04:37 VBG pO2 24 mmHg (25-50) L 05/31/19 18:18 Sodium 146 mEq/L (136-145) H 06/04/19 03:50 Potassium 5.7 mEq/L (3.5-5.1) H 06/04/19 03:50 Chloride 112 mEq/L (98-107) H 06/04/19 03:50 Carbon Dioxide 18 mEq/L (23-29) L 06/04/19 03:50 BUN 111 mg/dL (8-23) H 06/04/19 03:50 Creatinine 3.50 mg/dL (0.70-1.30) H 06/04/19 03:50 Est GFR ( Amer) 21 (> 60) L 06/04/19 03:50 Est GFR (Non-Af Amer) 17 (> 60) L 06/04/19 03:50 BUN/Creatinine Ratio 32 (6-26) H 06/04/19 03:50 Glucose 240 mg/dL (70-105) H 06/04/19 03:50 POC Glucose 178 mg/dL (70-99) H 06/03/19 15:29 Hemoglobin A1c 6.9 % (-5.6) H 05/31/19 17:55 Calculated Osmolality 345 (280-300) H 06/04/19 03:50 Lactic Acid 4.2 mmol/L (0.5-2.2) H* 05/31/19 17:55 Calcium 7.5 mg/dL (8.6-10.3) L 06/04/19 03:50 Total Bilirubin 2.5 mg/dL (0.3-1.0) H 06/04/19 03:50 Direct Bilirubin 1.9 mg/dL (0.0-0.2) H 06/04/19 03:50 AST 417 Units/L (13-39) H 06/04/19 03:50 ALT 569 Units/L (7-52) H 06/04/19 03:50 Alkaline Phosphatase 119 Units/L (34-104) H 06/04/19 03:50 Troponin I 0.19 ng/mL (< 0.04) H* 06/01/19 09:50 Serum Total Protein 5.3 g/dL (6.4-8.9) L 06/04/19 03:50 Albumin 2.5 g/dL (3.5-5.7) L 06/04/19 03:50 Albumin/Globulin Ratio 0.9 (1.1-2.2) L 06/04/19 03:50 Procalcitonin 12.80 ng/mL (0.00-0.15) H 05/31/19 21:42 Ur Specimen Adequacy See below A 05/31/19 18:00 Urine Protein 100 mg/dL (Neg-Trace) H 05/31/19 18:00 Ur Culture Indicated? YES (NO) A 05/31/19 18:00 Exam: unresponsive - Head Head Exam: Present: atraumatic - ENT ENT exam: Present: mucous membranes dry - Respiratory Respiratory exam: Present: decreased breath sounds Additional comments: Heavy mouth breathing, audible secretions in upper airways, bradypnea. - Cardiovascular Cardiovascular exam: Present: RRR, +S1, +S2 - GI/Abdominal Exam GI/Abdominal exam: Present: normal bowel sounds, soft - Extremities Exam Extremities exam: Present: normal capillary refill, normal inspection. Absent: pedal edema - Neurological Exam Additional comments: sedated, grimacing to pain. - Skin Additional comments: ecchymoses on RUE improving Palliative Quality Palliative Quality: Screen for Code Status: Yes, Screen for Goals of Care: Yes, Screen for Pain: Yes, If Pain Regimen Started, Initiate Bowel Regimen: NA, Screen for Nausea/Vomitting: NA Code Status: 05/31/19 20:08 Resuscitation Status: Active [RES] Routine Comment: Resuscitation Status: Full Code 06/02/19 18:05 CODE [Resuscitation Status: Active] [RES] Routine Comment: Resuscitation Status: DNR-Comfort Care-Arrest 06/03/19 18:43 Resuscitation Status: Active [RES] Routine Comment: Resuscitation Status: [id number] 06/04/19 17:58 CODE [Resuscitation Status: Active] [RES] Routine Comment: Resuscitation Status: DNR-Comfort Care - Labs CBC & Chem 7: 06/04/19 03:50 06/04/19 03:50 - ABG Interpretation ABG results: ABG ABG pH 7.36 pH Units (7.32-7.45) 06/03/19 04:37 ABG pCO2 33 mmHg (35-45) L 06/03/19 04:37 ABG pO2 89 mmHg (85-104) 06/03/19 04:37 ABG O2 Saturation 97 % (95-98) 06/03/19 04:37 PT/INR, D-dimer PT 14.8 Seconds (9.4-12.1) H 06/04/19 03:50 Palliative Scale - Palliative Performance Scale How ambulatory is this patient?: Totally bed bound What is patient's level of activity and evidence of disease?: Unable to do most activity, Extensive disease How much self-care assistance does patient require?: Total care How much oral intake does the patient have?: Mouth care only What is this patient's level of consciousness?: Drowsy or coma with or without confusion Palliative Performance Score: 20 % Consult Discharge Plan - Plan Referrals: Ucci,Mj F, MD [Primary Care Provider] -
[2019-06-06] MEDS ORDERED: Glycopyrrolate 0.2 MG/ML VIAL IVP ONE (10:24)
[2019-06-06] MEDS ORDERED: *HR* FentaNYL (PF) 100 MCG/2 ML VIAL IVP PRN (10:25)
[2019-06-06] MEDS: *HR* LORazepam 2 MG/ML VIAL IVP PRN (10:41)
[2019-06-06 22:11] VITALS: BP 94/56
--- NOTE | 2019-06-07 04:28 | Death Note ---
Pronouncement Note - Date and Time of Date of : 06/06/19 Time of : 22:55 - PCOD Preliminary cause of : Cardiac arrest - Additional Data Confirmation of : no pulse, no respirations, no heart sounds Family: at bedside Additional persons at bedside: sales support advisor Attending/PCP notified?: Yes Attending physician: Lexie Green Was code activated?: No Autopsy requested?: No eligibility examiner notified?: No Organ bank notified?: No Advance directives: No
--- NOTE | 2019-06-07 04:29 | Death Note ---
Discharge Sum: Summary - Date and Time Date of admission: 05/31/19 19:11 Date of : 06/06/19 Time of : 22:55 - Summary Details: Patient is an 78-year-old male that presents to the ER complaining of weakness on arrival he was febrile and in respiratory distress. The patient was found to be septic secondary to pneumonia. Recieved IV fluids, antibiotics and was intubated then promptly sent to the ICU. Pulmonology was consulted due to his poor respiratory status on ventilation. during admission patient continued to require pressors and fluids to maintain his blood pressure and heart rate. Palliative care was consulted to discuss code status with family who then decided on comfort care only due to poor prognosis. Patient was transitioned to floor where Palliative care provided comfort care until time of . - Additional Data Confirmation of as documented by pronouncing clinician: no pulse, no respirations, no heart sounds Family: at bedside Additional persons at bedside: service writer advisor Attending/PCP notified?: Yes Attending physician: Lexie Green Was code activated?: No Autopsy requested?: No motion picture film examiner notified?: No Organ bank notified?: No Advance directives: No Hospice patient?: No Discharge Sum: Diag - PCOD Probable Cause of : Cardiac arrest Discharge Sum: Prov - Provider Primary care physician: Mj Hooks MD Admitting clinician: Lexie Green Attending physician on admission: Lexie Green Consults: 05/31/19 20:08 Consult to Nutrition [CONS] Routine Comment: Consulting Provider: NUTRITION Reason for Dietary Consult: Tube Feed Start & Manage 05/31/19 20:41 Consult to Pulmonology [CONS] Routine Consulting Provider: Pulm Crit [facility] [place] Reason for Consult: icu/vent management Call Completed: No 05/31/19 22:03 Consult to Cardiology [CONS] Routine Comment: Consulting Provider: Cardiology Eliana Reason for Consult: troponin elevation; sepsis Call Completed: No 06/01/19 11:52 Consult to Palliative Care [CONS] Routine Comment: Consulting Provider: Palliative Care Eliana Reason for Consult: Code status, possible DNI Call Completed: Yes 06/02/19 11:17 Consult to Nephrology [CONS] Routine Consulting Provider: Kidney Eliana/[place]/GERALDINE/ALMA Reason for Consult: Worsening kidney function, hyperkalemia, septic shock, concern for potential dialysis Call Completed: Yes 06/03/19 10:26 Consult to Nutrition [CONS] Routine Comment: Consulting Provider: NUTRITION Reason for Dietary Consult: Tube Feed Start & Manage Pronouncing clinician: Teresa Silva
[2019-06-07] MEDS ORDERED: Scopolamine Patch 1.5 MG PATCH.TD72 TD SCH (09:00)
== END 2019-06-06 22:55 | disposition expired | DRG 871 ==
LOC: EMEROOARM 16:06 → ICNU 19:11 → 2ANU 06-04 17:47
PROVIDERS: ADMIT Internal Medicine Nephrology; ATTEND Internal Medicine Nephrology